=== PATIENT | female | born 1950 | race Caucasian/White ===

== ENCOUNTER 2016-07-04 22:19 | Inpatient (IN) | payer MEDICARE, MEDICAID ==
[~2016-07-04] VITALS: Ht 162.6 cm; Wt 76.7 kg
[~2016-07-04 22:19] MED LIST: ACET325T38 PO; AMIO100T4 PO; AMOX500T2 PO; CHOL10002 PO; CYAN100053 INJ; LEVO150T6 PO; LITH300C PO; LORA1TAB PO; MAGN-47 PO; OLAN10TA19 PO; ONDA4TAB11 PO; RISP3TAB PO; TRIH2TAB2 PO
[2016-07-04 22:43] LABS: BASOPHILS % (AUTO) 0 % (0-10); EOSINOPHILS % (AUTO) 0 % (0-10); LYMPHOCYTES # (AUTO) 0.8 X 10^3 (1.0-4.0); LYMPHOCYTES % (AUTO) 5 % (12-44); MEAN CORPUSCULAR HEMOGLOBIN 28 PG (25-34); MEAN CORPUSCULAR HGB CONC 32 G/DL (32-36); MEAN CORPUSCULAR VOLUME 86 FL (80-99); MEAN PLATELET VOLUME 9.7 FL (7.4-10.4); MONOCYTES # (AUTO) 0.8 X 10^3 (0.0-1.0); MONOCYTES % (AUTO) 5 % (0-12); NEUTROPHILS # (AUTO) 14.1 X 10^3 (1.8-7.8); NEUTROPHILS % (AUTO) 90 % (42-75); PLATELET COUNT 327 10^3/uL (130-400); RED BLOOD COUNT 4.19 10^6/uL (4.35-5.85); RED CELL DISTRIBUTION WIDTH 14.7 % (10.0-14.5); WHITE BLOOD COUNT 15.8 10^3/uL (4.3-11.0)
[2016-07-04 22:46] LABS: INR 1.1 (0.8-1.4); PROTHROMBIN TIME PATIENT 13.8 SEC (12.2-14.7)
[2016-07-04 22:56] LABS: ALANINE AMINOTRANSFERASE 15 U/L (0-55); ALBUMIN 3.4 G/DL (3.2-4.5); ANION GAP 8 MMOL/L (5-14); ASPARTATE AMINO TRANSFERASE 18 U/L (5-34); BILIRUBIN,TOTAL 0.6 MG/DL (0.1-1.0); BLOOD UREA NITROGEN 19 MG/DL (7-18); BUN/CREATININE RATIO 23; CALCIUM 8.4 MG/DL (8.5-10.1); CARBON DIOXIDE 25 MMOL/L (21-32); CHLORIDE 108 MMOL/L (98-107); CREATININE SERUM 0.84 MG/DL (0.60-1.30); GFR ESTIMATED > 60; GLUCOSE 119 MG/DL (70-105); POTASSIUM 3.8 MMOL/L (3.6-5.0); SODIUM 141 MMOL/L (135-145); TOTAL PROTEIN 6.2 G/DL (6.4-8.2)
[2016-07-04 23:24] LABS: BAND NEUTROPHILS 0 %; BASOPHILS % (MANUAL) 0 %; EOSINOPHILS % (MANUAL) 0 %; LYMPHOCYTES % (MANUAL) 10 %; NEUTROPHILS % (MANUAL) 88 %
[2016-07-04] MEDS ORDERED: CEFEPIME INJECTION 2,000 MG in NORMAL SALINE (BAXTER MINI) 50 ML IV ONE (23:30)
--- NOTE | 2016-07-05 | ED Respiratory ---
General Chief Complaint: Respiratory Problems Stated Complaint: SOA Nursing Triage Note: patient brought in by EMS with complaints of fever and SOA from [facility] Source: patient Exam Limitations: no limitations History of Present Illness Time seen by provider: 22:35 Initial Comments Elizabeth presents to the emergency room from the [facility] via EMS she was found to have a temperature of 101.3 and cough. She subjectively felt very warm upon arrival a measurable fever could not be obtained. She was recently dismissed from a psychiatric facility and has significant behavioral issues. She repeatedly refers to her 's suicide and her belief that "he is going to hot me for the rest of my days". She denies specific physical complaints. Coarse cough is noted. Allergies and Home Medications Allergies Coded Allergies: belladonna alkaloids (Verified Allergy, Mild, 10/11/14) meperidine (Verified Allergy, Mild, 10/11/14) Uncoded Allergies: pectin (Allergy, Mild, 10/11/14) Home Medications Acetaminophen 325 Mg Tablet 650 MG PO Q4H PRN PRN PAIN (Reported) TAKES 2 (325MG) TABLETS Amiodarone HCl 200 Mg Tablet 200 MG PO DAILY (Reported) Bisacodyl 5 Mg Tablet.dr 5 MG PO DAILY (Reported) Cholecalciferol 1,000 Unit Tab 2,000 UNIT PO DAILY (Reported) Clozapine 100 Mg Tablet 100 MG PO TID (Reported) Diphenhydramine HCl 25 Mg Capsule 25 MG PO PRN (Reported) Docusate Sodium 100 Mg Capsule 100 MG PO Q12H (Reported) Hyoscyamine Sulfate 0.125 Mg Tablet 0.125 MG PO Q12H (Reported) Levothyroxine Sodium 150 Mcg Tablet 150 MCG PO DAILY (Reported) Magnesium Hydroxide 400 Mg/5 Ml Oral.susp 30 ML PO DAILY PRN PRN CONSTIPATION ( Reported) Olanzapine 10 Mg Tablet 20 MG PO HS (Reported) Ondansetron 4 Mg Tab.rapdis 4 MG PO Q6H PRN PRN NAUSEA/VOMITING (Reported) Polyethylene Glycol 3350 17 Gm Powd.pack 17 GM PO DAILY (Reported) Trazodone HCl 50 Mg Tablet 50 MG PO HS (Reported) Trazodone HCl 50 Mg Tablet 50 MG PO HS (Reported) Trihexyphenidyl Hcl 2 Mg Tablet 2 MG PO TID (Reported) Constitutional: see HPI EENTM: no symptoms reported Respiratory: see HPI Cardiovascular: no symptoms reported Gastrointestinal: no symptoms reported Genitourinary: no symptoms reported Musculoskeletal: no symptoms reported Skin: no symptoms reported Psychiatric/Neurological: See HPI Hematologic/Lymphatic: No Symptoms Reported Past Atvvexm-Xksksa-Ezsgde Hx Patient Social History Alcohol Use: Denies Use Recreational Drug Use: No Smoking Status: Never a Smoker Recent Foreign Travel: No Contact w/Someone Who Travel: No Recent Infectious Disease Expo: No Recent Hopitalizations: No Physical Abuse Screen: No Sexual Abuse: No Immunizations Up To Date Tetanus Booster (TDap): Unknown Date of Pneumonia Vaccine: Feb 12, 2008 Surgeries HX Surgeries: No (no known surgeries) Respiratory Hx Respiratory Disorders: No Cardiovascular Hx Cardiac Disorders: Yes Cardiac Disorders: Atrial Fibrillation Neurological Hx Neurological Disorders: Yes (MENTAL RETARDATION, dysphagia) Neurological Disorders: Dementia, Parkinson's Disease Genitourinary Hx Genitourinary Disorders: Yes (INCONTINENCE WEARS ATTENDS, history of urinary tract infection) Gastrointestinal Hx Gastrointestinal Disorders: Yes Gastrointestinal Disorders: Chronic Constipation Musculoskeletal Hx Musculoskeletal Disorders: No Endocrine Hx Endocrine Disorders: Yes Endocrine Disorders: Hypothyroidsim HEENT HX ENT Disorders: No Cancer Hx Cancer: No Psychosocial Hx Psychiatric Problems: Yes Behavioral Health Disorders: Anxiety, Schizophrenia, Depression Integumentary HX Skin/Integumentary Disorder: No Blood Transfusions Hx Blood Disorders: No Adverse Reaction to a Blood Tr: No Family Medical History Family Medial History: Patient reports no known family medical history. Physical Exam Vital Signs Vital Sign - Last 12Hours 07/04/16 22:21 Temp 99.6 Pulse 84 Resp 20 B/P 129/99 Pulse Ox 96 O2 Delivery Nasal Cannula O2 Flow Rate 2 Capillary Refill : Less Than 3 Seconds General Appearance: WD/WN no apparent distress HEENT: PERRL/EOMI normal ENT inspection Neck: normal inspection Respiratory: lungs clear normal breath sounds no respiratory distress no accessory muscle use Cardiovascular: regular rate, rhythm no edema no murmur Gastrointestinal: normal bowel sounds non tender soft Extremities: normal inspection no pedal edema Neurologic/Psychiatric: enchilada maker II-XII nml as tested no motor/sensory deficits alert other (patient is perseverating about being haunted by her who committed suicide.) Skin: normal color warm/dry Progress/Results/Core Measures Results/Orders Lab Results Laboratory Tests Test 07/04/16 22:28 Range/Units Activated Partial Thromboplast Time 32 24-35 SEC Alanine Aminotransferase (ALT/SGPT) 15 0-55 U/L Albumin 3.4 3.2-4.5 G/DL Alkaline Phosphatase 105 40-136 U/L Anion Gap 8 5-14 MMOL/L Aspartate Amino Transf (AST/SGOT) 18 5-34 U/L BUN/Creatinine Ratio 23 Band Neutrophils 0 % Basophils # (Auto) 0.0 0.0-0.1 10^3/uL Basophils % (Manual) 0 % Basophils (%) (Auto) 0 0-10 % Blood Morphology Comment NORMAL Blood Urea Nitrogen 19 H 7-18 MG/DL Calcium Level 8.4 L 8.5-10.1 MG/DL Carbon Dioxide Level 25 21-32 MMOL/L Chloride Level 108 H 98-107 MMOL/L Creatinine 0.84 0.60-1.30 MG/DL Eosinophils # (Auto) 0.0 0.0-0.3 10^3/uL Eosinophils % (Manual) 0 % Eosinophils (%) (Auto) 0 0-10 % Estimat Glomerular Filtration Rate > 60 Glucose Level 119 H 70-105 MG/DL Hematocrit 36 35-52 % Hemoglobin 11.6 11.5-16.0 G/DL INR Comment 1.1 0.8-1.4 Lactic Acid Level 1.1 0.5-2.0 MMOL/L Lymphocytes # (Auto) 0.8 L 1.0-4.0 X 10^3 Lymphocytes % (Manual) 10 % Lymphocytes (%) (Auto) 5 L 12-44 % Mean Corpuscular Hemoglobin 28 25-34 PG Mean Corpuscular Hemoglobin Concent 32 32-36 G/DL Mean Corpuscular Volume 86 80-99 FL Mean Platelet Volume 9.7 7.4-10.4 FL Monocytes # (Auto) 0.8 0.0-1.0 X 10^3 Monocytes % (Manual) 2 % Monocytes (%) (Auto) 5 0-12 % Neutrophils # (Auto) 14.1 H 1.8-7.8 X 10^3 Neutrophils % (Manual) 88 % Neutrophils (%) (Auto) 90 H 42-75 % Platelet Count 327 130-400 10^3/uL Potassium Level 3.8 3.6-5.0 MMOL/L Prothrombin Time 13.8 12.2-14.7 SEC Red Blood Count 4.19 L 4.35-5.85 10^6/uL Red Cell Distribution Width 14.7 H 10.0-14.5 % Sodium Level 141 135-145 MMOL/L Total Bilirubin 0.6 0.1-1.0 MG/DL Total Protein 6.2 L 6.4-8.2 G/DL White Blood Count 15.8 H 4.3-11.0 10^3/uL Micro Results Microbiology 07/04/16 Influenza Types A,B Antigen (MILADYS) - Final, Complete My Orders Orders-NAHUN STUBBS MD Cbc With Automated Diff (07/04/16 22:35) Comprehensive Metabolic Panel (07/04/16 22:35) Lactic Acid Analyzer (07/04/16 22:35) Blood Culture (07/04/16 22:35) Sputum Culture (07/04/16 22:35) Ua Culture If Indicated (07/04/16 22:35) Protime With Inr (07/04/16 22:35) Partial Thromboplastin Time (07/04/16 22:35) Chest 1 View, Ap/Pa Only (07/04/16 22:35) O2 (07/04/16 22:35) Saline Lock/Iv-Start (07/04/16 22:35) Saline Lock/Iv-Start (07/04/16 22:35) Vital Signs Adult Sepsis Patie Q1HR (07/04/16 22:35) Remove Rings In Anticipation O (07/04/16 22:35) Influenza A And B Antigens (07/04/16 22:35) Manual Differential (07/04/16 22:28) Ekg Tracing (07/04/16 23:16) Cefepime Injection (Maxipime Injection) (07/04/16 23:30) [place] Level (07/04/16 23:56) Medications Given in ED Current Medications Medications Dose Ordered Sig/Ayde Route Start Time Stop Time Status Last Admin Dose Admin Cefepime HCl/ Sodium Chloride 50 ml @ 100 mls/hr ONCE ONCE IV 07/04/16 23:30 07/04/16 23:59 DC 07/04/16 23:36 100 MLS/HR Vital Signs/I&O Vital Sign - Last 12Hours 07/04/16 07/04/16 22:21 22:21 Temp 99.6 Pulse 84 Resp 20 B/P 129/99 Pulse Ox 96 96 O2 Delivery Nasal Cannula Nasal Cannula O2 Flow Rate 2 3 Blood Pressure Mean: 109 Progress Note : Progress Note Septic workup was pursued. Influenza screen was negative. Pneumonia was found on chest x-ray. Cefepime was initiated in the emergency room after blood cultures were drawn. Patient did not meet SIRS arterial for sepsis diagnosis. ECG Initial ECG Impression Date: Jul 04, 2016 Initial ECG Impression Time: 23:23 Initial ECG Rate: 80 Comment Sinus rhythm with artifact versus atrial fibrillation. QRS complexes are perfectly regular. Rhythm is likely sinus with artifact. No distinct ST elevation or depression. Diagnostic Imaging Diagonstic Imaging: Xray Plain Films/CT/US/NM/MRI: chest Comments Chest x-ray viewed by me. Report not yet available. Infiltrate in the right lower lung suggests pneumonia. Departure Communication Time/Spoke to Admitting Phy: 23:58 Communication Krystle Impression Impression: Primary Impression: Pneumonia Qualified Code: J18.1 - Lobar pneumonia, unspecified organism Disposition: ADMITTED INPATIENT Condition: Improved Decision to Admit Reason: Admit from ER (General) Decision to Admit/Date: Jul 04, 2016 Time/Decision to Admit Time: 23:30 Departure-Patient Inst. Referrals: ALBANIA RENTERIA DO (PCP) Primary Care Physician NAHUN STUBBS MD Jul 05, 2016 00:00
[2016-07-05] MEDS ORDERED: NS IV 1000 ML 1,000 ML ONE (00:47)
[2016-07-05] MEDS ORDERED: VANCOMYCIN 1 GM/NS 250 ML IVPB IV SCH ×2 (01:00)
[2016-07-05] MEDS ORDERED: ACETAMINOPHEN 500 MG TAB (TYLENOL) PO PRN (01:00)
[2016-07-05] MEDS: NS IV 1000 ML 1,000 ML IV SCH ×3 (01:10→20:58)
[2016-07-05] MEDS: LEVOFLOXACIN 750 MG/150 ML D5W (PRE-MIX) IV SCH (01:12)
[2016-07-05 01:30] LABS: BILIRUBIN,URINE NEGATIVE (NEGATIVE); KETONES,URINE NEGATIVE (NEGATIVE); LEUKOCYTE ESTERASE ,URINE NEGATIVE (NEGATIVE); NITRITE,URINE NEGATIVE (NEGATIVE); PH,URINE 6.5 (5-9); PROTEIN,URINE NEGATIVE (NEGATIVE); UROBILINOGEN,URINE NORMAL (NORMAL)
[2016-07-05 01:50] LABS: SQUAMOUS EPITHELIAL CELL,UR RARE /HPF
[2016-07-05] MEDS ORDERED: RT-ALBUTEROL/IPRATROPIUM 3 ML (DUONEB) VIAL INH PRN (02:30)
[2016-07-05 03:46] VITALS: BP 186/81
[2016-07-05] MEDS ORDERED: TRAZ-28 PO (04:19)
[2016-07-05] MEDS ORDERED: AMIO200T2 PO (04:19)
[2016-07-05] MEDS ORDERED: HYOS0.1216 PO (04:19)
[2016-07-05] MEDS ORDERED: DIPH25CA79 PO (04:19)
[2016-07-05] MEDS ORDERED: BISA5TAB8 PO (04:19)
[2016-07-05] MEDS ORDERED: DOCU-143 PO (04:19)
[2016-07-05] MEDS ORDERED: POLY17PO6 PO (04:19)
[2016-07-05] MEDS ORDERED: CLOZ100T7 PO (04:19)
[2016-07-05 04:37] LABS: BASOPHILS % (AUTO) 0 % (0-10); EOSINOPHILS % (AUTO) 0 % (0-10); LYMPHOCYTES # (AUTO) 1.1 X 10^3 (1.0-4.0); LYMPHOCYTES % (AUTO) 9 % (12-44); MEAN CORPUSCULAR HEMOGLOBIN 28 PG (25-34); MEAN CORPUSCULAR HGB CONC 32 G/DL (32-36); MEAN CORPUSCULAR VOLUME 86 FL (80-99); MEAN PLATELET VOLUME 9.3 FL (7.4-10.4); MONOCYTES # (AUTO) 0.8 X 10^3 (0.0-1.0); MONOCYTES % (AUTO) 6 % (0-12); NEUTROPHILS # (AUTO) 11.1 X 10^3 (1.8-7.8); NEUTROPHILS % (AUTO) 85 % (42-75); PLATELET COUNT 291 10^3/uL (130-400); RED BLOOD COUNT 3.96 10^6/uL (4.35-5.85); RED CELL DISTRIBUTION WIDTH 14.7 % (10.0-14.5)
[2016-07-05 05:05] LABS: ALANINE AMINOTRANSFERASE 11 U/L (0-55); ANION GAP 7 MMOL/L (5-14); ASPARTATE AMINO TRANSFERASE 15 U/L (5-34); BILIRUBIN,TOTAL 0.8 MG/DL (0.1-1.0); BLOOD UREA NITROGEN 17 MG/DL (7-18); BUN/CREATININE RATIO 21; CARBON DIOXIDE 22 MMOL/L (21-32); CHLORIDE 111 MMOL/L (98-107); GFR ESTIMATED > 60; GLUCOSE 90 MG/DL (70-105); POTASSIUM 3.5 MMOL/L (3.6-5.0); SODIUM 140 MMOL/L (135-145); TOTAL PROTEIN 5.6 G/DL (6.4-8.2)
[2016-07-05] MEDS ORDERED: CATHETER FLUSH 10 ML SYR IV PRN (07:45)
[2016-07-05 08:11] VITALS: BP 120/56
[2016-07-05] MEDS ORDERED: FLU TRIvalent (5 YOA+) 2016-17 (AFLURIA) 0.5 ML IM ONE (08:15)
--- NOTE | 2016-07-05 08:16 | Diagnostic Imaging Report ---
INDICATION: Fever, shortness of air. COMPARISON: 10/11/2014. FINDINGS: The right middle lobe and medial basilar infiltrate are new findings compatible with pneumonia. There is also some pneumonia in the suprahilar left upper lobe. IMPRESSION: New bilateral infiltrates compatible with pneumonia, greater right. Dictated by: Dictated on workstation # [id number]
[2016-07-05] MEDS ORDERED: LITH300C PO (08:59)
[2016-07-05] MEDS ORDERED: ACETAMINOPHEN 325 MG TABLET/CAPLET (TYLENOL) PO PRN (09:15)
[2016-07-05] MEDS ORDERED: RSP3T PO (09:15)
[2016-07-05] MEDS: CEFEPIME 2 GM/NS 50 ML IVPB IV SCH ×4 (09:52→20:57)
[2016-07-05] MEDS: ENOXAPARIN 40 MG/0.4 ML (LOVENOX) SYR SC SCH (09:52)
--- NOTE | 2016-07-05 09:57 | History & Physicial ---
History of Present Illness History of Present Illness Reason for visit/HPI patient is a resident of a [place] [facility]. Patient had fever running an elevated temperature and coughing congested. Patient sent out to the emergency room and chest x-ray shows pneumonia of right middle lobe and left upper lobe and medial right basilar infiltrate. Patient admitted. Patient has a history of schizophrenia. Patient recently discharged from psych unit and now in [place] [facility] Date of Admission Jul 05, 2016 at 00:03 I consulted on this patient on 07/05/16 09:54 Attending Physician Armando Renteria DO Admitting Physician Armando Renteria DO Consult Allergies and Home Medications Allergies Coded Allergies: belladonna alkaloids (Verified Allergy, Mild, 10/11/14) meperidine (Verified Allergy, Mild, 10/11/14) Uncoded Allergies: pectin (Allergy, Mild, 10/11/14) Home Medications Acetaminophen 325 Mg Tablet 650 MG PO Q4H PRN PRN PAIN (Reported) TAKES 2 (325MG) TABLETS Amiodarone HCl 200 Mg Tablet 200 MG PO DAILY (Reported) Bisacodyl 5 Mg Tablet.dr 5 MG PO DAILY (Reported) Cholecalciferol 1,000 Unit Tab 2,000 UNIT PO DAILY (Reported) Clozapine 100 Mg Tablet 100 MG PO TID (Reported) Diphenhydramine HCl 25 Mg Capsule 25 MG PO PRN (Reported) Docusate Sodium 100 Mg Capsule 100 MG PO Q12H (Reported) Hyoscyamine Sulfate 0.125 Mg Tablet 0.125 MG PO Q12H (Reported) Levothyroxine Sodium 150 Mcg Tablet 150 MCG PO DAILY (Reported) [place] Carbonate 300 Mg Capsule 300 MG PO BID (Reported) Magnesium Hydroxide 400 Mg/5 Ml Oral.susp 30 ML PO DAILY PRN PRN CONSTIPATION ( Reported) Olanzapine 10 Mg Tablet 20 MG PO HS (Reported) Ondansetron 4 Mg Tab.rapdis 4 MG PO Q6H PRN PRN NAUSEA/VOMITING (Reported) Polyethylene Glycol 3350 17 Gm Powd.pack 17 GM PO DAILY (Reported) Risperidone 3 Mg Tablet 3 MG PO BID (Reported) Trazodone HCl 50 Mg Tablet 50 MG PO HS (Reported) Trazodone HCl 50 Mg Tablet 50 MG PO HS (Reported) Trihexyphenidyl Hcl 2 Mg Tablet 2 MG PO TID (Reported) Past Bqvzpxj-Cwujqo-Aqmmhn Hx Patient Social History Alcohol Use: Denies Use Recreational Drug Use: No Smoking Status: Never a Smoker Physical Abuse Screen: No Sexual Abuse: No Recent Foreign Travel: No Contact w/other who traveled: No Recent Hopitalizations: No Recent Infectious Disease Expo: No Immunizations Up To Date Tetanus Booster (TDap): Unknown Date of Pneumonia Vaccine: Feb 12, 2008 Date of Influenza Vaccine: Apr 04, 2015 Surgeries HX Surgeries: No (no known surgeries) Respiratory Hx Respiratory Disorders: No Cardiovascular Hx Cardiovascular Disorders: Yes Cardiac Disorders: Atrial Fibrillation Neurological Hx Neurological Disorders: Yes (MENTAL RETARDATION, dysphagia) Neurological Disorders: Dementia, Parkinson's Disease Genitourinary Hx Genitourinary Disorders: Yes (INCONTINENCE WEARS ATTENDS, history of urinary tract infection) Gastrointestinal Hx Gastrointestinal Disorders: Yes Gastrointestinal Disorders: Chronic Constipation Musculoskeletal Hx Musculoskeletal Disorders: No Endocrine Hx Endocrine Disorders: Yes Endocrine Disorders: Hypothyroidsim HEENT HX ENT Disorders: No Cancer Hx Cancer: No Psychosocial Hx Psychiatric Problems: Yes Behavioral Health Disorders: Anxiety, Schizophrenia, Depression Integumentary HX Skin/Integumentary Disorder: No Blood Transfusions Hx Blood Disorders: No Adverse Reaction to a Blood Tr: No Family Medical History Family Hx: Patient reports no known family medical history. Constitutional: fever weakness EENTM: no symptoms reported Respiratory: cough Cardiovascular: no symptoms reported Gastrointestinal: no symptoms reported Genitourinary: no symptoms reported Physical Exam Vital Signs Vital Sign - Last 12Hours 07/04/16 22:21 Temp 99.6 Pulse 84 Resp 20 B/P 129/99 Pulse Ox 96 O2 Delivery Nasal Cannula O2 Flow Rate 2 Capillary Refill : Less Than 3 Seconds General Appearance: No Apparent Distress WD/WN Eyes: Bilateral Eye Normal Inspection HEENT: Normal ENT Inspection Neck: Normal Inspection Non Tender Respiratory: Chest Non Tender No Accessory Muscle Use No Respiratory Distress Cardiovascular: Regular Rate, Rhythm Gastrointestinal: Non Tender Soft Assessment/Plan Assessment and Plan pneumonia. Schizophrenia Clinical Quality Measures DVT/VTE Risk/Contraindication: Risk Factor Score Per Nursin RFS Level Per Nursing on Admit: 3=High ARMANDO RENTERIA DO Jul 05, 2016 09:57
[2016-07-05] MEDS ORDERED: KCL 10 MEQ TAB (MICRO K) PO NR (10:00)
[2016-07-05] MEDS: risperiDONE 1 MG (RisperDAL) TAB PO SCH ×2 (10:01→20:57)
[2016-07-05] MEDS: RT-ALBUTEROL/IPRATROPIUM 3 ML (DUONEB) VIAL INH SCH ×3 (10:25→20:09)
[2016-07-05] MEDS: LITHIUM CARBONATE 300 MG TABLET PO SCH ×2 (10:34→20:57)
[2016-07-05 12:00] VITALS: BP 132/68
[2016-07-05] MEDS: TRIHEXYPHENIDYL 2 MG (ARTANE) TAB PO SCH ×2 (13:13→20:57)
[2016-07-05] MEDS: cloZAPine 100 MG (CLOZARIL) TAB PO SCH ×2 (13:13→20:57)
[2016-07-05] MEDS: VANCOMYCIN 1 GM/NS 250 ML IVPB IV SCH ×2 (14:19)
[2016-07-05 16:03] VITALS: BP 101/49
[2016-07-05 20:12] VITALS: BP 115/56
[2016-07-05] MEDS: traZODone 50 MG (DESYREL) TAB PO SCH (20:57)
[2016-07-05] MEDS: OLANZapine 5 MG (ZyPREXA) TAB PO SCH (20:58)
[2016-07-05] MEDS ORDERED: LITHIUM CARBONATE 300 MG TABLET PO SCH (21:00)
[2016-07-05] MEDS ORDERED: risperiDONE 1 MG (RisperDAL) TAB PO SCH (21:00)
[2016-07-05] MEDS ORDERED: RISPERIDONE 3 MG PO SCH (21:00)
[2016-07-05] MEDS ORDERED: traZODone 50 MG (DESYREL) TAB PO SCH (21:00)
[2016-07-05] MEDS ORDERED: NON-FORMULARY MEDICATION 1 EA EA (Olanzapine 20 MG) PO SCH (21:00)
[2016-07-05 23:20] VITALS: BP 137/64
[2016-07-06] MEDS: LEVOFLOXACIN 750 MG/150 ML D5W (PRE-MIX) IV SCH (00:19)
[2016-07-06] MEDS: VANCOMYCIN 1 GM/NS 250 ML IVPB IV SCH ×2 (02:13)
[2016-07-06] MEDS: NS IV 1000 ML 1,000 ML IV SCH ×2 (03:01→16:48)
[2016-07-06 03:41] VITALS: BP 119/54
[2016-07-06 04:58] LABS: BASOPHILS % (AUTO) 0 % (0-10); EOSINOPHILS % (AUTO) 0 % (0-10); LYMPHOCYTES # (AUTO) 0.9 X 10^3 (1.0-4.0); LYMPHOCYTES % (AUTO) 12 % (12-44); MEAN CORPUSCULAR HEMOGLOBIN 27 PG (25-34); MEAN CORPUSCULAR HGB CONC 31 G/DL (32-36); MEAN CORPUSCULAR VOLUME 87 FL (80-99); MEAN PLATELET VOLUME 9.8 FL (7.4-10.4); MONOCYTES # (AUTO) 0.5 X 10^3 (0.0-1.0); MONOCYTES % (AUTO) 7 % (0-12); NEUTROPHILS # (AUTO) 6.1 X 10^3 (1.8-7.8); NEUTROPHILS % (AUTO) 81 % (42-75); PLATELET COUNT 267 10^3/uL (130-400); RED BLOOD COUNT 3.77 10^6/uL (4.35-5.85); RED CELL DISTRIBUTION WIDTH 14.8 % (10.0-14.5); WHITE BLOOD COUNT 7.5 10^3/uL (4.3-11.0)
[2016-07-06 05:19] LABS: ALANINE AMINOTRANSFERASE 13 U/L (0-55); ALBUMIN 2.9 G/DL (3.2-4.5); ANION GAP 8 MMOL/L (5-14); ASPARTATE AMINO TRANSFERASE 16 U/L (5-34); BILIRUBIN,TOTAL 0.3 MG/DL (0.1-1.0); BLOOD UREA NITROGEN 15 MG/DL (7-18); BUN/CREATININE RATIO 18; CALCIUM 8.3 MG/DL (8.5-10.1); CARBON DIOXIDE 23 MMOL/L (21-32); CHLORIDE 111 MMOL/L (98-107); CREATININE SERUM 0.85 MG/DL (0.60-1.30); GFR ESTIMATED > 60; GLUCOSE 113 MG/DL (70-105); POTASSIUM 3.8 MMOL/L (3.6-5.0); SODIUM 142 MMOL/L (135-145); TOTAL PROTEIN 5.5 G/DL (6.4-8.2)
[2016-07-06] MEDS: LEVOTHYROXINE 150 MCG (LEVOTHROID) TAB PO SCH (06:18)
[2016-07-06 08:00] VITALS: BP 181/73
--- NOTE | 2016-07-06 08:19 | Progress Note (SOAP) ---
Subjective Subjective/Events-last exam pneumonia. Schizophrenia. Patient appears to be breathing better. All patient states that she this is a psych unit Objective Exam Vital Signs Date Time Temp Pulse Resp B/P Pulse Ox O2 Delivery O2 Flow Rate FiO2 07/06/16 03:41 97.6 69 18 119/54 96 Nasal Cannula 3.00 07/05/16 23:20 98.7 69 20 137/64 96 Nasal Cannula 3.00 07/05/16 21:00 Nasal Cannula 3.50 07/05/16 20:12 98.9 67 18 115/56 92 Nasal Cannula 3.50 07/05/16 20:09 92 2.00 07/05/16 16:03 98.4 66 18 101/49 99 Nasal Cannula 3.50 07/05/16 14:56 98 3.00 07/05/16 12:00 99.6 88 20 132/68 97 Nasal Cannula 3.50 07/05/16 10:25 92 3.00 07/05/16 09:00 97 Nasal Cannula 3.00 I & O 07/06/16 07:00 Intake Total 3510 ml Output Total 3650 ml Balance -140 ml Capillary Refill : Less Than 3 Seconds General Appearance: No Apparent Distress HEENT: Normal ENT Inspection Neck: Normal Inspection Respiratory: Normal Breath Sounds No Accessory Muscle Use Cardiovascular: Regular Rate, Rhythm Gastrointestinal: non tender soft Results Lab Laboratory Tests 07/06/16 04:20 Laboratory Tests 07/06/16 04:20: Alanine Aminotransferase (ALT/SGPT) 13, Albumin 2.9L, Alkaline Phosphatase 94, Anion Gap 8, Aspartate Amino Transf (AST/SGOT) 16, BUN/Creatinine Ratio 18, Basophils # (Auto) 0.0, Basophils (%) (Auto) 0, Blood Urea Nitrogen 15, Calcium Level 8.3L, Carbon Dioxide Level 23, Chloride Level 111H, Creatinine 0.85, Eosinophils # (Auto) 0.0, Eosinophils (%) (Auto) 0, Estimat Glomerular Filtration Rate > 60, Glucose Level 113H, Hematocrit 33L, Hemoglobin 10.3L, Lymphocytes # (Auto) 0.9L, Lymphocytes (%) (Auto) 12, Mean Corpuscular Hemoglobin 27, Mean Corpuscular Hemoglobin Concent 31L, Mean Corpuscular Volume 87, Mean Platelet Volume 9.8, Monocytes # (Auto) 0.5, Monocytes (%) (Auto) 7, Neutrophils # (Auto) 6.1, Neutrophils (%) (Auto) 81H, Platelet Count 267, Potassium Level 3.8, Red Blood Count 3.77L, Red Cell Distribution Width 14.8H, Sodium Level 142, Total Bilirubin 0.3, Total Protein 5.5L, White Blood Count 7.5 Microbiology 07/04/16 Blood Culture - Preliminary, Resulted No growth 07/04/16 Influenza Types A,B Antigen (MILADYS) - Final, Complete Assessment/Plan Assessment/Plan Assess & Plan/Chief Complaint pneumonia. Schizophrenia. White blood cell count better at 7500 hemoglobin 10 hematocrit 33 Diagnosis/Problems: Clinical Quality Measures DVT/VTE Risk/Contraindication: Risk Factor Score Per Nursin RFS Level Per Nursing on Admit: 3=High ALBANIA RENTERIA DO Jul 06, 2016 08:19
[2016-07-06] MEDS ORDERED: BISA10SU6 RC (08:32)
[2016-07-06] MEDS: TRIHEXYPHENIDYL 2 MG (ARTANE) TAB PO SCH ×3 (09:07→20:47)
[2016-07-06] MEDS: cloZAPine 100 MG (CLOZARIL) TAB PO SCH ×3 (09:07→20:47)
[2016-07-06] MEDS: CEFEPIME 2 GM/NS 50 ML IVPB IV SCH ×4 (09:07→20:47)
[2016-07-06] MEDS: AMIODARONE 200 MG (CORDARONE) TAB PO SCH (09:07)
[2016-07-06] MEDS: ENOXAPARIN 40 MG/0.4 ML (LOVENOX) SYR SC SCH (09:07)
[2016-07-06] MEDS: RT-ALBUTEROL/IPRATROPIUM 3 ML (DUONEB) VIAL INH SCH ×3 (09:40→23:52)
--- NOTE | 2016-07-06 09:56 | Diagnostic Imaging Report ---
INDICATION: Pneumonia. PA and lateral chest. There has been some interval improvement of the previously seen infiltrate at the right lung base. There are no effusions. Heart is not enlarged. IMPRESSION: Improving right basilar pneumonia. Dictated by: Dictated on workstation # [id number]
[2016-07-06 10:52] VITALS: BP 134/74
[2016-07-06 12:00] VITALS: BP_SYST 140; BP_SYST 163; BP_DIAS 101; BP_DIAS 64
[2016-07-06] MEDS ORDERED: TROUGH ORDER-PHARMACY XX NR (14:00)
[2016-07-06 16:00] VITALS: BP 134/85
[2016-07-06] MEDS ORDERED: ALPRAZolam 0.25 MG (XANAX) TAB PO PRN (16:45)
[2016-07-06 20:00] VITALS: BP 135/65
[2016-07-06] MEDS: traZODone 50 MG (DESYREL) TAB PO SCH (20:47)
[2016-07-06] MEDS: OLANZapine 5 MG (ZyPREXA) TAB PO SCH (20:47)
[2016-07-06] MEDS ORDERED: HALOPERIDOL 5 MG/ML (HALDOL) AMP ONE ×2 (21:18→23:34)
[2016-07-06] MEDS ORDERED: HALOPERIDOL 5 MG/ML (HALDOL) AMP IM ONE ×2 (21:30→23:45)
[2016-07-07] VITALS: BP 179/77
[2016-07-07] MEDS: LEVOFLOXACIN 750 MG/150 ML D5W (PRE-MIX) IV SCH (01:03)
[2016-07-07] MEDS: NS IV 1000 ML 1,000 ML IV SCH ×2 (03:00→05:27)
[2016-07-07] MEDS ORDERED: LORazepam INJ 2 MG/ML (ATIVAN) VIAL IV PRN (03:00)
[2016-07-07 04:15] VITALS: BP 152/77
[2016-07-07] MEDS: LEVOTHYROXINE 150 MCG (LEVOTHROID) TAB PO SCH (06:10)
[2016-07-07 06:30] LABS: MEAN PLATELET VOLUME 9.5 FL (7.4-10.4); RED BLOOD COUNT 4.9 10^6/uL (4.35-5.85); RED CELL DISTRIBUTION WIDTH 14.1 % (10.0-14.5)
[2016-07-07 07:01] LABS: ANION GAP 13 MMOL/L (5-14); BLOOD UREA NITROGEN 15 MG/DL (7-18); BUN/CREATININE RATIO 19; CALCIUM 9.4 MG/DL (8.5-10.1); CARBON DIOXIDE 25 MMOL/L (21-32); CHLORIDE 105 MMOL/L (98-107); GFR ESTIMATED > 60; GLUCOSE 84 MG/DL (70-105); POTASSIUM 3.9 MMOL/L (3.6-5.0); SODIUM 143 MMOL/L (135-145)
[2016-07-07] MEDS: RT-ALBUTEROL/IPRATROPIUM 3 ML (DUONEB) VIAL INH SCH (07:03)
--- NOTE | 2016-07-07 07:58 | Progress Note (SOAP) ---
Subjective Subjective/Events-last exam patient feeling better today. Patient wants to go back to senior care. Patient is coherent today. Yesterday's chest x-ray shows pneumonia resolving. Plan to discharge today. Patient wants to eat pizza with the sister. White blood cell count 9000. Hemoglobin 13.3 hematocrit 41. Merrick worked beautifully. Nurse to call me at 11 a.m. for discharge today Objective Exam Vital Signs Date Time Temp Pulse Resp B/P Pulse Ox O2 Delivery O2 Flow Rate FiO2 07/07/16 07:03 94 07/07/16 04:15 97.8 82 18 152/77 95 Room Air 07/07/16 00:00 98.1 77 20 179/77 94 Room Air 07/06/16 21:00 Nasal Cannula 3.50 07/06/16 20:00 98.5 81 18 135/65 95 Room Air 07/06/16 16:00 98.9 80 22 134/85 95 Nasal Cannula 3.50 07/06/16 14:45 95 2.00 07/06/16 12:00 97.3 72 22 163/64 94 Nasal Cannula 3.50 07/06/16 10:52 134/74 07/06/16 08:00 97.9 68 20 181/73 94 Nasal Cannula 3.50 I & O 07/07/16 07:00 Intake Total 4390 ml Output Total 9400 ml Balance -5010 ml Capillary Refill : Less Than 3 Seconds General Appearance: No Apparent Distress WD/WN HEENT: Normal ENT Inspection Neck: Normal Inspection Respiratory: Chest Non Tender Lungs Clear Normal Breath Sounds No Accessory Muscle Use No Respiratory Distress Cardiovascular: Regular Rate, Rhythm No Murmur Results Lab Laboratory Tests 07/07/16 05:31 Laboratory Tests 07/07/16 05:31: Anion Gap 13, BUN/Creatinine Ratio 19, Blood Urea Nitrogen 15, Calcium Level 9.4 , Carbon Dioxide Level 25, Chloride Level 105, Creatinine 0.80, Estimat Glomerular Filtration Rate > 60, Glucose Level 84, Hematocrit 41, Hemoglobin 13.3#, Mean Corpuscular Hemoglobin 27, Mean Corpuscular Hemoglobin Concent 32, Mean Corpuscular Volume 84, Mean Platelet Volume 9.5, Platelet Count 403H, Potassium Level 3.9, Red Blood Count 4.90, Red Cell Distribution Width 14.1, Sodium Level 143, White Blood Count 9.0 Microbiology 07/04/16 Blood Culture - Preliminary, Resulted No growth 07/04/16 Influenza Types A,B Antigen (MILADYS) - Final, Complete Assessment/Plan Assessment/Plan Assess & Plan/Chief Complaint pneumonia. Schizophrenia. White blood cell count better at 7500 hemoglobin 10 hematocrit 33. . 07/07/16. Pneumonia. Schizophrenia. White blood cell count 90,000. Patient acting good this morning. Patient wants back to the senior care. Diagnosis/Problems: Clinical Quality Measures DVT/VTE Risk/Contraindication: Risk Factor Score Per Nursin RFS Level Per Nursing on Admit: 3=High ALBANIA RENTERIA DO Jul 07, 2016 07:58
[2016-07-07] MEDS: CEFEPIME 2 GM/NS 50 ML IVPB IV SCH ×2 (08:48)
[2016-07-07] MEDS: cloZAPine 100 MG (CLOZARIL) TAB PO SCH ×2 (08:49→13:34)
[2016-07-07] MEDS: AMIODARONE 200 MG (CORDARONE) TAB PO SCH (08:49)
[2016-07-07] MEDS: ENOXAPARIN 40 MG/0.4 ML (LOVENOX) SYR SC SCH (08:49)
[2016-07-07 08:51] VITALS: BP 187/78
[2016-07-07] MEDS: TRIHEXYPHENIDYL 2 MG (ARTANE) TAB PO SCH ×2 (09:02→13:34)
[2016-07-07] MEDS ORDERED: LEVO500T2 PO (11:09)
[2016-07-07 11:41] VITALS: BP 116/56
[2016-07-07 14:16] VITALS: BP 116/56
--- NOTE | 2016-07-09 07:28 | Discharge Summary ---
Diagnosis/Chief Complaint Date of Admission Jul 05, 2016 at 00:03 Date of Discharge Jul 07, 2016 at 14:20 Discharge Date: Admission Diagnosis Admission Diagnosis pneumonia. Schizophrenia Discharge Diagnosis lobar pneumonia. Atrial fibrillation. Schizophrenia. Anxiety disorder. Major depressive disorder. Intellectual disability. DO NOT RESUSCITATE.. Parkinson disease. Hypothyroid Reason Hospital Visit patient is a resident of a assisted. Patient had fever running an elevated temperature and coughing congested. Patient sent out to the emergency room and chest x-ray shows pneumonia of right middle lobe and left upper lobe and medial right basilar infiltrate. Patient admitted. Patient has a history of schizophrenia. Patient recently discharged from psych unit and now in assisted Discharge Summary Discharge Physical Examination Allergies: Coded Allergies: belladonna alkaloids (Verified Allergy, Mild, 10/11/14) meperidine (Verified Allergy, Mild, 10/11/14) Uncoded Allergies: pectin (Allergy, Mild, 10/11/14) Vitals & I&Os Vital Signs Date Time Temp Pulse Resp B/P Pulse Ox O2 Delivery O2 Flow Rate FiO2 07/07/16 14:16 75 12 116/56 94 3.50 07/07/16 11:42 Room Air 07/07/16 11:41 97.9 Hospital Course patient in hospital improved. Labs (last 24 hrs) Laboratory Tests 07/04/16 22:28: Activated Partial Thromboplast Time 32, Alanine Aminotransferase (ALT/SGPT) 15, Albumin 3.4, Alkaline Phosphatase 105, Anion Gap 8, Aspartate Amino Transf (AST/ SGOT) 18, BUN/Creatinine Ratio 23, Band Neutrophils 0, Basophils # (Auto) 0.0, Basophils % (Manual) 0, Basophils (%) (Auto) 0, Blood Morphology Comment NORMAL , Blood Urea Nitrogen 19H, Calcium Level 8.4L, Carbon Dioxide Level 25, Chloride Level 108H, Creatinine 0.84, Eosinophils # (Auto) 0.0, Eosinophils % ( Manual) 0, Eosinophils (%) (Auto) 0, Estimat Glomerular Filtration Rate > 60, Glucose Level 119H, Hematocrit 36, Hemoglobin 11.6, INR Comment 1.1, Lactic Acid Level 1.1, [place] Level <0.1L, Lymphocytes # (Auto) 0.8L, Lymphocytes % ( Manual) 10, Lymphocytes (%) (Auto) 5L, Mean Corpuscular Hemoglobin 28, Mean Corpuscular Hemoglobin Concent 32, Mean Corpuscular Volume 86, Mean Platelet Volume 9.7, Monocytes # (Auto) 0.8, Monocytes % (Manual) 2, Monocytes (%) (Auto ) 5, Neutrophils # (Auto) 14.1H, Neutrophils % (Manual) 88, Neutrophils (%) ( Auto) 90H, Platelet Count 327, Potassium Level 3.8, Prothrombin Time 13.8, Red Blood Count 4.19L, Red Cell Distribution Width 14.7H, Sodium Level 141, Total Bilirubin 0.6, Total Protein 6.2L, White Blood Count 15.8H 07/05/16 01:10: Urine Bacteria NEGATIVE, Urine Bilirubin NEGATIVE, Urine Casts NONE, Urine Clarity CLEAR, Urine Color YELLOW, Urine Crystals NONE, Urine Culture Indicated NO, Urine Glucose (UA) NEGATIVE, Urine Ketones NEGATIVE, Urine Leukocyte Esterase NEGATIVE, Urine Mucus SMALLH, Urine Nitrite NEGATIVE, Urine Protein NEGATIVE, Urine RBC NONE, Urine RBC (Auto) NEGATIVE, Urine Specific [place] 1.015L, Urine Squamous Epithelial Cells RARE, Urine Urobilinogen NORMAL, Urine WBC NONE, Urine pH 6.5 07/05/16 04:00: Alanine Aminotransferase (ALT/SGPT) 11, Albumin 3.0L, Alkaline Phosphatase 98, Anion Gap 7, Aspartate Amino Transf (AST/SGOT) 15, BUN/Creatinine Ratio 21, Basophils # (Auto) 0.0, Basophils (%) (Auto) 0, Blood Urea Nitrogen 17, Calcium Level 8.0L, Carbon Dioxide Level 22, Chloride Level 111H, Creatinine 0.80, Eosinophils # (Auto) 0.0, Eosinophils (%) (Auto) 0, Estimat Glomerular Filtration Rate > 60, Glucose Level 90, Hematocrit 34L, Hemoglobin 10.9L, Lymphocytes # (Auto) 1.1, Lymphocytes (%) (Auto) 9L, Mean Corpuscular Hemoglobin 28, Mean Corpuscular Hemoglobin Concent 32, Mean Corpuscular Volume 86, Mean Platelet Volume 9.3, Monocytes # (Auto) 0.8, Monocytes (%) (Auto) 6, Neutrophils # (Auto) 11.1H, Neutrophils (%) (Auto) 85H, Platelet Count 291, Potassium Level 3.5L, Red Blood Count 3.96L, Red Cell Distribution Width 14.7H, Sodium Level 140, Total Bilirubin 0.8, Total Protein 5.6L, White Blood Count 13.0H, Thyroid Stimulating Hormone (TSH) 0.72 07/06/16 04:20: Alanine Aminotransferase (ALT/SGPT) 13, Albumin 2.9L, Alkaline Phosphatase 94, Anion Gap 8, Aspartate Amino Transf (AST/SGOT) 16, BUN/Creatinine Ratio 18, Basophils # (Auto) 0.0, Basophils (%) (Auto) 0, Blood Urea Nitrogen 15, Calcium Level 8.3L, Carbon Dioxide Level 23, Chloride Level 111H, Creatinine 0.85, Eosinophils # (Auto) 0.0, Eosinophils (%) (Auto) 0, Estimat Glomerular Filtration Rate > 60, Glucose Level 113H, Hematocrit 33L, Hemoglobin 10.3L, Lymphocytes # (Auto) 0.9L, Lymphocytes (%) (Auto) 12, Mean Corpuscular Hemoglobin 27, Mean Corpuscular Hemoglobin Concent 31L, Mean Corpuscular Volume 87, Mean Platelet Volume 9.8, Monocytes # (Auto) 0.5, Monocytes (%) (Auto) 7, Neutrophils # (Auto) 6.1, Neutrophils (%) (Auto) 81H, Platelet Count 267, Potassium Level 3.8, Red Blood Count 3.77L, Red Cell Distribution Width 14.8H, Sodium Level 142, Total Bilirubin 0.3, Total Protein 5.5L, White Blood Count 7.5 07/07/16 05:31: Anion Gap 13, BUN/Creatinine Ratio 19, Blood Urea Nitrogen 15, Calcium Level 9.4 , Carbon Dioxide Level 25, Chloride Level 105, Creatinine 0.80, Estimat Glomerular Filtration Rate > 60, Glucose Level 84, Hematocrit 41, Hemoglobin 13.3#, Mean Corpuscular Hemoglobin 27, Mean Corpuscular Hemoglobin Concent 32, Mean Corpuscular Volume 84, Mean Platelet Volume 9.5, Platelet Count 403H, Potassium Level 3.9, Red Blood Count 4.90, Red Cell Distribution Width 14.1, Sodium Level 143, White Blood Count 9.0 Microbiology 07/04/16 Blood Culture - Preliminary, Resulted No growth 07/04/16 Influenza Types A,B Antigen ([facility]) - Final, Complete Pending Labs Microbiology Date/Time Source Procedure Growth Status 07/04/16 23:10 Peripheral Lt Hand Blood Culture - Preliminary No growth Resulted 07/04/16 23:00 Peripheral Rt Hand Blood Culture - Preliminary No growth Resulted 07/04/16 23:10 Nasopharynx Influenza Types A,B Antigen ([facility]) - Final Complete Laboratory Tests 07/04/16 22:28: Activated Partial Thromboplast Time 32, Alanine Aminotransferase (ALT/SGPT) 15, Albumin 3.4, Alkaline Phosphatase 105, Anion Gap 8, Aspartate Amino Transf (AST/ SGOT) 18, BUN/Creatinine Ratio 23, Band Neutrophils 0, Basophils # (Auto) 0.0, Basophils % (Manual) 0, Basophils (%) (Auto) 0, Blood Morphology Comment NORMAL , Blood Urea Nitrogen 19, Calcium Level 8.4, Carbon Dioxide Level 25, Chloride Level 108, Creatinine 0.84, Eosinophils # (Auto) 0.0, Eosinophils % (Manual) 0, Eosinophils (%) (Auto) 0, Estimat Glomerular Filtration Rate > 60, Glucose Level 119, Hematocrit 36, Hemoglobin 11.6, INR Comment 1.1, Lactic Acid Level 1.1, [place] Level <0.1, Lymphocytes # (Auto) 0.8, Lymphocytes % (Manual) 10, Lymphocytes (%) (Auto) 5, Mean Corpuscular Hemoglobin 28, Mean Corpuscular Hemoglobin Concent 32, Mean Corpuscular Volume 86, Mean Platelet Volume 9.7, Monocytes # (Auto) 0.8, Monocytes % (Manual) 2, Monocytes (%) (Auto) 5, Neutrophils # (Auto) 14.1, Neutrophils % (Manual) 88, Neutrophils (%) (Auto) 90 , Platelet Count 327, Potassium Level 3.8, Prothrombin Time 13.8, Red Blood Count 4.19, Red Cell Distribution Width 14.7, Sodium Level 141, Total Bilirubin 0.6, Total Protein 6.2, White Blood Count 15.8 07/05/16 01:10: Urine Bacteria NEGATIVE, Urine Bilirubin NEGATIVE, Urine Casts NONE, Urine Clarity CLEAR, Urine Color YELLOW, Urine Crystals NONE, Urine Culture Indicated NO, Urine Glucose (UA) NEGATIVE, Urine Ketones NEGATIVE, Urine Leukocyte Esterase NEGATIVE, Urine Mucus SMALL, Urine Nitrite NEGATIVE, Urine Protein NEGATIVE, Urine RBC NONE, Urine RBC (Auto) NEGATIVE, Urine Specific [place] 1.015, Urine Squamous Epithelial Cells RARE, Urine Urobilinogen NORMAL, Urine WBC NONE, Urine pH 6.5 07/05/16 04:00: Alanine Aminotransferase (ALT/SGPT) 11, Albumin 3.0, Alkaline Phosphatase 98, Anion Gap 7, Aspartate Amino Transf (AST/SGOT) 15, BUN/Creatinine Ratio 21, Basophils # (Auto) 0.0, Basophils (%) (Auto) 0, Blood Urea Nitrogen 17, Calcium Level 8.0, Carbon Dioxide Level 22, Chloride Level 111, Creatinine 0.80, Eosinophils # (Auto) 0.0, Eosinophils (%) (Auto) 0, Estimat Glomerular Filtration Rate > 60, Glucose Level 90, Hematocrit 34, Hemoglobin 10.9, [place] Level [Pending], Lymphocytes # (Auto) 1.1, Lymphocytes (%) (Auto) 9, Mean Corpuscular Hemoglobin 28, Mean Corpuscular Hemoglobin Concent 32, Mean Corpuscular Volume 86, Mean Platelet Volume 9.3, Monocytes # (Auto) 0.8, Monocytes (%) (Auto) 6, Neutrophils # (Auto) 11.1, Neutrophils (%) (Auto) 85, Platelet Count 291, Potassium Level 3.5, Red Blood Count 3.96, Red Cell Distribution Width 14.7, Sodium Level 140, Total Bilirubin 0.8, Total Protein 5.6, White Blood Count 13.0, Thyroid Stimulating Hormone (TSH) 0.72 07/06/16 04:20: Alanine Aminotransferase (ALT/SGPT) 13, Albumin 2.9, Alkaline Phosphatase 94, Anion Gap 8, Aspartate Amino Transf (AST/SGOT) 16, BUN/Creatinine Ratio 18, Basophils # (Auto) 0.0, Basophils (%) (Auto) 0, Blood Urea Nitrogen 15, Calcium Level 8.3, Carbon Dioxide Level 23, Chloride Level 111, Creatinine 0.85, Eosinophils # (Auto) 0.0, Eosinophils (%) (Auto) 0, Estimat Glomerular Filtration Rate > 60, Glucose Level 113, Hematocrit 33, Hemoglobin 10.3, Lymphocytes # (Auto) 0.9, Lymphocytes (%) (Auto) 12, Mean Corpuscular Hemoglobin 27, Mean Corpuscular Hemoglobin Concent 31, Mean Corpuscular Volume 87, Mean Platelet Volume 9.8, Monocytes # (Auto) 0.5, Monocytes (%) (Auto) 7, Neutrophils # (Auto) 6.1, Neutrophils (%) (Auto) 81, Platelet Count 267, Potassium Level 3.8, Red Blood Count 3.77, Red Cell Distribution Width 14.8, Sodium Level 142, Total Bilirubin 0.3, Total Protein 5.5, White Blood Count 7.5 07/07/16 05:31: Anion Gap 13, BUN/Creatinine Ratio 19, Blood Urea Nitrogen 15, Calcium Level 9.4 , Carbon Dioxide Level 25, Chloride Level 105, Creatinine 0.80, Estimat Glomerular Filtration Rate > 60, Glucose Level 84, Hematocrit 41, Hemoglobin 13.3, Mean Corpuscular Hemoglobin 27, Mean Corpuscular Hemoglobin Concent 32, Mean Corpuscular Volume 84, Mean Platelet Volume 9.5, Platelet Count 403, Potassium Level 3.9, Red Blood Count 4.90, Red Cell Distribution Width 14.1, Sodium Level 143, White Blood Count 9.0 Radiology Reviewed chest x-ray 07/04 Bilateral infiltrates. Chest x-ray 07/06. Improving right basilar pneumonia Discharge Home Medications: Active Scripts Active Levaquin (Levofloxacin) 500 Mg Tablet 500 Mg PO DAILY 5 Days Reported Trazodone HCl 50 Mg Tablet 50 Mg PO HS PRN Miralax (Polyethylene Glycol 3350) 17 Gm Powd.pack 17 Gm PO DAILY PRN Hyoscyamine Sulfate 0.125 Mg Tablet 0.125 Mg PO Q12H PRN Bisacodyl 5 Mg Tablet.dr 10 Mg PO DAILY PRN Colace (Docusate Sodium) 100 Mg Capsule 100 Mg PO Q12H PRN Benadryl (Diphenhydramine HCl) 25 Mg Capsule 50 Mg PO Q6H PRN Clozapine 100 Mg Tablet 100 Mg PO TID Amiodarone HCl 200 Mg Tablet 200 Mg PO DAILY Trazodone HCl 50 Mg Tablet 50 Mg PO HS Tylenol (Acetaminophen) 325 Mg Tablet 650 Mg PO Q4H PRN TAKES 2 (325MG) TABLETS Ondansetron Odt (Ondansetron) 4 Mg Tab.rapdis 4 Mg PO Q6H PRN Milk Of Magnesia (Magnesium Hydroxide) 400 Mg/5 Ml Oral.susp 30 Ml PO DAILY PRN Vitamin D3 Tablet (Cholecalciferol) 1,000 Unit Tab 2,000 Unit PO DAILY Trihexyphenidyl Hcl 2 Mg Tablet 2 Mg PO TID Levothyroxine Sodium 150 Mcg Tablet 150 Mcg PO DAILY Olanzapine 10 Mg Tablet 20 Mg PO HS Instructions to patient/family Please see electonic discharge instructions given to patient. Clinical Quality Measures DVT/VTE Risk/Contraindication: Risk Factor Score Per Nursin RFS Level Per Nursing on Admit: 3=High [place] RENTERIA DO Jul 09, 2016 07:28
[2016-07-24] MEDS ORDERED: CEFD300C3 PO (08:36)
== END 2016-07-07 14:20 | DRG 195 ==
LOC: EDUNIT# 22:19 → ER 22:20 → 4TH 07-05 00:03
PROVIDERS: ADMIT Family Medicine; ATTEND Family Medicine
DX: J18.1 Lobar pneumonia, unspecified organism (principal); I48.91 Unspecified atrial fibrillation; F20.9 Schizophrenia, unspecified; F41.9 Anxiety disorder, unspecified; F32.9 Major depressive disorder, single episode, unspecified; F79 Unspecified intellectual disabilities; R13.10 Dysphagia, unspecified; F03.90 Unspecified dementia, unspecified severity, without behavioral disturbance, psychotic disturbance, mood disturbance, and anxiety; Z66 Do not resuscitate; G20 Parkinson's disease; E03.9 Hypothyroidism, unspecified; R32 Unspecified urinary incontinence; K59.09 Other constipation; Z23 Encounter for immunization
CPT/HCPCS: 36415; 71010; 71020; 80048; 80053; 80178; 81000; 83605; 84443; 85007; 85025; 85027; 85610; 85730; 87040; 87804; 93005; 94640; 94664; 94760; 96365

== ENCOUNTER 2016-07-19 00:54 | Inpatient (IN) | payer MEDICARE, MEDICAID ==
[~2016-07-19] VITALS: Ht 170.2 cm; Wt 81.6 kg
[~2016-07-19 00:54] MED LIST changes: +AMIO200T2 PO; +BISA10SU6 RC; +BISA5TAB8 PO; +CLOZ100T7 PO; +DIPH25CA79 PO; +DOCU-143 PO; +HYOS0.1216 PO; +LEVO500T2 PO; +POLY17PO6 PO; +RSP3T PO; +TRAZ-28 PO
--- OUTSIDE RECORDS SUMMARY | 2016-07-19 01:01 | XMS REPORT | Continuity of Care Document ---
Author Author [facility] Address Unknown Phone Unavailable Allergies Active Description Code Type Severity Reaction Onset Reported/Identified Relationship to Patient Clinical Status Yes *MRSA Miscellaneous Allergy N/A N/A 06/21/2013 Yes belladonna alkaloids [id number] Drug Allergy Mild N/A 10/11/2014 Yes meperidine [id number] Drug Allergy Mild N/A 10/11/2014 Yes pectin pectin Mild N/A 10/11/2014 Medications Problems Date Dx Coded Attending Type Code Diagnosis Diagnosed By 05/06/1599 KATIE WATSON, TRICIA Zimmerman Ot F20.9 SCHIZOPHRENIA, UNSPECIFIED 05/06/1599 KATIE WATSON, TRICIA Zimmerman Ot L84 CORNS AND CALLOSITIES 01/24/2008 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 01/24/2008 300.00 AN ANXIETY UNSPEC 01/24/2008 311 MO DEPRESSIVE DISORDER NOS 01/24/2008 317 MILD MENTAL RETARDATION 01/24/2008 ROCHELLE VILLAFANA DO 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 01/24/2008 ROCHELLE VILLAFANA DO 300.00 AN ANXIETY UNSPEC 01/24/2008 ROCHELLE VILLAFANA DO 311 MO DEPRESSIVE DISORDER NOS 01/24/2008 ROCHELLE VILLAFANA DO 317 MILD MENTAL RETARDATION 01/24/2008 ROCHELLE VILLAFANA DO 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 01/24/2008 ROCHELLE VILLAFANA DO F 300.00 AN ANXIETY UNSPEC 01/24/2008 ROCHELLE VILLAFANA DO F 311 MO DEPRESSIVE DISORDER NOS 01/24/2008 ROCHELLE VILLAFANA DO F 317 MILD MENTAL RETARDATION 01/24/2008 ROCHELLE VILLAFANA DO F 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 01/24/2008 ROCHELLE VILLAFANA DO F 300.00 AN ANXIETY UNSPEC 01/24/2008 ROCHELLE VILLAFANA DO F 311 MO DEPRESSIVE DISORDER NOS 01/24/2008 ROCHELLE VILLAFANA DO F 317 MILD MENTAL RETARDATION 01/24/2008 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 01/24/2008 300.00 AN ANXIETY UNSPEC 01/24/2008 311 MO DEPRESSIVE DISORDER NOS 01/24/2008 317 MILD MENTAL RETARDATION 01/24/2008 ROCHELLE VILLAFANA DO 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 01/24/2008 ROCHELLE VILLAFANA DO 300.00 AN ANXIETY UNSPEC 01/24/2008 ROCHELLE VILLAFANA DO 311 MO DEPRESSIVE DISORDER NOS 01/24/2008 ROCHELLE VILLAFANA DO 317 MILD MENTAL RETARDATION 01/24/2008 [employer], MAGY SETHI 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 01/24/2008 [employer], MAGY SETHI 300.00 AN ANXIETY UNSPEC 01/24/2008 [employer], MAGY SETHI 311 MO DEPRESSIVE DISORDER NOS 01/24/2008 [employer], MAGY SETHI 317 MILD MENTAL RETARDATION 01/24/2008 [employer], MAGY SETHI 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 01/24/2008 [employer] 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 300.00 AN ANXIETY UNSPEC 01/24/2008 [employer], MAGY SETHI 311 MO DEPRESSIVE DISORDER NOS 01/24/2008 [employer], MAGY SETHI 317 MILD MENTAL RETARDATION 06/26/2008 780.52 INSOMNIA UNSPECIFIED 06/26/2008 ROCHELLE VILLAFANA DO 780.52 INSOMNIA UNSPECIFIED 06/26/2008 ROCHELLE VILLAFANA DO 780.52 INSOMNIA UNSPECIFIED 06/26/2008 ROCHELLE VILLAFANA DO 780.52 INSOMNIA UNSPECIFIED 06/26/2008 780.52 INSOMNIA UNSPECIFIED 06/26/2008 ROCHELLE VILLAFANA DO 780.52 INSOMNIA UNSPECIFIED 06/26/2008 [employer], MAGY SETHI 780.52 INSOMNIA UNSPECIFIED 06/26/2008 [employer], MAGY SETHI 780.52 INSOMNIA UNSPECIFIED 09/12/2009 307.47 SI DYSSOMNIA NOS 09/12/2009 ROCHELLE VILLAFANA DO 307.47 SI DYSSOMNIA NOS 09/12/2009 ROCHELLE VILLAFANA DO 307.47 SI DYSSOMNIA NOS 09/12/2009 ROCHELLE VILLAFANA DO 307.47 SI DYSSOMNIA NOS 09/12/2009 307.47 SI DYSSOMNIA NOS 09/12/2009 ROCHELLE VILLAFANA DO 307.47 SI DYSSOMNIA NOS 09/12/2009 CARLIE WILKES MAGY NAVDEEP 307.47 SI DYSSOMNIA NOS 09/12/2009 CARLIE WILKES MAGY NAVDEEP 307.47 SI DYSSOMNIA NOS 11/26/2009 V58.69 LONG-TERM (CURRENT) USE OF OTHER MEDICATIONS 11/26/2009 ROCHELLE VILLAFANA DO V58.69 LONG-TERM (CURRENT) USE OF OTHER MEDICATIONS 11/26/2009 ROCHELLE VILLAFANA DO V58.69 LONG-TERM (CURRENT) USE OF OTHER MEDICATIONS 11/26/2009 ROCHELLE VILLAFANA DO V58.69 LONG-TERM (CURRENT) USE OF OTHER MEDICATIONS 11/26/2009 V58.69 LONG-TERM (CURRENT) USE OF OTHER MEDICATIONS 11/26/2009 ROCHELLE VILLAFANA DO V58.69 LONG-TERM (CURRENT) USE OF OTHER MEDICATIONS 11/26/2009 MAGY SEXTON APRN V58.69 LONG-TERM (CURRENT) USE OF OTHER MEDICATIONS 11/26/2009 CARLIE WILKES MAGY NAVDEEP V58.69 LONG-TERM (CURRENT) USE OF OTHER MEDICATIONS 04/01/2010 D 244.9 HYPOTHYROIDISM NOS 04/01/2010 D 272.0 PURE HYPERCHOLESTEROLEM 04/01/2010 D 294.11 DEMENTIA W/ BEHAV DISTUR 04/01/2010 D 296.80 BIPOLAR DISORDER NOS 04/01/2010 D 297.9 PARANOID STATE NOS 04/01/2010 D 311 DEPRESSIVE DISORDER NEC 04/01/2010 D 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 04/01/2010 D 331.0 ALZHEIMER'S DISEASE 04/01/2010 D 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 08/18/2012 ROCHELLE VILLAFANA DO 295.10 P SCHIZO DISORG UNSPECIFIED 08/18/2012 295.10 P SCHIZO DISORG UNSPECIFIED 08/18/2012 ROCHELLE VILLAFANA DO 295.10 P SCHIZO DISORG UNSPECIFIED 08/18/2012 MAGY SEXTON APRN 295.10 P SCHIZO DISORG UNSPECIFIED 08/18/2012 MAGY SEXTON APRN 295.10 P SCHIZO DISORG UNSPECIFIED 06/12/2013 NORM GLORIA MD D 244.9 HYPOTHYROIDISM NOS 06/12/2013 NORM GLORIA MD 295.92 SCHIZOPHRENIA NOS-CHR 06/12/2013 NORM GLORIA MD 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 06/12/2013 NORM GLORIA MD 564.00 CONSTIPATION NOS 06/12/2013 NORM GLORIA MD V58.69 [facility] MEDICATION USE 07/03/2013 NORM GLORIA MD 244.9 HYPOTHYROIDISM NOS 07/03/2013 NORM GLORIA MD 295.60 RESID TYPE SCHIZ DIS NOS 07/03/2013 NORM GLORIA MD 564.00 CONSTIPATION NOS 07/03/2013 NORM GLORIA MD 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 11/03/2013 CARLIE WILKES MAGY SETHI 298.9 P PSYCHOSIS NOS 11/03/2013 CARLIE WILKES MAGY SETHI 300.02 AN GEN ANXIETY 11/03/2013 CARLIE WILKES MAGY SETHI 298.9 P PSYCHOSIS NOS 11/03/2013 CARLIE WILKES MAGY SETHI 300.02 AN GEN ANXIETY 10/11/2014 Ot V58.69 10/11/2014 Ot V58.83 10/12/2014 GELLENDER [place] CARRENO Ot 244.9 HYPOTHYROIDISM NOS 10/12/2014 GELLENDER DOALBANIA Ot 294.20 DEMENTIA, UNSPECIFIED, WITHOUT BEHAVIORA 10/12/2014 GELLENDER [place] CARRENO Ot 295.90 SCHIZOPHRENIA NOS-UNSPEC 10/12/2014 GELLENDER DOALBANIA Ot 298.2 REACTIVE CONFUSION 10/12/2014 GELLENDER DOALBANIA Ot 300.00 ANXIETY STATE NOS 10/12/2014 GELLENDER [place] CARRENO Ot 311 DEPRESSIVE DISORDER NEC 10/12/2014 GELLENDER DOALBANIA Ot 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 10/12/2014 GELLENDER DOALBANIA Ot 332.0 PARALYSIS AGITANS 10/12/2014 GELLENDER DOALBANIA Ot 427.32 ATRIAL FLUTTER 10/12/2014 GELLENDER DOALBANIA Ot 564.00 UNSPEC CONSTIPATION 10/12/2014 GELLENDER DOALBANIA Ot 599.0 URIN TRACT INFECTION NOS 10/12/2014 GELLENDER [place] CARRENO Ot 788.30 UNSPECIFIED URINARY INCONTINENCE 10/12/2014 GELLENDER [place] CARRENO Ot V15.88 HISTORY OF FALL 07/29/2015 Ot V58.69 07/29/2015 Ot V58.83 07/29/2015 Ot V58.69 07/29/2015 Ot V58.83 08/22/2015 GELLENDER DO, [place] Poe Ot M79.605 08/22/2015 GELLENDER DO, [place] Poe Ot Q74.2 08/28/2015 GELLENDER DO, [place] Poe Ot M79.605 08/28/2015 GELLENDER DO, [place] Deepika Ot Q74.2 04/10/2016 Ot V58.69 OTH MED,LT,CURRENT USE 04/10/2016 Ot V58.83 ENCOUNTER FOR THERAPEUTIC DRUG MONITORIN 04/10/2016 GELLENDER DO, [place] Poe Ot M79.605 PAIN IN LEFT LEG 04/10/2016 GELLENDER DO, [place] Deepika Ot 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), INC 04/24/2016 KATIE WATSON, TRICIA Zimmerman Ot F20.9 SCHIZOPHRENIA, UNSPECIFIED 04/24/2016 KATIE WATSON, TRICIA Zimmerman Ot L84 CORNS AND CALLOSITIES 05/18/2016 Ot V58.69 OTH MED,LT,CURRENT USE 05/18/2016 Ot V58.83 ENCOUNTER FOR THERAPEUTIC DRUG MONITORIN 05/18/2016 GELLENDER DO, [place] Poe Ot M79.605 PAIN IN LEFT LEG 05/18/2016 GELLENDER DO, [place] Poe Ot 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), INC 05/18/2016 GELLENDER DO, [place] Poe Ot N39.0 URINARY TRACT INFECTION, SITE NOT SPECIF 06/09/2016 GELLENDER DO, [place] Poe Ot N39.0 URINARY TRACT INFECTION, SITE NOT SPECIF 06/16/2016 GELLENDER DO, [place] Poe Ot N39.0 URINARY TRACT INFECTION, SITE NOT SPECIF 07/07/2016 GELLENDER DO, [place] Poe Ot E03.9 HYPOTHYROIDISM, UNSPECIFIED 07/07/2016 GELLENDER DO, [place] Poe Ot F03.90 UNSPECIFIED DEMENTIA WITHOUT BEHAVIORAL 07/07/2016 GELLENDER DO, [place] Poe Ot F20.9 SCHIZOPHRENIA, UNSPECIFIED 07/07/2016 GELLENDER DO, [place] Poe Ot F32.9 MAJOR DEPRESSIVE DISORDER, SINGLE EPISOD 07/07/2016 GELLENDER DO, [place] Poe Ot F41.9 ANXIETY DISORDER, UNSPECIFIED 07/07/2016 GELLENDER DO, [place] Poe Ot F79 UNSPECIFIED INTELLECTUAL DISABILITIES 07/07/2016 GELLENDER DO, [place] Poe Ot G20 PARKINSON'S DISEASE 07/07/2016 GELLENDER DO, [place] Poe Ot I48.91 UNSPECIFIED ATRIAL FIBRILLATION 07/07/2016 GELLENDER DO, [place] Poe Ot J18.1 LOBAR PNEUMONIA, UNSPECIFIED ORGANISM 07/07/2016 GELLENDER DO, [place] Poe Ot K59.09 OTHER CONSTIPATION 07/07/2016 GELLENDER DO, [place] Poe Ot R13.10 DYSPHAGIA, UNSPECIFIED 07/07/2016 GELLENDER DO, [place] Poe Ot R32 UNSPECIFIED URINARY INCONTINENCE 07/07/2016 GELLENDER DO, [place] Poe Ot Z23 ENCOUNTER FOR IMMUNIZATION 07/07/2016 GELLENDER DO, [place] Poe Ot Z66 DO NOT RESUSCITATE 07/09/2016 Ot V58.69 OTH MED,LT,CURRENT USE 07/09/2016 Ot V58.83 ENCOUNTER FOR THERAPEUTIC DRUG MONITORIN 07/09/2016 GELLENDER DO, [place] Poe Ot M79.605 PAIN IN LEFT LEG 07/09/2016 GELLENDER DO, [place] Poe Ot 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), INC 07/09/2016 GELLENDER DO, [place] Poe Ot N39.0 URINARY TRACT INFECTION, SITE NOT SPECIF Procedures Code Description [place] [address] EKG, TRACING 04/2013 46224 UA LONG DIP 07/21 80055 CULTURE URINE 04037 EKG, TRACING (IN-HOUSE) 08/02/2012 42373 ELECTROCARDIOGRAM REPORT FAIZAN WATSON, NORM Carranza 06/12/2013 Results Test Result Range EKG - 06/12/13 19:02 EKG SMR COMPLETE BLOOD COUNT - 06/12/13 20:20 Platelet 401 10^3u 142-424 MPV 9.3 FL 9.4-12.4 [place] # 0.69 10^3u 0.0-1.0 RBC 4.42 10^6u 4.04-6.13 [place] % 7.2 % 0-12 RDW 16.1 % 11.6-14.8 Neut # 7.62 10^3u 2.0-6.9 Neut % 79.3 % 37-80 WBC 9.61 10^3u 4.60-10.20 MCV 80.5 FL 80.0-97.0 Baso # 0.01 10^3u 0.0-0.1 Baso % 0.1 % 0-2 Eos # 0.00 10^3u 0-0.7 Eos % 0.0 % 0-7 Lymph % 13.4 % 10-50 MCHC 31.5 G/DL 31.8-35.4 MCH 25.3 PG 27.0-31.2 Lymph # 1.29 10^3u 0.6-3.4 HGB 11.2 G/DL 12.2-18.1 HCT 35.6 % 37.7-53.7 CMP - 06/12/13 20:20 Osmo Calculated 280 MOSM 261-280 Sodium 142 MMOLL 137-145 T. Protein 7.4 G/DL 6.3-8.2 Potassium 4.0 MMOLL 3.6-5.0 T Bili 0.4 MG/DL 0.2-1.3 Calcium 9.0 MG/DL 8.4-10.2 BUN 23 MG/DL 7-21 Chloride 101 MMOLL 98-107 AST 18 U/L 15-46 ALT 19 U/L 7-56 Albumin 3.9 G/DL 3.5-5.0 A/G Ratio 1.1 RATIO 1.2-2.2 Bun/Creat 21.1 RATIO 7-25 Alk Phos 106 U/L 38-126 CO2 27 MMOLL 22-30 Glucose 135 MG/DL 65-110 Globulin 3.4 2.4-3.5 Creatinine 1.1 MG/DL 0.7-1.5 TSH - 06/12/13 20:20 TSH 20.68 UIUML 0.35-4.94 T4 - 06/12/13 20:20 T4 5.36 UG/DL 4.87-11.72 Urinalysis - 06/13/13 21:00 Glucose Negative Negative Leukocyte 1+ Negative Nitrite Negative Negative pH 6.5 5.5-7.5 Urine Appearance Clear Clear Protein Negative Negative Ketones Negative Negative Urobilinogen 0.2 0.2-1.0 Urine RBC NONESEEN Specific Branch 1.015 1.010-1.020 Urine WBC N6-10 Blood Negative Negative Color Yellow Yellow Bilirubin Negative Negative Urinalysis - 06/30/13 13:38 Glucose Negative Negative Leukocyte Trace Negative Nitrite Negative Negative pH 5.5 5.5-7.5 Urine Appearance Clear Clear Protein Negative Negative Ketones Negative Negative Urobilinogen 0.2 0.2-1.0 Urine RBC NONESEEN Specific Branch >=1.030 1.010-1.020 Urine WBC N3-5 Urine Bacteria NONESEEN Blood Negative Negative Color Yellow Yellow SG by Refractometer 1.024 Bilirubin Negative Negative Urinalysis - 07/02/13 15:09 Glucose Negative Negative Leukocyte 2+ Negative Nitrite Negative Negative pH 6.5 5.5-7.5 Urine Appearance Cloudy Clear Protein Negative Negative Ketones Negative Negative Urobilinogen 0.2 0.2-1.0 Urine RBC N16-20 Specific Branch 1.020 1.010-1.020 Urine WBC TNTC Blood 2+ Negative Color Yellow Yellow Bilirubin Negative Negative Complete blood count (CBC) with automated white blood cell (WBC) differential - 04/10/16 09:12 Blood leukocytes automated count (number/volume) 7.6 10*3/ uL 4.3-11.0 Blood erythrocytes automated count (number/volume) 4.40 10*6 /uL 4.35-5.85 Venous blood hemoglobin measurement (mass/volume) 12.6 g/dL 11.5-16.0 Blood hematocrit (volume fraction) 40 % 35-52 Automated erythrocyte mean corpuscular volume 90 [foz_us] 80-99 Automated erythrocyte mean corpuscular hemoglobin (mass per erythrocyte) 29 pg 25-34 Automated erythrocyte mean corpuscular hemoglobin concentration measurement ( mass/volume) 32 g/dL 32-36 Automated erythrocyte distribution width ratio 14.2 % 10.0-14.5 Automated blood platelet count (count/volume) 269 10*3/uL 130-400 Automated blood platelet mean volume measurement 10.3 [foz_ us] 7.4-10.4 Automated blood neutrophils/100 leukocytes 78 % 42-75 Automated blood lymphocytes/100 leukocytes 16 % 12-44 Blood monocytes/100 leukocytes 6 % 0-12 Automated blood eosinophils/100 leukocytes 0 % 0-10 Automated blood basophils/100 leukocytes 0 % 0-10 Blood neutrophils automated count (number/volume) 5.9 10*3 1.8-7.8 Blood lymphocytes automated count (number/volume) 1.3 10*3 1.0-4.0 Blood monocytes automated count (number/volume) 0.4 10*3 0.0-1.0 Automated eosinophil count 0.0 10*3/uL 0.0-0.3 Automated blood basophil count (count/volume) 0.0 10*3/uL 0.0-0.1 Comprehensive metabolic panel - 04/10/16 09:12 Serum or plasma sodium measurement (moles/volume) 142 mmol/ L 135-145 Serum or plasma potassium measurement (moles/volume) 4.2 mmol/L 3.6-5.0 Serum or plasma chloride measurement (moles/volume) 107 mmol /L 98-107 Carbon dioxide 25 mmol/L 21-32 Serum or plasma anion gap determination (moles/volume) 10 mmol/L 5-14 Serum or plasma urea nitrogen measurement (mass/volume) 15 mg/dL 7-18 Serum or plasma creatinine measurement (mass/volume) 0.86 mg /dL 0.60-1.30 Serum or plasma urea nitrogen/creatinine mass ratio 17 NRG Serum or plasma creatinine measurement with calculation of estimated glomerular filtration rate > NRG Serum or plasma glucose measurement (mass/volume) 95 mg/dL 70-105 Serum or plasma calcium measurement (mass/volume) 9.3 mg/dL 8.5-10.1 Serum or plasma total bilirubin measurement (mass/volume) 0.7 mg/dL 0.1-1.0 Serum or plasma alkaline phosphatase measurement (enzymatic activity/volume) 70 U/L 40-136 Serum or plasma aspartate aminotransferase measurement (enzymatic activity/ volume) 12 U/L 5-34 Serum or plasma alanine aminotransferase measurement (enzymatic activity/volume ) 11 U/L 0-55 Serum or plasma protein measurement (mass/volume) 6.6 g/dL 6.4-8.2 Serum or plasma albumin measurement (mass/volume) 4.0 g/dL 3.2-4.5 Complete urinalysis with reflex to culture - 05/16/16 15:00 Urine color determination YELLOW NRG Urine clarity determination VERY CLOUDY NRG Urine pH measurement by test strip 6.5 5 -9 Specific gravity of urine by test strip 1.015 1.016-1.022 Urine protein assay by test strip, semi-quantitative 1+ NEGATIVE Urine glucose detection by automated test strip NEGATIVE NEGATIVE Erythrocytes detection in urine sediment by light microscopy 1+ NEGATIVE Urine ketones detection by automated test strip NEGATIVE NEGATIVE Urine nitrite detection by test strip POSITIVE NEGATIVE Urine total bilirubin detection by test strip NEGATIVE NEGATIVE Urine urobilinogen measurement by automated test strip (mass/volume) NORMAL NORMAL Urine leukocyte esterase detection by dipstick 3+ NEGATIVE Automated urine sediment erythrocyte count by microscopy (number/high power field) NONE NRG Automated urine sediment leukocyte count by microscopy (number/high power field ) > [HPF] NRG Bacteria detection in urine sediment by light microscopy MODERATE NRG Squamous epithelial cells detection in urine sediment by light microscopy 2-5 NRG Crystals detection in urine sediment by light microscopy NONE NRG Casts detection in urine sediment by light microscopy NONE NRG Mucus detection in urine sediment by light microscopy NEGATIVE NRG Complete urinalysis with reflex to culture YES NRG Bacterial urine culture - 05/16/16 15:00 Bacterial urine culture [id number] NRG COLONY COUNT >100,000/ML NRG FTX;REPORTABLE SENSITIVITY REPORTED 05/17/16 16:45 NRG Bacterial susceptibility panel - 05/16/16 15:00 Gentamicin susceptibility test by minimum inhibitory concentration <= NRG Trimethoprim/sulfamethoxazole susceptibility test by minimum inhibitoryconcentration >= NRG Ampicillin susceptibility test by minimum inhibitory concentration >= NRG Tobramycin susceptibility test by minimum inhibitory concentration <= NRG Cefazolin susceptibility test by minimum inhibitory concentration <= NRG Ceftriaxone susceptibility test by minimum inhibitory concentration <= NRG Ampicillin/sulbactam susceptibility test by minimum inhibitory concentration >= NRG Piperacillin/tazobactam susceptibility test by minimum inhibitory concentration <= NRG Ciprofloxacin susceptibility test by minimum inhibitory concentration <= NRG Meropenem susceptibility test by minimum inhibitory concentration <= NRG Nitrofurantoin susceptibility test by minimum inhibitory concentration <= NRG Aztreonam susceptibility test by minimum inhibitory concentration <= NRG Extended spectrum beta lactamase (ESBL) producing bacteria susceptibility test by minimum inhibitory concentration - NRG Complete blood count (CBC) with automated white blood cell (WBC) differential - 07/04/16 22:28 Blood leukocytes automated count (number/volume) 15.8 10*3/ uL 4.3-11.0 Blood erythrocytes automated count (number/volume) 4.19 10*6 /uL 4.35-5.85 Venous blood hemoglobin measurement (mass/volume) 11.6 g/dL 11.5-16.0 Blood hematocrit (volume fraction) 36 % 35-52 Automated erythrocyte mean corpuscular volume 86 [foz_us] 80-99 Automated erythrocyte mean corpuscular hemoglobin (mass per erythrocyte) 28 pg 25-34 Automated erythrocyte mean corpuscular hemoglobin concentration measurement ( mass/volume) 32 g/dL 32-36 Automated erythrocyte distribution width ratio 14.7 % 10.0-14.5 Automated blood platelet count (count/volume) 327 10*3/uL 130-400 Automated blood platelet mean volume measurement 9.7 [foz_us ] 7.4-10.4 Automated blood neutrophils/100 leukocytes 90 % 42-75 Automated blood lymphocytes/100 leukocytes 5 % 12-44 Blood monocytes/100 leukocytes 5 % 0-12 Automated blood eosinophils/100 leukocytes 0 % 0-10 Automated blood basophils/100 leukocytes 0 % 0-10 Blood neutrophils automated count (number/volume) 14.1 10*3 1.8-7.8 Blood lymphocytes automated count (number/volume) 0.8 10*3 1.0-4.0 Blood monocytes automated count (number/volume) 0.8 10*3 0.0-1.0 Automated eosinophil count 0.0 10*3/uL 0.0-0.3 Automated blood basophil count (count/volume) 0.0 10*3/uL 0.0-0.1 PT panel in platelet poor plasma by coagulation assay - 07/04/16 22:28 Prothrombin time (PT) in platelet poor plasma by coagulation assay 13.8 s 12.2-14.7 INR in platelet poor plasma or blood by coagulation assay 1.1 0.8-1.4 Activated partial thromboplastin time (aPTT) in platelet poor plasma bycoagulation assay - 07/04/16 22:28 Activated partial thromboplastin time (aPTT) in platelet poor plasma bycoagulation assay 32 s 24-35 Blood lactic acid measurement (moles/volume) - 07/04/16 22:28 Blood lactic acid measurement (moles/volume) 1.1 mmol/L 0.5-2.0 Comprehensive metabolic panel - 07/04/16 22:28 Serum or plasma sodium measurement (moles/volume) 141 mmol/ L 135-145 Serum or plasma potassium measurement (moles/volume) 3.8 mmol/L 3.6-5.0 Serum or plasma chloride measurement (moles/volume) 108 mmol /L 98-107 Carbon dioxide 25 mmol/L 21-32 Serum or plasma anion gap determination (moles/volume) 8 mmol/L 5-14 Serum or plasma urea nitrogen measurement (mass/volume) 19 mg/dL 7-18 Serum or plasma creatinine measurement (mass/volume) 0.84 mg /dL 0.60-1.30 Serum or plasma urea nitrogen/creatinine mass ratio 23 NRG Serum or plasma creatinine measurement with calculation of estimated glomerular filtration rate > NRG Serum or plasma glucose measurement (mass/volume) 119 mg/dL 70-105 Serum or plasma calcium measurement (mass/volume) 8.4 mg/dL 8.5-10.1 Serum or plasma total bilirubin measurement (mass/volume) 0.6 mg/dL 0.1-1.0 Serum or plasma alkaline phosphatase measurement (enzymatic activity/volume) 105 U/L 40-136 Serum or plasma aspartate aminotransferase measurement (enzymatic activity/ volume) 18 U/L 5-34 Serum or plasma alanine aminotransferase measurement (enzymatic activity/volume ) 15 U/L 0-55 Serum or plasma protein measurement (mass/volume) 6.2 g/dL 6.4-8.2 Serum or plasma albumin measurement (mass/volume) 3.4 g/dL 3.2-4.5 Blood manual differential performed detection - 07/04/16 22:28 Blood monocytes/100 leukocytes 2 % NRG Manual blood segmented neutrophils/100 leukocytes 88 % NRG Blood band neutrophils/100 leukocytes 0 % NRG Manual blood lymphocytes/100 leukocytes 10 % NRG Manual eosinophils/100 leukocytes in nose 0 % NRG Manual blood basophils/100 leukocytes 0 % NRG Blood erythrocyte morphology finding identification NORMAL NR LITHIUM LEVEL - 07/04/16 22:28 Amonate [mass/volume] in serum or plasma < % 0.5-1.5 Bacterial blood culture - 07/04/16 23:00 Bacterial blood culture NG [facility] Influenza virus A and B antigen detection - 07/04/16 23:10 FLU RESULT NEGATIVE FOR INFLUENZA A AND B ANTIGENS BY IA [facility] [place] Bacterial blood culture - 07/04/16 23:10 Bacterial blood culture NG [facility] [place] Complete urinalysis with reflex to culture - 07/05/16 01:10 Urine color determination YELLOW NRG Urine clarity determination CLEAR NRG Urine pH measurement by test strip 6.5 5 -9 Specific gravity of urine by test strip 1.015 1.016-1.022 Urine protein assay by test strip, semi-quantitative NEGATIVE NEGATIVE Urine glucose detection by automated test strip NEGATIVE NEGATIVE Erythrocytes detection in urine sediment by light microscopy NEGATIVE NEGATIVE Urine ketones detection by automated test strip NEGATIVE NEGATIVE Urine nitrite detection by test strip NEGATIVE NEGATIVE Urine total bilirubin detection by test strip NEGATIVE NEGATIVE Urine urobilinogen measurement by automated test strip (mass/volume) NORMAL NORMAL Urine leukocyte esterase detection by dipstick NEGATIVE NEGATIVE Automated urine sediment erythrocyte count by microscopy (number/high power field) NONE NRG Automated urine sediment leukocyte count by microscopy (number/high power field ) NONE NRG Bacteria detection in urine sediment by light microscopy NEGATIVE NRG Squamous epithelial cells detection in urine sediment by light microscopy RARE NRG Crystals detection in urine sediment by light microscopy NONE NRG Casts detection in urine sediment by light microscopy NONE NRG Mucus detection in urine sediment by light microscopy SMALL NRG Complete urinalysis with reflex to culture NO NRG Complete blood count (CBC) with automated white blood cell (WBC) differential - 07/05/16 04:00 Blood leukocytes automated count (number/volume) 13.0 10*3/ uL 4.3-11.0 Blood erythrocytes automated count (number/volume) 3.96 10*6 /uL 4.35-5.85 Venous blood hemoglobin measurement (mass/volume) 10.9 g/dL 11.5-16.0 Blood hematocrit (volume fraction) 34 % 35-52 Automated erythrocyte mean corpuscular volume 86 [foz_us] 80-99 Automated erythrocyte mean corpuscular hemoglobin (mass per erythrocyte) 28 pg 25-34 Automated erythrocyte mean corpuscular hemoglobin concentration measurement ( mass/volume) 32 g/dL 32-36 Automated erythrocyte distribution width ratio 14.7 % 10.0-14.5 Automated blood platelet count (count/volume) 291 10*3/uL 130-400 Automated blood platelet mean volume measurement 9.3 [foz_us ] 7.4-10.4 Automated blood neutrophils/100 leukocytes 85 % 42-75 Automated blood lymphocytes/100 leukocytes 9 % 12-44 Blood monocytes/100 leukocytes 6 % 0-12 Automated blood eosinophils/100 leukocytes 0 % 0-10 Automated blood basophils/100 leukocytes 0 % 0-10 Blood neutrophils automated count (number/volume) 11.1 10*3 1.8-7.8 Blood lymphocytes automated count (number/volume) 1.1 10*3 1.0-4.0 Blood monocytes automated count (number/volume) 0.8 10*3 0.0-1.0 Automated eosinophil count 0.0 10*3/uL 0.0-0.3 Automated blood basophil count (count/volume) 0.0 10*3/uL 0.0-0.1 Comprehensive metabolic panel - 07/05/16 04:00 Serum or plasma sodium measurement (moles/volume) 140 mmol/ L 135-145 Serum or plasma potassium measurement (moles/volume) 3.5 mmol/L 3.6-5.0 Serum or plasma chloride measurement (moles/volume) 111 mmol /L 98-107 Carbon dioxide 22 mmol/L 21-32 Serum or plasma anion gap determination (moles/volume) 7 mmol/L 5-14 Serum or plasma urea nitrogen measurement (mass/volume) 17 mg/dL 7-18 Serum or plasma creatinine measurement (mass/volume) 0.80 mg /dL 0.60-1.30 Serum or plasma urea nitrogen/creatinine mass ratio 21 NRG Serum or plasma creatinine measurement with calculation of estimated glomerular filtration rate > NRG Serum or plasma glucose measurement (mass/volume) 90 mg/dL 70-105 Serum or plasma calcium measurement (mass/volume) 8.0 mg/dL 8.5-10.1 Serum or plasma total bilirubin measurement (mass/volume) 0.8 mg/dL 0.1-1.0 Serum or plasma alkaline phosphatase measurement (enzymatic activity/volume) 98 U/L 40-136 Serum or plasma aspartate aminotransferase measurement (enzymatic activity/ volume) 15 U/L 5-34 Serum or plasma alanine aminotransferase measurement (enzymatic activity/volume ) 11 U/L 0-55 Serum or plasma protein measurement (mass/volume) 5.6 g/dL 6.4-8.2 Serum or plasma albumin measurement (mass/volume) 3.0 g/dL 3.2-4.5 THYROID STIMULATING HORMONE - 07/05/16 04:00 THYROID STIMULATING HORMONE 0.72 u[iU]/mL 0.35-4.94 Complete blood count (CBC) with automated white blood cell (WBC) differential - 07/06/16 04:20 Blood leukocytes automated count (number/volume) 7.5 10*3/ uL 4.3-11.0 Blood erythrocytes automated count (number/volume) 3.77 10*6 /uL 4.35-5.85 Venous blood hemoglobin measurement (mass/volume) 10.3 g/dL 11.5-16.0 Blood hematocrit (volume fraction) 33 % 35-52 Automated erythrocyte mean corpuscular volume 87 [foz_us] 80-99 Automated erythrocyte mean corpuscular hemoglobin (mass per erythrocyte) 27 pg 25-34 Automated erythrocyte mean corpuscular hemoglobin concentration measurement ( mass/volume) 31 g/dL 32-36 Automated erythrocyte distribution width ratio 14.8 % 10.0-14.5 Automated blood platelet count (count/volume) 267 10*3/uL 130-400 Automated blood platelet mean volume measurement 9.8 [foz_us ] 7.4-10.4 Automated blood neutrophils/100 leukocytes 81 % 42-75 Automated blood lymphocytes/100 leukocytes 12 % 12-44 Blood monocytes/100 leukocytes 7 % 0-12 Automated blood eosinophils/100 leukocytes 0 % 0-10 Automated blood basophils/100 leukocytes 0 % 0-10 Blood neutrophils automated count (number/volume) 6.1 10*3 1.8-7.8 Blood lymphocytes automated count (number/volume) 0.9 10*3 1.0-4.0 Blood monocytes automated count (number/volume) 0.5 10*3 0.0-1.0 Automated eosinophil count 0.0 10*3/uL 0.0-0.3 Automated blood basophil count (count/volume) 0.0 10*3/uL 0.0-0.1 Comprehensive metabolic panel - 07/06/16 04:20 Serum or plasma sodium measurement (moles/volume) 142 mmol/ L 135-145 Serum or plasma potassium measurement (moles/volume) 3.8 mmol/L 3.6-5.0 Serum or plasma chloride measurement (moles/volume) 111 mmol /L 98-107 Carbon dioxide 23 mmol/L 21-32 Serum or plasma anion gap determination (moles/volume) 8 mmol/L 5-14 Serum or plasma urea nitrogen measurement (mass/volume) 15 mg/dL 7-18 Serum or plasma creatinine measurement (mass/volume) 0.85 mg /dL 0.60-1.30 Serum or plasma urea nitrogen/creatinine mass ratio 18 NRG Serum or plasma creatinine measurement with calculation of estimated glomerular filtration rate > NRG Serum or plasma glucose measurement (mass/volume) 113 mg/dL 70-105 Serum or plasma calcium measurement (mass/volume) 8.3 mg/dL 8.5-10.1 Serum or plasma total bilirubin measurement (mass/volume) 0.3 mg/dL 0.1-1.0 Serum or plasma alkaline phosphatase measurement (enzymatic activity/volume) 94 U/L 40-136 Serum or plasma aspartate aminotransferase measurement (enzymatic activity/ volume) 16 U/L 5-34 Serum or plasma alanine aminotransferase measurement (enzymatic activity/volume ) 13 U/L 0-55 Serum or plasma protein measurement (mass/volume) 5.5 g/dL 6.4-8.2 Serum or plasma albumin measurement (mass/volume) 2.9 g/dL 3.2-4.5 Automated blood complete blood count (hemogram) panel - 07/07/16 05:31 Blood leukocytes automated count (number/volume) 9.0 10*3/ uL 4.3-11.0 Blood erythrocytes automated count (number/volume) 4.90 10*6 /uL 4.35-5.85 Venous blood hemoglobin measurement (mass/volume) 13.3 g/dL 11.5-16.0 Blood hematocrit (volume fraction) 41 % 35-52 Automated erythrocyte mean corpuscular volume 84 [foz_us] 80-99 Automated erythrocyte mean corpuscular hemoglobin (mass per erythrocyte) 27 pg 25-34 Automated erythrocyte mean corpuscular hemoglobin concentration measurement ( mass/volume) 32 g/dL 32-36 Automated erythrocyte distribution width ratio 14.1 % 10.0-14.5 Automated blood platelet count (count/volume) 403 10*3/uL 130-400 Automated blood platelet mean volume measurement 9.5 [foz_us ] 7.4-10.4 Whole blood basic metabolic panel - 07/07/16 05:31 Serum or plasma sodium measurement (moles/volume) 143 mmol/ L 135-145 Serum or plasma potassium measurement (moles/volume) 3.9 mmol/L 3.6-5.0 Serum or plasma chloride measurement (moles/volume) 105 mmol /L 98-107 Carbon dioxide 25 mmol/L 21-32 Serum or plasma anion gap determination (moles/volume) 13 mmol/L 5-14 Serum or plasma urea nitrogen measurement (mass/volume) 15 mg/dL 7-18 Serum or plasma creatinine measurement (mass/volume) 0.80 mg /dL 0.60-1.30 Serum or plasma urea nitrogen/creatinine mass ratio 19 NRG Serum or plasma creatinine measurement with calculation of estimated glomerular filtration rate > NRG Serum or plasma glucose measurement (mass/volume) 84 mg/dL 70-105 Serum or plasma calcium measurement (mass/volume) 9.4 mg/dL 8.5-10.1 Encounters ACCT No. Visit Date/Time Discharge Status Pt. Type Provider Facility Loc./Unit Complaint [id number] 06/12/2013 16:50:00 07/03/2013 10 :20:00 DIS Inpatient FAIZAN WATSON, NORM Carranza [facility] [id number] 06/12/2013 20:19:00 06/12/2013 20 :19:00 DIS Outpatient FAIZAN WATSON, NORM Carranza [facility] [id number] 02/21/2010 15:55:00 Document Registration
--- NOTE | 2016-07-19 01:12 | ED Dyspnea ---
General Stated Complaint: SOA Source of Information: Patient (very little), EMS, Prison Records, RN Notes Reviewed Exam Limitations: Physical Impairments (schizo/MR) History of Present Illness Time Seen by Provider: 01:08 Initial Comments Patient schizo/MR. Not able to provide any history. NH ([facility]) reports patient running fever, SOA, & running a low O2 sat. Started a day or two ago. Recently on an ABX for a respiratory illness and recently finished it. Timing/Duration: 24 Hours, Constant, Increasing Severity: Moderate Activities at Onset: None Prior Episodes/Possible Cause: Occasional Episodes Modifying Factors: Worse With Activity, Worse With Coughing Associated Symptoms: Cough, Fever Allergies and Home Medications Allergies Coded Allergies: belladonna alkaloids (Verified Allergy, Mild, 10/11/14) meperidine (Verified Allergy, Mild, 10/11/14) Uncoded Allergies: pectin (Allergy, Mild, 10/11/14) Home Medications Acetaminophen 325 Mg Tablet 650 MG PO Q4H PRN PRN MILD PAIN (Reported) TAKES 2 (325MG) TABLETS Amiodarone HCl 200 Mg Tablet 200 MG PO DAILY (Reported) Bisacodyl 5 Mg Tablet.dr 10 MG PO DAILY PRN PRN CONSTIPATION (Reported) Cholecalciferol 1,000 Unit Tab 2,000 UNIT PO DAILY (Reported) Clozapine 100 Mg Tablet 100 MG PO TID (Reported) Diphenhydramine HCl 25 Mg Capsule 50 MG PO Q6H PRN PRN AGITATION (Reported) Docusate Sodium 100 Mg Capsule 100 MG PO Q12H PRN PRN CONSTIPATION (Reported) Hyoscyamine Sulfate 0.125 Mg Tab.subl 0.125 MG PO Q12H PRN PRN ABDOMINAL PAIN ( Reported) Ibuprofen 200 Mg Tablet 400 MG PO Q6H PRN PRN TEMPERATURE (Reported) TAKES 2 (200 MG) TABLETS Ipratropium/Albuterol Sulfate 3 Ml Ampul.neb 3 ML IH Q4H PRN PRN SHORTNESS OF BREATH (Reported) Lanolin Alcohol/Mo/W.pet/[place] 454 Gm Cream..g. TP HS (Reported) APPLIES TO BOTH FEET Levothyroxine Sodium 150 Mcg Tablet 150 MCG PO DAILY (Reported) Magnesium Hydroxide 400 Mg/5 Ml Oral.susp 30 ML PO DAILY PRN PRN CONSTIPATION ( Reported) Olanzapine 10 Mg Tablet 20 MG PO HS (Reported) Ondansetron 4 Mg Tab.rapdis 4 MG PO Q6H PRN PRN NAUSEA/VOMITING (Reported) Polyethylene Glycol 3350 17 Gm Powd.pack 17 GM PO DAILY PRN PRN CONSTIPATION ( Reported) Trazodone HCl 50 Mg Tablet 100 MG PO HS (Reported) TAKES 2 (50 MG) TABLETS Trazodone HCl 50 Mg Tablet 50 MG PO HS PRN PRN INSOMNIA (Reported) Triamcinolone Acetonide 15 Gm Oint TP BID (Reported) Trihexyphenidyl HCl 2 Mg Tablet 4 MG PO TID@0900,1300,1700 (Reported) Constitutional: see HPI (not able to obtain from the patient.) Respiratory: see HPI cough short of breath Past Qpcmdsz-Nqdoqg-Ujqodc Hx Patient Social History Recent Hopitalizations: No Immunizations Up To Date Tetanus Booster (TDap): Unknown Date of Pneumonia Vaccine: Feb 12, 2008 Date of Influenza Vaccine: Apr 04, 2015 Surgeries HX Surgeries: No (no known surgeries) Respiratory Hx Respiratory Disorders: No Cardiovascular Hx Cardiac Disorders: Yes Cardiac Disorders: Atrial Fibrillation Neurological Hx Neurological Disorders: Yes (MENTAL RETARDATION, dysphagia) Neurological Disorders: Dementia, Parkinson's Disease Genitourinary Hx Genitourinary Disorders: Yes (INCONTINENCE WEARS ATTENDS, history of urinary tract infection) Gastrointestinal Hx Gastrointestinal Disorders: Yes Gastrointestinal Disorders: Chronic Constipation Musculoskeletal Hx Musculoskeletal Disorders: No Endocrine Hx Endocrine Disorders: Yes Endocrine Disorders: Hypothyroidsim HEENT HX ENT Disorders: No Cancer Hx Cancer: No Psychosocial Hx Psychiatric Problems: Yes Behavioral Health Disorders: Anxiety, Schizophrenia, Depression Integumentary HX Skin/Integumentary Disorder: No Blood Transfusions Hx Blood Disorders: No Adverse Reaction to a Blood Tr: No Family Medical History Family Medial History: Patient reports no known family medical history. Physical Exam Vital Signs Vital Sign - Last 12Hours 07/19/16 07/19/16 01:00 01:24 Temp 101.2 Pulse 89 Resp 24 B/P 96/64 Pulse Ox 84 O2 Delivery Room Air O2 Flow Rate 15 Capillary Refill : General Appearance: WD/WN Mild Distress HEENT: Normal ENT Inspection Neck: Normal Inspection Respiratory: Crackles (RLL (faint; posterior)) Decreased Breath Sounds Respiratory Distress (mild) Cardiovascular: Regular Rate, Rhythm Rectal: Deferred Neurologic/Psychiatric: AlertNo Oriented x3, No Motor/Sensory Deficits Normal Mood/Affect Skin: Warm/Dry Progress/Results/Core Measures Results/Orders Lab Results Laboratory Tests Test 07/19/16 01:20 07/19/16 01:37 07/19/16 01:53 Range/Units Alanine Aminotransferase (ALT/SGPT) 24 0-55 U/L Albumin 3.7 3.2-4.5 G/DL Alkaline Phosphatase 111 40-136 U/L Anion Gap 14 5-14 MMOL/L Aspartate Amino Transf (AST/SGOT) 29 5-34 U/L B-Type Natriuretic Peptide < 10.0 <100.0 PG/ML BUN/Creatinine Ratio 24 Basophils # (Auto) 0.0 0.0-0.1 10^3/uL Basophils (%) (Auto) 0 0-10 % Blood Urea Nitrogen 26 H 7-18 MG/DL Calcium Level 8.7 8.5-10.1 MG/DL Carbon Dioxide Level 21 21-32 MMOL/L Chloride Level 104 98-107 MMOL/L Creatinine 1.07 0.60-1.30 MG/DL Eosinophils # (Auto) 0.0 0.0-0.3 10^3/uL Eosinophils (%) (Auto) 0 0-10 % Estimat Glomerular Filtration Rate 51 Glucose Level 127 H 70-105 MG/DL Hematocrit 40 35-52 % Hemoglobin 12.9 11.5-16.0 G/DL Lactic Acid Level 1.3 0.5-2.0 MMOL/L Lymphocytes # (Auto) 0.6 L 1.0-4.0 X 10^3 Lymphocytes (%) (Auto) 5 L 12-44 % Magnesium Level 2.1 1.8-2.4 MG/DL Mean Corpuscular Hemoglobin 27 25-34 PG Mean Corpuscular Hemoglobin Concent 33 32-36 G/DL Mean Corpuscular Volume 83 80-99 FL Mean Platelet Volume 9.6 7.4-10.4 FL Monocytes # (Auto) 0.9 0.0-1.0 X 10^3 Monocytes (%) (Auto) 8 0-12 % Neutrophils # (Auto) 10.6 H 1.8-7.8 X 10^3 Neutrophils (%) (Auto) 87 H 42-75 % Platelet Count 326 130-400 10^3/uL Potassium Level 3.8 3.6-5.0 MMOL/L Red Blood Count 4.78 4.35-5.85 10^6/uL Red Cell Distribution Width 15.5 H 10.0-14.5 % Sodium Level 139 135-145 MMOL/L Total Bilirubin 0.6 0.1-1.0 MG/DL Total Protein 7.0 6.4-8.2 G/DL Troponin I < 0.30 <0.30 NG/ML White Blood Count 12.1 H 4.3-11.0 10^3/uL Marcos Test YES-POS Arterial Blood Base Excess -0.4 -2.5-2.5 MMOL/L Arterial Blood HCO3 24 23-27 MMOL/L Arterial Blood Oxygen Saturation 70 L 94-100 % Arterial Blood Partial Pressure CO2 40 35-45 MMHG Arterial Blood Partial Pressure O2 42 L 79-93 MMHG Arterial Blood Total CO2 25.0 21.0-31.0 MMOL/L Arterial Blood pH 7.40 7.37-7.43 Blood Gas Inspired Oxygen 9L Blood Gas Patient Temperature 101.2 Blood Gas Puncture Site RIGHT RADIAL Blood Gas Ventilator Setting NO Urine Bacteria NEGATIVE /HPF Urine Bilirubin 1+ H NEGATIVE Urine Casts PRESENT /LPF Urine Clarity CLEAR Urine Color YELLOW Urine Crystals NONE /LPF Urine Culture Indicated NO Urine Glucose (UA) NEGATIVE NEGATIVE Urine Hyaline Casts 5-10 H /LPF Urine Ketones NEGATIVE NEGATIVE Urine Leukocyte Esterase NEGATIVE NEGATIVE Urine Mucus LARGE H /LPF Urine Nitrite NEGATIVE NEGATIVE Urine Protein 1+ H NEGATIVE Urine RBC NONE /HPF Urine RBC (Auto) NEGATIVE NEGATIVE Urine Specific [place] 1.025 H 1.016-1.022 Urine Squamous Epithelial Cells RARE /HPF Urine Urobilinogen NORMAL NORMAL MG/DL Urine WBC NONE /HPF Urine pH 5 5-9 Micro Results Microbiology 07/19/16 Blood Culture - Preliminary, Resulted No growth My Orders Orders-RENY PLASCENCIA DO Lorazepam Injection (Ativan Injection) (07/19/16 01:15) Arterial Blood Gas (07/19/16 01:10) BNP (07/19/16 01:10) Cbc With Automated Diff (07/19/16 01:10) Comprehensive Metabolic Panel (07/19/16 01:10) Lactic Acid Analyzer (07/19/16 01:10) Magnesium (07/19/16 01:10) Troponin I (07/19/16 01:10) Ua Culture If Indicated (07/19/16 01:10) Albuterol/Ipra Inhalation Soln (Duoneb I (07/19/16 01:15) Svn Sm Volume Nebulizer Rt-Rfs (07/19/16 01:10) Chest 1 View, Ap/Pa Only (07/19/16 01:12) Cefepime Injection (Maxipime Injection) (07/19/16 02:15) Saline Lock/Iv-Start (07/19/16 02:14) Ns Iv 1000 Ml (Sodium Chloride 0.9%) (07/19/16 02:14) Arterial Blood Gas (07/19/16 02:21) Ns (Ivpb) (Sodium Chloride 0.9% Ivpb Bag (07/19/16 02:24) Cefepime Injection (Maxipime Injection) (07/19/16 02:24) Medications Given in ED Vital Signs/I&O Vital Sign - Last 12Hours 07/19/16 07/19/16 07/19/16 07/19/16 01:00 01:24 01:30 02:00 Temp 101.2 101.2 100.8 Pulse 89 90 91 Resp 24 18 18 B/P 96/64 100/81 107/63 Pulse Ox 84 90 96 94 O2 Delivery Room Air Nasal Cannula Nasal Cannula O2 Flow Rate 15 5 07/19/16 07/19/16 02:30 03:00 Temp 100.0 100.1 Pulse 86 83 Resp 18 20 B/P 108/42 111/49 Pulse Ox 96 97 O2 Delivery Room Air Nasal Cannula O2 Flow Rate 5 ECG Initial ECG Impression Date: Jul 19, 2016 Initial ECG Impression Time: 01:10 Initial ECG Rate: 89 Initial ECG Rhythm: Normal Sinus Initial ECG Impression: Nonspecific Changes (probable SERGIO; borderline LAD & T wave abnormalities) Initial ECG Comparisson: Changed Diagnostic Imaging Diagonstic Imaging: Xray Plain Films/CT/US/NM/MRI: chest Reviewed: Reviewed by Me (continued RLL infiltrate) Departure Communication Time/Spoke to Admitting Phy: 02:40 Impression Impression: Primary Impression: Pneumonia Additional Impressions: Neutrophilic leukocytosis Hypoxemia Schizo/MR Disposition: 09 ADMITTED INPATIENT Condition: Stable Decision to Admit Reason: Admit from ER (General) Decision to Admit/Date: Jul 19, 2016 Time/Decision to Admit Time: 02:40 Departure-Patient Inst. Referrals: ALBANIA RENTERIA DO (PCP) Primary Care Physician RENY PLASCENCIA DO Jul 19, 2016 01:12
[2016-07-19] MEDS ORDERED: RT-ALBUTEROL/IPRATROPIUM 3 ML (DUONEB) VIAL INH ONE (01:15)
[2016-07-19] MEDS ORDERED: LORazepam INJ 2 MG/ML (ATIVAN) VIAL IVP ONE (01:15)
[2016-07-19 01:32] LABS: BASOPHILS % (AUTO) 0 % (0-10); EOSINOPHILS % (AUTO) 0 % (0-10); LYMPHOCYTES # (AUTO) 0.6 X 10^3 (1.0-4.0); LYMPHOCYTES % (AUTO) 5 % (12-44); MEAN CORPUSCULAR HEMOGLOBIN 27 PG (25-34); MEAN CORPUSCULAR HGB CONC 33 G/DL (32-36); MEAN CORPUSCULAR VOLUME 83 FL (80-99); MEAN PLATELET VOLUME 9.6 FL (7.4-10.4); MONOCYTES # (AUTO) 0.9 X 10^3 (0.0-1.0); MONOCYTES % (AUTO) 8 % (0-12); NEUTROPHILS # (AUTO) 10.6 X 10^3 (1.8-7.8); NEUTROPHILS % (AUTO) 87 % (42-75); PLATELET COUNT 326 10^3/uL (130-400); RED BLOOD COUNT 4.78 10^6/uL (4.35-5.85); RED CELL DISTRIBUTION WIDTH 15.5 % (10.0-14.5); WHITE BLOOD COUNT 12.1 10^3/uL (4.3-11.0)
[2016-07-19 01:50] LABS: ALANINE AMINOTRANSFERASE 24 U/L (0-55); ALBUMIN 3.7 G/DL (3.2-4.5); ANION GAP 14 MMOL/L (5-14); ASPARTATE AMINO TRANSFERASE 29 U/L (5-34); BILIRUBIN,TOTAL 0.6 MG/DL (0.1-1.0); BLOOD UREA NITROGEN 26 MG/DL (7-18); BUN/CREATININE RATIO 24; CALCIUM 8.7 MG/DL (8.5-10.1); CARBON DIOXIDE 21 MMOL/L (21-32); CHLORIDE 104 MMOL/L (98-107); CREATININE SERUM 1.07 MG/DL (0.60-1.30); GFR ESTIMATED 51; GLUCOSE 127 MG/DL (70-105); MAGNESIUM 2.1 MG/DL (1.8-2.4); POTASSIUM 3.8 MMOL/L (3.6-5.0); SODIUM 139 MMOL/L (135-145)
[2016-07-19 01:55] LABS: TROPONIN I < 0.30 NG/ML (<0.30)
[2016-07-19 02:08] LABS: KETONES,URINE NEGATIVE (NEGATIVE); LEUKOCYTE ESTERASE ,URINE NEGATIVE (NEGATIVE); NITRITE,URINE NEGATIVE (NEGATIVE); PH,URINE 5 (5-9); PROTEIN,URINE 1+ (NEGATIVE); UROBILINOGEN,URINE NORMAL (NORMAL)
[2016-07-19] MEDS ORDERED: NS IV 1000 ML 1,000 ML IV ONE (02:14)
[2016-07-19] MEDS ORDERED: CEFEPIME INJECTION 2,000 MG in NS (IVPB) 50 ML IV ONE (02:15)
[2016-07-19] MEDS ORDERED: CEFEPIME HCL 2 GM (MAXIPIME) VIAL ONE ×2 (02:24→12:42)
[2016-07-19] MEDS ORDERED: NS (IVPB) 50 ML ONE ×2 (02:24→12:42)
[2016-07-19 02:25] LABS: BILIRUBIN,URINE 1+ (NEGATIVE); SQUAMOUS EPITHELIAL CELL,UR RARE /HPF
[2016-07-19 02:26] LABS: ABG BASE EXCESS -0.4 MMOL/L (-2.5-2.5); ABG HCO3 24 MMOL/L (23-27); ABG OXYGEN SATURATION 70 % (94-100); ABG PCO2 40 MMHG (35-45); ABG PO2 42 MMHG (79-93); ALLENS TEST YES-POS; PATIENT TEMP 101.2
[2016-07-19 03:45] VITALS: BP 135/78
[2016-07-19] MEDS ORDERED: VANCOMYCIN IV ADD-VANTAGE 1,000 MG in SODIUM CHLORIDE (ADD-VANTAGE) 250 ML IV SCH (04:15)
[2016-07-19] MEDS ORDERED: SODIUM CHLORIDE (ADD-VANTAGE) 250 ML ONE (04:32)
[2016-07-19] MEDS ORDERED: VANCOMYCIN 1 GM ADD-VANTAGE VIAL IV ONE (04:32)
[2016-07-19] MEDS ORDERED: LEVOFLOXACIN 750 MG/150 ML IV 150 ML IV SCH (04:37)
[2016-07-19] MEDS: NS IV 1000 ML 1,000 ML IV SCH ×3 (04:43→23:16)
[2016-07-19] MEDS ORDERED: RT-ALBUTEROL/IPRATROPIUM 3 ML (DUONEB) VIAL INH PRN (04:45)
--- NOTE | 2016-07-19 07:23 | Diagnostic Imaging Report ---
INDICATION: Shortness of breath. EXAMINATION: Chest, 07/19/2016. COMPARISON: 07/06/2016. FINDINGS: The heart is stable. Pulmonary vasculature is mildly prominent. Bibasilar atelectasis is seen with low lung volumes. No significant effusions. No pneumothorax. IMPRESSION: 1. Mild bibasilar atelectasis. Overall fairly stable appearance of the chest. Dictated by: Dictated on workstation # [id number]
[2016-07-19 08:00] VITALS: BP 130/64
[2016-07-19] MEDS: LEVOFLOXACIN 750 MG/150 ML IV 150 ML IV SCH (08:02)
[2016-07-19] MEDS: RT-ALBUTEROL/IPRATROPIUM 3 ML (DUONEB) VIAL INH SCH ×5 (08:05→23:02)
[2016-07-19] MEDS ORDERED: FLU TRIvalent (5 YOA+) 2016-17 (AFLURIA) 0.5 ML IM ONE (08:15)
[2016-07-19] MEDS ORDERED: CATHETER FLUSH 10 ML SYR IV PRN (09:15)
--- NOTE | 2016-07-19 10:24 | History & Physicial ---
History of Present Illness History of Present Illness Reason for visit/HPI 66 yo F admitted for pneumonia- RLL- Pt also has schizophrenia and mental issues making communication difficult- Pt has had low oxygen saturation for a couple days and she won't keep her oxygen on. She also has had a fever on/off for a couple days. Finished keflex for pneumonia on 07/13/16- staff from correction report they don't think she ever cleared the pneumonia No OVN events. Still wont keep her oxygen NC on. Date of Admission Jul 19, 2016 at 03:27 I consulted on this patient on 07/19/16 09:58 Attending Physician Robbie Duval MD Admitting Physician Armando Dalton DO Consult Allergies and Home Medications Allergies Coded Allergies: belladonna alkaloids (Verified Allergy, Mild, 10/11/14) meperidine (Verified Allergy, Mild, 10/11/14) Uncoded Allergies: pectin (Allergy, Mild, 10/11/14) Home Medications Acetaminophen 325 Mg Tablet 650 MG PO Q4H PRN PRN PAIN (Reported) TAKES 2 (325MG) TABLETS Amiodarone HCl 200 Mg Tablet 200 MG PO DAILY (Reported) Bisacodyl 5 Mg Tablet.dr 10 MG PO DAILY PRN PRN CONSTIPATION (Reported) Cholecalciferol 1,000 Unit Tab 2,000 UNIT PO DAILY (Reported) Clozapine 100 Mg Tablet 100 MG PO TID (Reported) Diphenhydramine HCl 25 Mg Capsule 50 MG PO Q6H PRN PRN AGITATION (Reported) Docusate Sodium 100 Mg Capsule 100 MG PO Q12H PRN PRN CONSTIPATION (Reported) Levothyroxine Sodium 150 Mcg Tablet 150 MCG PO DAILY (Reported) Magnesium Hydroxide 400 Mg/5 Ml Oral.susp 30 ML PO DAILY PRN PRN CONSTIPATION ( Reported) Olanzapine 10 Mg Tablet 20 MG PO HS (Reported) Ondansetron 4 Mg Tab.rapdis 4 MG PO Q6H PRN PRN NAUSEA/VOMITING (Reported) Polyethylene Glycol 3350 17 Gm Powd.pack 17 GM PO DAILY PRN PRN CONSTIPATION ( Reported) Trazodone HCl 50 Mg Tablet 50 MG PO HS (Reported) Trazodone HCl 50 Mg Tablet 50 MG PO HS PRN PRN INSOMNIA (Reported) Trihexyphenidyl Hcl 2 Mg Tablet 2 MG PO TID (Reported) Past Isqsglu-Qmpwuh-Zpsypl Hx Patient Social History Alcohol Use: Denies Use Recreational Drug Use: No Smoking Status: Never a Smoker 2nd Hand Smoke Exposure: No Physical Abuse Screen: No Sexual Abuse: No Recent Foreign Travel: No Contact w/other who traveled: No Recent Hopitalizations: No Recent Infectious Disease Expo: No Immunizations Up To Date Tetanus Booster (TDap): Unknown Date of Pneumonia Vaccine: Feb 12, 2008 Date of Influenza Vaccine: Apr 04, 2015 Surgeries HX Surgeries: No (no known surgeries) Respiratory Hx Respiratory Disorders: No Cardiovascular Hx Cardiovascular Disorders: Yes Cardiac Disorders: Atrial Fibrillation Neurological Hx Neurological Disorders: Yes (MENTAL RETARDATION, dysphagia) Neurological Disorders: Dementia, Parkinson's Disease Reproductive System Hx Reproductive Disorders: No Sexually Transmitted Disease: No HIV/AIDS: No Genitourinary Hx Genitourinary Disorders: Yes (INCONTINENCE WEARS ATTENDS, history of urinary tract infection) Gastrointestinal Hx Gastrointestinal Disorders: Yes Gastrointestinal Disorders: Chronic Constipation Musculoskeletal Hx Musculoskeletal Disorders: No Endocrine Hx Endocrine Disorders: Yes Endocrine Disorders: Hypothyroidsim HEENT HX ENT Disorders: No Cancer Hx Cancer: No Psychosocial Hx Psychiatric Problems: Yes Behavioral Health Disorders: Anxiety, Schizophrenia, Depression Integumentary HX Skin/Integumentary Disorder: No Blood Transfusions Hx Blood Disorders: No Adverse Reaction to a Blood Tr: No Family Medical History Family Hx: Patient reports no known family medical history. Constitutional: no symptoms reported (says she in love though) EENTM: no symptoms reported Respiratory: no symptoms reported Cardiovascular: no symptoms reported Gastrointestinal: no symptoms reported Genitourinary: no symptoms reported Musculoskeletal: no symptoms reported Skin: no symptoms reported Psychiatric/Neurological: No Symptoms Reported Physical Exam Vital Signs Vital Sign - Last 12Hours 07/19/16 07/19/16 01:00 01:24 Temp 101.2 Pulse 89 Resp 24 B/P 96/64 Pulse Ox 84 O2 Delivery Room Air O2 Flow Rate 15 Capillary Refill : Less Than 3 Seconds General Appearance: No Apparent Distress HEENT: PERRL/EOMI Other (poor dentition) Neck: Non Tender Supple Respiratory: Chest Non Tender Normal Breath Sounds No Accessory Muscle Use Decreased Breath Sounds (right lower lung saini) Cardiovascular: Regular Rate, Rhythm No Edema Gastrointestinal: Normal Bowel Sounds Rectal: Deferred Back: No Vertebral Tenderness Extremity: No Calf Tenderness Neurologic/Psychiatric: Alert Other (dyskinesia) Skin: Warm/Dry Assessment/Plan Assessment and Plan 66 yo F Sepsis secondary to acute hypoxic respiratory distress secondary to pneumonia- HCAP- vanc/levo/cefepime- cultures pending -CXR atrial fibrillation- not in RVR hypothyroidism schizophrenia/mental health issues Dispo: pt in no acute distress- talking to herself. NH did not sent med rec. will need to obtain. Clinical Quality Measures DVT/VTE Risk/Contraindication: Risk Factor Score Per Nursin RFS Level Per Nursing on Admit: 4+=Very High ROBBIE DUVAL MD Jul 19, 2016 10:23
[2016-07-19] MEDS: ENOXAPARIN 40 MG/0.4 ML (LOVENOX) SYR SC SCH (11:08)
[2016-07-19 12:00] VITALS: BP 119/61
[2016-07-19] MEDS: CEFEPIME INJECTION 2,000 MG in NS (IVPB) 50 ML IV SCH (12:46)
[2016-07-19] MEDS ORDERED: CEFEPIME INJECTION 2,000 MG in NS (IVPB) 50 ML IV SCH (14:00)
[2016-07-19] MEDS: VANCOMYCIN INJECTION 1,250 MG in NS (IVPB) 250 ML IV SCH (15:48)
[2016-07-19 16:50] VITALS: BP 130/74
[2016-07-19 20:00] VITALS: BP 140/60
[2016-07-20 00:50] VITALS: BP 94/54
[2016-07-20] MEDS: RT-ALBUTEROL/IPRATROPIUM 3 ML (DUONEB) VIAL INH SCH ×5 (03:01→21:17)
[2016-07-20 04:35] VITALS: BP 123/72
[2016-07-20 05:41] LABS: BASOPHILS % (AUTO) 0 % (0-10); EOSINOPHILS % (AUTO) 0 % (0-10); LYMPHOCYTES # (AUTO) 0.7 X 10^3 (1.0-4.0); LYMPHOCYTES % (AUTO) 12 % (12-44); MEAN CORPUSCULAR HEMOGLOBIN 27 PG (25-34); MEAN CORPUSCULAR HGB CONC 31 G/DL (32-36); MEAN CORPUSCULAR VOLUME 85 FL (80-99); MEAN PLATELET VOLUME 9.7 FL (7.4-10.4); MONOCYTES # (AUTO) 0.7 X 10^3 (0.0-1.0); MONOCYTES % (AUTO) 11 % (0-12); NEUTROPHILS # (AUTO) 4.5 X 10^3 (1.8-7.8); NEUTROPHILS % (AUTO) 76 % (42-75); PLATELET COUNT 284 10^3/uL (130-400); RED BLOOD COUNT 3.94 10^6/uL (4.35-5.85); RED CELL DISTRIBUTION WIDTH 15.4 % (10.0-14.5); WHITE BLOOD COUNT 5.9 10^3/uL (4.3-11.0)
[2016-07-20 05:52] LABS: ALBUMIN 2.9 G/DL (3.2-4.5); ANION GAP 8 MMOL/L (5-14); BLOOD UREA NITROGEN 15 MG/DL (7-18); BUN/CREATININE RATIO 19; CALCIUM 7.9 MG/DL (8.5-10.1); CARBON DIOXIDE 21 MMOL/L (21-32); CHLORIDE 111 MMOL/L (98-107); GFR ESTIMATED > 60; GLUCOSE 87 MG/DL (70-105); PHOSPHORUS 3.2 MG/DL (2.3-4.7); POTASSIUM 3.8 MMOL/L (3.6-5.0); SODIUM 140 MMOL/L (135-145)
[2016-07-20] MEDS: NS IV 1000 ML 1,000 ML IV SCH ×3 (07:17→17:50)
--- NOTE | 2016-07-20 07:34 | Progress Note (SOAP) ---
Subjective Subjective/Events-last exam febrile. Better. Respiratory infection. Chest x-ray by basilic atelectasis overall fairly stable appearance of chest. Schizoaffective disorder. Patient not making any sense today. Objective Exam Vital Signs Date Time Temp Pulse Resp B/P Pulse Ox O2 Delivery O2 Flow Rate FiO2 07/20/16 06:47 94 3.00 07/20/16 04:35 97.2 63 20 123/72 98 High Flow NC 3.00 07/20/16 03:02 91 3.00 07/20/16 00:50 97.0 62 20 94/54 94 High Flow NC 3.00 07/19/16 23:02 94 3.00 07/19/16 20:15 94 Nasal Cannula 3.00 07/19/16 20:00 99.6 75 22 140/60 90 High Flow NC 7.00 07/19/16 19:00 93 3.00 07/19/16 16:50 99.7 130 22 130/74 91 High Flow NC 7.00 07/19/16 14:44 92 3.00 07/19/16 12:00 101.3 78 24 119/61 93 High Flow NC 7.00 07/19/16 10:38 86 07/19/16 09:00 93 Nasal Cannula 8.00 07/19/16 08:06 8.00 07/19/16 08:00 100.6 64 23 130/64 93 High Flow NC 7.00 I & O 07/20/16 07:00 Intake Total 1800 ml Balance 1800 ml Capillary Refill : Less Than 3 Seconds General Appearance: No Apparent Distress WD/WN HEENT: Normal ENT Inspection Neck: Normal Inspection Respiratory: Chest Non Tender No Accessory Muscle Use No Respiratory Distress Cardiovascular: Regular Rate, Rhythm No Murmur Gastrointestinal: non tender soft Results Lab Laboratory Tests 07/20/16 04:54: Albumin 2.9L, Anion Gap 8, BUN/Creatinine Ratio 19, Basophils # (Auto) 0.0, Basophils (%) (Auto) 0, Blood Urea Nitrogen 15, Calcium Level 7.9L, Carbon Dioxide Level 21, Chloride Level 111H, Creatinine 0.80, Eosinophils # (Auto) 0.0 , Eosinophils (%) (Auto) 0, Estimat Glomerular Filtration Rate > 60, Glucose Level 87, Hematocrit 34L, Hemoglobin 10.5L, Lymphocytes # (Auto) 0.7L, Lymphocytes (%) (Auto) 12, Mean Corpuscular Hemoglobin 27, Mean Corpuscular Hemoglobin Concent 31L, Mean Corpuscular Volume 85, Mean Platelet Volume 9.7, Monocytes # (Auto) 0.7, Monocytes (%) (Auto) 11, Neutrophils # (Auto) 4.5, Neutrophils (%) (Auto) 76H, Phosphorus Level 3.2, Platelet Count 284, Potassium Level 3.8, Red Blood Count 3.94L, Red Cell Distribution Width 15.4H, Sodium Level 140, White Blood Count 5.9 Assessment/Plan Assessment/Plan Assess & Plan/Chief Complaint respiratory infection. Febrile. Schizoaffective disorder. Constipation. Diagnosis/Problems: Clinical Quality Measures DVT/VTE Risk/Contraindication: Risk Factor Score Per Nursin RFS Level Per Nursing on Admit: 4+=Very High ALBANIA RENTERIA DO Jul 20, 2016 07:34
[2016-07-20 08:46] VITALS: BP 129/94
[2016-07-20] MEDS ORDERED: IPRA3AMP IH (10:07)
[2016-07-20] MEDS ORDERED: LANO454C3 TP (10:07)
[2016-07-20] MEDS ORDERED: IBUP-2055 PO (10:07)
[2016-07-20] MEDS ORDERED: TRIH2TAB2 PO (10:07)
[2016-07-20] MEDS ORDERED: TRIA15OI9 TP (10:07)
[2016-07-20] MEDS ORDERED: HYOS0.1218 PO (10:07)
[2016-07-20] MEDS: LEVOFLOXACIN 750 MG/150 ML IV 150 ML IV SCH (11:07)
[2016-07-20] MEDS: ENOXAPARIN 40 MG/0.4 ML (LOVENOX) SYR SC SCH (11:10)
[2016-07-20] MEDS: LORazepam 0.5 MG (ATIVAN) TABLET PO PRN (12:20)
[2016-07-20] MEDS: CEFEPIME INJECTION 2,000 MG in NS (IVPB) 50 ML IV SCH (13:15)
[2016-07-20] MEDS ORDERED: ONDANSETRON 4 MG (ZOFRAN) ORAL DISSOLVE TAB PO PRN (14:00)
[2016-07-20] MEDS ORDERED: BISACODYL 5 MG (DULCOLAX) TABLET PO PRN (14:00)
[2016-07-20] MEDS ORDERED: POLYETHYLENE GLYCOL 17 GM (MIRALAX) PACK PO PRN (14:00)
[2016-07-20] MEDS ORDERED: DOCUSATE SODIUM 100 MG (COLACE) CAP PO PRN (14:00)
[2016-07-20] MEDS ORDERED: diphenhydrAMINE 25 MG TAB (BENADRYL) PO PRN (14:00)
[2016-07-20] MEDS ORDERED: MILK OF MAGNESIA 400 MG/5 ML 30 ML UDC PO PRN (14:00)
[2016-07-20] MEDS ORDERED: traZODone 50 MG (DESYREL) TAB PO PRN (14:00)
[2016-07-20] MEDS ORDERED: NON-FORMULARY MEDICATION 1 EA EA (Hyoscyamine Sulfate 0.125 MG) PO PRN (14:00)
[2016-07-20] MEDS ORDERED: HYOSCYAMINE 0.125 MG (LEVSIN) TAB SL PRN (14:45)
[2016-07-20] MEDS: TRIHEXYPHENIDYL 2 MG (ARTANE) TAB PO SCH (15:13)
[2016-07-20] MEDS: IBUPROFEN TABLET 200 MG TAB PO PRN (15:13)
[2016-07-20] MEDS: VANCOMYCIN INJECTION 1,250 MG in NS (IVPB) 250 ML IV SCH (15:23)
[2016-07-20 16:45] VITALS: BP 190/88
[2016-07-20] MEDS: amLODIPine 5 MG (NORVASC) TAB PO SCH (17:15)
[2016-07-20] MEDS ORDERED: LORazepam INJ 2 MG/ML (ATIVAN) VIAL IVP PRN (19:45)
[2016-07-20 20:00] VITALS: BP 166/98
[2016-07-20] MEDS ORDERED: NON-FORMULARY MEDICATION 1 EA EA (Olanzapine 20 MG) PO SCH (21:00)
[2016-07-20] MEDS: cloZAPine 100 MG (CLOZARIL) TAB PO SCH (21:02)
[2016-07-20] MEDS: OLANZapine 5 MG (ZyPREXA) TAB PO SCH (21:02)
[2016-07-20] MEDS: traZODone 50 MG (DESYREL) TAB PO SCH (21:02)
[2016-07-21] VITALS: BP 109/76
[2016-07-21] MEDS: NS IV 1000 ML 1,000 ML IV SCH ×3 (02:00→20:04)
[2016-07-21] MEDS: RT-ALBUTEROL/IPRATROPIUM 3 ML (DUONEB) VIAL INH SCH ×6 (02:39→21:43)
[2016-07-21 04:55] LABS: BASOPHILS % (AUTO) 0 % (0-10); EOSINOPHILS % (AUTO) 0 % (0-10); LYMPHOCYTES # (AUTO) 0.8 X 10^3 (1.0-4.0); LYMPHOCYTES % (AUTO) 14 % (12-44); MEAN CORPUSCULAR HEMOGLOBIN 27 PG (25-34); MEAN CORPUSCULAR HGB CONC 32 G/DL (32-36); MEAN CORPUSCULAR VOLUME 84 FL (80-99); MEAN PLATELET VOLUME 9.5 FL (7.4-10.4); MONOCYTES # (AUTO) 0.5 X 10^3 (0.0-1.0); MONOCYTES % (AUTO) 9 % (0-12); NEUTROPHILS # (AUTO) 4.7 X 10^3 (1.8-7.8); NEUTROPHILS % (AUTO) 77 % (42-75); PLATELET COUNT 327 10^3/uL (130-400); RED BLOOD COUNT 4.62 10^6/uL (4.35-5.85); RED CELL DISTRIBUTION WIDTH 14.9 % (10.0-14.5)
[2016-07-21 05:12] LABS: ANION GAP 10 MMOL/L (5-14); BLOOD UREA NITROGEN 12 MG/DL (7-18); BUN/CREATININE RATIO 16; CALCIUM 8.9 MG/DL (8.5-10.1); CARBON DIOXIDE 25 MMOL/L (21-32); CHLORIDE 106 MMOL/L (98-107); CREATININE SERUM 0.76 MG/DL (0.60-1.30); GFR ESTIMATED > 60; GLUCOSE 91 MG/DL (70-105); POTASSIUM 3.9 MMOL/L (3.6-5.0); SODIUM 141 MMOL/L (135-145)
[2016-07-21] MEDS: LEVOTHYROXINE 150 MCG (LEVOTHROID) TAB PO SCH (06:33)
--- NOTE | 2016-07-21 07:47 | Pulmonary Consultation ---
History of Present Illness History of Present Illness Date of Consultation 07/21/16 07:42 Date of Admission History of Present Illness 66yo with hx of schizophrenia and mental illness from [facility] admitted secondary to pneumonia and hypoxemia on 07/19. PT was recently treated for pneumonia prior to this visit with Javad rodriguez on 07/13/16. I am consulted for pulmonary management. Allergies and Home Medications Allergies Coded Allergies: belladonna alkaloids (Verified Allergy, Mild, 10/11/14) meperidine (Verified Allergy, Mild, 10/11/14) Uncoded Allergies: pectin (Allergy, Mild, 10/11/14) Home Medications Acetaminophen 325 Mg Tablet 650 MG PO Q4H PRN PRN MILD PAIN (Reported) TAKES 2 (325MG) TABLETS Amiodarone HCl 200 Mg Tablet 200 MG PO DAILY (Reported) Bisacodyl 5 Mg Tablet.dr 10 MG PO DAILY PRN PRN CONSTIPATION (Reported) Cholecalciferol 1,000 Unit Tab 2,000 UNIT PO DAILY (Reported) Clozapine 100 Mg Tablet 100 MG PO TID (Reported) Diphenhydramine HCl 25 Mg Capsule 50 MG PO Q6H PRN PRN AGITATION (Reported) Docusate Sodium 100 Mg Capsule 100 MG PO Q12H PRN PRN CONSTIPATION (Reported) Hyoscyamine Sulfate 0.125 Mg Tab.subl 0.125 MG PO Q12H PRN PRN ABDOMINAL PAIN ( Reported) Ibuprofen 200 Mg Tablet 400 MG PO Q6H PRN PRN TEMPERATURE (Reported) TAKES 2 (200 MG) TABLETS Ipratropium/Albuterol Sulfate 3 Ml Ampul.neb 3 ML IH Q4H PRN PRN SHORTNESS OF BREATH (Reported) Lanolin Alcohol/Mo/W.pet/[place] 454 Gm Cream..g. TP HS (Reported) APPLIES TO BOTH FEET Levothyroxine Sodium 150 Mcg Tablet 150 MCG PO DAILY (Reported) Magnesium Hydroxide 400 Mg/5 Ml Oral.susp 30 ML PO DAILY PRN PRN CONSTIPATION ( Reported) Olanzapine 10 Mg Tablet 20 MG PO HS (Reported) Ondansetron 4 Mg Tab.rapdis 4 MG PO Q6H PRN PRN NAUSEA/VOMITING (Reported) Polyethylene Glycol 3350 17 Gm Powd.pack 17 GM PO DAILY PRN PRN CONSTIPATION ( Reported) Trazodone HCl 50 Mg Tablet 100 MG PO HS (Reported) TAKES 2 (50 MG) TABLETS Trazodone HCl 50 Mg Tablet 50 MG PO HS PRN PRN INSOMNIA (Reported) Triamcinolone Acetonide 15 Gm Oint TP BID (Reported) Trihexyphenidyl HCl 2 Mg Tablet 4 MG PO TID@0900,1300,1700 (Reported) Past Hhciokb-Ulcdmd-Vthbop Hx Patient Social History Alcohol Use: Denies Use Recreational Drug Use: No Smoking Status: Never a Smoker 2nd Hand Smoke Exposure: No Recent Foreign Travel: No Contact w/Someone Who Travel: No Recent Infectious Disease Expo: No Recent Hopitalizations: No Physical Abuse Screen: No Sexual Abuse: No Immunizations Up To Date Tetanus Booster (TDap): Unknown Date of Pneumonia Vaccine: Feb 12, 2008 Date of Influenza Vaccine: Apr 04, 2015 Surgeries HX Surgeries: No (no known surgeries) Respiratory Hx Respiratory Disorders: No Cardiovascular Hx Cardiac Disorders: Yes Cardiac Disorders: Atrial Fibrillation Neurological Hx Neurological Disorders: Yes (MENTAL RETARDATION, dysphagia) Neurological Disorders: Dementia, Parkinson's Disease Reproductive System Hx Reproductive Disorders: No Sexually Transmitted Disease: No HIV/AIDS: No Genitourinary Hx Genitourinary Disorders: Yes (INCONTINENCE WEARS ATTENDS, history of urinary tract infection) Gastrointestinal Hx Gastrointestinal Disorders: Yes Gastrointestinal Disorders: Chronic Constipation Musculoskeletal Hx Musculoskeletal Disorders: No Endocrine Hx Endocrine Disorders: Yes Endocrine Disorders: Hypothyroidsim HEENT HX ENT Disorders: No Cancer Hx Cancer: No Psychosocial Hx Psychiatric Problems: Yes Behavioral Health Disorders: Anxiety, Schizophrenia, Depression Integumentary HX Skin/Integumentary Disorder: No Blood Transfusions Hx Blood Disorders: No Adverse Reaction to a Blood Tr: No Family Medical History Family Medial History: Patient reports no known family medical history. Exam Exam Vital Signs Date Time Temp Pulse Resp B/P Pulse Ox O2 Delivery O2 Flow Rate FiO2 07/21/16 07:19 93 3.00 07/21/16 02:39 95 3.00 07/21/16 00:00 98.4 75 18 109/76 93 High Flow NC 3.00 07/20/16 21:17 95 3.00 07/20/16 20:10 Nasal Cannula 2.00 07/20/16 20:00 98.7 77 20 166/98 96 High Flow NC 3.00 07/20/16 16:45 99.1 80 22 190/88 95 High Flow NC 3.00 07/20/16 13:39 92 3.00 07/20/16 12:53 99.2 80 20 97 07/20/16 10:20 94 3.00 07/20/16 09:00 92 3.00 07/20/16 08:46 98.1 124 20 129/94 97 High Flow NC 3.00 I & O 07/21/16 07:00 Intake Total 3440 ml Balance 3440 ml General Appearance: WD/WN Mild Distress HEENT: Normal ENT Inspection Neck: Normal Inspection Respiratory: Crackles (RLL (faint; posterior)) Decreased Breath Sounds Respiratory Distress (mild) Cardiovascular: Regular Rate, Rhythm Capillary Refill: Less Than 3 Seconds Gastrointestinal: non tender soft Extremity: No Calf Tenderness Neurologic/Psychiatric: AlertNo Oriented x3, No Motor/Sensory Deficits Normal Mood/Affect Skin: Warm/Dry Results Lab Laboratory Tests 07/20/16 04:54 07/21/16 04:34 Assessment/Plan Assessment/Plan Pneumonia - failed out patient treatment with Keflex -currently on Vanco, cefepime, and Levaquin -Cultures thus far are negative Clinical Quality Measures DVT/VTE Risk/Contraindication: Risk Factor Score Per Nursin RFS Level Per Nursing on Admit: 4+=Very High GISELL SCHWARTZ DO Jul 21, 2016 07:47
[2016-07-21] MEDS: LEVOFLOXACIN 750 MG/150 ML IV 150 ML IV SCH (07:58)
[2016-07-21 08:00] VITALS: BP 124/73
[2016-07-21] MEDS: TRIHEXYPHENIDYL 2 MG (ARTANE) TAB PO SCH ×3 (08:02→16:59)
[2016-07-21] MEDS: VITAMIN D3 1,000 UNITS (CHOLECALCIFEROL) TABLET PO SCH (08:02)
[2016-07-21] MEDS: AMIODARONE 200 MG (CORDARONE) TAB PO SCH (08:03)
[2016-07-21] MEDS: amLODIPine 5 MG (NORVASC) TAB PO SCH (08:03)
[2016-07-21] MEDS: cloZAPine 100 MG (CLOZARIL) TAB PO SCH ×3 (08:08→21:12)
--- NOTE | 2016-07-21 08:28 | Progress Note (SOAP) ---
Subjective Subjective/Events-last exam patient doing better today. Patient breathing better today. Blood tests look better today. Waiting for chest x-ray report. Patient afebrile Objective Exam Vital Signs Date Time Temp Pulse Resp B/P Pulse Ox O2 Delivery O2 Flow Rate FiO2 07/21/16 08:00 98.3 78 22 124/73 96 High Flow NC 3.00 07/21/16 07:19 93 3.00 07/21/16 02:39 95 3.00 07/21/16 00:00 98.4 75 18 109/76 93 High Flow NC 3.00 07/20/16 21:17 95 3.00 07/20/16 20:10 Nasal Cannula 2.00 07/20/16 20:00 98.7 77 20 166/98 96 High Flow NC 3.00 07/20/16 16:45 99.1 80 22 190/88 95 High Flow NC 3.00 07/20/16 13:39 92 3.00 07/20/16 12:53 99.2 80 20 97 07/20/16 10:20 94 3.00 07/20/16 09:00 92 3.00 07/20/16 08:46 98.1 124 20 129/94 97 High Flow NC 3.00 I & O 07/21/16 07:00 Intake Total 3440 ml Balance 3440 ml Capillary Refill : Less Than 3 SecondsLess Than 3 Seconds General Appearance: No Apparent Distress WD/WN HEENT: Normal ENT Inspection Neck: Normal Inspection Respiratory: Chest Non Tender Lungs Clear Normal Breath Sounds No Accessory Muscle Use No Respiratory Distress Cardiovascular: Regular Rate, Rhythm No Murmur Gastrointestinal: non tender soft Results Lab Laboratory Tests 07/21/16 04:34 Laboratory Tests 07/21/16 04:34: Anion Gap 10, BUN/Creatinine Ratio 16, Basophils # (Auto) 0.0, Basophils (%) ( Auto) 0, Blood Urea Nitrogen 12, Calcium Level 8.9, Carbon Dioxide Level 25, Chloride Level 106, Creatinine 0.76, Eosinophils # (Auto) 0.0, Eosinophils (%) ( Auto) 0, Estimat Glomerular Filtration Rate > 60, Glucose Level 91, Hematocrit 39, Hemoglobin 12.4, Lymphocytes # (Auto) 0.8L, Lymphocytes (%) (Auto) 14, Mean Corpuscular Hemoglobin 27, Mean Corpuscular Hemoglobin Concent 32, Mean Corpuscular Volume 84, Mean Platelet Volume 9.5, Monocytes # (Auto) 0.5, Monocytes (%) (Auto) 9, Neutrophils # (Auto) 4.7, Neutrophils (%) (Auto) 77H, Platelet Count 327, Potassium Level 3.9, Red Blood Count 4.62, Red Cell Distribution Width 14.9H, Sodium Level 141, White Blood Count 6.0 Microbiology 07/19/16 Blood Culture - Preliminary, Resulted No growth Assessment/Plan Assessment/Plan Assess & Plan/Chief Complaint respiratory infection. Febrile. Schizoaffective disorder. Constipation.. . 07/21/16. Resolving pneumonia. Schizoaffective disorder. Patient not febrile now. Patient looks much better area Blood tests look better. Patient in the right direction Diagnosis/Problems: Clinical Quality Measures DVT/VTE Risk/Contraindication: Risk Factor Score Per Nursin RFS Level Per Nursing on Admit: 4+=Very High ALBANIA RENTERIA DO Jul 21, 2016 08:28
--- NOTE | 2016-07-21 09:17 | Diagnostic Imaging Report ---
INDICATION: Fever and cough. TECHNIQUE: PA and lateral views of the chest were obtained at 0335 hours. COMPARISON: 07/19/2016. FINDINGS: The heart and mediastinal silhouette are normal in appearance. There is patchy perihilar infiltrate on both sides. There is no pneumothorax or pleural fluid. IMPRESSION: Patchy bilateral perihilar infiltrates. No acute infiltrate, pneumothorax, or pleural fluid. Dictated by: Dictated on workstation # [id number]
[2016-07-21] MEDS: ENOXAPARIN 40 MG/0.4 ML (LOVENOX) SYR SC SCH (11:09)
[2016-07-21] MEDS: CEFEPIME INJECTION 2,000 MG in NS (IVPB) 50 ML IV SCH (13:53)
[2016-07-21] MEDS ORDERED: TROUGH ORDER-PHARMACY XX NR (15:00)
[2016-07-21 16:15] VITALS: BP 135/77
[2016-07-21] MEDS: OLANZapine 5 MG (ZyPREXA) TAB PO SCH (21:12)
[2016-07-21] MEDS: traZODone 50 MG (DESYREL) TAB PO SCH (21:12)
[2016-07-21 23:33] VITALS: BP 108/68
[2016-07-22] MEDS: RT-ALBUTEROL/IPRATROPIUM 3 ML (DUONEB) VIAL INH SCH ×5 (03:15→22:24)
[2016-07-22] MEDS: NS IV 1000 ML 1,000 ML IV SCH (03:26)
[2016-07-22 05:20] LABS: BASOPHILS % (AUTO) 0 % (0-10); EOSINOPHILS % (AUTO) 0 % (0-10); LYMPHOCYTES # (AUTO) 0.9 X 10^3 (1.0-4.0); LYMPHOCYTES % (AUTO) 21 % (12-44); MEAN CORPUSCULAR HEMOGLOBIN 27 PG (25-34); MEAN CORPUSCULAR HGB CONC 32 G/DL (32-36); MEAN CORPUSCULAR VOLUME 85 FL (80-99); MEAN PLATELET VOLUME 9.7 FL (7.4-10.4); MONOCYTES # (AUTO) 0.5 X 10^3 (0.0-1.0); MONOCYTES % (AUTO) 10 % (0-12); NEUTROPHILS # (AUTO) 3.1 X 10^3 (1.8-7.8); NEUTROPHILS % (AUTO) 69 % (42-75); PLATELET COUNT 317 10^3/uL (130-400); RED BLOOD COUNT 4.37 10^6/uL (4.35-5.85); RED CELL DISTRIBUTION WIDTH 14.9 % (10.0-14.5); WHITE BLOOD COUNT 4.5 10^3/uL (4.3-11.0)
[2016-07-22 05:36] LABS: ANION GAP 9 MMOL/L (5-14); BLOOD UREA NITROGEN 13 MG/DL (7-18); BUN/CREATININE RATIO 17; CALCIUM 8.2 MG/DL (8.5-10.1); CARBON DIOXIDE 23 MMOL/L (21-32); CHLORIDE 111 MMOL/L (98-107); CREATININE SERUM 0.76 MG/DL (0.60-1.30); GFR ESTIMATED > 60; GLUCOSE 96 MG/DL (70-105); POTASSIUM 3.9 MMOL/L (3.6-5.0); SODIUM 143 MMOL/L (135-145)
[2016-07-22] MEDS: LEVOTHYROXINE 150 MCG (LEVOTHROID) TAB PO SCH (06:04)
--- NOTE | 2016-07-22 07:38 | Pulmonary Progress Note ---
Subjective Subjective/Events-last exam PT is feeling better. Exam Exam Vital Signs Date Time Temp Pulse Resp B/P Pulse Ox O2 Delivery O2 Flow Rate FiO2 07/22/16 03:15 94 3.00 07/21/16 23:33 98.0 62 18 108/68 96 High Flow NC 3.00 07/21/16 21:43 94 3.00 07/21/16 19:55 Nasal Cannula 2.00 07/21/16 19:27 95 3.00 07/21/16 16:15 98.0 70 20 135/77 98 High Flow NC 3.00 07/21/16 15:14 94 3.00 07/21/16 11:23 93 3.00 07/21/16 09:00 92 2.00 07/21/16 08:00 98.3 78 22 124/73 96 High Flow NC 3.00 I & O 07/22/16 07:00 Intake Total 4580 ml Balance 4580 ml General Appearance: No Apparent Distress WD/WN HEENT: Normal ENT Inspection Neck: Normal Inspection Respiratory: Chest Non Tender Lungs Clear Normal Breath Sounds No Accessory Muscle Use No Respiratory Distress Cardiovascular: Regular Rate, Rhythm No Murmur Capillary Refill: Less Than 3 Seconds Gastrointestinal: non tender soft Extremity: No Calf Tenderness Neurologic/Psychiatric: AlertNo Oriented x3, No Motor/Sensory Deficits Normal Mood/Affect Skin: Warm/Dry Results Lab Laboratory Tests 07/21/16 04:34 07/22/16 04:49 Assessment/Plan Assessment/Plan Pneumonia - failed out patient treatment with Keflex -currently on cefepime -Cultures thus far are negative Dysphagia r/o aspiration -Consult speech therapy Clinical Quality Measures DVT/VTE Risk/Contraindication: Risk Factor Score Per Nursin RFS Level Per Nursing on Admit: 4+=Very High GISELL SCHWARTZ DO Jul 22, 2016 07:38
--- NOTE | 2016-07-22 07:48 | Progress Note (SOAP) ---
Subjective Subjective/Events-last exam patient still on 3 L of nasal oxygen. Patient still has congestion in chest. Patient may be aspirating. Consult with speech therapy. Patient overall has improvement Objective Exam Vital Signs Date Time Temp Pulse Resp B/P Pulse Ox O2 Delivery O2 Flow Rate FiO2 07/22/16 03:15 94 3.00 07/21/16 23:33 98.0 62 18 108/68 96 High Flow NC 3.00 07/21/16 21:43 94 3.00 07/21/16 19:55 Nasal Cannula 2.00 07/21/16 19:27 95 3.00 07/21/16 16:15 98.0 70 20 135/77 98 High Flow NC 3.00 07/21/16 15:14 94 3.00 07/21/16 11:23 93 3.00 07/21/16 09:00 92 2.00 07/21/16 08:00 98.3 78 22 124/73 96 High Flow NC 3.00 I & O 07/22/16 07:00 Intake Total 4580 ml Balance 4580 ml Capillary Refill : Less Than 3 SecondsLess Than 3 Seconds General Appearance: No Apparent Distress WD/WN HEENT: Normal ENT Inspection Neck: Normal Inspection Respiratory: Decreased Breath Sounds Other (congestion with coughing) Cardiovascular: Regular Rate, Rhythm Gastrointestinal: non tender soft Results Lab Laboratory Tests 07/21/16 15:15: Vancomycin Level Trough 5.8L 07/22/16 04:49: Anion Gap 9, BUN/Creatinine Ratio 17, Basophils # (Auto) 0.0, Basophils (%) ( Auto) 0, Blood Urea Nitrogen 13, Calcium Level 8.2L, Carbon Dioxide Level 23, Chloride Level 111H, Creatinine 0.76, Eosinophils # (Auto) 0.0, Eosinophils (%) (Auto) 0, Estimat Glomerular Filtration Rate > 60, Glucose Level 96, Hematocrit 37, Hemoglobin 11.9, Lymphocytes # (Auto) 0.9L, Lymphocytes (%) (Auto) 21, Mean Corpuscular Hemoglobin 27, Mean Corpuscular Hemoglobin Concent 32, Mean Corpuscular Volume 85, Mean Platelet Volume 9.7, Monocytes # (Auto) 0.5, Monocytes (%) (Auto) 10, Neutrophils # (Auto) 3.1, Neutrophils (%) (Auto) 69, Platelet Count 317, Potassium Level 3.9, Red Blood Count 4.37, Red Cell Distribution Width 14.9H, Sodium Level 143, White Blood Count 4.5 Microbiology 07/19/16 Blood Culture - Preliminary, Resulted No growth Assessment/Plan Assessment/Plan Assess & Plan/Chief Complaint respiratory infection. Febrile. Schizoaffective disorder. Constipation.. . 07/21/16. Resolving pneumonia. Schizoaffective disorder. Patient not febrile now. Patient looks much better area Blood tests look better. Patient in the right direction. . 07/22/16. Respiratory infection. Schizoaffective disorder. Constipation. Patient still on 3 L of nasal oxygen. Patient does have congestion in her chest Diagnosis/Problems: Clinical Quality Measures DVT/VTE Risk/Contraindication: Risk Factor Score Per Nursin RFS Level Per Nursing on Admit: 4+=Very High ALBANIA RENTERIA DO Jul 22, 2016 07:48
[2016-07-22 07:50] VITALS: BP 102/67
[2016-07-22] MEDS: VITAMIN D3 1,000 UNITS (CHOLECALCIFEROL) TABLET PO SCH (09:52)
[2016-07-22] MEDS: cloZAPine 100 MG (CLOZARIL) TAB PO SCH ×3 (09:53→20:33)
[2016-07-22] MEDS: TRIHEXYPHENIDYL 2 MG (ARTANE) TAB PO SCH ×3 (09:53→17:07)
[2016-07-22] MEDS: amLODIPine 5 MG (NORVASC) TAB PO SCH (09:53)
[2016-07-22] MEDS: AMIODARONE 200 MG (CORDARONE) TAB PO SCH (09:53)
[2016-07-22] MEDS: ENOXAPARIN 40 MG/0.4 ML (LOVENOX) SYR SC SCH (09:54)
--- NOTE | 2016-07-22 11:00 | ST Dysphagia Evaluation ---
Speech Evaluation-General Medical Diagnosis Pneumonia Onset Date: Jul 22, 2016 Therapy Diagnosis Therapy Diagnosis: Questionable Oropharyngeal Dysphagia Precautions Precautions: Aspiration Precautions/Isolations: Fall Prevention, Standard Precautions Referral Referring Physician: Dr. Armando Dalton Reason for Referral: Evaluation/Treatment Clinical Bedside Swallowing Evaluation Medical History Pertinent Medical History: Dementia, Hypothroidism, Parkinson's Depression, Anxiety, Schizophrenia, Learning Disability Reviewed History: Yes Speech PLF/Current-Dysphagia Prior Level of Function The patient was unable to provide prior level of function information to the clinician. The nurse's aide was present as a sitter throughout the evaluation. Per aide, the patient "does well" while consuming a regular diet, however, does choke when she attempts to talk while swallowing or becomes distracted. Subjective The patient was recently admitted to [facility] with a diagnosis of pneumonia. The patient was seated upright in bed by clinician upon entrance (90 degrees). The patient was agreeable to the dysphagia evaluation. The patient continued to demonstrate confusion throughout the session, referring to the clinician as "Lorraine Castellanos." The patient demonstrated an intermittent, productive cough at baseline (prior to bolus trials). CXR: 07/21/16: Patchy bilateraly perihilar infiltrates. No acute infiltrate, pneumothorax, or pleural fluid. Cognitive Status Patient Orientation: Person The patient was unable to state location, date, day of week, or rationale for hospitalization. Oral Motor Skills Dentition: Natural Current Food Consistancy: Regular, Thin Liquids Ability to Follow Directions: Fair Oral Expression Ability: Moderate Impairment Voice Voice Phonatory-Based Quality: Glottal Valdes Voice Pitch: Normal Voice Loudness: Normal Face Facial Symmetry: Symmetrical Oral-Facial Assessment Oral-Facial Dentition: Normal Labial Seal Description: Normal Smile: Normal Puff Cheeks: Normal Lingual Protrusion: Normal Lingual ROM: Normal Lingual Strength: Normal Volitional Dry Swallow: Yes Dysphagia Evaluation Consistencies Presented: Regular, Thin Liquid (Via teaspoon and straw sip.), Pureed Oral Phase: Oral Residue 1. The patient demonstrated increased oral holding with solid consistencies, requiring consistent clinician verbal prompting for swallowing. Additionally, mild lingual residue was present following the aldo cracker. The residue was cleared with a subsequent drink of thin liquid. - No pharyngeal deficits were present during the evaluation. - No signs/symptoms of aspiration were demonstrated with any consistency the patient was evaluated with (thin liquid, puree, or solid). The patient's vocal quality remained clear throughout the assessment. The frequency, duration, or intensity of the patient's baseline cough remained stable throughout the evaluation. Dietary Recommendations: Regular Liquid Recommendations: Thin Swallowing Precautions: Alternate Liquids/Solids, Oral Supervision Staff, Small Bites and Sips, Sitting 90 Degrees 30 Post Intake 1. Verbal prompts from staff to reduce oral holding behavior. 2. Alert for all PO. Dysphagia Evaluation Summary The patient presented with an oropharyngeal swallowing function grossly within normal limits. Barriers to Learning Reduced cognition Speech-Plan Treatment Plan Speech Therapy Treatment Plan: Discontinue ST Evaluation, only. Rehab Potential: Guarded Safety Risks/Education Teaching Recipient: Patient Teaching Methods: Discussion Response to Teaching: Reinforcement Needed Education Topics Provided: Results, recommendations, swallowing strategies Time Speech Therapy Time In: 10:40 Speech Therapy Time Out: 11:00 Total Billed Time: 20 Billed Treatment Time 1, ABRAHAM SHIN Jul 22, 2016 11:00
[2016-07-22] MEDS ORDERED: CEFEPIME HCL 2 GM (MAXIPIME) VIAL ONE (12:46)
[2016-07-22] MEDS ORDERED: NS (IVPB) 50 ML ONE (12:46)
[2016-07-22] MEDS: CEFEPIME INJECTION 2,000 MG in NS (IVPB) 50 ML IV SCH (14:58)
[2016-07-22 16:00] VITALS: BP 122/65
[2016-07-22] MEDS: traZODone 50 MG (DESYREL) TAB PO SCH (20:33)
[2016-07-22] MEDS: OLANZapine 5 MG (ZyPREXA) TAB PO SCH (20:33)
[2016-07-23] MEDS: RT-ALBUTEROL/IPRATROPIUM 3 ML (DUONEB) VIAL INH SCH ×6 (03:08→21:52)
[2016-07-23 04:00] VITALS: BP 125/78
[2016-07-23] MEDS: LEVOTHYROXINE 150 MCG (LEVOTHROID) TAB PO SCH (06:17)
[2016-07-23 07:00] LABS: BASOPHILS % (AUTO) 0 % (0-10); EOSINOPHILS % (AUTO) 0 % (0-10); LYMPHOCYTES # (AUTO) 1.1 X 10^3 (1.0-4.0); LYMPHOCYTES % (AUTO) 18 % (12-44); MEAN CORPUSCULAR HEMOGLOBIN 27 PG (25-34); MEAN CORPUSCULAR HGB CONC 32 G/DL (32-36); MEAN CORPUSCULAR VOLUME 85 FL (80-99); MEAN PLATELET VOLUME 9.6 FL (7.4-10.4); MONOCYTES # (AUTO) 0.5 X 10^3 (0.0-1.0); MONOCYTES % (AUTO) 8 % (0-12); NEUTROPHILS # (AUTO) 4.5 X 10^3 (1.8-7.8); NEUTROPHILS % (AUTO) 74 % (42-75); PLATELET COUNT 350 10^3/uL (130-400); RED BLOOD COUNT 4.65 10^6/uL (4.35-5.85); RED CELL DISTRIBUTION WIDTH 14.9 % (10.0-14.5); WHITE BLOOD COUNT 6.1 10^3/uL (4.3-11.0)
[2016-07-23 07:21] LABS: ANION GAP 9 MMOL/L (5-14); BLOOD UREA NITROGEN 15 MG/DL (7-18); BUN/CREATININE RATIO 19; CALCIUM 8.5 MG/DL (8.5-10.1); CARBON DIOXIDE 22 MMOL/L (21-32); CHLORIDE 110 MMOL/L (98-107); CREATININE SERUM 0.81 MG/DL (0.60-1.30); GFR ESTIMATED > 60; GLUCOSE 95 MG/DL (70-105); POTASSIUM 4.5 MMOL/L (3.6-5.0); SODIUM 141 MMOL/L (135-145)
--- NOTE | 2016-07-23 07:54 | Diagnostic Imaging Report ---
INDICATION: Pneumonia. Frontal chest obtained at 5:06 a.m. and compared with 07/21/16. FINDINGS: Heart is normal in size. There is relatively poor inspiration. There is some minimal infiltrate versus atelectasis in both lung bases with overall improvement compared to the prior study. There is no pneumothorax or pleural fluid. IMPRESSION: Minimal bibasilar infiltrate versus atelectasis which may in part be due to poor inspiration. There is improved aeration compared to the previous study of 07/21/16. No new abnormality otherwise seen. Dictated by: Dictated on workstation # [id number]
[2016-07-23 07:55] VITALS: BP 95/53
--- NOTE | 2016-07-23 08:14 | Progress Note (SOAP) ---
Subjective Subjective/Events-last exam patient still on 3 L of nasal oxygen. Chest x-ray shows improvement. Improved aeration. Minimal basilar infiltrate versus atelectasis area Patient's lungs less congestion. Prednisone ordered. Plan to discharge tomorrow Objective Exam Vital Signs Date Time Temp Pulse Resp B/P Pulse Ox O2 Delivery O2 Flow Rate FiO2 07/23/16 07:55 97.7 75 18 95/53 96 High Flow NC 3.00 07/23/16 07:05 94 3.00 07/23/16 04:00 97.7 65 20 125/78 97 High Flow NC 3.00 07/23/16 03:08 91 3.00 07/22/16 22:24 98 3.00 07/22/16 19:35 Nasal Cannula 3.00 07/22/16 19:20 92 3.00 07/22/16 16:00 98.9 73 20 122/65 94 High Flow NC 3.00 07/22/16 15:17 92 3.00 07/22/16 12:57 93 I & O 07/23/16 07:00 Intake Total 2420 ml Balance 2420 ml Capillary Refill : Less Than 3 SecondsLess Than 3 Seconds General Appearance: No Apparent Distress WD/WN HEENT: Normal ENT Inspection Neck: Normal Inspection Respiratory: No Accessory Muscle Use No Respiratory Distress Other (chest congestion less) Cardiovascular: Regular Rate, Rhythm Gastrointestinal: non tender soft Results Lab Laboratory Tests 07/23/16 06:14 Laboratory Tests 07/23/16 06:14: Anion Gap 9, BUN/Creatinine Ratio 19, Basophils # (Auto) 0.0, Basophils (%) ( Auto) 0, Blood Urea Nitrogen 15, Calcium Level 8.5, Carbon Dioxide Level 22, Chloride Level 110H, Creatinine 0.81, Eosinophils # (Auto) 0.0, Eosinophils (%) (Auto) 0, Estimat Glomerular Filtration Rate > 60, Glucose Level 95, Hematocrit 39, Hemoglobin 12.5, Lymphocytes # (Auto) 1.1, Lymphocytes (%) (Auto) 18, Mean Corpuscular Hemoglobin 27, Mean Corpuscular Hemoglobin Concent 32, Mean Corpuscular Volume 85, Mean Platelet Volume 9.6, Monocytes # (Auto) 0.5, Monocytes (%) (Auto) 8, Neutrophils # (Auto) 4.5, Neutrophils (%) (Auto) 74, Platelet Count 350, Potassium Level 4.5, Red Blood Count 4.65, Red Cell Distribution Width 14.9H, Sodium Level 141, White Blood Count 6.1 Microbiology 07/19/16 Blood Culture - Preliminary, Resulted No growth Assessment/Plan Assessment/Plan Assess & Plan/Chief Complaint respiratory infection. Febrile. Schizoaffective disorder. Constipation.. . 07/21/16. Resolving pneumonia. Schizoaffective disorder. Patient not febrile now. Patient looks much better area Blood tests look better. Patient in the right direction. . 07/22/16. Respiratory infection. Schizoaffective disorder. Constipation. Patient still on 3 L of nasal oxygen. Patient does have congestion in her chest. . 07/23/16. Respiratory infection improving. Schizoaffective disorder. Patient breathing better. Patient looks better. Plan to discharge tomorrow Diagnosis/Problems: Clinical Quality Measures DVT/VTE Risk/Contraindication: Risk Factor Score Per Nursin RFS Level Per Nursing on Admit: 4+=Very High AL[place] RENTERIA DO Jul 23, 2016 08:14
[2016-07-23] MEDS ORDERED: methylPREDNISolone 40 MG/ML (Solu-MEDROL) VIAL IV SCH (08:15)
--- NOTE | 2016-07-23 08:34 | Pulmonary Progress Note ---
Subjective Subjective/Events-last exam PT is doing better. Exam Exam Vital Signs Date Time Temp Pulse Resp B/P Pulse Ox O2 Delivery O2 Flow Rate FiO2 07/23/16 07:55 97.7 75 18 95/53 96 High Flow NC 3.00 07/23/16 07:05 94 3.00 07/23/16 04:00 97.7 65 20 125/78 97 High Flow NC 3.00 07/23/16 03:08 91 3.00 07/22/16 22:24 98 3.00 07/22/16 19:35 Nasal Cannula 3.00 07/22/16 19:20 92 3.00 07/22/16 16:00 98.9 73 20 122/65 94 High Flow NC 3.00 07/22/16 15:17 92 3.00 07/22/16 12:57 93 I & O 07/23/16 07:00 Intake Total 2420 ml Balance 2420 ml General Appearance: No Apparent Distress WD/WN HEENT: Normal ENT Inspection Neck: Normal Inspection Respiratory: Chest Non Tender Lungs Clear Normal Breath Sounds No Accessory Muscle Use No Respiratory Distress Cardiovascular: Regular Rate, Rhythm No Murmur Capillary Refill: Less Than 3 Seconds Gastrointestinal: non tender soft Extremity: No Calf Tenderness Neurologic/Psychiatric: AlertNo Oriented x3, No Motor/Sensory Deficits Normal Mood/Affect Skin: Warm/Dry Results Lab Laboratory Tests 07/22/16 04:49 07/23/16 06:14 Assessment/Plan Assessment/Plan Pneumonia - failed out patient treatment with Keflex -currently on cefepime -Cultures thus far are negative Dyspnea -start prednisone continue SVN Dysphagia r/o aspiration -Consult speech therapy Possible discharge tomorrow Clinical Quality Measures DVT/VTE Risk/Contraindication: Risk Factor Score Per Nursin RFS Level Per Nursing on Admit: 4+=Very High GISELL SCHWARTZ DO Jul 23, 2016 08:34
[2016-07-23] MEDS: AMIODARONE 200 MG (CORDARONE) TAB PO SCH (08:48)
[2016-07-23] MEDS: TRIHEXYPHENIDYL 2 MG (ARTANE) TAB PO SCH ×3 (08:48→17:30)
[2016-07-23] MEDS: amLODIPine 5 MG (NORVASC) TAB PO SCH (08:49)
[2016-07-23] MEDS: cloZAPine 100 MG (CLOZARIL) TAB PO SCH ×3 (08:49→20:25)
[2016-07-23] MEDS: VITAMIN D3 1,000 UNITS (CHOLECALCIFEROL) TABLET PO SCH (08:49)
[2016-07-23] MEDS: predniSONE 10 MG TAB PO SCH ×3 (08:50→20:24)
[2016-07-23] MEDS: IBUPROFEN TABLET 200 MG TAB PO PRN (08:56)
[2016-07-23] MEDS: ENOXAPARIN 40 MG/0.4 ML (LOVENOX) SYR SC SCH (10:51)
[2016-07-23] MEDS: CEFEPIME INJECTION 2,000 MG in NS (IVPB) 50 ML IV SCH (14:33)
[2016-07-23 16:00] VITALS: BP 105/62
[2016-07-23] MEDS: traZODone 50 MG (DESYREL) TAB PO SCH (20:25)
[2016-07-23] MEDS: OLANZapine 5 MG (ZyPREXA) TAB PO SCH (20:25)
[2016-07-24 00:26] VITALS: BP 128/71
[2016-07-24] MEDS: RT-ALBUTEROL/IPRATROPIUM 3 ML (DUONEB) VIAL INH SCH ×4 (03:00→14:01)
[2016-07-24] MEDS: LEVOTHYROXINE 150 MCG (LEVOTHROID) TAB PO SCH (06:04)
--- NOTE | 2016-07-24 07:22 | Pulmonary Progress Note ---
Subjective Subjective/Events-last exam pt is feeling better. Exam Exam Vital Signs Date Time Temp Pulse Resp B/P Pulse Ox O2 Delivery O2 Flow Rate FiO2 07/24/16 03:00 91 2.00 07/24/16 00:26 98.5 74 18 128/71 93 Nasal Cannula 2.00 07/23/16 21:52 90 2.00 07/23/16 19:50 Nasal Cannula 1.50 07/23/16 19:44 95 2.00 07/23/16 16:00 97.5 72 18 105/62 96 High Flow NC 3.00 07/23/16 14:14 88 1.50 07/23/16 10:37 88 1.00 07/23/16 08:00 88 Nasal Cannula 1.50 07/23/16 08:00 97.7 07/23/16 07:55 97.7 75 18 95/53 96 High Flow NC 3.00 I & O 07/24/16 07:00 Intake Total 1050 ml Output Total 750 ml Balance 300 ml General Appearance: No Apparent Distress WD/WN HEENT: Normal ENT Inspection Neck: Normal Inspection Respiratory: Chest Non Tender Lungs Clear Normal Breath Sounds No Accessory Muscle Use No Respiratory Distress Cardiovascular: Regular Rate, Rhythm No Murmur Capillary Refill: Less Than 3 Seconds Gastrointestinal: non tender soft Extremity: No Calf Tenderness Neurologic/Psychiatric: AlertNo Oriented x3, No Motor/Sensory Deficits Normal Mood/Affect Skin: Warm/Dry Results Lab Laboratory Tests 07/23/16 06:14 Assessment/Plan Assessment/Plan Pneumonia - failed out patient treatment with Keflex -currently on cefepime -Cultures thus far are negative Dyspnea -start prednisone continue SVN Dysphagia r/o aspiration -Consult speech therapy Clinical Quality Measures DVT/VTE Risk/Contraindication: Risk Factor Score Per Nursin RFS Level Per Nursing on Admit: 4+=Very High GISELL SCHWARTZ DO Jul 24, 2016 07:22
[2016-07-24 07:31] LABS: BASOPHILS % (AUTO) 0 % (0-10); EOSINOPHILS % (AUTO) 0 % (0-10); LYMPHOCYTES # (AUTO) 1.1 X 10^3 (1.0-4.0); LYMPHOCYTES % (AUTO) 11 % (12-44); MEAN CORPUSCULAR HEMOGLOBIN 27 PG (25-34); MEAN CORPUSCULAR HGB CONC 32 G/DL (32-36); MEAN CORPUSCULAR VOLUME 84 FL (80-99); MEAN PLATELET VOLUME 9.6 FL (7.4-10.4); MONOCYTES # (AUTO) 0.8 X 10^3 (0.0-1.0); MONOCYTES % (AUTO) 8 % (0-12); NEUTROPHILS # (AUTO) 8.3 X 10^3 (1.8-7.8); NEUTROPHILS % (AUTO) 82 % (42-75); PLATELET COUNT 372 10^3/uL (130-400); RED BLOOD COUNT 4.71 10^6/uL (4.35-5.85); WHITE BLOOD COUNT 10.1 10^3/uL (4.3-11.0)
[2016-07-24 07:38] VITALS: BP 119/82
--- NOTE | 2016-07-24 08:06 | Progress Note (SOAP) ---
Subjective Subjective/Events-last exam patient doing better and feeling better. Patient breathing good. Pulse ox after shower was 92. Plan to discharge today Objective Exam Vital Signs Date Time Temp Pulse Resp B/P Pulse Ox O2 Delivery O2 Flow Rate FiO2 07/24/16 07:38 97.9 95 22 119/82 94 Nasal Cannula 2.00 07/24/16 07:15 90 2.00 07/24/16 03:00 91 2.00 07/24/16 00:26 98.5 74 18 128/71 93 Nasal Cannula 2.00 07/23/16 21:52 90 2.00 07/23/16 19:50 Nasal Cannula 1.50 07/23/16 19:44 95 2.00 07/23/16 16:00 97.5 72 18 105/62 96 High Flow NC 3.00 07/23/16 14:14 88 1.50 07/23/16 10:37 88 1.00 I & O 07/24/16 07:00 Intake Total 1050 ml Output Total 750 ml Balance 300 ml Capillary Refill : Less Than 3 SecondsLess Than 3 Seconds General Appearance: No Apparent Distress WD/WN HEENT: Normal ENT Inspection Neck: Full Range of Motion Normal Inspection Non Tender Respiratory: Chest Non Tender Lungs Clear Normal Breath Sounds No Accessory Muscle Use No Respiratory Distress Cardiovascular: Regular Rate, Rhythm No Murmur Gastrointestinal: non tender soft Results Lab Laboratory Tests 07/24/16 06:48 Laboratory Tests 07/24/16 06:48: Basophils # (Auto) 0.0, Basophils (%) (Auto) 0, Eosinophils # (Auto) 0.0, Eosinophils (%) (Auto) 0, Hematocrit 40, Hemoglobin 12.6, Lymphocytes # (Auto) 1.1, Lymphocytes (%) (Auto) 11L, Mean Corpuscular Hemoglobin 27, Mean Corpuscular Hemoglobin Concent 32, Mean Corpuscular Volume 84, Mean Platelet Volume 9.6, Monocytes # (Auto) 0.8, Monocytes (%) (Auto) 8, Neutrophils # (Auto ) 8.3H, Neutrophils (%) (Auto) 82H, Platelet Count 372, Red Blood Count 4.71, Red Cell Distribution Width 15.0H, White Blood Count 10.1 Microbiology 07/19/16 Blood Culture - Preliminary, Resulted No growth Assessment/Plan Assessment/Plan Assess & Plan/Chief Complaint respiratory infection. Febrile. Schizoaffective disorder. Constipation.. . 07/21/16. Resolving pneumonia. Schizoaffective disorder. Patient not febrile now. Patient looks much better area Blood tests look better. Patient in the right direction. . 07/22/16. Respiratory infection. Schizoaffective disorder. Constipation. Patient still on 3 L of nasal oxygen. Patient does have congestion in her chest. . 07/23/16. Respiratory infection improving. Schizoaffective disorder. Patient breathing better. Patient looks better. Plan to discharge tomorrow. . 07/24/16. Respiratory infection. Breathing is improved. Schizoaffective disorder. Constipation. Pneumonia better. Diagnosis/Problems: Clinical Quality Measures DVT/VTE Risk/Contraindication: Risk Factor Score Per Nursin RFS Level Per Nursing on Admit: 4+=Very High ALBANIA RENETRIA DO Jul 24, 2016 08:05
[2016-07-24] MEDS ORDERED: CEFD300C3 PO (08:36)
--- NOTE | 2016-07-24 08:37 | Discharge Inst-Skilled Nursing ---
Discharge Inst-Skilled NF Patient Instructions Patient Instructions: 2 OFFICE THIS wednesday. oMNICEF 300 MG NUMBER 10 ONE TWICE A DAY Consult/Follow Up/Orders Skilled NF Admit to: [facility] Certification (SNF) I certify that SNF services are required to be given on an inpatient basis because of the above named patient's need for long term care on a continuing basis for the conditions(s) for which he/she was receiving inpatient hospital services prior to his/her transfer to the SNF. Discharge Diet: No Restrictions New & Resume Previous Orders Armando Renteria Jul 24, 2016 08:37 ARMANDO RENTERIA DO Jul 24, 2016 8:37 am
[2016-07-24] MEDS: predniSONE 10 MG TAB PO SCH ×2 (08:49→13:09)
[2016-07-24] MEDS: AMIODARONE 200 MG (CORDARONE) TAB PO SCH (08:49)
[2016-07-24] MEDS: ENOXAPARIN 40 MG/0.4 ML (LOVENOX) SYR SC SCH (08:50)
[2016-07-24] MEDS: amLODIPine 5 MG (NORVASC) TAB PO SCH (08:50)
[2016-07-24] MEDS: VITAMIN D3 1,000 UNITS (CHOLECALCIFEROL) TABLET PO SCH (08:50)
[2016-07-24] MEDS: LORazepam 0.5 MG (ATIVAN) TABLET PO PRN (08:50)
[2016-07-24] MEDS: cloZAPine 100 MG (CLOZARIL) TAB PO SCH ×2 (08:53→13:09)
[2016-07-24] MEDS: TRIHEXYPHENIDYL 2 MG (ARTANE) TAB PO SCH ×2 (10:21→13:09)
[2016-07-24 15:52] VITALS: BP 119/82
--- NOTE | 2016-07-28 07:23 | Discharge Summary ---
Diagnosis/Chief Complaint Date of Admission Jul 19, 2016 at 03:27 Date of Discharge Jul 24, 2016 at 16:00 Discharge Date: Jul 24, 2016 Admission Diagnosis Admission Diagnosis 66 yo F Sepsis secondary to acute hypoxic respiratory distress secondary to pneumonia- HCAP- vanc/levo/cefepime- cultures pending -CXR atrial fibrillation- not in RVR hypothyroidism schizophrenia/mental health issues Dispo: pt in no acute distress- talking to herself. NH did not sent med rec. will need to obtain. Discharge Diagnosis pneumonia. Dysphagia. Schizoaffective disorder. Mentally challenged Discharge Summary Consultations pulmonology Discharge Physical Examination Allergies: Coded Allergies: belladonna alkaloids (Verified Allergy, Mild, 10/11/14) meperidine (Verified Allergy, Mild, 10/11/14) Uncoded Allergies: pectin (Allergy, Mild, 10/11/14) Vitals & I&Os Vital Signs Date Time Temp Pulse Resp B/P Pulse Ox O2 Delivery O2 Flow Rate FiO2 07/24/16 15:52 95 22 119/82 92 2.00 07/24/16 08:00 Nasal Cannula 07/24/16 07:38 97.9 Hospital Course patient in hospital did better. Patient breathing better. Spoke to pulmonology and naseem for discharge Labs (last 24 hrs) Laboratory Tests 07/19/16 01:20: Alanine Aminotransferase (ALT/SGPT) 24, Albumin 3.7, Alkaline Phosphatase 111, Anion Gap 14, Aspartate Amino Transf (AST/SGOT) 29, B-Type Natriuretic Peptide < 10.0, BUN/Creatinine Ratio 24, Basophils # (Auto) 0.0, Basophils (%) (Auto) 0 , Blood Urea Nitrogen 26H, Calcium Level 8.7, Carbon Dioxide Level 21, Chloride Level 104, Creatinine 1.07, Eosinophils # (Auto) 0.0, Eosinophils (%) (Auto) 0, Estimat Glomerular Filtration Rate 51, Glucose Level 127H, Hematocrit 40, Hemoglobin 12.9, Lactic Acid Level 1.3, Lymphocytes # (Auto) 0.6L, Lymphocytes ( %) (Auto) 5L, Magnesium Level 2.1, Mean Corpuscular Hemoglobin 27, Mean Corpuscular Hemoglobin Concent 33, Mean Corpuscular Volume 83, Mean Platelet Volume 9.6, Monocytes # (Auto) 0.9, Monocytes (%) (Auto) 8, Neutrophils # (Auto ) 10.6H, Neutrophils (%) (Auto) 87H, Platelet Count 326, Potassium Level 3.8, Red Blood Count 4.78, Red Cell Distribution Width 15.5H, Sodium Level 139, Total Bilirubin 0.6, Total Protein 7.0, Troponin I < 0.30, White Blood Count 12.1H 07/19/16 01:37: Marcos Test YES-POS, Arterial Blood Base Excess -0.4, Arterial Blood HCO3 24, Arterial Blood Oxygen Saturation 70L, Arterial Blood Partial Pressure CO2 40, Arterial Blood Partial Pressure O2 42L, Arterial Blood Total CO2 25.0, Arterial Blood pH 7.40, Blood Gas Inspired Oxygen 9L, Blood Gas Patient Temperature 101.2 , Blood Gas Puncture Site RIGHT RADIAL, Blood Gas Ventilator Setting NO 07/19/16 01:53: Urine Bacteria NEGATIVE, Urine Bilirubin 1+H, Urine Casts PRESENT, Urine Clarity CLEAR, Urine Color YELLOW, Urine Crystals NONE, Urine Culture Indicated NO, Urine Glucose (UA) NEGATIVE, Urine Hyaline Casts 5-10H, Urine Ketones NEGATIVE, Urine Leukocyte Esterase NEGATIVE, Urine Mucus LARGEH, Urine Nitrite NEGATIVE, Urine Protein 1+H, Urine RBC NONE, Urine RBC (Auto) NEGATIVE, Urine Specific [place] 1.025H, Urine Squamous Epithelial Cells RARE, Urine Urobilinogen NORMAL, Urine WBC NONE, Urine pH 5 07/20/16 04:54: Albumin 2.9L, Anion Gap 8, BUN/Creatinine Ratio 19, Basophils # (Auto) 0.0, Basophils (%) (Auto) 0, Blood Urea Nitrogen 15, Calcium Level 7.9L, Carbon Dioxide Level 21, Chloride Level 111H, Creatinine 0.80, Eosinophils # (Auto) 0.0 , Eosinophils (%) (Auto) 0, Estimat Glomerular Filtration Rate > 60, Glucose Level 87, Hematocrit 34L, Hemoglobin 10.5L, Lymphocytes # (Auto) 0.7L, Lymphocytes (%) (Auto) 12, Mean Corpuscular Hemoglobin 27, Mean Corpuscular Hemoglobin Concent 31L, Mean Corpuscular Volume 85, Mean Platelet Volume 9.7, Monocytes # (Auto) 0.7, Monocytes (%) (Auto) 11, Neutrophils # (Auto) 4.5, Neutrophils (%) (Auto) 76H, Platelet Count 284, Potassium Level 3.8, Red Blood Count 3.94L, Red Cell Distribution Width 15.4H, Sodium Level 140, White Blood Count 5.9, Phosphorus Level 3.2 07/21/16 04:34: Anion Gap 10, BUN/Creatinine Ratio 16, Basophils # (Auto) 0.0, Basophils (%) ( Auto) 0, Blood Urea Nitrogen 12, Calcium Level 8.9, Carbon Dioxide Level 25, Chloride Level 106, Creatinine 0.76, Eosinophils # (Auto) 0.0, Eosinophils (%) ( Auto) 0, Estimat Glomerular Filtration Rate > 60, Glucose Level 91, Hematocrit 39, Hemoglobin 12.4, Lymphocytes # (Auto) 0.8L, Lymphocytes (%) (Auto) 14, Mean Corpuscular Hemoglobin 27, Mean Corpuscular Hemoglobin Concent 32, Mean Corpuscular Volume 84, Mean Platelet Volume 9.5, Monocytes # (Auto) 0.5, Monocytes (%) (Auto) 9, Neutrophils # (Auto) 4.7, Neutrophils (%) (Auto) 77H, Platelet Count 327, Potassium Level 3.9, Red Blood Count 4.62, Red Cell Distribution Width 14.9H, Sodium Level 141, White Blood Count 6.0 07/21/16 15:15: Vancomycin Level Trough 5.8L 07/22/16 04:49: Anion Gap 9, BUN/Creatinine Ratio 17, Basophils # (Auto) 0.0, Basophils (%) ( Auto) 0, Blood Urea Nitrogen 13, Calcium Level 8.2L, Carbon Dioxide Level 23, Chloride Level 111H, Creatinine 0.76, Eosinophils # (Auto) 0.0, Eosinophils (%) (Auto) 0, Estimat Glomerular Filtration Rate > 60, Glucose Level 96, Hematocrit 37, Hemoglobin 11.9, Lymphocytes # (Auto) 0.9L, Lymphocytes (%) (Auto) 21, Mean Corpuscular Hemoglobin 27, Mean Corpuscular Hemoglobin Concent 32, Mean Corpuscular Volume 85, Mean Platelet Volume 9.7, Monocytes # (Auto) 0.5, Monocytes (%) (Auto) 10, Neutrophils # (Auto) 3.1, Neutrophils (%) (Auto) 69, Platelet Count 317, Potassium Level 3.9, Red Blood Count 4.37, Red Cell Distribution Width 14.9H, Sodium Level 143, White Blood Count 4.5 07/23/16 06:14: Anion Gap 9, BUN/Creatinine Ratio 19, Basophils # (Auto) 0.0, Basophils (%) ( Auto) 0, Blood Urea Nitrogen 15, Calcium Level 8.5, Carbon Dioxide Level 22, Chloride Level 110H, Creatinine 0.81, Eosinophils # (Auto) 0.0, Eosinophils (%) (Auto) 0, Estimat Glomerular Filtration Rate > 60, Glucose Level 95, Hematocrit 39, Hemoglobin 12.5, Lymphocytes # (Auto) 1.1, Lymphocytes (%) (Auto) 18, Mean Corpuscular Hemoglobin 27, Mean Corpuscular Hemoglobin Concent 32, Mean Corpuscular Volume 85, Mean Platelet Volume 9.6, Monocytes # (Auto) 0.5, Monocytes (%) (Auto) 8, Neutrophils # (Auto) 4.5, Neutrophils (%) (Auto) 74, Platelet Count 350, Potassium Level 4.5, Red Blood Count 4.65, Red Cell Distribution Width 14.9H, Sodium Level 141, White Blood Count 6.1 07/24/16 06:48: Basophils # (Auto) 0.0, Basophils (%) (Auto) 0, Eosinophils # (Auto) 0.0, Eosinophils (%) (Auto) 0, Hematocrit 40, Hemoglobin 12.6, Lymphocytes # (Auto) 1.1, Lymphocytes (%) (Auto) 11L, Mean Corpuscular Hemoglobin 27, Mean Corpuscular Hemoglobin Concent 32, Mean Corpuscular Volume 84, Mean Platelet Volume 9.6, Monocytes # (Auto) 0.8, Monocytes (%) (Auto) 8, Neutrophils # (Auto ) 8.3H, Neutrophils (%) (Auto) 82H, Platelet Count 372, Red Blood Count 4.71, Red Cell Distribution Width 15.0H, White Blood Count 10.1 Microbiology 07/19/16 Blood Culture - Final, Complete No growth Laboratory Tests 07/19/16 01:20 07/20/16 04:54 07/21/16 04:34 07/22/16 04:49 07/23/16 06:14 07/24/16 06:48 Pending Labs Microbiology Date/Time Source Procedure Growth Status 07/19/16 01:20 Peripheral Left Wrist Blood Culture - Final No growth Complete Laboratory Tests 07/19/16 01:20: Alanine Aminotransferase (ALT/SGPT) 24, Albumin 3.7, Alkaline Phosphatase 111, Anion Gap 14, Aspartate Amino Transf (AST/SGOT) 29, B-Type Natriuretic Peptide < 10.0, BUN/Creatinine Ratio 24, Basophils # (Auto) 0.0, Basophils (%) (Auto) 0 , Blood Urea Nitrogen 26, Calcium Level 8.7, Carbon Dioxide Level 21, Chloride Level 104, Creatinine 1.07, Eosinophils # (Auto) 0.0, Eosinophils (%) (Auto) 0, Estimat Glomerular Filtration Rate 51, Glucose Level 127, Hematocrit 40, Hemoglobin 12.9, Lactic Acid Level 1.3, Lymphocytes # (Auto) 0.6, Lymphocytes (% ) (Auto) 5, Magnesium Level 2.1, Mean Corpuscular Hemoglobin 27, Mean Corpuscular Hemoglobin Concent 33, Mean Corpuscular Volume 83, Mean Platelet Volume 9.6, Monocytes # (Auto) 0.9, Monocytes (%) (Auto) 8, Neutrophils # (Auto ) 10.6, Neutrophils (%) (Auto) 87, Platelet Count 326, Potassium Level 3.8, Red Blood Count 4.78, Red Cell Distribution Width 15.5, Sodium Level 139, Total Bilirubin 0.6, Total Protein 7.0, Troponin I < 0.30, White Blood Count 12.1 07/19/16 01:37: Marcos Test YES-POS, Arterial Blood Base Excess -0.4, Arterial Blood HCO3 24, Arterial Blood Oxygen Saturation 70, Arterial Blood Partial Pressure CO2 40, Arterial Blood Partial Pressure O2 42, Arterial Blood Total CO2 25.0, Arterial Blood pH 7.40, Blood Gas Inspired Oxygen 9L, Blood Gas Patient Temperature 101.2 , Blood Gas Puncture Site RIGHT RADIAL, Blood Gas Ventilator Setting NO 07/19/16 01:53: Urine Bacteria NEGATIVE, Urine Bilirubin 1+, Urine Casts PRESENT, Urine Clarity CLEAR, Urine Color YELLOW, Urine Crystals NONE, Urine Culture Indicated NO, Urine Glucose (UA) NEGATIVE, Urine Hyaline Casts 5-10, Urine Ketones NEGATIVE, Urine Leukocyte Esterase NEGATIVE, Urine Mucus LARGE, Urine Nitrite NEGATIVE, Urine Protein 1+, Urine RBC NONE, Urine RBC (Auto) NEGATIVE, Urine Specific [place] 1.025, Urine Squamous Epithelial Cells RARE, Urine Urobilinogen NORMAL, Urine WBC NONE, Urine pH 5 07/20/16 04:54: Albumin 2.9, Anion Gap 8, BUN/Creatinine Ratio 19, Basophils # (Auto) 0.0, Basophils (%) (Auto) 0, Blood Urea Nitrogen 15, Calcium Level 7.9, Carbon Dioxide Level 21, Chloride Level 111, Creatinine 0.80, Eosinophils # (Auto) 0.0 , Eosinophils (%) (Auto) 0, Estimat Glomerular Filtration Rate > 60, Glucose Level 87, Hematocrit 34, Hemoglobin 10.5, Lymphocytes # (Auto) 0.7, Lymphocytes (%) (Auto) 12, Mean Corpuscular Hemoglobin 27, Mean Corpuscular Hemoglobin Concent 31, Mean Corpuscular Volume 85, Mean Platelet Volume 9.7, Monocytes # ( Auto) 0.7, Monocytes (%) (Auto) 11, Neutrophils # (Auto) 4.5, Neutrophils (%) ( Auto) 76, Platelet Count 284, Potassium Level 3.8, Red Blood Count 3.94, Red Cell Distribution Width 15.4, Sodium Level 140, White Blood Count 5.9, Phosphorus Level 3.2 07/21/16 04:34: Anion Gap 10, BUN/Creatinine Ratio 16, Basophils # (Auto) 0.0, Basophils (%) ( Auto) 0, Blood Urea Nitrogen 12, Calcium Level 8.9, Carbon Dioxide Level 25, Chloride Level 106, Creatinine 0.76, Eosinophils # (Auto) 0.0, Eosinophils (%) ( Auto) 0, Estimat Glomerular Filtration Rate > 60, Glucose Level 91, Hematocrit 39, Hemoglobin 12.4, Lymphocytes # (Auto) 0.8, Lymphocytes (%) (Auto) 14, Mean Corpuscular Hemoglobin 27, Mean Corpuscular Hemoglobin Concent 32, Mean Corpuscular Volume 84, Mean Platelet Volume 9.5, Monocytes # (Auto) 0.5, Monocytes (%) (Auto) 9, Neutrophils # (Auto) 4.7, Neutrophils (%) (Auto) 77, Platelet Count 327, Potassium Level 3.9, Red Blood Count 4.62, Red Cell Distribution Width 14.9, Sodium Level 141, White Blood Count 6.0 07/21/16 15:15: Vancomycin Level Trough 5.8 07/22/16 04:49: Anion Gap 9, BUN/Creatinine Ratio 17, Basophils # (Auto) 0.0, Basophils (%) ( Auto) 0, Blood Urea Nitrogen 13, Calcium Level 8.2, Carbon Dioxide Level 23, Chloride Level 111, Creatinine 0.76, Eosinophils # (Auto) 0.0, Eosinophils (%) ( Auto) 0, Estimat Glomerular Filtration Rate > 60, Glucose Level 96, Hematocrit 37, Hemoglobin 11.9, Lymphocytes # (Auto) 0.9, Lymphocytes (%) (Auto) 21, Mean Corpuscular Hemoglobin 27, Mean Corpuscular Hemoglobin Concent 32, Mean Corpuscular Volume 85, Mean Platelet Volume 9.7, Monocytes # (Auto) 0.5, Monocytes (%) (Auto) 10, Neutrophils # (Auto) 3.1, Neutrophils (%) (Auto) 69, Platelet Count 317, Potassium Level 3.9, Red Blood Count 4.37, Red Cell Distribution Width 14.9, Sodium Level 143, White Blood Count 4.5 07/23/16 06:14: Anion Gap 9, BUN/Creatinine Ratio 19, Basophils # (Auto) 0.0, Basophils (%) ( Auto) 0, Blood Urea Nitrogen 15, Calcium Level 8.5, Carbon Dioxide Level 22, Chloride Level 110, Creatinine 0.81, Eosinophils # (Auto) 0.0, Eosinophils (%) ( Auto) 0, Estimat Glomerular Filtration Rate > 60, Glucose Level 95, Hematocrit 39, Hemoglobin 12.5, Lymphocytes # (Auto) 1.1, Lymphocytes (%) (Auto) 18, Mean Corpuscular Hemoglobin 27, Mean Corpuscular Hemoglobin Concent 32, Mean Corpuscular Volume 85, Mean Platelet Volume 9.6, Monocytes # (Auto) 0.5, Monocytes (%) (Auto) 8, Neutrophils # (Auto) 4.5, Neutrophils (%) (Auto) 74, Platelet Count 350, Potassium Level 4.5, Red Blood Count 4.65, Red Cell Distribution Width 14.9, Sodium Level 141, White Blood Count 6.1 07/24/16 06:48: Basophils # (Auto) 0.0, Basophils (%) (Auto) 0, Eosinophils # (Auto) 0.0, Eosinophils (%) (Auto) 0, Hematocrit 40, Hemoglobin 12.6, Lymphocytes # (Auto) 1.1, Lymphocytes (%) (Auto) 11, Mean Corpuscular Hemoglobin 27, Mean Corpuscular Hemoglobin Concent 32, Mean Corpuscular Volume 84, Mean Platelet Volume 9.6, Monocytes # (Auto) 0.8, Monocytes (%) (Auto) 8, Neutrophils # (Auto ) 8.3, Neutrophils (%) (Auto) 82, Platelet Count 372, Red Blood Count 4.71, Red Cell Distribution Width 15.0, White Blood Count 10.1 Discharge Home Medications: Active Scripts Active Cefdinir 300 Mg Capsule 300 Mg PO BID Reported Triamcinolone Acetonide 0.5% Ointment (Triamcinolone Acetonide) 15 Gm Oint TP BID Eucerin Creme (Lanolin Alcohol/Mo/W.pet/[place]) 454 Gm Cream..g. TP HS APPLIES TO BOTH FEET Hyoscyamine Sulfate 0.125 Mg Tab.subl 0.125 Mg PO Q12H PRN Trihexyphenidyl HCl 2 Mg Tablet 4 Mg PO TID@0900,1300,1700 Ibuprofen 200 Mg Tablet 400 Mg PO Q6H PRN TAKES 2 (200 MG) TABLETS Iprat-Albut 0.5-3(2.5) mg/3 ml (Ipratropium/Albuterol Sulfate) 3 Ml Ampul.neb 3 Ml IH Q4H PRN Trazodone HCl 50 Mg Tablet 50 Mg PO HS PRN Miralax (Polyethylene Glycol 3350) 17 Gm Powd.pack 17 Gm PO DAILY PRN Bisacodyl 5 Mg Tablet.dr 10 Mg PO DAILY PRN Colace (Docusate Sodium) 100 Mg Capsule 100 Mg PO Q12H PRN Benadryl (Diphenhydramine HCl) 25 Mg Capsule 50 Mg PO Q6H PRN Clozapine 100 Mg Tablet 100 Mg PO TID Amiodarone HCl 200 Mg Tablet 200 Mg PO DAILY Trazodone HCl 50 Mg Tablet 100 Mg PO HS TAKES 2 (50 MG) TABLETS Tylenol (Acetaminophen) 325 Mg Tablet 650 Mg PO Q4H PRN TAKES 2 (325MG) TABLETS Ondansetron Odt (Ondansetron) 4 Mg Tab.rapdis 4 Mg PO Q6H PRN Milk Of Magnesia (Magnesium Hydroxide) 400 Mg/5 Ml Oral.susp 30 Ml PO DAILY PRN Vitamin D3 Tablet (Cholecalciferol) 1,000 Unit Tab 2,000 Unit PO DAILY Levothyroxine Sodium 150 Mcg Tablet 150 Mcg PO DAILY Olanzapine 10 Mg Tablet 20 Mg PO HS Instructions to patient/family Please see electonic discharge instructions given to patient. Clinical Quality Measures DVT/VTE Risk/Contraindication: Risk Factor Score Per Nursin RFS Level Per Nursing on Admit: 4+=Very High ALBANIA RENTERIA DO Jul 28, 2016 07:23
--- NOTE | 2016-07-28 13:52 | Physician Query-General Query ---
Physician Query-General Query to Physician: Dear Provider; Admit Date: 07/19/16 Discharge Date: 07/24/16 The medical record reflects the following clinical scenario: History/Risk factors: Pneumonia, dysphagia Clinical Findings: T101.2, R24, BP 96/64, WBC 12.1, Lactic Acid 1.3, SOA, low O2 sats Treatment: vancomycin, levofloxacin, cefepime, albuterol Question: Do you agree with the impression of (sepsis secondary to acute hypoxic respiratory failure) per Dr. Craft? Please document below. 1. Yes ___ 2. No ___ 3. Other, with explanation of clinical findings 4. Clinically undetermined, no explanation for clinical findings Please remember a lack of response to the above will prompt a phone page by [facility]/ coding staff. In responding to this query, please exercise your independent professional judgment. The purpose of this communication is to more accurately reflect the complexity of your patients condition. The fact that a question is asked does not imply that any particular answer is desired or expected. Thank you for your timely response to this clarification. PHYSICIAN RESPONSE: Based on the clinical findings in the record, please respond to the query above on this document as an addendum. Possible, probable, or questionable diagnosis can be coded for INPATIENTS ONLY. Physician Response: Physician Response number 2 If you have questions please contact: Exploration Manager: Oni Ext: [phone] Thank you for your time and cooperation. Clinical Manager Specialty/Exploration Manager This is a permanent part of the medical record ONI SERNA Jul 28, 2016 13:52 ALBANIA RENTERIA DO Jul 29, 2016 07:10
== END 2016-07-24 16:00 | DRG 195 ==
LOC: EDUNIT# 00:54 → ER 00:56 → 4TH 03:27
PROVIDERS: ADMIT Family Medicine; ATTEND Family Medicine
DX: J18.9 Pneumonia, unspecified organism (principal); R13.10 Dysphagia, unspecified; F25.9 Schizoaffective disorder, unspecified; F79 Unspecified intellectual disabilities; I48.91 Unspecified atrial fibrillation; G20 Parkinson's disease; E03.9 Hypothyroidism, unspecified; K59.00 Constipation, unspecified
CPT/HCPCS: 36415; 71010; 80048; 80053; 80069; 80202; 81000; 82805; 83605; 83735; 83880; 84484; 85025; 87040; 93005; 94640; 94760; 94761; 96361; 96365; 96375

== ENCOUNTER → 2016-08-30 | Outpatient (CLI) | payer MEDICARE, MEDICAID ==
[~2016-08-30] MED LIST changes: +CEFD300C3 PO; +HYOS0.1218 PO; +IBUP-2055 PO; +IPRA3AMP IH; +LANO454C3 TP; +TRIA15OI9 TP
[2016-08-30 10:59] LABS: BILIRUBIN,URINE NEGATIVE (NEGATIVE); KETONES,URINE NEGATIVE (NEGATIVE); LEUKOCYTE ESTERASE ,URINE 3+ (NEGATIVE); NITRITE,URINE POSITIVE (NEGATIVE); PH,URINE 7 (5-9); PROTEIN,URINE 2+ (NEGATIVE); UROBILINOGEN,URINE NORMAL (NORMAL)
[2016-08-30 11:08] LABS: WBC,URINE 50-100 /HPF
[2016-08-30 11:09] LABS: TRIPLE PHOSPHATE CRYSTAL,UR LARGE /LPF
== END ==
PROVIDERS: ATTEND Family Medicine
DX: N39.0 Urinary tract infection, site not specified (principal)
CPT/HCPCS: 81000; 87088

== ENCOUNTER → 2016-09-16 | Outpatient (CLI) | payer MEDICARE, MEDICAID ==
[2016-09-16 23:52] LABS: BILIRUBIN,URINE NEGATIVE (NEGATIVE); KETONES,URINE NEGATIVE (NEGATIVE); LEUKOCYTE ESTERASE ,URINE 2+ (NEGATIVE); NITRITE,URINE POSITIVE (NEGATIVE); PH,URINE 7 (5-9); PROTEIN,URINE NEGATIVE (NEGATIVE); UROBILINOGEN,URINE NORMAL (NORMAL)
== END ==
PROVIDERS: ATTEND Family Medicine
DX: Z87.440 Personal history of urinary (tract) infections (principal)
CPT/HCPCS: 81000; 87088; 87186

== ENCOUNTER → 2016-09-21 | Outpatient (CLI) | payer MEDICARE, MEDICAID ==
--- NOTE | 2016-09-21 13:57 | Diagnostic Imaging Report ---
EXAMINATION: Two views of the chest. INDICATION: Respiratory infection. COMPARISON: 07/23/2016. FINDINGS: There is interstitial thickening seen in the left perihilar region. The right lung is clear. The heart size is at the upper limits of normal. No effusion or pneumothorax. The mediastinum and yani appear unremarkable. IMPRESSION: Left perihilar interstitial thickening could relate to atypical or viral pneumonia. Dictated by: Dictated on workstation # [id number]
== END ==
LOC: RAD 12:24
PROVIDERS: ATTEND Family Medicine
DX: J98.8 Other specified respiratory disorders (principal)
CPT/HCPCS: 71020

== ENCOUNTER → 2016-10-04 | Outpatient (CLI) | payer MEDICARE, MEDICAID ==
[2016-10-04 11:48] LABS: BILIRUBIN,URINE NEGATIVE (NEGATIVE); KETONES,URINE NEGATIVE (NEGATIVE); LEUKOCYTE ESTERASE ,URINE NEGATIVE (NEGATIVE); NITRITE,URINE NEGATIVE (NEGATIVE); PH,URINE 6.5 (5-9); PROTEIN,URINE NEGATIVE (NEGATIVE); UROBILINOGEN,URINE NORMAL (NORMAL)
[2016-10-04 12:08] LABS: SQUAMOUS EPITHELIAL CELL,UR 0-5 /HPF; WBC,URINE 0-2 /HPF
== END ==
PROVIDERS: ATTEND Family Medicine
DX: Z87.440 Personal history of urinary (tract) infections (principal)
CPT/HCPCS: 81000

== ENCOUNTER 2016-12-01 07:42 | Outpatient (CLI) | payer MEDICARE, MEDICAID ==
[~2016-12-01] VITALS: Ht 170.2 cm; Wt 78.9 kg
[2016-12-01] MEDS ORDERED: TRAZ100T92 PO (11:27)
[2016-12-01] MEDS ORDERED: CLOZ50TA PO (11:27)
[2016-12-01] MEDS ORDERED: CETI10TA17 PO (11:27)
[2016-12-01] MEDS ORDERED: BETA15CR37 TP (11:27)
[2016-12-01] MEDS ORDERED: CLOZ200T PO (11:27)
[2016-12-01] MEDS ORDERED: DIVA250T4 PO (11:27)
== END 2016-12-01 11:28 ==
LOC: PREOP 07:42
PROVIDERS: ATTEND Surgery
DX: Z01.818 Encounter for other preprocedural examination (principal); L98.8 Other specified disorders of the skin and subcutaneous tissue

== ENCOUNTER 2016-12-03 06:00 | Day surgery (SDC) | payer MEDICARE, MEDICAID ==
[~2016-12-03] VITALS: Ht 170.2 cm; Wt 78.9 kg
[~2016-12-03 06:00] MED LIST changes: +BETA15CR37 TP; +CETI10TA17 PO; +CLOZ200T PO; +CLOZ50TA PO; +DIVA250T4 PO; +TRAZ100T92 PO
[2016-12-03] MEDS: LACTATED RINGERS 1,000 ML IV PRN ×2 (06:20→08:30)
[2016-12-03] MEDS ORDERED: DEXAMETHASONE PF 10 MG/ML (DECADRON) VIAL ONE (06:25)
[2016-12-03] MEDS ORDERED: LACTATED RINGERS 1,000 ML IV ONE ×2 (06:25→08:29)
[2016-12-03] MEDS ORDERED: SEVOFLURANE (ULTANE) 15 ML INHAL SOLN ONE ×3 (06:25→08:29)
[2016-12-03] MEDS ORDERED: ONDANSETRON 4 MG/2 ML (SDV) Z0FRAN ONE (06:25)
[2016-12-03] MEDS ORDERED: fentaNYL INJECTION 100 MCG/2 ML AMP ONE (06:27)
[2016-12-03] MEDS ORDERED: MIDAZOLAM 2 MG/2 ML (VERSED) VIAL ONE (06:27)
[2016-12-03] MEDS ORDERED: LIDOCAINE 1% INJ 20 ML (XYLOCAINE) VIAL ONE (07:10)
[2016-12-03] MEDS ORDERED: BUPIVACAINE 0.5% 30 ML (SENSORCAINE) VIAL ONE (07:10)
[2016-12-03 07:11] VITALS: BP 134/75
[2016-12-03] MEDS ORDERED: ceFAZolin 1,000 MG (ANCEF) VIAL ONE (07:44)
[2016-12-03] MEDS ORDERED: NS (IVPB) 50 ML ONE (07:45)
--- NOTE | 2016-12-03 07:47 | Progress Note-Pre Operative ---
Pre-Operative Progress Note H&P Reviewed The H&P was reviewed, patient examined and no changes noted. Date Seen by Provider: Dec 03, 2016 Time Seen by Provider: 07:40 Date H&P Reviewed: Dec 03, 2016 Time H&P Reviewed: 07:40 Pre-Operative Diagnosis: right foot skin lesion PARIS BRAMBILA DO Dec 03, 2016 07:47
[2016-12-03] MEDS ORDERED: ceFAZolin INJECTION 1,000 MG in NS (IVPB) 50 ML IV ONE (08:00)
--- NOTE | 2016-12-03 08:39 | Operative Report ---
Operative Report Date of Procedure/Surgery Dec 03, 2016 Surgeon (s) PARIS BRAMBILA DO Training Facilitator (s): na Post-Operative Diagnosis right foot skin lesion Procedure Performed excision skin lesion right foot 2.2x4.7cm Description of Procedure Anesthesia Type: General Estimated blood loss (mL): minimal Specimen(s) collected/removed right foot skin lesion Description of the Procedure patient prepped and drapped sterile fashion. timeout was performed. 6 mL of local anesthetic injected. elliptical incision made around lesion 2.2x4.7 cm skin and subcutaneous tissue removed. hemostatsis achieved. skin closed with 3-0 prolene simple interrupted. area washed and dried sterile bandage applied. tolerated well. sent to recovery in stable condition. specimen tagged short suture superior, long suture lateral. Findings of the Procedure skin lesion right foot Allergies and Home Medications Allergies Coded Allergies: belladonna alkaloids (Verified Allergy, Mild, 10/11/14) meperidine (Verified Allergy, Mild, 10/11/14) Uncoded Allergies: pectin (Allergy, Mild, 10/11/14) Home Medications Acetaminophen 325 Mg Tablet, 650 MG PO Q4H PRN for MILD PAIN, (Reported) TAKES 2 (325MG) TABLETS Amiodarone HCl 200 Mg Tablet, 200 MG PO DAILY, (Reported) Betamethasone/Propylene Glyc 15 Gm Cream..g., 1 GM TP BID, (Reported) Cetirizine HCl 10 Mg Tablet, 10 MG PO DAILY, (Reported) Cholecalciferol 1,000 Unit Tab, 2,000 UNIT PO DAILY, (Reported) take 2 (1,000mg) tabs Clozapine 50 Mg Tablet, 50 MG PO BID, (Reported) Clozapine 200 Mg Tablet, 200 MG PO HS, (Reported) Diphenhydramine HCl 25 Mg Capsule, 50 MG PO TID, (Reported) give 2 (25mg) tabs Divalproex Sodium 250 Mg Tablet.dr, 250 MG PO TID, (Reported) Docusate Sodium 100 Mg Capsule, 100 MG PO BID, (Reported) Ibuprofen 200 Mg Tablet, 400 MG PO Q6H PRN for TEMPERATURE, (Reported) TAKES 2 (200 MG) TABLETS Ipratropium/Albuterol Sulfate 3 Ml Ampul.neb, 3 ML IH Q4H PRN for SHORTNESS OF BREATH, (Reported) Lanolin Alcohol/Mo/W.pet/[place] 454 Gm Cream..g., TP HS, (Reported) APPLIES TO BOTH FEET Levothyroxine Sodium 150 Mcg Tablet, 150 MCG PO DAILY, (Reported) Magnesium Hydroxide 400 Mg/5 Ml Oral.susp, 30 ML PO DAILY PRN for CONSTIPATION, (Reported) Ondansetron 4 Mg Tab.rapdis, 4 MG PO Q6H PRN for NAUSEA/VOMITING, (Reported) Polyethylene Glycol 3350 17 Gm Powd.pack, 17 GM PO DAILY, (Reported) Trazodone HCl 100 Mg Tablet, 200 MG PO HS, (Reported) take 2 (100mg) tabs Trihexyphenidyl HCl 2 Mg Tablet, 2 MG PO TID, (Reported) PARIS BRAMBILA DO Dec 03, 2016 08:39
[2016-12-03] MEDS ORDERED: morphine INJ 10 MG/ML 1ML (SYR OR VIAL) IVP PRN (08:45)
[2016-12-03] MEDS ORDERED: ONDANSETRON 4 MG/2 ML (SDV) Z0FRAN IVP PRN (08:45)
[2016-12-03 09:35] VITALS: BP 139/74
[2016-12-03 10:05] VITALS: BP 103/88
--- OUTSIDE RECORDS SUMMARY | 2016-12-03 10:17 | XMS REPORT ---
Author Author [facility] Medical Staff Organization [facility] Address [address] [place], [place] [id number] Phone [phone] Care Team Providers Care Him Specialists Name Role Phone ALBANIA RENTERIA DO PP [phone] Summary purpose CCDA Sent to [facility] Chief Complaint and Reason for Visit No authorized Reason for Visit (Admitting Diagnosis) is available for this visit. Problem list No authorized problems tracked for continuity of care are available for this visit. Encounters No authorized problems tracked for encounter diagnoses are available for this visit. Medications No medications recorded for this patient visit Allergies, adverse reactions, alerts No allergy information is available for this patient. Immunizations No immunizations recorded for this patient visit Relevant diagnostic tests and/or laboratory data No authorized results are available for this patient visit History of procedures Procedure Code Code Type Description Date Performed Performing Physician 35969 CPT-4 ELECTROCARDIOGRAM REPORT 09-02-2016 NORM GLORIA Functional status No functional or cognitive status observations are available for this visit. Vital signs No authorized vital signs are available for this visit. Social history No Social History or smoking status observations were recorded for this visit. ( Unknown if ever smoked.) Treatment Plan No treatment plan text is available for this visit. Hospital discharge instructions No discharge instruction text is available for this visit.
--- OUTSIDE RECORDS SUMMARY | 2016-12-03 10:17 | XMS REPORT ---
Author Author [facility] Medical Staff Organization [facility] Address [phone] [place], [place] [id number] Phone [phone] Care Team Providers Care Meter Tester Polyphase Name Role Phone ALBANIA RENTERIA DO PP [phone] Summary purpose CCDA Sent to [facility] Chief Complaint and Reason for Visit Admit Diagnosis 1 Agitation, Aggression Problem list No authorized problems tracked for [...] for this patient visit History of procedures No procedures recorded for this patient visit. Functional status No functional or cognitive status [...]
--- OUTSIDE RECORDS SUMMARY | 2016-12-03 10:17 | XMS REPORT | Continuity of Care Document ---
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 01/24/2008 300.00 AN ANXIETY UNSPEC 01/24/2008 311 MO DEPRESSIVE DISORDER NOS 01/24/2008 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 MILD MENTAL RETARDATION 01/24/2008 ROCHELLE VILLAFANA DO Sarah 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 01/24/2008 ROCHELLE VILLAFANA DO Sarah 300.00 AN ANXIETY UNSPEC 01/24/2008 ROCHELLE VILLAFANA DO Sarah 311 MO DEPRESSIVE DISORDER NOS 01/24/2008 BRODERICK CARRENO ROCHELLE Sarah 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 MILD MENTAL RETARDATION 01/24/2008 SEXTON MAGY WILKES 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 01/24/2008 [facility] LIFESTYLE CONSULTANT, MAGY SETHI 300.00 AN ANXIETY UNSPEC 01/24/2008 [facility] LIFESTYLE CONSULTANT, MAGY SETHI 311 MO DEPRESSIVE DISORDER NOS 01/24/2008 SEXT[place] MAGY WILKES 317 MILD MENTAL RETARDATION 01/24/2008 SEXTON LIFESTYLE CONSULTANTMAGY 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 01/24/2008 CARLIE GROVESNMAGY 300.00 AN ANXIETY UNSPEC 01/24/2008 SEXTON MAGY WILKES 311 MO DEPRESSIVE DISORDER NOS 01/24/2008 SEXTON MAGY WILKES 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 MILD MENTAL RETARDATION 06/26/2008 780.52 INSOMNIA UNSPECIFIED 06/26/2008 ROCHELLE VILLAFANA DO 780.52 INSOMNIA UNSPECIFIED 06/26/2008 ROCHELLE VILLAFANA DO 780.52 INSOMNIA UNSPECIFIED 06/26/2008 ROCHELLE VILLAFANA DO 780.52 INSOMNIA UNSPECIFIED 06/26/2008 780.52 INSOMNIA UNSPECIFIED 06/26/2008 ROCHELLE VILLAFANA DO 780.52 INSOMNIA UNSPECIFIED 06/26/2008 [facility] LIFESTYLE CONSULTANT, MAGY SETHI 780.52 INSOMNIA UNSPECIFIED 06/26/2008 [facility] LIFESTYLE CONSULTANT, MAGY SETHI 780.52 INSOMNIA UNSPECIFIED 09/12/2009 307.47 SI DYSSOMNIA NOS 09/12/2009 ROCHELLE VILLAFANA DO 307.47 SI DYSSOMNIA NOS 09/12/2009 ROCHELLE VILLAFANA DO 307.47 SI DYSSOMNIA NOS 09/12/2009 ROCHELLE VILLAFANA DO 307.47 SI DYSSOMNIA NOS 09/12/2009 307.47 SI DYSSOMNIA NOS 09/12/2009 ROCHELLE VILLAFANA DO 307.47 SI DYSSOMNIA NOS 09/12/2009 MAGY SEXTON APRN 307.47 SI DYSSOMNIA NOS 09/12/2009 MAGY SEXTON APRN 307.47 SI DYSSOMNIA NOS 11/26/2009 V58.69 LONG-TERM [...] CONSTIPATION NOS 06/12/2013 NORM GLORIA MD V58.69 SIZE TESTER MEDICATION USE 07/03/2013 NORM GLORIA MD 244.9 [...] CARRENO Ot 244.9 HYPOTHYROIDISM NOS 10/12/2014 GELLENDER [place] CARRENO Ot 294.20 DEMENTIA, UNSPECIFIED, WITHOUT BEHAVIORA 10/12/2014 GELLENDER [place] CARRENO Ot 295.90 SCHIZOPHRENIA NOS-UNSPEC 10/12/2014 GELLENDER [place] CRARENO Ot 298.2 REACTIVE CONFUSION 10/12/2014 GELLENDER [place] CARRENO Ot 300.00 ANXIETY STATE NOS 10/12/2014 GELLENDER [place] CARRENO Ot 311 DEPRESSIVE DISORDER NEC 10/12/2014 GELLENDER DOALBANIA Ot 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 10/12/2014 GELLENDER [place] CARRENO Ot 332.0 PARALYSIS AGITANS 10/12/2014 GELLENDER DOALBANIA Ot 427.32 ATRIAL FLUTTER 10/12/2014 GELLENDER DOALBANIA Ot 564.00 UNSPEC CONSTIPATION 10/12/2014 GELLENDER [place] CARRENO Ot 599.0 URIN TRACT INFECTION NOS 10/12/2014 GELLENDER [place] CARRENO Ot 788.30 UNSPECIFIED URINARY INCONTINENCE 10/12/2014 JOSELENALBANIA BALDWIN DO Ot V15.88 HISTORY OF FALL 07/29/2015 Ot V58.69 07/29/2015 Ot V58.83 07/29/2015 Ot V58.69 07/29/2015 Ot V58.83 08/22/2015 GELLENDER DO, [place] Poe Ot M79.605 08/22/2015 GELLENDER DO, [place] Poe Ot Q74.2 08/28/2015 GELLENDER DO, [place] Poe Ot M79.605 08/28/2015 GELLENDER DO, [place] Poe Ot Q74.2 04/10/2016 Ot V58.69 OTH MED,LT,CURRENT USE 04/10/2016 Ot V58.83 ENCOUNTER FOR THERAPEUTIC DRUG MONITORIN 04/10/2016 GELLENDER DO, [place] Poe Ot M79.605 PAIN IN LEFT LEG 04/10/2016 GELLENDER DO, [place] Poe Ot Q74.2 OTH [...] Poe Ot Z23 ENCOUNTER FOR IMMUNIZATION 07/07/2016 JOSELENDER DO, [place] Poe Ot Z66 DO NOT RESUSCITATE 07/09/2016 Ot V58.69 OTH MED,LT,CURRENT USE 07/09/2016 Ot V58.83 ENCOUNTER FOR THERAPEUTIC DRUG MONITORIN 07/09/2016 MYRA DO, [place] Poe Ot M79.605 PAIN IN LEFT LEG 07/09/2016 GELLENDER DO, [place] Poe Ot 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), INC 07/09/2016 GELLENDER DO, [place] Poe Ot N39.0 URINARY TRACT INFECTION, SITE NOT SPECIF 07/24/2016 MUKUND WATSON, JUDY Rosario Ot E03.9 HYPOTHYROIDISM, UNSPECIFIED 07/24/2016 MUKUND WATSON, JUDY Rosario Ot F25.9 SCHIZOAFFECTIVE DISORDER, UNSPECIFIED 07/24/2016 MUKUND WATSON, JUDY Rosario Ot F79 UNSPECIFIED INTELLECTUAL DISABILITIES 07/24/2016 JUDY DUVAL MD Ot G20 PARKINSON'S DISEASE 07/24/2016 JUDY DUVAL MD Ot I48.91 UNSPECIFIED ATRIAL FIBRILLATION 07/24/2016 JUDY DUVAL MD Ot J18.9 PNEUMONIA, UNSPECIFIED ORGANISM 07/24/2016 JUDY DUVAL MD Ot K59.00 CONSTIPATION, UNSPECIFIED 07/24/2016 JUDY DUVAL MD Ot R13.10 DYSPHAGIA, UNSPECIFIED 09/01/2016 Ot V58.69 OTH MED,LT,CURRENT USE 09/01/2016 Ot V58.83 ENCOUNTER FOR THERAPEUTIC DRUG MONITORIN 09/01/2016 GELLENDER DO, [place] Poe Ot M79.605 PAIN IN LEFT LEG 09/01/2016 [facility] [place] Poe Ot 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), INC 09/01/2016 [facility], [place] Poe Ot N39.0 URINARY TRACT INFECTION, SITE NOT SPECIF 09/02/2016 [facility], [place] Poe Ot N39.0 URINARY TRACT INFECTION, SITE NOT SPECIF 09/05/2016 [facility], [place] Poe Ot N39.0 URINARY TRACT INFECTION, SITE NOT SPECIF 09/18/2016 [facility], [place] Deepika Ot Z87.440 PERSONAL HISTORY OF URINARY (TRACT) INFE 09/22/2016 [facility] [place] Poe Ot N39.0 URINARY TRACT INFECTION, SITE NOT SPECIF 09/28/2016 [facility] [place] Poe Ot N39.0 URINARY TRACT INFECTION, SITE NOT SPECIF 10/06/2016 [facility] [place] Poe Ot Z87.440 PERSONAL HISTORY OF URINARY (TRACT) INFE 10/20/2016 [facility], [place] Poe Ot Z87.440 PERSONAL HISTORY OF URINARY (TRACT) INFE 10/20/2016 [facility], [place] Poe Ot J98.8 OTHER SPECIFIED RESPIRATORY DISORDERS 10/26/2016 [facility], [place] Poe Ot J98.8 OTHER SPECIFIED RESPIRATORY DISORDERS 10/27/2016 [facility], [place] Poe Ot Z87.440 PERSONAL HISTORY OF URINARY (TRACT) INFE 11/03/2016 [facility], [place] Poe Ot Z87.440 PERSONAL HISTORY OF URINARY (TRACT) INFE 11/05/2016 [facility], [place] Poe Ot Z87.440 PERSONAL HISTORY OF URINARY (TRACT) INFE Procedures Code Description [place] [address] EKG, TRACING 04/2013 79168 UA LONG DIP 07/21 68207 CULTURE URINE 93199 EKG, TRACING (IN-HOUSE) 08/02/2012 19761 ELECTROCARDIOGRAM REPORT FAIZAN WATSON, NORM Carranza 06/12/2013 Results Test Result Range EKG - 06/12/13 19:02 EKG SMR COMPLETE BLOOD COUNT - 06/12/13 20:20 Platelet 401 10^3u 142-424 MPV 9.3 FL 9.4-12.4 [place] # 0.69 10^3u 0.0-1.0 RBC 4.42 10^6u 4.04-6.13 [place] % 7.2 % 0-12 RDW 16.1 % [...] Urobilinogen 0.2 0.2-1.0 Urine RBC NONESEEN Specific [place] 1.015 1.010-1.020 Urine WBC N6-10 Blood Negative Negative Color Yellow Yellow Bilirubin Negative Negative Urinalysis - 06/30/13 13:38 Glucose Negative Negative Leukocyte Trace Negative Nitrite Negative Negative pH 5.5 5.5-7.5 Urine Appearance Clear Clear Protein Negative Negative Ketones Negative Negative Urobilinogen 0.2 0.2-1.0 Urine RBC NONESEEN Specific [place] >=1.030 1.010-1.020 Urine WBC N3-5 Urine Bacteria NONESEEN Blood Negative Negative Color Yellow Yellow SG by Refractometer 1.024 Bilirubin Negative Negative Urinalysis - 07/02/13 15:09 Glucose Negative Negative Leukocyte 2+ Negative Nitrite Negative Negative pH 6.5 5.5-7.5 Urine Appearance Cloudy Clear Protein Negative Negative Ketones Negative Negative Urobilinogen 0.2 0.2-1.0 Urine RBC N16-20 Specific [place] 1.020 1.010-1.020 Urine WBC TNTC Blood 2+ [...] culture - 05/16/16 15:00 Bacterial urine culture [id number] NRG COLONY COUNT >100,000/ML NRG FTX;REPORTABLE SENSITIVITY [...] NRG Blood erythrocyte morphology finding identification NORMAL NRG LITHIUM LEVEL - 07/04/16 22:28 [place] [mass/volume] in serum or plasma < % 0.5-1.5 Bacterial blood culture - 07/04/16 23:00 Bacterial blood culture NG NRG Influenza virus A and B antigen detection - 07/04/16 23:10 FLU RESULT NEGATIVE FOR INFLUENZA A AND B ANTIGENS BY IA NRG Bacterial blood culture - 07/04/16 23:10 Bacterial blood culture NG NRG Complete urinalysis with reflex to culture - [...] plasma calcium measurement (mass/volume) 9.4 mg/dL 8.5-10.1 Complete blood count (CBC) with automated white blood cell (WBC) differential - 07/19/16 01:20 Blood leukocytes automated count (number/volume) 12.1 10*3/ uL 4.3-11.0 Blood erythrocytes automated count (number/volume) 4.78 10*6 /uL 4.35-5.85 Venous blood hemoglobin measurement (mass/volume) 12.9 g/dL 11.5-16.0 Blood hematocrit (volume fraction) 40 % 35-52 Automated erythrocyte mean corpuscular volume 83 [foz_us] 80-99 Automated erythrocyte mean corpuscular hemoglobin (mass per erythrocyte) 27 pg 25-34 Automated erythrocyte mean corpuscular hemoglobin concentration measurement ( mass/volume) 33 g/dL 32-36 Automated erythrocyte distribution width ratio 15.5 % 10.0-14.5 Automated blood platelet count (count/volume) 326 10*3/uL 130-400 Automated blood platelet mean volume measurement 9.6 [foz_us ] 7.4-10.4 Automated blood neutrophils/100 leukocytes 87 % 42-75 Automated blood lymphocytes/100 leukocytes 5 % 12-44 Blood monocytes/100 leukocytes 8 % 0-12 Automated blood eosinophils/100 leukocytes 0 % 0-10 Automated blood basophils/100 leukocytes 0 % 0-10 Blood neutrophils automated count (number/volume) 10.6 10*3 1.8-7.8 Blood lymphocytes automated count (number/volume) 0.6 10*3 1.0-4.0 Blood monocytes automated count (number/volume) 0.9 10*3 0.0-1.0 Automated eosinophil count 0.0 10*3/uL 0.0-0.3 Automated blood basophil count (count/volume) 0.0 10*3/uL 0.0-0.1 Blood lactic acid measurement (moles/volume) - 07/19/16 01:20 Blood lactic acid measurement (moles/volume) 1.3 mmol/L 0.5-2.0 Comprehensive metabolic panel - 07/19/16 01:20 Serum or plasma sodium measurement (moles/volume) 139 mmol/ L 135-145 Serum or plasma potassium measurement (moles/volume) 3.8 mmol/L 3.6-5.0 Serum or plasma chloride measurement (moles/volume) 104 mmol /L 98-107 Carbon dioxide 21 mmol/L 21-32 Serum or plasma anion gap determination (moles/volume) 14 mmol/L 5-14 Serum or plasma urea nitrogen measurement (mass/volume) 26 mg/dL 7-18 Serum or plasma creatinine measurement (mass/volume) 1.07 mg /dL 0.60-1.30 Serum or plasma urea nitrogen/creatinine mass ratio 24 NRG Serum or plasma creatinine measurement with calculation of estimated glomerular filtration rate 51 NRG Serum or plasma glucose measurement (mass/volume) 127 mg/dL 70-105 Serum or plasma calcium measurement (mass/volume) 8.7 mg/dL 8.5-10.1 Serum or plasma total bilirubin measurement (mass/volume) 0.6 mg/dL 0.1-1.0 Serum or plasma alkaline phosphatase measurement (enzymatic activity/volume) 111 U/L 40-136 Serum or plasma aspartate aminotransferase measurement (enzymatic activity/ volume) 29 U/L 5-34 Serum or plasma alanine aminotransferase measurement (enzymatic activity/volume ) 24 U/L 0-55 Serum or plasma protein measurement (mass/volume) 7.0 g/dL 6.4-8.2 Serum or plasma albumin measurement (mass/volume) 3.7 g/dL 3.2-4.5 Magnesium - 07/19/16 01:20 Magnesium 2.1 mg/dL 1.8-2.4 Serum or plasma troponin i.cardiac measurement (mass/volume) - 07/19/16 01:20 Serum or plasma troponin i.cardiac measurement (mass/volume) < ng/mL <0.30 Serum or plasma lithium measurement (moles/volume) - 07/19/16 01:20 BNP level < pg/mL <100.0 Bacterial blood culture - 07/19/16 01:20 Bacterial blood culture NG NRG Arterial blood gas measurement - 07/19/16 01:37 Blood pCO2 40 mm[Hg] 35-45 Blood pO2 42 mm[Hg] 79-93 Arterial blood bicarbonate measurement (moles/volume) 24 mmol/L 23-27 Arterial blood base excess by calculation -0.4 mmol/L -2.5-2.5 Arterial blood oxygen saturation measurement 70 % 94-100 * Inhaled oxygen flow rate 9L NRG Arterial blood pH measurement with patient temperature correction 7.40 7.37-7.43 Arterial blood carbon dioxide, total measurement (moles/volume) 25.0 mmol/L 21.0-31.0 Body site RIGHT RADIAL NRG Assessment of wrist artery patency prior to arterial puncture YES-POS NRG Setting of ventilation mode NO NRG Measurement of body temperature 101.2 NRG Complete urinalysis with reflex to culture - 07/19/16 01:53 Urine color determination YELLOW NRG Urine clarity determination CLEAR NRG Urine pH measurement by test strip 5 5- 9 Specific gravity of urine by test strip 1.025 1.016-1.022 Urine protein assay by test strip, semi-quantitative 1+ NEGATIVE Urine glucose detection by automated test strip NEGATIVE NEGATIVE Erythrocytes detection in urine sediment by light microscopy NEGATIVE NEGATIVE Urine ketones detection by automated test strip NEGATIVE NEGATIVE Urine nitrite detection by test strip NEGATIVE NEGATIVE Urine total bilirubin detection by test strip 1+ NEGATIVE Urine urobilinogen measurement by automated test [...] detection in urine sediment by light microscopy PRESENT NRG Mucus detection in urine sediment by light microscopy LARGE NRG Complete urinalysis with reflex to culture NO NRG Hyaline casts detection in urine sediment by light microscopy 5-10 NRG Complete blood count (CBC) with automated white blood cell (WBC) differential - 07/20/16 04:54 Blood leukocytes automated count (number/volume) 5.9 10*3/ uL 4.3-11.0 Blood erythrocytes automated count (number/volume) 3.94 10*6 /uL 4.35-5.85 Venous blood hemoglobin measurement (mass/volume) 10.5 g/dL 11.5-16.0 Blood hematocrit (volume fraction) 34 % 35-52 Automated erythrocyte mean corpuscular volume 85 [foz_us] 80-99 Automated erythrocyte mean corpuscular hemoglobin (mass per erythrocyte) 27 pg 25-34 Automated erythrocyte mean corpuscular hemoglobin concentration measurement ( mass/volume) 31 g/dL 32-36 Automated erythrocyte distribution width ratio 15.4 % 10.0-14.5 Automated blood platelet count (count/volume) 284 10*3/uL 130-400 Automated blood platelet mean volume measurement 9.7 [foz_us ] 7.4-10.4 Automated blood neutrophils/100 leukocytes 76 % 42-75 Automated blood lymphocytes/100 leukocytes 12 % 12-44 Blood monocytes/100 leukocytes 11 % 0-12 Automated blood eosinophils/100 leukocytes 0 % 0-10 Automated blood basophils/100 leukocytes 0 % 0-10 Blood neutrophils automated count (number/volume) 4.5 10*3 1.8-7.8 Blood lymphocytes automated count (number/volume) 0.7 10*3 1.0-4.0 Blood monocytes automated count (number/volume) 0.7 10*3 0.0-1.0 Automated eosinophil count 0.0 10*3/uL 0.0-0.3 Automated blood basophil count (count/volume) 0.0 10*3/uL 0.0-0.1 Serum or plasma renal function panel (Na, K, Cl, CO2, BUN, Cr, glucose,Ca, phos , alb) - 07/20/16 04:54 Serum or plasma sodium measurement (moles/volume) 140 mmol/ L 135-145 Serum or plasma potassium measurement (moles/volume) 3.8 mmol/L 3.6-5.0 Serum or plasma chloride measurement (moles/volume) 111 mmol /L 98-107 Carbon dioxide 21 mmol/L 21-32 Serum or plasma anion gap determination (moles/volume) 8 mmol/L 5-14 Serum or plasma urea nitrogen measurement (mass/volume) 15 mg/dL 7-18 Serum or plasma creatinine measurement (mass/volume) 0.80 mg /dL 0.60-1.30 Serum or plasma urea nitrogen/creatinine mass ratio 19 NRG Serum or plasma creatinine measurement with calculation of estimated glomerular filtration rate > NRG Serum or plasma glucose measurement (mass/volume) 87 mg/dL 70-105 Serum or plasma calcium measurement (mass/volume) 7.9 mg/dL 8.5-10.1 Serum or plasma albumin measurement (mass/volume) 2.9 g/dL 3.2-4.5 Serum or plasma phosphate measurement (mass/volume) 3.2 mg/ dL 2.3-4.7 Complete blood count (CBC) with automated white blood cell (WBC) differential - 07/21/16 04:34 Blood leukocytes automated count (number/volume) 6.0 10*3/ uL 4.3-11.0 Blood erythrocytes automated count (number/volume) 4.62 10*6 /uL 4.35-5.85 Venous blood hemoglobin measurement (mass/volume) 12.4 g/dL 11.5-16.0 Blood hematocrit (volume fraction) 39 % 35-52 Automated erythrocyte mean corpuscular volume 84 [foz_us] 80-99 Automated erythrocyte mean corpuscular hemoglobin (mass per erythrocyte) 27 pg 25-34 Automated erythrocyte mean corpuscular hemoglobin concentration measurement ( mass/volume) 32 g/dL 32-36 Automated erythrocyte distribution width ratio 14.9 % 10.0-14.5 Automated blood platelet count (count/volume) 327 10*3/uL 130-400 Automated blood platelet mean volume measurement 9.5 [foz_us ] 7.4-10.4 Automated blood neutrophils/100 leukocytes 77 % 42-75 Automated blood lymphocytes/100 leukocytes 14 % 12-44 Blood monocytes/100 leukocytes 9 % 0-12 Automated blood eosinophils/100 leukocytes 0 % 0-10 Automated blood basophils/100 leukocytes 0 % 0-10 Blood neutrophils automated count (number/volume) 4.7 10*3 1.8-7.8 Blood lymphocytes automated count (number/volume) 0.8 10*3 1.0-4.0 Blood monocytes automated count (number/volume) 0.5 10*3 0.0-1.0 Automated eosinophil count 0.0 10*3/uL 0.0-0.3 Automated blood basophil count (count/volume) 0.0 10*3/uL 0.0-0.1 Whole blood basic metabolic panel - 07/21/16 04:34 Serum or plasma sodium measurement (moles/volume) 141 mmol/ L 135-145 Serum or plasma potassium measurement (moles/volume) 3.9 mmol/L 3.6-5.0 Serum or plasma chloride measurement (moles/volume) 106 mmol /L 98-107 Carbon dioxide 25 mmol/L 21-32 Serum or plasma anion gap determination (moles/volume) 10 mmol/L 5-14 Serum or plasma urea nitrogen measurement (mass/volume) 12 mg/dL 7-18 Serum or plasma creatinine measurement (mass/volume) 0.76 mg /dL 0.60-1.30 Serum or plasma urea nitrogen/creatinine mass ratio 16 NRG Serum or plasma creatinine measurement with calculation of estimated glomerular filtration rate > NRG Serum or plasma glucose measurement (mass/volume) 91 mg/dL 70-105 Serum or plasma calcium measurement (mass/volume) 8.9 mg/dL 8.5-10.1 Vancomycin trough - 07/21/16 15:15 Vancomycin trough 5.8 ug/mL 10.0-20.0 Complete blood count (CBC) with automated white blood cell (WBC) differential - 07/22/16 04:49 Blood leukocytes automated count (number/volume) 4.5 10*3/ uL 4.3-11.0 Blood erythrocytes automated count (number/volume) 4.37 10*6 /uL 4.35-5.85 Venous blood hemoglobin measurement (mass/volume) 11.9 g/dL 11.5-16.0 Blood hematocrit (volume fraction) 37 % 35-52 Automated erythrocyte mean corpuscular volume 85 [foz_us] 80-99 Automated erythrocyte mean corpuscular hemoglobin (mass per erythrocyte) 27 pg 25-34 Automated erythrocyte mean corpuscular hemoglobin concentration measurement ( mass/volume) 32 g/dL 32-36 Automated erythrocyte distribution width ratio 14.9 % 10.0-14.5 Automated blood platelet count (count/volume) 317 10*3/uL 130-400 Automated blood platelet mean volume measurement 9.7 [foz_us ] 7.4-10.4 Automated blood neutrophils/100 leukocytes 69 % 42-75 Automated blood lymphocytes/100 leukocytes 21 % 12-44 Blood monocytes/100 leukocytes 10 % 0-12 Automated blood eosinophils/100 leukocytes 0 % 0-10 Automated blood basophils/100 leukocytes 0 % 0-10 Blood neutrophils automated count (number/volume) 3.1 10*3 1.8-7.8 Blood lymphocytes automated count (number/volume) 0.9 10*3 1.0-4.0 Blood monocytes automated count (number/volume) 0.5 10*3 0.0-1.0 Automated eosinophil count 0.0 10*3/uL 0.0-0.3 Automated blood basophil count (count/volume) 0.0 10*3/uL 0.0-0.1 Whole blood basic metabolic panel - 07/22/16 04:49 Serum or plasma sodium measurement (moles/volume) 143 mmol/ L 135-145 Serum or plasma potassium measurement (moles/volume) 3.9 mmol/L 3.6-5.0 Serum or plasma chloride measurement (moles/volume) 111 mmol /L 98-107 Carbon dioxide 23 mmol/L 21-32 Serum or plasma anion gap determination (moles/volume) 9 mmol/L 5-14 Serum or plasma urea nitrogen measurement (mass/volume) 13 mg/dL 7-18 Serum or plasma creatinine measurement (mass/volume) 0.76 mg /dL 0.60-1.30 Serum or plasma urea nitrogen/creatinine mass ratio 17 NRG Serum or plasma creatinine measurement with calculation of estimated glomerular filtration rate > NRG Serum or plasma glucose measurement (mass/volume) 96 mg/dL 70-105 Serum or plasma calcium measurement (mass/volume) 8.2 mg/dL 8.5-10.1 Complete blood count (CBC) with automated white blood cell (WBC) differential - 07/23/16 06:14 Blood leukocytes automated count (number/volume) 6.1 10*3/ uL 4.3-11.0 Blood erythrocytes automated count (number/volume) 4.65 10*6 /uL 4.35-5.85 Venous blood hemoglobin measurement (mass/volume) 12.5 g/dL 11.5-16.0 Blood hematocrit (volume fraction) 39 % 35-52 Automated erythrocyte mean corpuscular volume 85 [foz_us] 80-99 Automated erythrocyte mean corpuscular hemoglobin (mass per erythrocyte) 27 pg 25-34 Automated erythrocyte mean corpuscular hemoglobin concentration measurement ( mass/volume) 32 g/dL 32-36 Automated erythrocyte distribution width ratio 14.9 % 10.0-14.5 Automated blood platelet count (count/volume) 350 10*3/uL 130-400 Automated blood platelet mean volume measurement 9.6 [foz_us ] 7.4-10.4 Automated blood neutrophils/100 leukocytes 74 % 42-75 Automated blood lymphocytes/100 leukocytes 18 % 12-44 Blood monocytes/100 leukocytes 8 % 0-12 Automated blood eosinophils/100 leukocytes 0 % 0-10 Automated blood basophils/100 leukocytes 0 % 0-10 Blood neutrophils automated count (number/volume) 4.5 10*3 1.8-7.8 Blood lymphocytes automated count (number/volume) 1.1 10*3 1.0-4.0 Blood monocytes automated count (number/volume) 0.5 10*3 0.0-1.0 Automated eosinophil count 0.0 10*3/uL 0.0-0.3 Automated blood basophil count (count/volume) 0.0 10*3/uL 0.0-0.1 Whole blood basic metabolic panel - 07/23/16 06:14 Serum or plasma sodium measurement (moles/volume) 141 mmol/ L 135-145 Serum or plasma potassium measurement (moles/volume) 4.5 mmol/L 3.6-5.0 Serum or plasma chloride measurement (moles/volume) 110 mmol /L 98-107 Carbon dioxide 22 mmol/L 21-32 Serum or plasma anion gap determination (moles/volume) 9 mmol/L 5-14 Serum or plasma urea nitrogen measurement (mass/volume) 15 mg/dL 7-18 Serum or plasma creatinine measurement (mass/volume) 0.81 mg /dL 0.60-1.30 Serum or plasma urea nitrogen/creatinine mass ratio 19 NRG Serum or plasma creatinine measurement with calculation of estimated glomerular filtration rate > NRG Serum or plasma glucose measurement (mass/volume) 95 mg/dL 70-105 Serum or plasma calcium measurement (mass/volume) 8.5 mg/dL 8.5-10.1 Complete blood count (CBC) with automated white blood cell (WBC) differential - 07/24/16 06:48 Blood leukocytes automated count (number/volume) 10.1 10*3/ uL 4.3-11.0 Blood erythrocytes automated count (number/volume) 4.71 10*6 /uL 4.35-5.85 Venous blood hemoglobin measurement (mass/volume) 12.6 g/dL 11.5-16.0 Blood hematocrit (volume fraction) 40 % 35-52 Automated erythrocyte mean corpuscular volume 84 [foz_us] 80-99 Automated erythrocyte mean corpuscular hemoglobin (mass per erythrocyte) 27 pg 25-34 Automated erythrocyte mean corpuscular hemoglobin concentration measurement ( mass/volume) 32 g/dL 32-36 Automated erythrocyte distribution width ratio 15.0 % 10.0-14.5 Automated blood platelet count (count/volume) 372 10*3/uL 130-400 Automated blood platelet mean volume measurement 9.6 [foz_us ] 7.4-10.4 Automated blood neutrophils/100 leukocytes 82 % 42-75 Automated blood lymphocytes/100 leukocytes 11 % 12-44 Blood monocytes/100 leukocytes 8 % 0-12 Automated blood eosinophils/100 leukocytes 0 % 0-10 Automated blood basophils/100 leukocytes 0 % 0-10 Blood neutrophils automated count (number/volume) 8.3 10*3 1.8-7.8 Blood lymphocytes automated count (number/volume) 1.1 10*3 1.0-4.0 Blood monocytes automated count (number/volume) 0.8 10*3 0.0-1.0 Automated eosinophil count 0.0 10*3/uL 0.0-0.3 Automated blood basophil count (count/volume) 0.0 10*3/uL 0.0-0.1 Complete urinalysis with reflex to culture - 08/30/16 05:30 Urine color determination YELLOW NRG Urine clarity determination SLIGHTLY CLOUDY NRG Urine pH measurement by test strip 7 5- 9 Specific gravity of urine by test strip 1.010 1.016-1.022 Urine protein assay by test strip, semi-quantitative 2+ NEGATIVE Urine glucose detection by automated test strip NEGATIVE NEGATIVE Erythrocytes detection in urine sediment by light microscopy 5+ NEGATIVE Urine ketones detection by automated test strip NEGATIVE NEGATIVE Urine nitrite detection by test strip POSITIVE NEGATIVE Urine total bilirubin detection by test strip NEGATIVE NEGATIVE Urine urobilinogen measurement by automated test strip (mass/volume) NORMAL NORMAL Urine leukocyte esterase detection by dipstick 3+ NEGATIVE Automated urine sediment erythrocyte count by microscopy (number/high power field) [HPF] NRG Automated urine sediment leukocyte count by microscopy (number/high power field ) [HPF] NRG Bacteria detection in urine sediment by light microscopy MODERATE NRG Crystals detection in urine sediment by light microscopy PRESENT NRG Casts detection in urine sediment by light microscopy NONE NRG Mucus detection in urine sediment by light microscopy NEGATIVE NRG Complete urinalysis with reflex to culture YES NRG Triple phosphate crystals detection in urine sediment by light microscopy LARGE NRG Bacterial urine culture - 08/30/16 05:30 Bacterial urine culture FOOTNOTE NRG Complete urinalysis with reflex to culture - 09/16/16 23:00 Urine color determination YELLOW NRG Urine clarity determination VERY CLOUDY NRG Urine pH measurement by test strip 7 5- 9 Specific gravity of urine by test strip 1.010 1.016-1.022 Urine protein assay by test strip, [...] NORMAL Urine leukocyte esterase detection by dipstick 2+ NEGATIVE Automated urine sediment erythrocyte count by microscopy (number/high power field) NONE NRG Automated urine sediment leukocyte count by microscopy (number/high power field ) [HPF] NRG Bacteria detection in urine sediment by light microscopy LARGE NRG Crystals detection in urine sediment by light microscopy NONE NRG Casts detection in urine sediment by light microscopy NONE NRG Mucus detection in urine sediment by light microscopy NEGATIVE NRG Complete urinalysis with reflex to culture YES NRG Bacterial urine culture - 09/16/16 23:00 Bacterial urine culture [id number] NRG COLONY COUNT >100,000/ML NR FTX;REPORTABLE SENSITIVITY REPORTED AT 1159, 4-14-17 NR URINE CULTURE RESULTS PLUS NR Bacterial susceptibility panel - 09/16/16 23:00 Gentamicin susceptibility test by minimum inhibitory concentration <= NRG Trimethoprim/sulfamethoxazole susceptibility test by minimum inhibitoryconcentration <= NRG Ampicillin susceptibility test by minimum inhibitory concentration <= NRG Tobramycin susceptibility test by minimum inhibitory concentration <= NRG Cefazolin susceptibility test by minimum inhibitory concentration <= NRG Ceftriaxone susceptibility test by minimum inhibitory concentration <= NRG Ampicillin/sulbactam susceptibility test by minimum inhibitory concentration <= NRG Piperacillin/tazobactam susceptibility test by minimum inhibitory concentration <= NRG Ciprofloxacin susceptibility test by minimum inhibitory concentration <= NRG Meropenem susceptibility test by minimum inhibitory concentration <= NRG Nitrofurantoin susceptibility test by minimum inhibitory concentration <= NRG Aztreonam susceptibility test by minimum inhibitory concentration <= NRG Extended spectrum beta lactamase (ESBL) producing bacteria susceptibility test by minimum inhibitory concentration - NRG Complete urinalysis with reflex to culture - 10/04/16 05:40 Urine color determination YELLOW NRG Urine clarity [...] count by microscopy (number/high power field ) [HPF] NRG Bacteria detection in urine sediment by light microscopy NEGATIVE NRG Squamous epithelial cells detection in urine sediment by light microscopy 0-5 NRG Crystals detection in urine sediment by light microscopy NONE NRG Casts detection in urine sediment by light microscopy NONE NRG Mucus detection in urine sediment by light microscopy SMALL NRG Complete urinalysis with reflex to culture NO NRG Encounters ACCT No. Visit Date/Time Discharge Status Pt. Type Provider Facility Loc./Unit Complaint [id number] 06/12/2013 16:50:00 07/03/2013 10 :20:00 DIS Inpatient FAIZAN WATSON, [facility] [id number] 06/12/2013 20:19:00 06/12/2013 20 :19:00 DIS Outpatient FAZIAN WATSON, [facility] [id number] 02/21/2010 15:55:00 Document Registration
[2016-12-03] MEDS ORDERED: HYDR-3812 PO (10:22)
--- NOTE | 2016-12-03 10:25 | Discharge Inst-Simple/Standard ---
Discharge Inst-Standard Patient Instructions/Follow Up Plan of Care/Instructions/FU: Follow up with Dr. Benson in 12 days Activity as Tolerated: No Discharge Diet: No Restrictions Other Inst to Patient Follow up Appt: Make appointment for 12 days Instructions: No lifting greater than 10 pounds. No strenuous activity. May shower in 24 hours, no tub bath or soaking. Use incentive spirometer at home as directed. No Smoking Skin/Wound Care: May remove bandages. You need to leave the white strips over incision on they will fall off on their own. Symptoms to Report: Appetite Changes, Extremity Discoloration, Numbness/Tingling, Swelling Increased , Bleeding Excessive, Eyesight Changes, Pain Increased, Urine Color Change, Constipation(Persistent), Fever over 101 degree F, Pain/Pressure in chest, Urinating Difficulty, Cough Up/Vomit Blood, Heart Beat Irreg/Pounding, Pain/ Pressure in jaw, Vaginal Bleeding Increase, Cramps in feet or legs, Lightheadedness, Pain/Pressure in shoulder, Diarrhea(Persistent), Memory Changes Suddenly, Questions/Concerns, Weight gain consecutive days, Dizziness/ Fainting, Nausea/Vomiting, Shortness of Breath, Weight gain over 2 pounds If questions or concerns contact your physician Or seek help at emergency department. GRACE PATTERSON APRN Dec 03, 2016 10:25
[2016-12-03 10:35] VITALS: BP 114/59
[2016-12-03 11:20] VITALS: BP 114/59
== END 2016-12-03 11:20 | disposition home or self-care (01) ==
LOC: SDC 06:00
PROVIDERS: ATTEND Surgery
DX: D23.71 Other benign neoplasm of skin of right lower limb, including hip (principal); I48.91 Unspecified atrial fibrillation; F41.9 Anxiety disorder, unspecified; F32.9 Major depressive disorder, single episode, unspecified; F03.90 Unspecified dementia, unspecified severity, without behavioral disturbance, psychotic disturbance, mood disturbance, and anxiety; F20.9 Schizophrenia, unspecified; G20 Parkinson's disease; Z79.899 Other long term (current) drug therapy
CPT/HCPCS: 87081; 88305

== ENCOUNTER → 2016-12-18 | Outpatient (CLI) | payer MEDICARE, MEDICAID ==
[~2016-12-18] MED LIST changes: +HYDR-3812 PO
--- NOTE | 2016-12-18 11:30 | Diagnostic Imaging Report ---
Two views of the skull. INDICATION: Patient is resistive to care and has nonrestorable teeth. FINDINGS: Dental abnormalities are grossly suggested with multiple fillings. This can be better evaluated on a panoramic view of the mandible. The paranasal sinuses appear grossly aerated. No fracture is evident. No radiopaque foreign body other than the dental fillings seen. IMPRESSION: Dental abnormalities and fillings noted. No obvious abnormality in the adjacent sinuses or elsewhere in the skull. Dictated by: Dictated on workstation # [id number]
== END ==
LOC: RAD 10:44
PROVIDERS: ATTEND Specialist
DX: K08.9 Disorder of teeth and supporting structures, unspecified (principal)
CPT/HCPCS: 70250

== ENCOUNTER 2016-12-31 12:25 | Emergency (ER) | payer MEDICARE, MEDICAID ==
[~2016-12-31] VITALS: Ht 167.6 cm; Wt 81.6 kg
--- NOTE | 2016-12-31 12:34 | ED Fall/Injury ---
General Stated Complaint: LOW BACK PAIN Source: EMS, [facility] records Exam Limitations: no limitations History of Present Illness Time seen by provider: 12:31 Initial Comments Abdomen: Normal wall 66-year-old female presents from the Alzheimer's unit at [facility] (formerly [facility]) where she resides for schizophrenia and bipolar disorder. Reportedly she fell this morning in her room and initially had no complaints. About 2 hours after the fall she developed low back pain and RN decided to have the patient transported to the ER for evaluation. They deny any loss of consciousness or neck pain. Patient is terribly demented and does not respond appropriately to any questions and cannot contribute to history of present illness or review of systems cannot localize her pain. Occurred: this evening Severity: moderate Associated Symptoms (Fall): Confusion, No Neck Pain Allergies and Home Medications Allergies Coded Allergies: belladonna alkaloids (Verified Allergy, Mild, 10/11/14) meperidine (Verified Allergy, Mild, 10/11/14) Uncoded Allergies: pectin (Allergy, Mild, 10/11/14) Home Medications Acetaminophen 325 Mg Tablet, 650 MG PO Q4H PRN for MILD PAIN, (Reported) TAKES 2 (325MG) TABLETS Amiodarone HCl 200 Mg Tablet, 200 MG PO DAILY, (Reported) Betamethasone/Propylene Glyc 15 Gm Cream..g., 1 GM TP BID, (Reported) Cetirizine HCl 10 Mg Tablet, 10 MG PO DAILY, (Reported) Cholecalciferol 1,000 Unit Tab, 2,000 UNIT PO DAILY, (Reported) take 2 (1,000mg) tabs Clozapine 50 Mg Tablet, 50 MG PO BID, (Reported) Clozapine 200 Mg Tablet, 200 MG PO HS, (Reported) Diphenhydramine HCl 25 Mg Capsule, 50 MG PO TID, (Reported) give 2 (25mg) tabs Divalproex Sodium 250 Mg Tablet.dr, 250 MG PO TID, (Reported) Docusate Sodium 100 Mg Capsule, 100 MG PO BID, (Reported) Hydrocodone/Acetaminophen 1 Each Tablet, 1 EA PO Q4-6HR PRN for PAIN-MODERATE TO SEVERE, #20 Ref 0 Monitor use of medication especially when administering another source of acetaminophen. Prescribed by: GRACE YA on 12/03/16 1022 Ibuprofen 200 Mg Tablet, 400 MG PO Q6H PRN for TEMPERATURE, (Reported) TAKES 2 (200 MG) TABLETS Ipratropium/Albuterol Sulfate 3 Ml Ampul.neb, 3 ML IH Q4H PRN for SHORTNESS OF BREATH, (Reported) Lanolin Alcohol/Mo/W.pet/[place] 454 Gm Cream..g., TP HS, (Reported) APPLIES TO BOTH FEET Levothyroxine Sodium 150 Mcg Tablet, 150 MCG PO DAILY, (Reported) Magnesium Hydroxide 400 Mg/5 Ml Oral.susp, 30 ML PO DAILY PRN for CONSTIPATION, (Reported) Ondansetron 4 Mg Tab.rapdis, 4 MG PO Q6H PRN for NAUSEA/VOMITING, (Reported) Polyethylene Glycol 3350 17 Gm Powd.pack, 17 GM PO DAILY, (Reported) Trazodone HCl 100 Mg Tablet, 200 MG PO HS, (Reported) take 2 (100mg) tabs Trihexyphenidyl HCl 2 Mg Tablet, 2 MG PO TID, (Reported) Constitutional: see HPI Eyes: No Symptoms Reported Ears, Nose, Mouth, Throat: no symptoms reported Respiratory: no symptoms reported Cardiovascular: no symptoms reported Genitourinary: no symptoms reported Musculoskeletal: see HPI, back pain Skin: no symptoms reported Psychiatric/Neurological: No Symptoms Reported Past Qgqjeft-Rqihmc-Dxvdjl Hx Patient Social History 2nd Hand Smoke Exposure: No Recent Hopitalizations: No Immunizations Up To Date Tetanus Booster (TDap): Unknown Date of Pneumonia Vaccine: Feb 12, 2008 Date of Influenza Vaccine: Mar 16, 2016 Seasonal Allergies Seasonal Allergies: No Surgeries HX Surgeries: No (no known surgeries) Respiratory Hx Respiratory Disorders: No Cardiovascular Hx Cardiac Disorders: Yes Cardiac Disorders: Atrial Fibrillation Neurological Hx Neurological Disorders: Yes (MENTAL RETARDATION, dysphagia) Neurological Disorders: Dementia, Parkinson's Disease Reproductive System Hx Reproductive Disorders: No Sexually Transmitted Disease: No HIV/AIDS: No Genitourinary Hx Genitourinary Disorders: Yes (INCONTINENCE WEARS ATTENDS, history of urinary tract infection) Gastrointestinal Hx Gastrointestinal Disorders: Yes Gastrointestinal Disorders: Chronic Constipation Musculoskeletal Hx Musculoskeletal Disorders: No Endocrine Hx Endocrine Disorders: Yes Endocrine Disorders: Hypothyroidsim HEENT HX ENT Disorders: No Cancer Hx Cancer: No Psychosocial Hx Psychiatric Problems: Yes Behavioral Health Disorders: Anxiety, Schizophrenia, Depression Integumentary HX Skin/Integumentary Disorder: Yes (rash ) Blood Transfusions Hx Blood Disorders: No Adverse Reaction to a Blood Tr: No Family Medical History Family Medial History: Patient reports no known family medical history. Physical Exam Vital Signs Vital Sign - Last 12Hours 12/31/16 12:33 Temp 96.8 Pulse 70 Resp 16 B/P (MAP) 105/70 O2 Delivery Room Air Capillary Refill : General Appearance: WD/WN, no apparent distress HEENT: PERRL/EOMI, normal ENT inspection Neck: non-tender, full range of motion Respiratory: no respiratory distress, no accessory muscle use Gastrointestinal: normal bowel sounds, non tender, soft Extremities: normal range of motion, non-tender Skin: normal color, warm/dry Comments When asked how she feels she states "terrible". She complains of feeling terrible with palpation of literally any part of her body. She is randomly talking about Taye Austin and states that she is the "ouch ouch Grouch" [place] Coma Score Best Eye Response: (4) Open Spontaneously Best Verbal Response: (4) Confused Conversation Best Motor Response: (5) Localizes to Pain [place] Total: 13 Progress/Results/Core Measures Results/Orders My Orders Orders - NOAH CARBONE APRN Ct Lumbar Spine Wo (12/31/16 12:30) Pelvis (12/31/16 12:30) Chest 1 View, Ap/Pa Only (12/31/16 12:30) Vital Signs/I&O Vital Sign - Last 12Hours 12/31/16 12:33 Temp 96.8 Pulse 70 Resp 16 B/P (MAP) 105/70 O2 Delivery Room Air Departure Impression Impression: Primary Impression: Fall Disposition: 01 HOME, SELF-CARE Condition: Stable Departure-Patient Inst. Decision time for Depature: 13:16 Referrals: ALBANIA RENTERIA DO (PCP/Family) Primary Care Physician Patient Instructions: Preventing Falls in the Older Adult Add. Discharge Instructions: 1. Return her to the emergency room for any abnormal vital signs or other concerns 2. Follow-up with Dr. Renteria tomorrow NOAH CARBONE APRN Dec 31, 2016 12:34
--- NOTE | 2016-12-31 13:02 | Diagnostic Imaging Report ---
INDICATION: Fall with back and pelvic pain. Single AP view of the pelvis is obtained. No previous study is available at this time for comparison. FINDINGS: No acute fracture or dislocation is identified. No abnormal lytic or sclerotic focus is seen, and there is no radiopaque foreign body. IMPRESSION: No acute abnormality. Dictated by: Dictated on workstation # [id number]
--- NOTE | 2016-12-31 13:03 | Diagnostic Imaging Report ---
AP view of the chest. INDICATION: Confusion, back pain. FINDINGS: The lungs appear clear. The heart size is normal for an AP supine radiograph. No effusion or pneumothorax. The mediastinum and yani appear unremarkable. IMPRESSION: No acute process. Dictated by: Dictated on workstation # [id number]
--- NOTE | 2016-12-31 13:12 | Diagnostic Imaging Report ---
PROCEDURE: CT lumbar spine without contrast. TECHNIQUE: Multiple contiguous axial images were obtained through the lumbar spine without the use of intravenous contrast. Sagittal and coronal reformations were then performed. INDICATION: Fall with back pain. Lumbar spinal curvature and alignment are within normal limits. No acute fracture or malalignment is identified. Vertebral body heights are maintained. There is diffuse bulging of the lumbar discs from L3-L4 through L5-S1. This results in moderate trefoil-type spinal stenoses at these levels. No paraspinous hematoma is identified. IMPRESSION: Mild lumbar spondylosis and lower lumbar degenerative disc disease. This does result in multilevel trefoil-type spinal stenosis; however, no acute lumbar spinal abnormality is appreciated. Dictated by: Dictated on workstation # [id number]
[2016-12-31 13:40] VITALS: BP 108/68
== END 2016-12-31 13:40 | disposition home or self-care (01) ==
LOC: EDUNIT# 12:25 → ER 12:26
DX: S39.92XA Unspecified injury of lower back, initial encounter (principal); M51.36 Other intervertebral disc degeneration, lumbar region; M48.06 Spinal stenosis, lumbar region; G20 Parkinson's disease; G30.9 Alzheimer's disease, unspecified; F02.80 Dementia in other diseases classified elsewhere, unspecified severity, without behavioral disturbance, psychotic disturbance, mood disturbance, and anxiety; F20.9 Schizophrenia, unspecified; F31.9 Bipolar disorder, unspecified; I48.2 Chronic atrial fibrillation; E03.9 Hypothyroidism, unspecified; Z79.899 Other long term (current) drug therapy; W01.0XXA Fall on same level from slipping, tripping and stumbling without subsequent striking against object, initial encounter; Y92.129 Unspecified place in nursing home as the place of occurrence of the external cause; Y99.8 Other external cause status
CPT/HCPCS: 71010; 72131; 72170; 99282

== ENCOUNTER 2017-01-02 12:59 | Emergency (ER) | payer MEDICARE, MEDICAID ==
[~2017-01-02] VITALS: Ht 167.6 cm; Wt 81.6 kg
[2017-01-02] MEDS ORDERED: ZIPRASIDONE 20 MG INJ (GEODON) VIAL IM ONE (13:15)
[2017-01-02] MEDS ORDERED: morphine INJ 10 MG/ML 1ML (SYR OR VIAL) IM STA (13:30)
--- NOTE | 2017-01-02 14:01 | Diagnostic Imaging Report ---
INDICATION: Fell 2 days ago. EXAMINATION: Right humerus 01/02/17. FINDINGS: 3 views of the humerus. There is no dislocation appreciated at the shoulder. Degenerative findings are noted in the glenohumeral and acromioclavicular joint spaces. No definite acute abnormality at the elbow. IMPRESSION: 1. Chronic change with no acute fractures visualized. Dictated by: Dictated on workstation # [id number]
--- NOTE | 2017-01-02 14:02 | Diagnostic Imaging Report ---
INDICATION: Fell 2 days ago. EXAMINATION: Right forearm dated 01/02/2017. FINDINGS: 2 views of the right forearm. There is deformity of the distal radius and ulna consistent with chronic changes. Narrowing of the radiocarpal joint space is also seen. No acute fractures or dislocations appreciated. IMPRESSION: 1. No evidence for acute process with chronic changes as discussed above. Dictated by: Dictated on workstation # [id number]
--- NOTE | 2017-01-02 14:55 | ED General ---
General Chief Complaint: General Problems/Pain Stated Complaint: GENERALIZED PAIN Nursing Triage Note: GENERALIZED PAIN, DEMENTIA. Nursing Sepsis Screen: No Definite Risk Source of Information: Patient, EMS Exam Limitations: Physical Impairments History of Present Illness Time Seen by Provider: 13:05 Initial Comments 66-year-old female patient presents to the emergency department from [facility] with complaints of pain. Patient and staff unable to localize pain. Patient has severe dementia, schizophrenia, and bipolar disorder. Allergies and Home Medications Allergies Coded Allergies: belladonna alkaloids (Verified Allergy, Mild, 10/11/14) meperidine (Verified Allergy, Mild, 10/11/14) Uncoded Allergies: pectin (Allergy, Mild, 10/11/14) Home Medications Acetaminophen 325 Mg Tablet, 650 MG PO Q4H PRN for MILD PAIN, (Reported) TAKES 2 (325MG) TABLETS Amiodarone HCl 200 Mg Tablet, 200 MG PO DAILY, (Reported) Betamethasone/Propylene Glyc 15 Gm Cream..g., 1 GM TP BID, (Reported) Cetirizine HCl 10 Mg Tablet, 10 MG PO DAILY, (Reported) Cholecalciferol 1,000 Unit Tab, 2,000 UNIT PO DAILY, (Reported) take 2 (1,000mg) tabs Clozapine 50 Mg Tablet, 50 MG PO BID, (Reported) Clozapine 200 Mg Tablet, 200 MG PO HS, (Reported) Diphenhydramine HCl 25 Mg Capsule, 50 MG PO TID, (Reported) give 2 (25mg) tabs Divalproex Sodium 250 Mg Tablet.dr, 250 MG PO TID, (Reported) Docusate Sodium 100 Mg Capsule, 100 MG PO BID, (Reported) Hydrocodone/Acetaminophen 1 Each Tablet, 1 EA PO Q4-6HR PRN for PAIN-MODERATE TO SEVERE, #20 Ref 0 Monitor use of medication especially when administering another source of acetaminophen. Prescribed by: GRACE YA on 12/03/16 1022 Ibuprofen 200 Mg Tablet, 400 MG PO Q6H PRN for TEMPERATURE, (Reported) TAKES 2 (200 MG) TABLETS Ipratropium/Albuterol Sulfate 3 Ml Ampul.neb, 3 ML IH Q4H PRN for SHORTNESS OF BREATH, (Reported) Lanolin Alcohol/Mo/W.pet/[place] 454 Gm Cream..g., TP HS, (Reported) APPLIES TO BOTH FEET Levothyroxine Sodium 150 Mcg Tablet, 150 MCG PO DAILY, (Reported) Magnesium Hydroxide 400 Mg/5 Ml Oral.susp, 30 ML PO DAILY PRN for CONSTIPATION, (Reported) Ondansetron 4 Mg Tab.rapdis, 4 MG PO Q6H PRN for NAUSEA/VOMITING, (Reported) Polyethylene Glycol 3350 17 Gm Powd.pack, 17 GM PO DAILY, (Reported) Trazodone HCl 100 Mg Tablet, 200 MG PO HS, (Reported) take 2 (100mg) tabs Trihexyphenidyl HCl 2 Mg Tablet, 2 MG PO TID, (Reported) Past Klnxbwu-Gxxcnt-Crncuo Hx Patient Social History Alcohol Use: Denies Use Recreational Drug Use: No Smoking Status: Unknown if Ever Smoked 2nd Hand Smoke Exposure: No Recent Foreign Travel: No Contact w/Someone Who Travel: No Recent Infectious Disease Expo: No Recent Hopitalizations: No Immunizations Up To Date Tetanus Booster (TDap): Unknown Date of Pneumonia Vaccine: Feb 12, 2008 Date of Influenza Vaccine: Mar 16, 2016 Seasonal Allergies Seasonal Allergies: No Surgeries HX Surgeries: No (no known surgeries) Respiratory Hx Respiratory Disorders: No Cardiovascular Hx Cardiac Disorders: Yes Cardiac Disorders: Atrial Fibrillation Neurological Hx Neurological Disorders: Yes (MENTAL RETARDATION, dysphagia) Neurological Disorders: Dementia, Parkinson's Disease Reproductive System : No Hx Reproductive Disorders: No Sexually Transmitted Disease: No HIV/AIDS: No 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 Genitourinary Hx Genitourinary Disorders: Yes (INCONTINENCE WEARS ATTENDS, history of urinary tract infection) Gastrointestinal Hx Gastrointestinal Disorders: Yes Gastrointestinal Disorders: Chronic Constipation Musculoskeletal Hx Musculoskeletal Disorders: No Endocrine Hx Endocrine Disorders: Yes Endocrine Disorders: Hypothyroidsim HEENT HX ENT Disorders: No Cancer Hx Cancer: No Psychosocial Hx Psychiatric Problems: Yes Behavioral Health Disorders: Anxiety, Schizophrenia, Depression Integumentary HX Skin/Integumentary Disorder: Yes (rash ) Blood Transfusions Hx Blood Disorders: No Adverse Reaction to a Blood Tr: No Family Medical History Family Medial History: Patient reports no known family medical history. Physical Exam Vital Signs Vital Sign - Last 12Hours 01/02/17 13:03 Temp 97.7 Pulse 81 Resp 18 B/P (MAP) 127/109 Pulse Ox 92 O2 Delivery Room Air Capillary Refill : Less Than 3 Seconds Progress/Results/Core Measures Results/Orders My Orders Orders - BIPIN,LUCY L PA Ziprasidone Injection (Geodon Injection) (01/02/17 13:15) Forearm, Right, 2 Views (01/02/17 13:09) Humerus, Right, 2 Views (01/02/17 13:09) Morphine Injection (Morphine Injection (01/02/17 13:30) Ct Head/Cervical Spine Wo (01/02/17 14:54) Ct Thoracic Spine Wo (01/02/17 14:54) Ct Chest Wo (01/02/17 15:12) Medications Given in ED Current Medications Medications Dose Ordered Sig/Ayde Route Start Time Stop Time Status Last Admin Dose Admin Ziprasidone 10 mg ONCE ONCE IM 01/02/17 13:15 01/02/17 13:16 DC 01/02/17 13:25 10 MG Vital Signs/I&O Vital Sign - Last 12Hours 01/02/17 13:03 Temp 97.7 Pulse 81 Resp 18 B/P (MAP) 127/109 Pulse Ox 92 O2 Delivery Room Air Blood Pressure Mean: 115 Departure Impression Impression: Primary Impression: Pain, unspecified Disposition: 03 XFER SNF Condition: Improved Departure-Patient Inst. Decision time for Depature: 16:18 Referrals: ALBANIA RENTERIA DO (PCP/Family) Primary Care Physician Patient Instructions: Constipation, Adult (DC), Preventing Falls in the Older Adult Add. Discharge Instructions: All discharge instructions reviewed with patient and/or family. Voiced understanding. MiraLAX 17 g mixed with 8 ounces of fluids by mouth twice daily for 3 days, then at bedtime as needed for pain. Continue usual home medications. Follow-up with Dr. Renteria Wednesday or Wednesday for recheck, call first thing Wednesday for appointment time. Return to the emergency department for worsened pain, changes in behavior, fever, vomiting, seizure, chest pain, shortness of air, or any other concerns. LUCY VOSS Jan 02, 2017 14:55
--- NOTE | 2017-01-02 15:43 | Diagnostic Imaging Report ---
PROCEDURE: CT chest without contrast. TECHNIQUE: Multiple contiguous axial images were obtained through the chest without the use of intravenous contrast. INDICATION: Fall, chest pain. COMPARISON: None. FINDINGS: Minimal cardiac enlargement is seen without pericardial effusion. There is no mediastinal hematoma. Central airways are grossly normal. Small effusions with dependent atelectasis are seen right greater than left. There is no pneumothorax. No obvious contusion seen. There is no rib fracture. Visualized upper abdominal solid organs are intact. Partially calcified 13 mm splenic artery aneurysm is noted. IMPRESSION: 1. Small bilateral pleural effusions right greater than left with dependent atelectasis. 2. No acute trauma within the chest. Dictated by: Dictated on workstation # [id number]
--- NOTE | 2017-01-02 15:46 | Diagnostic Imaging Report ---
PROCEDURE: CT head and CT cervical spine without contrast. TECHNIQUE: Multiple contiguous axial images were obtained through the brain and cervical spine without the use of intravenous contrast. Sagittal and coronal reformations through the cervical spine were then performed. INDICATION: Head and neck pain, recent fall. COMPARISON: 10/11/14. CT HEAD: Minimal age-related cerebral volume loss and chronic small vessel ischemic changes are present. There is no midline shift or mass effect. There is no hemorrhage or evidence of acute ischemia. The bony calvarium and visualized paranasal sinuses and mastoids are normal. IMPRESSION: No acute intracranial abnormalities. CT CERVICAL SPINE: Alignment of the cervical column is normal. There is no subluxation or fracture. Degenerative change is seen throughout the disc spaces and facet joints. No osseous lesion identified. IMPRESSION: No traumatic malalignment or fracture. Dictated by: Dictated on workstation # [id number]
--- NOTE | 2017-01-02 15:46 | Diagnostic Imaging Report ---
PROCEDURE: CT thoracic spine without contrast. TECHNIQUE: Multiple axial computerized tomography images were obtained from the base of the thoracic spine to the vertex without intravenous contrast. INDICATION: Back pain, fall. COMPARISON: None. FINDINGS: Alignment is normal. There is no subluxation or fracture. Degenerative disc disease and facet joint arthropathy is seen throughout. Small effusions are present in both lung bases right greater than left. There is a small splenic artery aneurysm measuring 13 mm. IMPRESSION: 1. No traumatic malalignment or fracture. 2. Bilateral pleural effusions with dependent atelectasis. Dictated by: Dictated on workstation # [id number]
[2017-01-02 16:41] VITALS: BP 120/72
== END 2017-01-02 16:41 ==
LOC: EDUNIT# 12:59 → ER 13:00
DX: R52 Pain, unspecified (principal); F20.9 Schizophrenia, unspecified; F41.9 Anxiety disorder, unspecified; F31.9 Bipolar disorder, unspecified; G31.83 Neurocognitive disorder with Lewy bodies; F02.80 Dementia in other diseases classified elsewhere, unspecified severity, without behavioral disturbance, psychotic disturbance, mood disturbance, and anxiety; E03.9 Hypothyroidism, unspecified; K59.09 Other constipation
CPT/HCPCS: 70450; 71250; 72125; 72128; 73060; 73090; 99284

== ENCOUNTER → 2017-01-12 | Outpatient (CLI) | payer MEDICARE, MEDICAID ==
[~2017-01-12] MED LIST changes: +HYOS-19 PO; +HYOS-20 PO; -HYOS0.1216 PO; -HYOS0.1218 PO
--- NOTE | 2017-01-12 11:53 | Diagnostic Imaging Report ---
INDICATION: Evaluate for effusion. COMPARISON: 12/31/2016. FINDINGS: Two views of the chest are obtained. Heart size is normal. The pulmonary vessels appear unremarkable. There is no pneumothorax or mediastinal widening demonstrated. There is some minimal blunting of the posterior costophrenic angles on the lateral view which could be secondary to bilateral trace effusions. The lungs are clear. The osseous structures appear unremarkable. IMPRESSION: Possible trace bilateral effusions seen on the lateral view. No additional abnormality is seen. Dictated by: Dictated on workstation # [id number]
== END ==
LOC: RAD 10:30
PROVIDERS: ATTEND Family Medicine
DX: J90 Pleural effusion, not elsewhere classified (principal)
CPT/HCPCS: 71020

== ENCOUNTER → 2017-02-22 | Outpatient (CLI) | payer MEDICARE, MEDICAID | LOC: LAB 17:39 | PROVIDERS: ATTEND Family Medicine | DX: L30.9 Dermatitis, unspecified (principal) | CPT/HCPCS: 87220 ==

== ENCOUNTER 2017-11-17 03:27 | Inpatient (IN) | payer MEDICARE, MEDICAID ==
[~2017-11-17] VITALS: Ht 175.3 cm; Wt 73.6 kg
[~2017-11-17 03:27] MED LIST changes: +ACET-168 PO; +ACHD5005 PO; +CHOL100048 PO; +HYDR-757 PO; +LEVO175T5 PO; +NYST1POW22 TP; +TR1C15 TP
--- OUTSIDE RECORDS SUMMARY | 2017-11-17 03:33 | XMS REPORT ---
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
--- OUTSIDE RECORDS SUMMARY | 2017-11-17 03:34 | XMS REPORT ---
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 53310184 Problem Unspecified psychosis F29 Active 33945172 Problem Dementia, unspecified, with behavioral disturbance F03.91 Active 3696186807279 Problem Generalized anxiety disorder F41.1 Active 37655256 ALLERGIES Substance Reaction Event Type Date Status Pectin Unknown Drug Allergy Jul, Active Demerol Unknown Drug Allergy Jul, Active Belladonna-Opium Unknown Drug Allergy Jul, Active SOCIAL HISTORY No smoking Hx information available PLAN OF CARE Activity Details Follow Up 3 Months Reason: VITAL SIGNS Weight 184.0 lbs 2016-07-09 Heart Rate 92 bpm 2016-07-09 Respiratory Rate 22 2016-07-09 Blood pressure systolic 118 mmHg 2016-07-09 Blood pressure diastolic 80 mmHg 2016-07-09 MEDICATIONS Medication Instructions Dosage Frequency Start Date End Date Duration Status Colace 100 mg Orally 2 times a day 1 capsule as needed 12h Active Acetaminophen 325 MG Orally every 4 hrs 2 tablets as needed 4h Active Levaquin 500 MG Orally Once a day 1 tablet 24h Active Eucerin - Active Dulcolax 5 mg Orally Once a day 2 tablets 24h Active Skin Prep Wipes - Active Amiodarone HCl 200 MG Orally Once a day 1 tablet 24h Active Milk of Magnesia 400 mg/5 mL Orally Once a day 30 ml by Oral route 1 time per day PRN constipation 24h October, Active Clozapine 100 mg Orally 3 times a day 1 tablet 8h Active MiraLax 17 gm/dose Orally Once a day 17 grams mixed in 8 oz of water or juice 24h Active Trihexyphenidyl HCl 2 MG Orally Three times a day 1 tablet with meals 8h Active Levothyroxine Sodium 150 MCG Orally Once a day 1 tablet on an empty stomach in the morning 24h Active Benadryl 25 MG Orally every 6 hours as needed 2 tablets Active Trazodone HCl 100 MG Orally Once a day 1 tablet at bedtime as needed 24h Active Triamcinolone Acetonide 0.1 % Externally Twice a day 1 application to affected area 12h Active Hyoscyamine Sulfate 0.125 MG Orally every 12 hrs 1 tablet before meals as needed 12h Active Ondansetron 4 mg Orally every 4-6 hours as needed 1 Tablet by Oral route every 6 hours PRN nausea/vomiting October, Active Cholecalciferol 1000 UNIT Orally Once a day 2 tablets 24h Active Olanzapine 10 mg Orally Once a day for 2 weeks then STOP 1 tablet Feb Active RESULTS No Results PROCEDURES Procedure Date Ordered Related Diagnosis Body Site REPLACED BY [facility] VISIT ESTABLISHED PATIENT Jul 09, 2016 Office Visit, Est Pt., Level 5 Jul 09, 2016 IMMUNIZATIONS No Known Immunizations
--- OUTSIDE RECORDS SUMMARY | 2017-11-17 03:38 | XMS REPORT | Continuity of Care Document ---
Author Author [facility] Organization [facility] Address Unknown Phone Unavailable Allergies Active Description Code Type Severity Reaction Onset Reported/Identified Relationship to Patient Clinical Status Yes *MRSA *MRSA Miscellaneous Allergy N/A N/A 06/21/2013 Confirmed or Verified Yes pectin pectin Mild N/A 10/11/2014 Yes belladonna alkaloids [id number] Drug Allergy Mild N/A 12/03/2016 Yes meperidine [id number] Drug Allergy Mild N/A 12/03/2016 Medications There is no data. 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 01/24/2008 SEXTON SCHEDULE CLERK, MAGY SETHI 300.00 AN ANXIETY UNSPEC 01/24/2008 SEXTON SCHEDULE CLERK, MAGY SETHI 311 MO DEPRESSIVE DISORDER NOS 01/24/2008 SEXTON SCHEDULE CLERK, MAGY SETHI 317 MILD MENTAL RETARDATION 01/24/2008 SEXTON SCHEDULE CLERK, MAGY SETHI 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 01/24/2008 SEXTON SCHEDULE CLERK, MAGY SETHI 300.00 AN ANXIETY UNSPEC 01/24/2008 SEXTON SCHEDULE CLERK, MAGY SETHI 311 MO DEPRESSIVE DISORDER NOS 01/24/2008 SEXTON SCHEDULE CLERK, MAGY SETHI 317 MILD MENTAL RETARDATION 06/26/2008 780.52 INSOMNIA UNSPECIFIED 06/26/2008 ROCHELLE VILLAFANA DO 780.52 INSOMNIA UNSPECIFIED 06/26/2008 ROCHELLE VILLAFANA DO 780.52 INSOMNIA UNSPECIFIED 06/26/2008 ROCHELLE VILLAFANA DO 780.52 INSOMNIA UNSPECIFIED 06/26/2008 780.52 INSOMNIA UNSPECIFIED 06/26/2008 ROCHELLE VILLFAANA DO 780.52 INSOMNIA UNSPECIFIED 06/26/2008 SEXTON SCHEDULE CLERK, MAGY SETHI 780.52 INSOMNIA UNSPECIFIED 06/26/2008 SEXTON SCHEDULE CLERK, MAGY SETHI 780.52 INSOMNIA UNSPECIFIED 09/12/2009 307.47 [...] 307.47 SI DYSSOMNIA NOS 11/26/2009 V58.69 LONG-TERM ( CURRENT) USE OF OTHER MEDICATIONS 11/26/2009 ROCHELLE VILLAFANA DO V58.69 LONG-TERM (CURRENT) USE OF OTHER MEDICATIONS 11/26/2009 ROCHELLE VILLAFANA DO V58.69 LONG-TERM (CURRENT) USE OF OTHER MEDICATIONS 11/26/2009 ROCHELLE VILLAFANA DO V58.69 LONG-TERM (CURRENT) USE OF OTHER MEDICATIONS 11/26/2009 V58.69 LONG-TERM ( CURRENT) USE OF OTHER MEDICATIONS 11/26/2009 ROCHELLE VILLAFANA [...] SCHIZO DISORG UNSPECIFIED 06/12/2013 NORM GLORIA MD 244.9 HYPOTHYROIDISM NOS 06/12/2013 NORM GLORIA MD 295.92 SCHIZOPHRENIA NOS-CHR 06/12/2013 NORM GLORIA MD 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 06/12/2013 NORM GLORIA MD 564.00 CONSTIPATION NOS 06/12/2013 NORM GLORIA MD V58.69 PRISON MEDICATION USE 07/03/2013 NORM GLORIA MD 244.9 HYPOTHYROIDISM NOS 07/03/2013 NORM GLORIA MD 295.60 RESID TYPE SCHIZ DIS NOS 07/03/2013 NORM GLORIA MD 564.00 CONSTIPATION NOS 07/03/2013 NORM GLORIA MD 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 11/03/2013 CARLIE WILKES MAGY SETHI 298.9 P PSYCHOSIS NOS 11/03/2013 CARLIE WILKES, MAGY SETHI 300.02 AN GEN ANXIETY 11/03/2013 CARLIE WILKES MAGY SETHI 298.9 P PSYCHOSIS NOS 11/03/2013 CARLIE WILKES MAGY SETHI 300.02 AN GEN ANXIETY 10/11/2014 Ot V58.69 10/11/2014 Ot V58.83 10/12/2014 HAMIDADER [place] CARRENO Ot 244.9 HYPOTHYROIDISM NOS 10/12/2014 ALBANIA RENTERIA DO Ot 294.20 DEMENTIA, UNSPECIFIED, WITHOUT BEHAVIORA 10/12/2014 ALBANIA RENTERIA DO Ot 295.90 SCHIZOPHRENIA NOS-UNSPEC 10/12/2014 HAMIDADER [place] CARRENO Ot 298.2 REACTIVE CONFUSION 10/12/2014 HAMIDADER [place] CARRENO Ot 300.00 ANXIETY STATE NOS 10/12/2014 ALBANIA RENTERIA DO Ot 311 DEPRESSIVE DISORDER NEC 10/12/2014 HAMIDADER [place] CARRENO Ot 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 10/12/2014 [place]IA RENTERIA DO Ot 332.0 PARALYSIS AGITANS 10/12/2014 JOSELENDER [place] CARRENO Ot 427.32 ATRIAL FLUTTER 10/12/2014 GELLENDER [place] CARRENO Ot 564.00 UNSPEC CONSTIPATION 10/12/2014 [place]IA RENTERIA DO Ot 599.0 URIN TRACT INFECTION NOS 10/12/2014 JOSELENALBANIA BALDWIN DO Ot 788.30 UNSPECIFIED URINARY INCONTINENCE 10/12/2014 GELLENALBANIA BALDWIN DO Ot V15.88 HISTORY OF FALL 07/29/2015 Ot V58.69 07/29/2015 Ot V58.83 07/29/2015 Ot V58.69 07/29/2015 Ot V58.83 08/22/2015 GELLENDER DOALBANIA Ot M79.605 08/22/2015 GELLENDER DOALBANIA Ot Q74.2 08/28/2015 GELLENDER DO, ALB[place]IA Poe Ot M79.605 08/28/2015 GELLENDER DOALBANIA Ot Q74.2 04/10/2016 Ot V58.69 OTH MED,LT, CURRENT USE 04/10/2016 Ot V58.83 ENCOUNTER FOR THERAPEUTIC DRUG MONITORIN 04/10/2016 JOSELENDER DO, [place] Poe Ot M79.605 PAIN IN LEFT LEG 04/10/2016 GELLENDER DO, [place] Poe Ot 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), INC 04/24/2016 KATIE WATSON, TRICIA Zimmerman Ot F20.9 SCHIZOPHRENIA, UNSPECIFIED 04/24/2016 KATIE WATSON, TRICIA Zimmerman Ot L84 CORNS AND CALLOSITIES 05/18/2016 Ot V58.69 OTH MED,LT, CURRENT USE 05/18/2016 Ot V58.83 ENCOUNTER FOR THERAPEUTIC DRUG MONITORIN 05/18/2016 GELLENDER DO, [place] Poe Ot M79.605 PAIN IN LEFT LEG 05/18/2016 GELLENDER DO, [place] Poe Ot 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), INC 05/18/2016 GELLENDER DOALBANIA Ot N39.0 URINARY TRACT INFECTION, SITE NOT SPECIF 06/09/2016 GELLENDER DO, [place] Poe Ot N39.0 URINARY TRACT INFECTION, SITE NOT SPECIF 06/16/2016 GELLENDER DO, [place] Poe Ot N39.0 URINARY TRACT INFECTION, SITE NOT SPECIF 07/07/2016 GELLENDER DOALBANIA Ot E03.9 HYPOTHYROIDISM, UNSPECIFIED 07/07/2016 GELLENDER DO, [place] Poe Ot F03.90 UNSPECIFIED DEMENTIA WITHOUT BEHAVIORAL 07/07/2016 GELLENDER DO, [place]IA Poe Ot F20.9 SCHIZOPHRENIA, UNSPECIFIED 07/07/2016 GELLENDER DOALBANIA Ot F32.9 MAJOR DEPRESSIVE DISORDER, SINGLE EPISOD 07/07/2016 GELLENDER DO, ALB[place]IA Poe Ot F41.9 ANXIETY DISORDER, UNSPECIFIED 07/07/2016 GELLENDER DO, [place]IA Poe Ot F79 UNSPECIFIED INTELLECTUAL DISABILITIES 07/07/2016 GELLENDER DO, [place] Poe Ot G20 PARKINSON'S DISEASE 07/07/2016 JOSELENDER DO, ALB[place]IA Poe Ot I48.91 UNSPECIFIED ATRIAL FIBRILLATION 07/07/2016 JOSELENDER DO, ALB[place]IA Poe Ot J18.1 LOBAR PNEUMONIA, UNSPECIFIED ORGANISM 07/07/2016 JOSELENDER DO, ALB[place]IA Poe Ot K59.09 OTHER CONSTIPATION 07/07/2016 GELLENDER DO, ALB[place]IA Poe Ot R13.10 DYSPHAGIA, UNSPECIFIED 07/07/2016 GELLENDER DO, [place]IA Poe Ot R32 UNSPECIFIED URINARY INCONTINENCE 07/07/2016 JOSELENDER DO, [place] Poe Ot Z23 ENCOUNTER FOR IMMUNIZATION 07/07/2016 MYRA CARRENO, [place]IA Poe Ot Z66 DO NOT RESUSCITATE 07/09/2016 Ot V58.69 OTH MED,LT, CURRENT USE 07/09/2016 Ot V58.83 ENCOUNTER FOR THERAPEUTIC DRUG MONITORIN 07/09/2016 MYRA CARRENO, ALBANIA Poe Ot M79.605 PAIN IN LEFT LEG 07/09/2016 JOSELENDER DO, ALB[place] Poe Ot 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), INC 07/09/2016 MYRA CARRENO, ALBANIA Poe Ot N39.0 URINARY TRACT INFECTION, SITE NOT SPECIF 07/24/2016 MUKUND WATSON, JUDY Rosario Ot E03.9 HYPOTHYROIDISM, UNSPECIFIED 07/24/2016 MUKUND WATSON, JUDY Rosario Ot F25.9 SCHIZOAFFECTIVE DISORDER, UNSPECIFIED 07/24/2016 MUKUND WATSON, JUDY Rosario Ot F79 UNSPECIFIED INTELLECTUAL DISABILITIES 07/24/2016 MUKUND WATSON, JUDY Rosario Ot G20 PARKINSON'S DISEASE 07/24/2016 JUDY DUVAL MD Ot I48.91 UNSPECIFIED ATRIAL FIBRILLATION 07/24/2016 JUDY DUVAL MD Ot J18.9 PNEUMONIA, UNSPECIFIED ORGANISM 07/24/2016 JUDY DUVAL MD Ot K59.00 CONSTIPATION, UNSPECIFIED 07/24/2016 JUDY DUVAL MD Ot R13.10 DYSPHAGIA, UNSPECIFIED 09/01/2016 Ot V58.69 OTH MED,LT, CURRENT USE 09/01/2016 Ot V58.83 ENCOUNTER FOR THERAPEUTIC DRUG MONITORIN 09/01/2016 GELLENDER DO, ALBANIA A Ot M79.605 PAIN IN LEFT LEG 09/01/2016 JOSELENDENNY DO, [place]IA Poe Ot 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), INC 09/01/2016 MYRA CARRENOALBANIA Ot N39.0 URINARY TRACT INFECTION, SITE NOT SPECIF 09/02/2016 MYRA , [place] Poe Ot N39.0 URINARY TRACT INFECTION, SITE NOT SPECIF 09/05/2016 MYRA [place] CARRENO Ot N39.0 URINARY TRACT INFECTION, SITE NOT SPECIF 09/14/2016 D D64.9 Anemia, unspecified 09/14/2016 D D72.829 Elevated white blood cell count, unspecified 09/14/2016 D E03.9 Hypothyroidism , unspecified 09/14/2016 D F25.0 Schizoaffective disorder, bipolar type 09/14/2016 D F79 Unspecified intellectual disabilities 09/14/2016 D L20.9 Atopic dermatitis, unspecified 09/14/2016 D N39.0 Urinary tract infection, site not specified 09/14/2016 D R73.9 Hyperglycemia , unspecified 09/14/2016 D Z87.820 Personal history of traumatic brain injury 09/14/2016 TOMASA TURK MD D64.9 Anemia, unspecified 09/14/2016 TOMASA TURK MD D72.829 Elevated white blood cell count, unspecified 09/14/2016 TOMASA TURK MD E03.9 Hypothyroidism, unspecified 09/14/2016 TOMASA TURK MD F25.0 Schizoaffective disorder, bipolar type 09/14/2016 TOMASA TURK MD F79 Unspecified intellectual disabilities 09/14/2016 TOMASA TURK MD L20.9 Atopic dermatitis, unspecified 09/14/2016 TOMASA TURK MD N39.0 Urinary tract infection, site not specified 09/14/2016 TOMASA TURK MD R73.9 Hyperglycemia, unspecified 09/14/2016 TOMASA TURK MD Z87.820 Personal history of traumatic brain injury 09/18/2016 ALBANIA RENTERIA DO Ot Z87.440 PERSONAL HISTORY OF URINARY (TRACT) INFE 09/22/2016 ALBANIA RENTERIA DO Ot N39.0 URINARY TRACT INFECTION, SITE NOT SPECIF 09/28/2016 GELLENDER DO, ALBANIA Poe Ot N39.0 URINARY TRACT INFECTION, SITE NOT SPECIF 10/06/2016 GELLENDER DO, ALB[place] Poe Ot Z87.440 PERSONAL HISTORY OF URINARY (TRACT) INFE 10/20/2016 GELLENDER DO, [place] Poe Ot Z87.440 PERSONAL HISTORY OF URINARY (TRACT) INFE 10/20/2016 GELLENDER DO, ALB[place]IA Poe Ot J98.8 OTHER SPECIFIED RESPIRATORY DISORDERS 10/26/2016 GELLENDER DO, ALB[place]IA Poe Ot J98.8 OTHER SPECIFIED RESPIRATORY DISORDERS 10/27/2016 GELLENDER DO, ALBANIA Poe Ot Z87.440 PERSONAL HISTORY OF URINARY (TRACT) INFE 11/03/2016 GELLENDER DO, ALBANIA Poe Ot Z87.440 PERSONAL HISTORY OF URINARY (TRACT) INFE 11/05/2016 GELLENDER DO, ALBANIA Poe Ot Z87.440 PERSONAL HISTORY OF URINARY (TRACT) INFE 12/01/2016 Ot V58.69 OTH MED,LT, CURRENT USE 12/01/2016 Ot V58.83 ENCOUNTER FOR THERAPEUTIC DRUG MONITORIN 12/01/2016 GELLENDER DO, ALBANIA Poe Ot M79.605 PAIN IN LEFT LEG 12/01/2016 GELLENDER DO, [place]IA Poe Ot 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), INC 12/01/2016 GELLENDER DO, [place] Deepika Ot N39.0 URINARY TRACT INFECTION, SITE NOT SPECIF 12/01/2016 GELLENDER DO, [place] Deepika Ot N39.0 URINARY TRACT INFECTION, SITE NOT SPECIF 12/01/2016 GELLENDER DO, ALBANIA Poe Ot Z87.440 PERSONAL HISTORY OF URINARY (TRACT) INFE 12/01/2016 GELLENDER DO, ALB[place] Poe Ot J98.8 OTHER SPECIFIED RESPIRATORY DISORDERS 12/01/2016 GELLENDER DO, ALBANIA Poe Ot Z87.440 PERSONAL HISTORY OF URINARY (TRACT) INFE 12/01/2016 Ot V58.69 OTH MED,LT, CURRENT USE 12/01/2016 Ot V58.83 ENCOUNTER FOR THERAPEUTIC DRUG MONITORIN 12/01/2016 GELLENDER DO, ALBANIA Poe Ot M79.605 PAIN IN LEFT LEG 12/01/2016 GELLENDER DO, ALB[place]IA Poe Ot 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), INC 12/01/2016 MYRA CARRENO, ALBANIA Poe Ot N39.0 URINARY TRACT INFECTION, SITE NOT SPECIF 12/01/2016 ALBANIA RENTERIA DO Ot N39.0 URINARY TRACT INFECTION, SITE NOT SPECIF 12/01/2016 MYRA CARRENOALBANIA Ot Z87.440 PERSONAL HISTORY OF URINARY (TRACT) INFE 12/01/2016 MYRA CARRENOALBANIA Deepika Ot J98.8 OTHER SPECIFIED RESPIRATORY DISORDERS 12/01/2016 MYRA [place] CARRENO Ot Z87.440 PERSONAL HISTORY OF URINARY (TRACT) INFE 12/01/2016 PARIS BRAMBILA DO Ot L98.8 OTH DISRD OF THE SKIN AND SUBCUTANEOUS T 12/01/2016 PARIS BRAMBILA DO Ot Z01.818 ENCOUNTER FOR OTHER PREPROCEDURAL EXAMIN 12/03/2016 PARIS BRAMBILA DO Ot D23.71 OTH BENIGN NEOPLASM SKIN/ RIGHT LOWER LI 12/03/2016 PARIS BRAMBILA DO Ot F03.90 UNSPECIFIED DEMENTIA WITHOUT BEHAVIORAL 12/03/2016 PARIS BRAMBILA DO Ot F20.9 SCHIZOPHRENIA, UNSPECIFIED 12/03/2016 PARIS BRAMBILA DO Ot F32.9 MAJOR DEPRESSIVE DISORDER, SINGLE EPISOD 12/03/2016 PARIS BRAMBILA DO Ot F41.9 ANXIETY DISORDER, UNSPECIFIED 12/03/2016 PARIS BRAMBILA DO Ot G20 PARKINSON'S DISEASE 12/03/2016 PARIS BRAMBILA DO Ot I48.91 UNSPECIFIED ATRIAL FIBRILLATION 12/03/2016 PARIS BRAMBILA DO Ot Z79.899 OTHER PRISON (CURRENT) DRUG THERAPY 12/11/2016 PARIS BRAMBILA DO Ot D23.71 OTH BENIGN NEOPLASM SKIN/ RIGHT LOWER LI 12/11/2016 PARIS BRAMBILA DO Ot F03.90 UNSPECIFIED DEMENTIA WITHOUT BEHAVIORAL 12/11/2016 PARIS BRAMBILA DO Ot F20.9 SCHIZOPHRENIA, UNSPECIFIED 12/11/2016 PARIS BRAMBILA DO Ot F32.9 MAJOR DEPRESSIVE DISORDER, SINGLE EPISOD 12/11/2016 PARIS BRAMBILA DO Ot F41.9 ANXIETY DISORDER, UNSPECIFIED 12/11/2016 PARIS BRAMBILA DO Ot G20 PARKINSON'S DISEASE 12/11/2016 PARIS BRAMBILA DO Ot I48.91 UNSPECIFIED ATRIAL FIBRILLATION 12/11/2016 WICHITA PAR[place] CARRENO Ot Z79.899 OTHER PRISON (CURRENT) DRUG THERAPY 12/21/2016 LOWAntony DDS, JOSE DANIEL Ot K08.9 DISORDER OF TEETH AND SUPPORTING STRUCTU 12/22/2016 LOWAntony DDS, JOSE DANIEL Ot K08.9 DISORDER OF TEETH AND SUPPORTING STRUCTU 12/31/2016 NOAH CARBONE APRN Ot E03.9 HYPOTHYROIDISM, UNSPECIFIED 12/31/2016 NOAH CARBONE APRN Ot F02.80 DEMENTIA IN OTH DISEASES CLASSD ELSWHR W 12/31/2016 NOAH CARBONE APRN Ot F20.9 SCHIZOPHRENIA, UNSPECIFIED 12/31/2016 NOAH CARBONE APRN Ot F31.9 BIPOLAR DISORDER, UNSPECIFIED 12/31/2016 NOAH CARBONE APRN Ot G20 PARKINSON'S DISEASE 12/31/2016 NOAH CARBONE APRN Ot G30.9 ALZHEIMER'S DISEASE, UNSPECIFIED 12/31/2016 NOAH CARBONE APRN Ot I48.2 CHRONIC ATRIAL FIBRILLATION 12/31/2016 NOAH CARBONE APRN Ot M48.06 SPINAL STENOSIS, LUMBAR REGION 12/31/2016 NOAH CARBONE APRN Ot M51.36 OTHER INTERVERTEBRAL DISC DEGENERATION, 12/31/2016 NOAH CARBONE APRN Ot S39.92XA UNSPECIFIED INJURY OF LOWER BACK, INITIA 12/31/2016 NOAH CARBONE APRN Ot W01.0XXA FALL SAME LEV FROM SLIP/TRIP W/O STRIKE 12/31/2016 NOAH CARBONE APRN Ot Y92.[address] PENIT[address]IARY PLACE 12/31/2016 NOAH CARBONE APRN Ot Y99.8 OTHER EXTERNAL CAUSE STATUS 12/31/2016 NOAH CARBONE APRN Ot Z79.899 OTHER PRISON (CURRENT) DRUG THERAPY 01/01/2017 NOAH CARBONE APRN Ot E03.9 HYPOTHYROIDISM, UNSPECIFIED 01/01/2017 NOAH CARBONE APRN Ot F02.80 DEMENTIA IN OTH DISEASES CLASSD ELSWHR W 01/01/2017 NOAH CARBONE APRN Ot F20.9 SCHIZOPHRENIA, UNSPECIFIED 01/01/2017 NOAH CARBONE APRN Ot F31.9 BIPOLAR DISORDER, UNSPECIFIED 01/01/2017 NOAH CARBONE APRN Ot G20 PARKINSON'S DISEASE 01/01/2017 NOAH CARBONE APRN Ot G30.9 ALZHEIMER'S DISEASE, UNSPECIFIED 01/01/2017 NOAH CARBONE APRN Ot I48.2 CHRONIC ATRIAL FIBRILLATION 01/01/2017 NOAH CARBONE APRN Ot M48.06 SPINAL STENOSIS, LUMBAR REGION 01/01/2017 NOAH CARBONE APRN Ot M51.36 OTHER INTERVERTEBRAL DISC DEGENERATION, 01/01/2017 NOAH CARBONE APRN Ot S39.92XA UNSPECIFIED INJURY OF LOWER BACK, INITIA 01/01/2017 NOAH CARBONE APRN Ot W01.0XXA FALL SAME LEV FROM SLIP/TRIP W/O STRIKE 01/01/2017 NOAH CARBONE APRN Ot Y92.[address] PENIT[address]ARY PLACE 01/01/2017 NOAH CARBONE APRN Ot Y99.8 OTHER EXTERNAL CAUSE STATUS 01/01/2017 NOAH CARBONE APRN Ot Z79.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 01/02/2017 LUCY LOO Ot E03.9 HYPOTHYROIDISM, UNSPECIFIED 01/02/2017 LUCY LOO Ot F02.80 DEMENTIA IN OTH DISEASES CLASSD ELSWHR W 01/02/2017 LUCY LOO Ot F20.9 SCHIZOPHRENIA, UNSPECIFIED 01/02/2017 LUCY LOO Ot F31.9 BIPOLAR DISORDER, UNSPECIFIED 01/02/2017 LUCY LOO Ot F41.9 ANXIETY DISORDER, UNSPECIFIED 01/02/2017 LUCY LOO Ot G31.83 DEMENTIA WITH LEWY BODIES 01/02/2017 LUCY LOO Ot K59.09 OTHER CONSTIPATION 01/02/2017 LUCY LOO Ot R52 PAIN, UNSPECIFIED 01/04/2017 Ot V58.69 OTH MED,LT, CURRENT USE 01/04/2017 Ot V58.83 ENCOUNTER FOR THERAPEUTIC DRUG MONITORIN 01/04/2017 ALBANIA RENTERIA DO Ot M79.605 PAIN IN LEFT LEG 01/04/2017 ALBANIA RENTERIA DO Ot 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), INC 01/04/2017 GELLENDER DO, [place] Poe Ot N39.0 URINARY TRACT INFECTION, SITE NOT SPECIF 01/04/2017 GELLENDER DO, [place]IA Poe Ot N39.0 URINARY TRACT INFECTION, SITE NOT SPECIF 01/04/2017 JOSELENDER DO, [place]IA Poe Ot Z87.440 PERSONAL HISTORY OF URINARY (TRACT) INFE 01/04/2017 JOSENICOLE DOALBANIA Ot J98.8 OTHER SPECIFIED RESPIRATORY DISORDERS 01/04/2017 JOSENICOLE DOALBANIA Ot Z87.440 PERSONAL HISTORY OF URINARY (TRACT) INFE 01/04/2017 LOWE DDS, JOSE DANIEL Ot K08.9 DISORDER OF TEETH AND SUPPORTING STRUCTU 01/04/2017 JOSEALBANIA RIVERA DO Ot J98.8 OTHER SPECIFIED RESPIRATORY DISORDERS 01/08/2017 LUCY LOO Ot E03.9 HYPOTHYROIDISM, UNSPECIFIED 01/08/2017 LUCY LOO Ot F02.80 DEMENTIA IN OTH DISEASES CLASSD ELSWHR W 01/08/2017 LUCY LOO Ot F20.9 SCHIZOPHRENIA, UNSPECIFIED 01/08/2017 LUCY LOO Ot F31.9 BIPOLAR DISORDER, UNSPECIFIED 01/08/2017 LUCY LOO Ot F41.9 ANXIETY DISORDER, UNSPECIFIED 01/08/2017 LUCY LOO Ot G31.83 DEMENTIA WITH LEWY BODIES 01/08/2017 LUCY LOO Ot K59.09 OTHER CONSTIPATION 01/08/2017 LUCY LOO Ot R52 PAIN, UNSPECIFIED 01/08/2017 LOWE DDS, JOSE DANIEL Ot K08.9 DISORDER OF TEETH AND SUPPORTING STRUCTU 01/15/2017 LOWE DDS, JOSE DANIEL Ot K08.9 DISORDER OF TEETH AND SUPPORTING STRUCTU 01/29/2017 JOSEJOSE MANUELDER [place] CARRENO Ot Z87.440 PERSONAL HISTORY OF URINARY (TRACT) INFE 02/03/2017 [place]IA RENTERIA DO Ot J90 PLEURAL EFFUSION, NOT ELSEWHERE CLASSIFI 02/15/2017 GELLENDER [place] CARRENO Ot J90 PLEURAL EFFUSION, NOT ELSEWHERE CLASSIFI 02/23/2017 ALBANIA RENTERIA DO Ot L30.9 DERMATITIS, UNSPECIFIED 03/03/2017 GELLENDER DOALBANIA Ot L30.9 DERMATITIS, UNSPECIFIED 03/04/2017 GELLENDER DO, [place]IA Poe Ot L30.9 DERMATITIS, UNSPECIFIED 03/04/2017 GELLENDER DO, [place] Poe Ot Z87.440 PERSONAL HISTORY OF URINARY (TRACT) INFE 03/05/2017 GELLENDER DO, [place] Poe Ot Z87.440 PERSONAL HISTORY OF URINARY (TRACT) INFE 03/05/2017 GELLENDER DO, [place] Poe Ot L30.9 DERMATITIS, UNSPECIFIED 03/18/2017 GELLENDER DO, [place] Poe Ot L30.9 DERMATITIS, UNSPECIFIED 03/24/2017 GELLENDER DO, [place] Poe Ot L30.9 DERMATITIS, UNSPECIFIED 09/27/2017 FARRIS DO, JESUS Ot E03.9 HYPOTHYROIDISM, UNSPECIFIED 09/27/2017 FARRIS DO, JESUS Ot E78.00 PURE HYPERCHOLESTEROLEMIA, UNSPECIFIED 09/27/2017 FARRIS DO, JESUS Ot F02.80 DEMENTIA IN OTH DISEASES CLASSD ELSWHR W 09/27/2017 FARRIS DO, JESUS Ot F20.9 SCHIZOPHRENIA, UNSPECIFIED 09/27/2017 FARRIS DO, JESUS Ot F32.9 MAJOR DEPRESSIVE DISORDER, SINGLE EPISOD 09/27/2017 FARRIS DO, JESUS Ot F41.9 ANXIETY DISORDER, UNSPECIFIED 09/27/2017 FARRIS DO, JESUS Ot F70 MILD INTELLECTUAL DISABILITIES 09/27/2017 FARRIS DO, JESUS Ot G20 PARKINSON'S DISEASE 09/27/2017 FARRIS DO, JESUS Ot G30.9 ALZHEIMER'S DISEASE, UNSPECIFIED 09/27/2017 FARRIS DO, JESUS Ot I48.91 UNSPECIFIED ATRIAL FIBRILLATION 09/27/2017 FARRIS DO, JESUS Ot J18.9 PNEUMONIA, UNSPECIFIED ORGANISM 09/27/2017 FARRSI DO, JESUS Ot K59.09 OTHER CONSTIPATION 09/27/2017 FARRIS DO, JESUS Ot R09.02 HYPOXEMIA 09/27/2017 FARRIS DO, JESUS Ot R13.10 DYSPHAGIA, UNSPECIFIED 09/27/2017 FARRIS DO, JESUS Ot R13.14 DYSPHAGIA, PHARYNGOESOPHAGEAL PHASE 09/27/2017 FARRIS DO, JESUS Ot Z66 DO NOT RESUSCITATE 09/27/2017 FARRIS DO, JESUS Ot E03.9 HYPOTHYROIDISM, UNSPECIFIED 09/27/2017 FARRIS DO, JESUS Ot E78.00 PURE HYPERCHOLESTEROLEMIA, UNSPECIFIED 09/27/2017 FARRIS DO, JESUS Ot F02.80 DEMENTIA IN OTH DISEASES CLASSD ELSWHR W 09/27/2017 FARRIS DO, JESUS Ot F20.9 SCHIZOPHRENIA, UNSPECIFIED 09/27/2017 FARRIS DO, JESUS Ot F32.9 MAJOR DEPRESSIVE DISORDER, SINGLE EPISOD 09/27/2017 FARRIS DO, JESUS Ot F41.9 ANXIETY DISORDER, UNSPECIFIED 09/27/2017 FARRIS DO, JESUS Ot F70 MILD INTELLECTUAL DISABILITIES 09/27/2017 FARRIS DO, JESUS Ot G20 PARKINSON'S DISEASE 09/27/2017 FARRIS DO, JESUS Ot G30.9 ALZHEIMER'S DISEASE, UNSPECIFIED 09/27/2017 FARRIS DO, JESUS Ot I48.91 UNSPECIFIED ATRIAL FIBRILLATION 09/27/2017 FARRIS DO, JESUS Ot J18.9 PNEUMONIA, UNSPECIFIED ORGANISM 09/27/2017 FARRIS DO, JESUS Ot K59.09 OTHER CONSTIPATION 09/27/2017 FARRIS DO, JESUS Ot R09.02 HYPOXEMIA 09/27/2017 FARRIS DO, JESUS Ot R13.10 DYSPHAGIA, UNSPECIFIED 09/27/2017 FARRIS DO, JESUS Ot R13.14 DYSPHAGIA, PHARYNGOESOPHAGEAL PHASE 09/27/2017 FARRIS DO, JESUS Ot Z66 DO NOT RESUSCITATE 09/27/2017 FARRIS DO, JESUS Ot E03.9 HYPOTHYROIDISM, UNSPECIFIED 09/27/2017 FARRIS DO, JESUS Ot E78.00 PURE HYPERCHOLESTEROLEMIA, UNSPECIFIED 09/27/2017 FARRIS DO, JESUS Ot F02.80 DEMENTIA IN OTH DISEASES CLASSD ELSWHR W 09/27/2017 FARRIS DO, JESUS Ot F20.9 SCHIZOPHRENIA, UNSPECIFIED 09/27/2017 FARRIS DO, JESUS Ot F25.9 SCHIZOAFFECTIVE DISORDER, UNSPECIFIED 09/27/2017 FARRIS DO, JESUS Ot F32.9 MAJOR DEPRESSIVE DISORDER, SINGLE EPISOD 09/27/2017 FARRIS DO, JESUS Ot F41.9 ANXIETY DISORDER, UNSPECIFIED 09/27/2017 FARRIS DO, JESUS Ot F70 MILD INTELLECTUAL DISABILITIES 09/27/2017 FARRIS DO, JESUS Ot G20 PARKINSON'S DISEASE 09/27/2017 FARRIS DO, JESUS Ot G30.9 ALZHEIMER'S DISEASE, UNSPECIFIED 09/27/2017 VENTURA FARRIS DOI Ot I48.91 UNSPECIFIED ATRIAL FIBRILLATION 09/27/2017 VENTURA FARRIS DOI Ot J18.9 PNEUMONIA, UNSPECIFIED ORGANISM 09/27/2017 VENTURA FARRIS DOI Ot K59.09 OTHER CONSTIPATION 09/27/2017 VENTURA FARRIS DOI Ot R09.02 HYPOXEMIA 09/27/2017 KALEIGH CARRENO JESUS Ot R13.10 DYSPHAGIA, UNSPECIFIED 09/27/2017 KALEIGH CARRENO JESUS Ot R13.14 DYSPHAGIA, PHARYNGOESOPHAGEAL PHASE 09/27/2017 VENTURA FARRIS DOI Ot Z66 DO NOT RESUSCITATE Procedures Code Description [place] [address] EKG, TRACING 07/18/2012 06555 UA LONG DIP 07/21/2012 39633 CULTURE URINE 07/23/2012 37729 EKG, TRACING (IN-HOUSE) 08/02/2012 76845 ELECTROCARDIOGRAM REPORT FAIZAN WATSON, NORM Carranza 06/12/2013 Results Test Result Range EKG - 06/12/13 19:02 EKG SMR COMPLETE BLOOD COUNT - 06/12/13 20:20 Platelet 401 10^3u 142-424 MPV 9.3 FL 9.4-12.4 [place] # 0.69 10^3u 0.0-1.0 RBC 4.42 10^6u 4.04-6.13 [place] % 7.2 % 0-12 RDW 16.1 % [...] Urobilinogen 0.2 0.2-1.0 Urine RBC NONESEEN Specific Wilbur 1.015 1.010-1.020 Urine WBC N6-10 Blood Negative Negative Color Yellow Yellow Bilirubin Negative Negative Urinalysis - 06/30/13 13:38 Glucose Negative Negative Leukocyte Trace Negative Nitrite Negative Negative pH 5.5 5.5-7.5 Urine Appearance Clear Clear Protein Negative Negative Ketones Negative Negative Urobilinogen 0.2 0.2-1.0 Urine RBC NONESEEN Specific Wilbur >=1.030 1.010-1.020 Urine WBC N3-5 Urine Bacteria NONESEEN Blood Negative Negative Color Yellow Yellow SG by Refractometer 1.024 Bilirubin Negative Negative Urinalysis - 07/02/13 15:09 Glucose Negative Negative Leukocyte 2+ Negative Nitrite Negative Negative pH 6.5 5.5-7.5 Urine Appearance Cloudy Clear Protein Negative Negative Ketones Negative Negative Urobilinogen 0.2 0.2-1.0 Urine RBC N16-20 Specific Wilbur 1.020 1.010-1.020 Urine WBC TNTC Blood 2+ Negative Color Yellow Yellow Bilirubin Negative Negative Complete blood count (CBC) with automated white blood cell (WBC) differential - 04/10/16 09:12 Blood leukocytes automated count (number/volume) 7.6 10*3/uL 4.3-11.0 Blood erythrocytes automated count (number/volume) 4.40 10*6/uL 4.35-5.85 Venous blood hemoglobin measurement (mass/volume) 12.6 [...] Automated blood platelet mean volume measurement 10.3 [foz_us] 7.4-10.4 Automated blood neutrophils/100 leukocytes 78 % [...] Serum or plasma sodium measurement (moles/volume) 142 mmol/L 135-145 Serum or plasma potassium measurement (moles/volume) 4.2 mmol/L 3.6-5.0 Serum or plasma chloride measurement (moles/volume) 107 mmol/L 98-107 Carbon dioxide 25 mmol/L 21-32 Serum or plasma anion gap determination (moles/volume) 10 mmol/L 5-14 Serum or plasma urea nitrogen measurement (mass/volume) 15 mg/dL 7-18 Serum or plasma creatinine measurement (mass/volume) 0.86 mg/dL 0.60-1.30 Serum or plasma urea nitrogen/creatinine mass [...] Urine pH measurement by test strip 6.5 5-9 Specific gravity of urine by test strip 1.015 1.016- 1.022 Urine protein assay by test strip, semi-quantitative [...] culture - 05/16/16 15:00 Bacterial urine culture [id number] NRG COLONY COUNT >100,000/ML NRG FTX;REPORTABLE SENSITIVITY REPORTED 05/17/16 16:45 NR Bacterial susceptibility panel - 05/16/16 15:00 Gentamicin susceptibility test by minimum inhibitory concentration < = NRG Trimethoprim/sulfamethoxazole susceptibility test by minimum inhibitoryconcentration >= NRG Ampicillin susceptibility test by minimum inhibitory concentration > = NRG Tobramycin susceptibility test by minimum inhibitory concentration < = NRG Cefazolin susceptibility test by minimum inhibitory concentration < = NRG Ceftriaxone susceptibility test by minimum inhibitory concentration <= NRG Ampicillin/sulbactam susceptibility test by minimum inhibitory concentration >= NRG Piperacillin/tazobactam susceptibility test by minimum inhibitory concentration <= NRG Ciprofloxacin susceptibility test by minimum inhibitory concentration <= NRG Meropenem susceptibility test by minimum inhibitory concentration < = NRG Nitrofurantoin susceptibility test by minimum inhibitory concentration <= NRG Aztreonam susceptibility test by minimum inhibitory concentration < = NRG Extended spectrum beta lactamase (ESBL) producing bacteria susceptibility test by minimum inhibitory concentration - NRG Complete blood count (CBC) with automated white blood cell (WBC) differential - 07/04/16 22:28 Blood leukocytes automated count (number/volume) 15.8 10*3/uL 4.3-11.0 Blood erythrocytes automated count (number/volume) 4.19 10*6/uL 4.35-5.85 Venous blood hemoglobin measurement (mass/volume) 11.6 [...] Automated blood platelet mean volume measurement 9.7 [foz_us] 7.4-10.4 Automated blood neutrophils/100 leukocytes 90 % [...] Serum or plasma sodium measurement (moles/volume) 141 mmol/L 135-145 Serum or plasma potassium measurement (moles/volume) 3.8 mmol/L 3.6-5.0 Serum or plasma chloride measurement (moles/volume) 108 mmol/L 98-107 Carbon dioxide 25 mmol/L 21-32 Serum or plasma anion gap determination (moles/volume) 8 mmol/L 5-14 Serum or plasma urea nitrogen measurement (mass/volume) 19 mg/dL 7-18 Serum or plasma creatinine measurement (mass/volume) 0.84 mg/dL 0.60-1.30 Serum or plasma urea nitrogen/creatinine mass [...] NORMAL NRG LITHIUM LEVEL - 07/04/16 22:28 [employer] [mass/volume] in serum or plasma < % [...] Urine pH measurement by test strip 6.5 5-9 Specific gravity of urine by test strip 1.015 1.016- 1.022 Urine protein assay by test strip, semi-quantitative [...] 04:00 Blood leukocytes automated count (number/volume) 13.0 10*3/uL 4.3-11.0 Blood erythrocytes automated count (number/volume) 3.96 10*6/uL 4.35-5.85 Venous blood hemoglobin measurement (mass/volume) 10.9 [...] Automated blood platelet mean volume measurement 9.3 [foz_us] 7.4-10.4 Automated blood neutrophils/100 leukocytes 85 % [...] Serum or plasma sodium measurement (moles/volume) 140 mmol/L 135-145 Serum or plasma potassium measurement (moles/volume) 3.5 mmol/L 3.6-5.0 Serum or plasma chloride measurement (moles/volume) 111 mmol/L 98-107 Carbon dioxide 22 mmol/L 21-32 Serum or plasma anion gap determination (moles/volume) 7 mmol/L 5-14 Serum or plasma urea nitrogen measurement (mass/volume) 17 mg/dL 7-18 Serum or plasma creatinine measurement (mass/volume) 0.80 mg/dL 0.60-1.30 Serum or plasma urea nitrogen/creatinine mass [...] 04:20 Blood leukocytes automated count (number/volume) 7.5 10*3/uL 4.3-11.0 Blood erythrocytes automated count (number/volume) 3.77 10*6/uL 4.35-5.85 Venous blood hemoglobin measurement (mass/volume) 10.3 [...] Automated blood platelet mean volume measurement 9.8 [foz_us] 7.4-10.4 Automated blood neutrophils/100 leukocytes 81 % [...] Serum or plasma sodium measurement (moles/volume) 142 mmol/L 135-145 Serum or plasma potassium measurement (moles/volume) 3.8 mmol/L 3.6-5.0 Serum or plasma chloride measurement (moles/volume) 111 mmol/L 98-107 Carbon dioxide 23 mmol/L 21-32 Serum or plasma anion gap determination (moles/volume) 8 mmol/L 5-14 Serum or plasma urea nitrogen measurement (mass/volume) 15 mg/dL 7-18 Serum or plasma creatinine measurement (mass/volume) 0.85 mg/dL 0.60-1.30 Serum or plasma urea nitrogen/creatinine mass [...] 05:31 Blood leukocytes automated count (number/volume) 9.0 10*3/uL 4.3-11.0 Blood erythrocytes automated count (number/volume) 4.90 10*6/uL 4.35-5.85 Venous blood hemoglobin measurement (mass/volume) 13.3 [...] Automated blood platelet mean volume measurement 9.5 [foz_us] 7.4-10.4 Whole blood basic metabolic panel - 07/07/16 05:31 Serum or plasma sodium measurement (moles/volume) 143 mmol/L 135-145 Serum or plasma potassium measurement (moles/volume) 3.9 mmol/L 3.6-5.0 Serum or plasma chloride measurement (moles/volume) 105 mmol/L 98-107 Carbon dioxide 25 mmol/L 21-32 Serum or plasma anion gap determination (moles/volume) 13 mmol/L 5-14 Serum or plasma urea nitrogen measurement (mass/volume) 15 mg/dL 7-18 Serum or plasma creatinine measurement (mass/volume) 0.80 mg/dL 0.60-1.30 Serum or plasma urea nitrogen/creatinine mass ratio 19 NRG Serum or plasma creatinine measurement with calculation of estimated glomerular filtration rate > NRG Serum or plasma glucose measurement (mass/volume) 84 mg/dL 70-105 Serum or plasma calcium measurement (mass/volume) 9.4 mg/dL 8.5-10.1 Complete blood count (CBC) with automated white blood cell (WBC) differential - 07/19/16 01:20 Blood leukocytes automated count (number/volume) 12.1 10*3/uL 4.3-11.0 Blood erythrocytes automated count (number/volume) 4.78 10*6/uL 4.35-5.85 Venous blood hemoglobin measurement (mass/volume) 12.9 [...] Automated blood platelet mean volume measurement 9.6 [foz_us] 7.4-10.4 Automated blood neutrophils/100 leukocytes 87 % [...] Serum or plasma sodium measurement (moles/volume) 139 mmol/L 135-145 Serum or plasma potassium measurement (moles/volume) 3.8 mmol/L 3.6-5.0 Serum or plasma chloride measurement (moles/volume) 104 mmol/L 98-107 Carbon dioxide 21 mmol/L 21-32 Serum or plasma anion gap determination (moles/volume) 14 mmol/L 5-14 Serum or plasma urea nitrogen measurement (mass/volume) 26 mg/dL 7-18 Serum or plasma creatinine measurement (mass/volume) 1.07 mg/dL 0.60-1.30 Serum or plasma urea nitrogen/creatinine mass [...] or plasma troponin i.cardiac measurement (mass/volume) < ng/ mL <0.30 Serum or plasma lithium measurement (moles/volume) - 07/19/16 01:20 BNP level < pg/mL <100.0 Bacterial blood culture - 07/19/16 01:20 Bacterial blood culture NG NRG Arterial blood gas measurement - 07/19/16 01:37 Blood pCO2 40 mm[Hg] 35-45 Blood pO2 42 mm[Hg] 79-93 Arterial blood bicarbonate measurement (moles/volume) 24 mmol/L 23-27 Arterial blood base excess by calculation -0.4 mmol/L - 2.5-2.5 Arterial blood oxygen saturation measurement 70 % 94-100 * Inhaled oxygen flow rate 9L NRG Arterial blood pH measurement with patient temperature correction 7.40 7.37-7.43 Arterial blood carbon dioxide, total measurement (moles/volume) 25.0 mmol/L 21.0-31.0 Body site RIGHT RADIAL NRG Assessment of wrist artery patency prior to arterial puncture YES- POS NRG Setting of ventilation mode NO NRG Measurement of body temperature 101.2 NRG Complete urinalysis with reflex to culture - 07/19/16 01:53 Urine color determination YELLOW NRG Urine clarity determination CLEAR NRG Urine pH measurement by test strip 5 5-9 Specific gravity of urine by test strip 1.025 1.016- 1.022 Urine protein assay by test strip, semi-quantitative [...] 04:54 Blood leukocytes automated count (number/volume) 5.9 10*3/uL 4.3-11.0 Blood erythrocytes automated count (number/volume) 3.94 10*6/uL 4.35-5.85 Venous blood hemoglobin measurement (mass/volume) 10.5 [...] Automated blood platelet mean volume measurement 9.7 [foz_us] 7.4-10.4 Automated blood neutrophils/100 leukocytes 76 % [...] Serum or plasma sodium measurement (moles/volume) 140 mmol/L 135-145 Serum or plasma potassium measurement (moles/volume) 3.8 mmol/L 3.6-5.0 Serum or plasma chloride measurement (moles/volume) 111 mmol/L 98-107 Carbon dioxide 21 mmol/L 21-32 Serum or plasma anion gap determination (moles/volume) 8 mmol/L 5-14 Serum or plasma urea nitrogen measurement (mass/volume) 15 mg/dL 7-18 Serum or plasma creatinine measurement (mass/volume) 0.80 mg/dL 0.60-1.30 Serum or plasma urea nitrogen/creatinine mass ratio 19 NRG Serum or plasma creatinine measurement with calculation of estimated glomerular filtration rate > NRG Serum or plasma glucose measurement (mass/volume) 87 mg/dL 70-105 Serum or plasma calcium measurement (mass/volume) 7.9 mg/dL 8.5-10.1 Serum or plasma albumin measurement (mass/volume) 2.9 g/dL 3.2-4.5 Serum or plasma phosphate measurement (mass/volume) 3.2 mg/dL 2.3-4.7 Complete blood count (CBC) with automated white blood cell (WBC) differential - 07/21/16 04:34 Blood leukocytes automated count (number/volume) 6.0 10*3/uL 4.3-11.0 Blood erythrocytes automated count (number/volume) 4.62 10*6/uL 4.35-5.85 Venous blood hemoglobin measurement (mass/volume) 12.4 [...] Automated blood platelet mean volume measurement 9.5 [foz_us] 7.4-10.4 Automated blood neutrophils/100 leukocytes 77 % [...] Serum or plasma sodium measurement (moles/volume) 141 mmol/L 135-145 Serum or plasma potassium measurement (moles/volume) 3.9 mmol/L 3.6-5.0 Serum or plasma chloride measurement (moles/volume) 106 mmol/L 98-107 Carbon dioxide 25 mmol/L 21-32 Serum or plasma anion gap determination (moles/volume) 10 mmol/L 5-14 Serum or plasma urea nitrogen measurement (mass/volume) 12 mg/dL 7-18 Serum or plasma creatinine measurement (mass/volume) 0.76 mg/dL 0.60-1.30 Serum or plasma urea nitrogen/creatinine mass [...] 04:49 Blood leukocytes automated count (number/volume) 4.5 10*3/uL 4.3-11.0 Blood erythrocytes automated count (number/volume) 4.37 10*6/uL 4.35-5.85 Venous blood hemoglobin measurement (mass/volume) 11.9 [...] Automated blood platelet mean volume measurement 9.7 [foz_us] 7.4-10.4 Automated blood neutrophils/100 leukocytes 69 % [...] Serum or plasma sodium measurement (moles/volume) 143 mmol/L 135-145 Serum or plasma potassium measurement (moles/volume) 3.9 mmol/L 3.6-5.0 Serum or plasma chloride measurement (moles/volume) 111 mmol/L 98-107 Carbon dioxide 23 mmol/L 21-32 Serum or plasma anion gap determination (moles/volume) 9 mmol/L 5-14 Serum or plasma urea nitrogen measurement (mass/volume) 13 mg/dL 7-18 Serum or plasma creatinine measurement (mass/volume) 0.76 mg/dL 0.60-1.30 Serum or plasma urea nitrogen/creatinine mass ratio 17 NRG Serum or plasma creatinine measurement with calculation of estimated glomerular filtration rate > NRG Serum or plasma glucose measurement (mass/volume) 96 mg/dL 70-105 Serum or plasma calcium measurement (mass/volume) 8.2 mg/dL 8.5-10.1 Complete blood count (CBC) with automated white blood cell (WBC) differential - 07/23/16 06:14 Blood leukocytes automated count (number/volume) 6.1 10*3/uL 4.3-11.0 Blood erythrocytes automated count (number/volume) 4.65 10*6/uL 4.35-5.85 Venous blood hemoglobin measurement (mass/volume) 12.5 [...] Automated blood platelet mean volume measurement 9.6 [foz_us] 7.4-10.4 Automated blood neutrophils/100 leukocytes 74 % [...] Serum or plasma sodium measurement (moles/volume) 141 mmol/L 135-145 Serum or plasma potassium measurement (moles/volume) 4.5 mmol/L 3.6-5.0 Serum or plasma chloride measurement (moles/volume) 110 mmol/L 98-107 Carbon dioxide 22 mmol/L 21-32 Serum or plasma anion gap determination (moles/volume) 9 mmol/L 5-14 Serum or plasma urea nitrogen measurement (mass/volume) 15 mg/dL 7-18 Serum or plasma creatinine measurement (mass/volume) 0.81 mg/dL 0.60-1.30 Serum or plasma urea nitrogen/creatinine mass ratio 19 NRG Serum or plasma creatinine measurement with calculation of estimated glomerular filtration rate > NRG Serum or plasma glucose measurement (mass/volume) 95 mg/dL 70-105 Serum or plasma calcium measurement (mass/volume) 8.5 mg/dL 8.5-10.1 Complete blood count (CBC) with automated white blood cell (WBC) differential - 07/24/16 06:48 Blood leukocytes automated count (number/volume) 10.1 10*3/uL 4.3-11.0 Blood erythrocytes automated count (number/volume) 4.71 10*6/uL 4.35-5.85 Venous blood hemoglobin measurement (mass/volume) 12.6 [...] Automated blood platelet mean volume measurement 9.6 [foz_us] 7.4-10.4 Automated blood neutrophils/100 leukocytes 82 % [...] Urine pH measurement by test strip 7 5-9 Specific gravity of urine by test strip 1.010 1.016- 1.022 Urine protein assay by test strip, semi-quantitative [...] Urine pH measurement by test strip 7 5-9 Specific gravity of urine by test strip 1.010 1.016- 1.022 Urine protein assay by test strip, semi-quantitative [...] culture - 09/16/16 23:00 Bacterial urine culture [id number] NRG COLONY COUNT >100,000/ML NRG FTX;REPORTABLE SENSITIVITY REPORTED AT 1159, 09-18-16 NR URINE CULTURE RESULTS PLUS NR Bacterial susceptibility panel - 09/16/16 23:00 Gentamicin susceptibility test by minimum inhibitory concentration < = NRG Trimethoprim/sulfamethoxazole susceptibility test by minimum inhibitoryconcentration <= NRG Ampicillin susceptibility test by minimum inhibitory concentration < = NRG Tobramycin susceptibility test by minimum inhibitory concentration < = NRG Cefazolin susceptibility test by minimum inhibitory concentration < = NRG Ceftriaxone susceptibility test by minimum inhibitory concentration <= NRG Ampicillin/sulbactam susceptibility test by minimum inhibitory concentration <= NRG Piperacillin/tazobactam susceptibility test by minimum inhibitory concentration <= NRG Ciprofloxacin susceptibility test by minimum inhibitory concentration <= NRG Meropenem susceptibility test by minimum inhibitory concentration < = NRG Nitrofurantoin susceptibility test by minimum inhibitory concentration <= NRG Aztreonam susceptibility test by minimum inhibitory concentration < = NRG Extended spectrum beta lactamase (ESBL) producing bacteria susceptibility test by minimum inhibitory concentration - [facility] Complete urinalysis with reflex to culture - 10/04/16 05:40 Urine color determination YELLOW NRG Urine clarity determination CLEAR NRG Urine pH measurement by test strip 6.5 5-9 Specific gravity of urine by test strip 1.015 1.016- 1.022 Urine protein assay by test strip, semi-quantitative [...] urinalysis with reflex to culture NO NRG Methicillin resistant Staphylococcus aureus (MRSA) screening culture - 06:20 Methicillin resistant Staphylococcus aureus (MRSA) screening culture NEG NRG Sarcoptes scabiei identification in skin by light microscopy - 02/22/17 17:15 SCABIES RESULT NEGATIVE; NO EVIDENCE OF SCABIES OBSERVED NRG Complete blood count (CBC) with automated white blood cell (WBC) differential - 09/24/17 20:37 Blood leukocytes automated count (number/volume) 9.2 10*3/uL 4.3-11.0 Blood erythrocytes automated count (number/volume) 4.92 10*6/uL 4.35-5.85 Venous blood hemoglobin measurement (mass/volume) 13.9 g/dL 11.5-16.0 Blood hematocrit (volume fraction) 43 % 35-52 Automated erythrocyte mean corpuscular volume 88 [foz_us] 80-99 Automated erythrocyte mean corpuscular hemoglobin (mass per erythrocyte) 28 pg 25-34 Automated erythrocyte mean corpuscular hemoglobin concentration measurement ( mass/volume) 32 g/dL 32-36 Automated erythrocyte distribution width ratio 16.4 % 10.0-14.5 Automated blood platelet count (count/volume) 359 10*3/uL 130-400 Automated blood platelet mean volume measurement 9.6 [foz_us] 7.4-10.4 Automated blood neutrophils/100 leukocytes 73 % 42-75 Automated blood lymphocytes/100 leukocytes 21 % 12-44 Blood monocytes/100 leukocytes 6 % 0-12 Automated blood eosinophils/100 leukocytes 0 % 0-10 Automated blood basophils/100 leukocytes 0 % 0-10 Blood neutrophils automated count (number/volume) 6.7 10*3 1.8-7.8 Blood lymphocytes automated count (number/volume) 1.9 10*3 1.0-4.0 Blood monocytes automated count (number/volume) 0.6 10*3 0.0-1.0 Automated eosinophil count 0.0 10*3/uL 0.0-0.3 Automated blood basophil count (count/volume) 0.0 10*3/uL 0.0-0.1 PT panel in platelet poor plasma by coagulation assay - 09/24/17 20:37 Prothrombin time (PT) in platelet poor plasma by coagulation assay 13.4 s 12.2-14.7 INR in platelet poor plasma or blood by coagulation assay 1.0 0.8-1.4 Activated partial thromboplastin time (aPTT) in platelet poor plasma bycoagulation assay - 09/24/17 20:37 Activated partial thromboplastin time (aPTT) in platelet poor plasma bycoagulation assay 29 s 24-35 Comprehensive metabolic panel - 09/24/17 20:37 Serum or plasma sodium measurement (moles/volume) 140 mmol/L 135-145 Serum or plasma potassium measurement (moles/volume) 4.3 mmol/L 3.6-5.0 Serum or plasma chloride measurement (moles/volume) 103 mmol/L 98-107 Carbon dioxide 25 mmol/L 21-32 Serum or plasma anion gap determination (moles/volume) 12 mmol/L 5-14 Serum or plasma urea nitrogen measurement (mass/volume) 27 mg/dL 7-18 Serum or plasma creatinine measurement (mass/volume) 1.11 mg/dL 0.60-1.30 Serum or plasma urea nitrogen/creatinine mass ratio 24 NRG Serum or plasma creatinine measurement with calculation of estimated glomerular filtration rate 49 NRG Serum or plasma glucose measurement (mass/volume) 141 mg/dL 70-105 Serum or plasma calcium measurement (mass/volume) 9.8 mg/dL 8.5-10.1 Serum or plasma total bilirubin measurement (mass/volume) 0.3 mg/dL 0.1-1.0 Serum or plasma alkaline phosphatase measurement (enzymatic activity/volume) 88 U/L 40-136 Serum or plasma aspartate aminotransferase measurement (enzymatic activity/ volume) 13 U/L 5-34 Serum or plasma alanine aminotransferase measurement (enzymatic activity/volume ) 6 U/L 0-55 Serum or plasma protein measurement (mass/volume) 7.9 g/dL 6.4-8.2 Serum or plasma albumin measurement (mass/volume) 4.3 g/dL 3.2-4.5 Serum or plasma lithium measurement (moles/volume) - 04/20/18 20:37 BNP level < pg/mL <100.0 Blood lactic acid measurement (moles/volume) - 09/24/17 20:37 Blood lactic acid measurement (moles/volume) 1.39 mmol/L 0.50-2.00 Bacterial blood culture - 09/24/17 20:37 Bacterial blood culture NG NRG Influenza virus A and B antigen detection - 09/24/17 20:41 FLU RESULT NEGATIVE FOR INFLUENZA A AND B ANTIGENS BY IA NRG Bacterial blood culture - 09/24/17 22:08 Bacterial blood culture NG NRG Complete urinalysis with reflex to culture - 09/24/17 22:14 Urine color determination YELLOW NRG Urine clarity determination CLEAR NRG Urine pH measurement by test strip 5 5-9 Specific gravity of urine by test strip 1.025 1.016- 1.022 Urine protein assay by test strip, semi-quantitative 2+ NEGATIVE Urine glucose detection by automated test strip NEGATIVE NEGATIVE Erythrocytes detection in urine sediment by light microscopy NEGATIVE NEGATIVE Urine ketones detection by automated test strip 1+ NEGATIVE Urine nitrite detection by test strip NEGATIVE NEGATIVE Urine total bilirubin detection by test strip NEGATIVE NEGATIVE Urine urobilinogen measurement by automated test strip (mass/volume) NORMAL NORMAL Urine leukocyte esterase detection by dipstick 1+ NEGATIVE Automated urine sediment erythrocyte count by microscopy (number/high power field) NONE NRG Automated urine sediment leukocyte count by microscopy (number/high power field ) [HPF] NRG Bacteria detection in urine sediment by light microscopy NEGATIVE NRG Crystals detection in urine sediment by light microscopy NONE NRG Casts detection in urine sediment by light microscopy PRESENT NRG Mucus detection in urine sediment by light microscopy LARGE NRG Complete urinalysis with reflex to culture NO NRG Hyaline casts detection in urine sediment by light microscopy 5-10 NRG Complete blood count (CBC) with automated white blood cell (WBC) differential - 09/26/17 05:20 Blood leukocytes automated count (number/volume) 5.2 10*3/uL 4.3-11.0 Blood erythrocytes automated count (number/volume) 3.89 10*6/uL 4.35-5.85 Venous blood hemoglobin measurement (mass/volume) 11.0 g/dL 11.5-16.0 Blood hematocrit (volume fraction) 35 % 35-52 Automated erythrocyte mean corpuscular volume 89 [foz_us] 80-99 Automated erythrocyte mean corpuscular hemoglobin (mass per erythrocyte) 28 pg 25-34 Automated erythrocyte mean corpuscular hemoglobin concentration measurement ( mass/volume) 32 g/dL 32-36 Automated erythrocyte distribution width ratio 16.4 % 10.0-14.5 Automated blood platelet count (count/volume) 273 10*3/uL 130-400 Automated blood platelet mean volume measurement 9.6 [foz_us] 7.4-10.4 Automated blood neutrophils/100 leukocytes 63 % 42-75 Automated blood lymphocytes/100 leukocytes 28 % 12-44 Blood monocytes/100 leukocytes 9 % 0-12 Automated blood eosinophils/100 leukocytes 0 % 0-10 Automated blood basophils/100 leukocytes 0 % 0-10 Blood neutrophils automated count (number/volume) 3.3 10*3 1.8-7.8 Blood lymphocytes automated count (number/volume) 1.4 10*3 1.0-4.0 Blood monocytes automated count (number/volume) 0.5 10*3 0.0-1.0 Automated eosinophil count 0.0 10*3/uL 0.0-0.3 Automated blood basophil count (count/volume) 0.0 10*3/uL 0.0-0.1 Comprehensive metabolic panel - 09/26/17 05:20 Serum or plasma sodium measurement (moles/volume) 142 mmol/L 135-145 Serum or plasma potassium measurement (moles/volume) 4.1 mmol/L 3.6-5.0 Serum or plasma chloride measurement (moles/volume) 109 mmol/L 98-107 Carbon dioxide 26 mmol/L 21-32 Serum or plasma anion gap determination (moles/volume) 7 mmol/L 5-14 Serum or plasma urea nitrogen measurement (mass/volume) 16 mg/dL 7-18 Serum or plasma creatinine measurement (mass/volume) 0.71 mg/dL 0.60-1.30 Serum or plasma urea nitrogen/creatinine mass ratio 23 NRG Serum or plasma creatinine measurement with calculation of estimated glomerular filtration rate > NRG Serum or plasma glucose measurement (mass/volume) 88 mg/dL 70-105 Serum or plasma calcium measurement (mass/volume) 8.6 mg/dL 8.5-10.1 Serum or plasma total bilirubin measurement (mass/volume) 0.4 mg/dL 0.1-1.0 Serum or plasma alkaline phosphatase measurement (enzymatic activity/volume) 61 U/L 40-136 Serum or plasma aspartate aminotransferase measurement (enzymatic activity/ volume) 8 U/L 5-34 Serum or plasma alanine aminotransferase measurement (enzymatic activity/volume ) < U/L 0-55 Serum or plasma protein measurement (mass/volume) 5.6 g/dL 6.4-8.2 Serum or plasma albumin measurement (mass/volume) 3.2 g/dL 3.2-4.5 Encounters ACCT No. Visit Date/Time Discharge Status Pt. Type Provider Facility Loc./Unit Complaint [id number] 06/12/2013 16:50:00 07/03/2013 10:20:00 DIS Inpatient FAIZAN WATSON, [facility] [id number] 06/12/2013 20:19:00 06/12/2013 20:19:00 DIS Outpatient FAIZAN WATSON, [facility] [id number] 09/02/2016 18:10:00 Document Registration [id number] 02/21/2010 15:55:00 Document Registration [id number] 09/24/2017 22:14:00 09/27/2017 15:51:00 DIS Inpatient JESUS FARRIS DO [facility] 4TH PNEUMONIA,HYPOXIA [id number] 02/22/2017 17:39:00 02/22/2017 23:59:59 CLS Outpatient ALBANIA RENTERIA DO [facility] LAB L30.9 [id number] 01/12/2017 10:30:00 01/12/2017 23:59:59 CLS Outpatient ALBANIA RENTERIA DO [facility] RAD BILATERAL PLEURAL EFFUSIONS [id number] 01/02/2017 13:00:00 01/02/2017 23:59:59 CLS Emergency LUCY LOO [facility] ER GENERALIZED PAIN [id number] 12/31/2016 12:26:00 12/31/2016 13:40:00 DIS Emergency NOAH CARBONE APRN [facility] ER LOW BACK PAIN/FALL [id number] 12/18/2016 10:44:00 12/18/2016 23:59:59 CLS Outpatient JOSE DANIEL ESCALERA DDS [facility] RAD NON RESTORABLE TEETH [id number] 12/03/2016 06:00:00 12/03/2016 11:20:00 DIS Outpatient PARIS BRAMBILA DO [facility] SDC LESION RIGHT FOOT [id number] 12/01/2016 07:42:00 12/01/2016 11:28:00 DIS Outpatient PARIS BRAMBILA DO [facility] PREOP EXC. LESION [id number] 10/04/2016 05:40:00 10/04/2016 23:59:59 CLS Outpatient ALBANIA RENTERIA DO [facility] GLC Z87.440 [id number] 09/21/2016 12:24:00 09/21/2016 23:59:59 CLS Outpatient ALBANIA RENTERIA DO [facility] RAD RESPIRATORY INFECTION [id number] 09/16/2016 23:47:00 09/16/2016 23:59:59 CLS Outpatient ALBANIA RENTERIA DO [facility] GLC Z87.440 [id number] 08/30/2016 10:51:00 08/30/2016 23:59:59 CLS Outpatient ALBANIA RENTERIA DO [facility] LABNPT UTI [id number] 07/19/2016 03:27:00 07/24/2016 16:00:00 DIS Inpatient JUDY DUVAL MD [facility] 4TH PNEUMONIA [id number] 07/05/2016 00:03:00 07/07/2016 14:20:00 DIS Inpatient ALBANIA RENTERIA DO [facility] 4TH PNEUMONIA [id number] 05/16/2016 15:00:00 05/16/2016 23:59:59 CLS Outpatient ALBANIA RENTERIA DO [facility] GLC UTI [id number] 04/24/2016 08:15:00 04/24/2016 16:00:00 DIS Outpatient TRICIA WILSON MD [facility] WOUNDCARE CORNS AND CALLOSITIES, SCHIZOPHRENIA [id number] 07/29/2015 15:22:00 07/29/2015 23:59:59 CLS Outpatient ALBANIA RENTERIA DO [facility] RAD MALFORMATION OF LT FOOT [id number] 10/11/2014 02:10:00 10/12/2014 13:10:00 DIS Inpatient ALBANIA RENTERIA DO [facility] CSD NEW ONSET A-FLUTTER, UTI,FALLS [id number] 10/11/2014 15:27:00 Document Registration [id number] 10/11/2014 15:27:00 Document Registration [id number] 09/02/2016 18:10:00 09/14/2016 18:30:00 DIS Inpatient ROSALEE WATSON, TOMASA [facility] [id number] 02/06/2014 13:59:00 02/06/2014 23:59:59 CLS Outpatient MAGY SEXTON APRN [id number] 11/03/2013 10:41:00 11/03/2013 23:59:59 CLS Outpatient SEXTONBAHMAN WILKESMAGY [id number] 01/30/2013 15:18:00 01/30/2013 23:59:59 CLS Outpatient ROCHELLE VILLAFANA DO [id number] 08/18/2012 13:43:00 08/18/2012 23:59:59 CLS Outpatient ROCHELLE VILLAFANA DO [id number] 08/01/2012 12:32:00 08/01/2012 23:59:59 CLS Outpatient ROCHELLE VILLAFANA DO [id number] 07/21/2012 13:45:00 07/21/2012 23:59:59 CLS Outpatient ROCHELLE VILLAFANA DO [id number] 07/14/2012 15:13:00 07/14/2012 23:59:59 CLS Outpatient [id number] 10/03/2012 10:47:00 Document Registration
--- NOTE | 2017-11-17 03:39 | ED Respiratory ---
General Chief Complaint: Respiratory Problems Stated Complaint: SOB,ASPIRATING Source: patient, EMS, senior care records Exam Limitations: clinical condition History of Present Illness Date Seen by Provider: Nov 17, 2017 Time Seen by Provider: 03:27 Initial Comments Patient comes from the senior care where she was having nausea and vomiting this evening and has a history of aspiration pneumonia. They think she might have aspirated tonight because her oxygen sats continued to drop down to the 84 range on room air. No oxygen was initiated. No breathing treatments given. The patient says she is coughing and wants help but does not answer questions directly. She has not vomited for EMS and they were unable to establish an IV or give any Zofran. Patient's poor historian and unable to answer questions secondary to dementia. Allergies and Home Medications Allergies Coded Allergies: belladonna alkaloids (Verified Allergy, Mild, 10/11/14) meperidine (Verified Allergy, Mild, 10/11/14) Uncoded Allergies: pectin (Allergy, Mild, 10/11/14) Home Medications Acetaminophen 500 Mg Tablet, 500 MG PO Q8H PRN for PAIN-MILD, (Reported) Amiodarone HCl 200 Mg Tablet, 200 MG PO DAILY, (Reported) Betamethasone/Propylene Glyc 15 Gm Cream..g., 1 GM TP BID PRN for ITCHING, ( Reported) Cefdinir 300 Mg Capsule, 300 MG PO BID Prescribed by: FRANCES DUNHAM on 09/27/17 1149 Cetirizine HCl 10 Mg Tablet, 10 MG PO DAILY, (Reported) Cholecalciferol (Vitamin D3) 1,000 Unit Capsule, 2,000 UNITS PO DAILY, (Reported ) TAKES 2 (1,000 UNIT) CAPSULES Clozapine 50 Mg Tablet, 50 MG PO 0900,1700, (Reported) Clozapine 200 Mg Tablet, 200 MG PO HS, (Reported) Diphenhydramine HCl 25 Mg Capsule, 50 MG PO TID, (Reported) TAKES 2 (25 MG) TABLETS Divalproex Sodium 250 Mg Tablet.dr, 250 MG PO TID, (Reported) Docusate Sodium 100 Mg Capsule, 100 MG PO BID, (Reported) Lanolin Alcohol/Mo/W.pet/[place] 454 Gm Cream..g., TP HS, (Reported) APPLIES TO BOTH FEET Lanolin Alcohol/Mo/W.pet/[place] 454 Gm Cream..g., TP UD, (Reported) APPLY TO AFFECTED AREAS EVERY DAY AND EVENING SHIFT EVERY WEDNESDAY, WEDNESDAY, WEDNESDAY, WEDNESDAY, AND WEDNESDAY Levothyroxine Sodium 175 Mcg Tablet, 175 MCG PO DAILY, (Reported) Nystatin 1 Each Powder.ea., TP PRN PRN for REDNESS/GAULDING, (Reported) Polyethylene Glycol 3350 17 Gm Powd.pack, 17 GM PO DAILY, (Reported) Trazodone HCl 100 Mg Tablet, 200 MG PO HS, (Reported) TAKES 2 (100 MG) TABLETS Triamcinolone Acet 15 Gm Cr, TP BID, (Reported) Trihexyphenidyl HCl 2 Mg Tablet, 2 MG PO TID, (Reported) Patient Home Medication List Home Medication List Reviewed: Yes Review of Systems Constitutional: see HPI (patient unable to give a meaningful review of systems. ) Past Awodokm-Btxmrb-Wwueef Hx Patient Social History Alcohol Use: Denies Use Recreational Drug Use: No 2nd Hand Smoke Exposure: No Recent Foreign Travel: No Contact w/Someone Who Travel: No Recent Hopitalizations: No Immunizations Up To Date Tetanus Booster (TDap): Unknown Date of Pneumonia Vaccine: Aug 29, 2016 Date of Influenza Vaccine: Mar 16, 2016 Seasonal Allergies Seasonal Allergies: No Past Medical History Surgeries: No (no known surgeries) Respiratory: No Cardiac: Yes Atrial Fibrillation, High Cholesterol Neurological: Yes (MENTAL RETARDATION, dysphagia) Dementia, Developmental Disorder, Parkinson's Disease 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 Hypertension Physical Exam Vital Signs Vital Signs - First Documented 11/17/17 03:33 Temp 96.8 Pulse 93 Resp 23 Pulse Ox 93 O2 Delivery Room Air O2 Flow Rate 5.00 Capillary Refill : General Appearance: moderate distress, obese Eyes: Bilateral Eye Normal Inspection, Bilateral Eye PERRL, Bilateral Eye EOMI HEENT: PERRL/EOMI, normal ENT inspection, TMs normal, pharynx normal ( oropharynx is dry) Neck: non-tender, full range of motion, supple, normal inspection Respiratory: chest non-tender, no accessory muscle use, respiratory distress ( mild), decreased breath sounds, wheezing, other (oxygen saturation is 83% on room air upon arrival.) Cardiovascular: normal peripheral pulses, regular rate, rhythm Gastrointestinal: non tender, soft Extremities: normal inspection, no pedal edema, no calf tenderness, normal capillary refill Neurologic/Psychiatric: alert, normal mood/affect, other (oriented to person only) Skin: normal color, warm/dry Focused Exam Lactate Level 11/17/17 03:43: Lactic Acid Level 1.82 Lactic Acid Level Laboratory Tests Test 11/17/17 03:43 Lactic Acid Level 1.82 MMOL/L (0.50-2.00) Progress/Results/Core Measures Suspected Sepsis SIRS Temperature: Pulse: Respiratory Rate: Laboratory Tests 11/17/17 03:43: White Blood Count 18.1H Blood Pressure / Mean: 11/17/17 03:43: Lactic Acid Level 1.82 Laboratory Tests 11/17/17 03:43: Platelet Count 304 Results/Orders Lab Results Laboratory Tests Test 11/17/17 03:43 11/17/17 03:53 Range/Units White Blood Count 18.1 H 4.3-11.0 10^3/uL Red Blood Count 4.77 4.35-5.85 10^6/uL Hemoglobin 13.4 11.5-16.0 G/DL Hematocrit 42 35-52 % Mean Corpuscular Volume 89 80-99 FL Mean Corpuscular Hemoglobin 28 25-34 PG Mean Corpuscular Hemoglobin Concent 32 32-36 G/DL Red Cell Distribution Width 15.7 H 10.0-14.5 % Platelet Count 304 130-400 10^3/uL Mean Platelet Volume 10.5 H 7.4-10.4 FL Neutrophils (%) (Auto) 93 H 42-75 % Lymphocytes (%) (Auto) 4 L 12-44 % Monocytes (%) (Auto) 4 0-12 % Eosinophils (%) (Auto) 0 0-10 % Basophils (%) (Auto) 0 0-10 % Neutrophils # (Auto) 16.8 H 1.8-7.8 X 10^3 Lymphocytes # (Auto) 0.6 L 1.0-4.0 X 10^3 Monocytes # (Auto) 0.7 0.0-1.0 X 10^3 Eosinophils # (Auto) 0.0 0.0-0.3 10^3/uL Basophils # (Auto) 0.0 0.0-0.1 10^3/uL Lactic Acid Level 1.82 0.50-2.00 MMOL/L Blood Gas Puncture Site L RAD Blood Gas Patient Temperature 96.8 Arterial Blood pH 7.38 7.37-7.43 Arterial Blood Partial Pressure CO2 46 H 35-45 MMHG Arterial Blood Partial Pressure O2 61 L 79-93 MMHG Arterial Blood HCO3 27 23-27 MMOL/L Arterial Blood Total CO2 28.2 21.0-31.0 MMOL/L Arterial Blood Oxygen Saturation 91 L 94-100 % Arterial Blood Base Excess 1.9 -2.5-2.5 MMOL/L Marcos Test YES-POS Blood Gas Ventilator Setting NO Blood Gas Inspired Oxygen 4L My Orders Orders - MAHOGANY NARANJO Arterial Blood Gas (11/17/17 03:32) BNP (11/17/17 03:32) Magnesium (11/17/17 03:32) Chest 1 View, Ap/Pa Only (11/17/17 03:32) Albuterol/Ipra Inhalation Soln (Duoneb I (11/17/17 03:45) Saline Lock/Iv-Start (11/17/17 03:32) Ns Iv 1000 Ml (Sodium Chloride 0.9%) (11/17/17 03:45) Cbc With Automated Diff (11/17/17 03:32) Comprehensive Metabolic Panel (11/17/17 03:32) Lactic Acid Analyzer (11/17/17 03:32) Blood Culture (11/17/17 03:32) Sputum Culture (11/17/17 03:32) Ua Culture If Indicated (11/17/17 03:32) Protime With Inr (11/17/17 03:32) Partial Thromboplastin Time (11/17/17 03:32) O2 (11/17/17 03:32) Ondansetron Injection (Zofran Injectio (11/17/17 03:45) Saline Lock/Iv-Start (11/17/17 03:32) Saline Lock/Iv-Start (11/17/17 03:32) Cefepime Injection (Maxipime Injection) (11/17/17 03:45) Vital Signs Adult Sepsis Patie Q1H (11/17/17 03:32) Remove Rings In Anticipation O (11/17/17 03:32) Svn Small Volume Nebulizer (11/17/17 03:32) Arterial Blood Draw (11/17/17 ) Manual Differential (11/17/17 03:43) Piperacillin Sodium/Tazobactam (Zosyn Vi (11/17/17 05:00) Medications Given in ED Current Medications Medications Dose Ordered Sig/Ayde Route Start Time Stop Time Status Last Admin Dose Admin Albuterol/ Ipratropium 3 ml ONCE ONCE INH 11/17/17 03:45 11/17/17 03:46 DC 11/17/17 03:58 3 ML Cefepime HCl 2000 mg/Sodium Chloride 50 ml @ 100 mls/hr ONCE ONCE IV 11/17/17 03:45 11/17/17 04:14 DC 11/17/17 05:01 100 MLS/HR Sodium Chloride 1,500 ml @ 1,500 mls/hr PRN PRN IV 11/17/17 03:45 11/17/17 03:50 1,500 MLS/HR Vital Signs/I&O 11/17/17 11/17/17 03:33 04:03 Temp 96.8 Pulse 93 Resp 23 B/P (MAP) Pulse Ox 93 93 O2 Delivery Room Air Nasal Cannula O2 Flow Rate 5.00 3.00 Capillary Refill : Progress Note : Time: 03:38 Progress Note Concern for pneumonia, aspiration pneumonia. She could be having nausea vomiting secondary to obstipation, gastroenteritis, bowel obstruction. We'll get her out of respiratory distress and reexamine her abdomen. 0505 ABG demonstrates mild hypoxia without CO2 retention. Diagnostic Imaging Diagonstic Imaging: Xray Plain Films/CT/US/NM/MRI: chest (1v) Comments Right sided perihilar infiltrate or prominence. Reviewed: Reviewed by Me Departure Communication (Admissions) Time/Spoke to Admitting Phy: 05:00 Discussed case lab imaging and findings with Dr. Renteria. Discussed that we' ll get a urinalysis on the floor when she is able to produce a specimen. He would like consultation with Dr. Villa. He is okay with Zosyn. Impression Primary Impression: Aspiration pneumonia Qualified Codes: J69.0 - Pneumonitis due to inhalation of food and vomit Additional Impressions: Nausea and vomiting Qualified Codes: R11.2 - Nausea with vomiting, unspecified Respiratory distress Disposition: ADMITTED INPATIENT Condition: Stable Admissions Decision to Admit Reason: Admit from ER (General) Decision to Admit/Date: Nov 17, 2017 Time/Decision to Admit Time: 05:00 Departure-Patient Inst. Referrals: ALBANIA RENTERIA DO (PCP/Family) Primary Care Physician Copy Copies To 1: ALBANIA RENTERIA TITUS J Nov 17, 2017 03:39
[2017-11-17] MEDS ORDERED: CEFEPIME INJECTION 2,000 MG in NS (IVPB) 50 ML IV ONE (03:45)
[2017-11-17] MEDS ORDERED: NS IV 1000 ML 1,500 ML IV PRN (03:45)
[2017-11-17] MEDS ORDERED: RT-ALBUTEROL/IPRATROPIUM 3 ML (DUONEB) VIAL INH ONE (03:45)
[2017-11-17] MEDS ORDERED: ONDANSETRON 4 MG/2 ML (SDV) Z0FRAN IVP PRN ×2 (03:45→08:30)
[2017-11-17 03:58] LABS: ABG BASE EXCESS 1.9 MMOL/L (-2.5-2.5); ABG OXYGEN SATURATION 91 % (94-100); ABG PCO2 46 MMHG (35-45); ABG PH 7.38 (7.37-7.43); ABG PO2 61 MMHG (79-93); ABG TCO2 28.2 MMOL/L (21.0-31.0)
[2017-11-17 04:00] LABS: ALLENS TEST YES-POS; INSPIRED O2 4L; PATIENT TEMP 96.8; VENTILATOR NO
[2017-11-17 04:52] LABS: BASOPHILS % (AUTO) 0 % (0-10); EOSINOPHILS % (AUTO) 0 % (0-10); HEMATOCRIT 42 % (35-52); HEMOGLOBIN 13.4 G/DL (11.5-16.0); LYMPHOCYTES # (AUTO) 0.6 X 10^3 (1.0-4.0); LYMPHOCYTES % (AUTO) 4 % (12-44); MEAN CORPUSCULAR HEMOGLOBIN 28 PG (25-34); MEAN CORPUSCULAR HGB CONC 32 G/DL (32-36); MEAN CORPUSCULAR VOLUME 89 FL (80-99); MEAN PLATELET VOLUME 10.5 FL (7.4-10.4); MONOCYTES # (AUTO) 0.7 X 10^3 (0.0-1.0); MONOCYTES % (AUTO) 4 % (0-12); NEUTROPHILS # (AUTO) 16.8 X 10^3 (1.8-7.8); NEUTROPHILS % (AUTO) 93 % (42-75); PLATELET COUNT 304 10^3/uL (130-400); RED BLOOD COUNT 4.77 10^6/uL (4.35-5.85); RED CELL DISTRIBUTION WIDTH 15.7 % (10.0-14.5); WHITE BLOOD COUNT 18.1 10^3/uL (4.3-11.0)
[2017-11-17] MEDS ORDERED: PIPERACILLIN SODIUM/TAZOBACTAM 4.5 GM in D5W 100 ML IVPB 100 ML IV ONE (05:00)
[2017-11-17 05:09] LABS: BAND NEUTROPHILS 12 %; BASOPHILS % (MANUAL) 0 %; EOSINOPHILS % (MANUAL) 0 %; LYMPHOCYTES % (MANUAL) 1 %; MONOCYTES % (MANUAL) 1 %; NEUTROPHILS % (MANUAL) 86 %; RBC MORPH NORMAL
[2017-11-17 05:15] LABS: ALANINE AMINOTRANSFERASE < 6 U/L (0-55); ALBUMIN 3.7 GM/DL (3.2-4.5); ALKALINE PHOSPHATASE 74 U/L (40-136); BILIRUBIN,TOTAL 0.3 MG/DL (0.1-1.0); BUN/CREATININE RATIO 26; CALCIUM 9.1 MG/DL (8.5-10.1); CARBON DIOXIDE 22 MMOL/L (21-32); CHLORIDE 108 MMOL/L (98-107); CREATININE SERUM 0.77 MG/DL (0.60-1.30); GFR ESTIMATED > 60; GLUCOSE 136 MG/DL (70-105); MAGNESIUM 2.3 MG/DL (1.8-2.4); POTASSIUM 4.3 MMOL/L (3.6-5.0); SODIUM 143 MMOL/L (135-145); TOTAL PROTEIN 7.2 GM/DL (6.4-8.2)
--- OUTSIDE RECORDS SUMMARY | 2017-11-17 05:57 | XMS REPORT | Continuity of Care Document ---
Author Author [facility] Organization [facility] Address Unknown Phone Unavailable Allergies Active Description Code Type Severity Reaction Onset Reported/Identified Relationship to Patient Clinical Status Yes *MRSA *MRSA Miscellaneous Allergy N/A N/A 06/21/2013 Confirmed or Verified Yes pectin pectin Mild N/A 10/11/2014 Yes belladonna alkaloids [id number] Drug Allergy Mild N/A 12/03/2016 Yes meperidine [id number] Drug Allergy Mild N/A 12/03/2016 Medications There [...] Smith 317 MILD MENTAL RETARDATION 01/24/2008 SEXTON CIGAR BRANDER, MAGY SETHI 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 01/24/2008 SEXTON CIGAR BRANDER, MAGY SETHI 300.00 AN ANXIETY UNSPEC 01/24/2008 SEXTON CIGAR BRANDER, MAGY SETHI 311 MO DEPRESSIVE DISORDER NOS 01/24/2008 SEXTON CIGAR BRANDER, MAGY SETHI 317 MILD MENTAL RETARDATION 01/24/2008 SEXTON CIGAR BRANDER, MAGY SETHI 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 01/24/2008 SEXTON CIGAR BRANDER, MAGY SETHI 300.00 AN ANXIETY UNSPEC 01/24/2008 SEXTON CIGAR BRANDER, MAGY SETHI 311 MO DEPRESSIVE DISORDER NOS 01/24/2008 SEXTON CIGAR BRANDER, MAGY SETHI 317 MILD MENTAL RETARDATION 06/26/2008 780.52 INSOMNIA UNSPECIFIED 06/26/2008 ROCHELLE VILLAFANA DO 780.52 INSOMNIA UNSPECIFIED 06/26/2008 ROCHELLE VILLAFANA DO 780.52 INSOMNIA UNSPECIFIED 06/26/2008 ROCHELLE VILLAFANA DO 780.52 INSOMNIA UNSPECIFIED 06/26/2008 780.52 INSOMNIA UNSPECIFIED 06/26/2008 ROCHELLE VILLAFANA DO 780.52 INSOMNIA UNSPECIFIED 06/26/2008 SEXTON CIGAR BRANDER, MAGY SETHI 780.52 INSOMNIA UNSPECIFIED 06/26/2008 SEXTON CIGAR BRANDER, MAGY SETHI 780.52 INSOMNIA UNSPECIFIED 09/12/2009 307.47 [...] CONSTIPATION NOS 06/12/2013 NORM GLORIA MD V58.69 FPC MEDICATION USE 07/03/2013 NORM GLORIA MD 244.9 [...] DO Ot 295.90 SCHIZOPHRENIA NOS-UNSPEC 10/12/2014 HAMIDADER ALABNIA CARRENO Ot 298.2 REACTIVE CONFUSION 10/12/2014 HAMIDADER [...] 12/03/2016 PARIS BRAMBILA DO Ot Z79.899 OTHER FPC (CURRENT) DRUG THERAPY 12/11/2016 PARIS BRAMBILA DO [...] DO Ot I48.91 UNSPECIFIED ATRIAL FIBRILLATION 12/11/2016 BRIGHTON PARIS CARRENO Ot Z79.899 OTHER FPC (CURRENT) DRUG THERAPY 12/21/2016 LOWAntony DDS, JOSE [...] CARBONE APRN Ot Y92.[address] [facility] PLACE 12/31/2016 NOAH CARBONE APRN Ot Y99.8 OTHER EXTERNAL CAUSE STATUS 12/31/2016 NOAH CARBONE APRN Ot Z79.899 OTHER FPC (CURRENT) DRUG THERAPY 01/01/2017 NOAH CARBONE APRN [...] CARBONE APRN Ot Y92.[address] [facility] PLACE 01/01/2017 NOAH CARBONE APRN Ot Y99.8 OTHER EXTERNAL CAUSE STATUS 01/01/2017 NOAH CARBONE APRN Ot Z79.899 OTHER INSTRUCTIONAL 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 (CURRENT) DRUG THERAPY 01/02/2017 LUCY LOO Ot E03.9 HYPOTHYROIDISM, UNSPECIFIED 01/02/2017 LUCY OLO Ot F02.80 DEMENTIA IN OTH DISEASES CLASSD [...] Procedures Code Description [place] [address] EKG, TRACING 07/18/2012 68115 UA LONG DIP 07/21/2012 60675 CULTURE URINE 07/23/2012 59012 EKG, TRACING (IN-HOUSE) 08/02/2012 84728 ELECTROCARDIOGRAM REPORT FAIZAN WATSON, NORM Carranza 06/12/2013 Results Test Result Range EKG - 06/12/13 19:02 EKG SMR COMPLETE BLOOD COUNT - 06/12/13 20:20 Platelet 401 10^3u 142-424 MPV 9.3 FL 9.4-12.4 [place] # 0.69 10^3u 0.0-1.0 RBC 4.42 10^6u 4.04-6.13 [place] % 7.2 % 0-12 RDW 16.1 % [...] Urobilinogen 0.2 0.2-1.0 Urine RBC NONESEEN Specific [place] 1.015 1.010-1.020 Urine WBC N6-10 Blood Negative Negative Color Yellow Yellow Bilirubin Negative Negative Urinalysis - 06/30/13 13:38 Glucose Negative Negative Leukocyte Trace Negative Nitrite Negative Negative pH 5.5 5.5-7.5 Urine Appearance Clear Clear Protein Negative Negative Ketones Negative Negative Urobilinogen 0.2 0.2-1.0 Urine RBC NONESEEN Specific [place] >=1.030 1.010-1.020 Urine WBC N3-5 Urine Bacteria NONESEEN Blood Negative Negative Color Yellow Yellow SG by Refractometer 1.024 Bilirubin Negative Negative Urinalysis - 07/02/13 15:09 Glucose Negative Negative Leukocyte 2+ Negative Nitrite Negative Negative pH 6.5 5.5-7.5 Urine Appearance Cloudy Clear Protein Negative Negative Ketones Negative Negative Urobilinogen 0.2 0.2-1.0 Urine RBC N16-20 Specific [place] 1.020 1.010-1.020 Urine WBC TNTC Blood 2+ [...] culture - 05/16/16 15:00 Bacterial urine culture [id number] NRG COLONY COUNT >100,000/ML NRG FTX;REPORTABLE SENSITIVITY [...] NORMAL NRG LITHIUM LEVEL - 07/04/16 22:28 [place] [mass/volume] in serum or plasma < % [...] culture - 09/16/16 23:00 Bacterial urine culture [id number] NRG COLONY COUNT >100,000/ML NRG FTX;REPORTABLE SENSITIVITY [...] susceptibility test by minimum inhibitory concentration - [facility] Complete urinalysis with reflex to culture - [...] Status Pt. Type Provider Facility Loc./Unit Complaint [id number] 06/12/2013 16:50:00 07/03/2013 10:20:00 DIS Inpatient AFIZAN WATSON, [facility] [id number] 06/12/2013 20:19:00 06/12/2013 20:19:00 DIS Outpatient FAIZAN WATSON, [facility] [id number] 09/02/2016 18:10:00 Document Registration [id number] 02/21/2010 15:55:00 Document Registration [id number] 09/24/2017 22:14:00 09/27/2017 15:51:00 DIS Inpatient JESUS FARRIS DO [facility] 4TH PNEUMONIA,HYPOXIA [id number] 02/22/2017 17:39:00 02/22/2017 23:59:59 CLS Outpatient ALBANIA RENTERIA DO [facility] LAB L30.9 [id number] 01/12/2017 10:30:00 01/12/2017 23:59:59 CLS Outpatient ALBANIA RENTERIA DO [facility] RAD BILATERAL PLEURAL EFFUSIONS [id number] 01/02/2017 13:00:00 01/02/2017 23:59:59 CLS Emergency LUCY LOO [facility] ER GENERALIZED PAIN [id number] 12/31/2016 12:26:00 12/31/2016 13:40:00 DIS Emergency NOAH CARBONE APRN [facility] ER LOW BACK PAIN/FALL [id number] 12/18/2016 10:44:00 12/18/2016 23:59:59 CLS Outpatient JOSE DANIEL ESCALERA DDS [facility] RAD NON RESTORABLE TEETH [id number] 12/03/2016 06:00:00 12/03/2016 11:20:00 DIS Outpatient PARIS BRAMBILA DO [facility] SDC LESION RIGHT FOOT [id number] 12/01/2016 07:42:00 12/01/2016 11:28:00 DIS Outpatient PARIS BRAMBILA DO [facility] PREOP EXC. LESION [id number] 10/04/2016 05:40:00 10/04/2016 23:59:59 CLS Outpatient ALBANIA RENTERIA DO [facility] GLC [id number] 09/21/2016 12:24:00 09/21/2016 23:59:59 CLS Outpatient ALBANIA RENTERIA DO [facility] RAD RESPIRATORY INFECTION [id number] 09/16/2016 23:47:00 09/16/2016 23:59:59 CLS Outpatient ALBANIA RENTERIA DO [facility] GLC [id number] 08/30/2016 10:51:00 08/30/2016 23:59:59 CLS Outpatient ALBANIA RENTERIA DO [facility] LABNPT UTI [id number] 07/19/2016 03:27:00 07/24/2016 16:00:00 DIS Inpatient JUDY DUVAL MD [facility] 4TH PNEUMONIA [id number] 07/05/2016 00:03:00 07/07/2016 14:20:00 DIS Inpatient ALBANIA RENTERIA DO [facility] 4TH PNEUMONIA [id number] 05/16/2016 15:00:00 05/16/2016 23:59:59 CLS Outpatient ALBANIA RENTERIA DO [facility] GLC UTI [id number] 04/24/2016 08:15:00 04/24/2016 16:00:00 DIS Outpatient TRICIA WILSON MD [facility] WOUNDCARE CORNS AND CALLOSITIES, SCHIZOPHRENIA [id number] 07/29/2015 15:22:00 07/29/2015 23:59:59 CLS Outpatient ALBANIA RENTERIA DO [facility] RAD MALFORMATION OF LT FOOT [id number] 10/11/2014 02:10:00 10/12/2014 13:10:00 DIS Inpatient ALBANIA RENTERIA DO [facility] CSD NEW ONSET A-FLUTTER, UTI,FALLS [id number] 10/11/2014 15:27:00 Document Registration [id number] 10/11/2014 15:27:00 Document Registration [id number] 09/02/2016 18:10:00 09/14/2016 18:30:00 DIS Inpatient ROSALEE WATSON, TOMASA [facility] [id number] 02/06/2014 13:59:00 02/06/2014 23:59:59 CLS Outpatient MAGY SEXTON APRN [id number] 11/03/2013 10:41:00 11/03/2013 23:59:59 CLS Outpatient SEXTONBAHMAN WILKESMAGY [id number] 01/30/2013 15:18:00 01/30/2013 23:59:59 CLS Outpatient ROCHELLE VILLAFANA DO [id number] 08/18/2012 13:43:00 08/18/2012 23:59:59 CLS Outpatient ROCHELLE VILLAFANA DO [id number] 08/01/2012 12:32:00 08/01/2012 23:59:59 CLS Outpatient ROCHELLE VILLAFANA DO [id number] 07/21/2012 13:45:00 07/21/2012 23:59:59 CLS Outpatient ROCHELLE VILLAFANA DO [id number] 07/14/2012 15:13:00 07/14/2012 23:59:59 CLS Outpatient [id number] 10/03/2012 10:47:00 Document Registration
[2017-11-17 07:22] LABS: PROTHROMBIN TIME PATIENT 13.1 SEC (12.2-14.7)
[2017-11-17] MEDS ORDERED: ACETAMINOPHEN 500 MG TAB (TYLENOL) PO PRN ×2 (08:30→19:30)
[2017-11-17 08:31] VITALS: BP 143/86
--- NOTE | 2017-11-17 08:37 | History & Physicial ---
History of Present Illness History of Present Illness Reason for visit/HPI [facility]. I received a call from the [facility]entiary after patient vomited and pulse ox went down and probably aspirated. Patient sent out to the emergency room. Patient admitted for aspiration pneumonia. Patient has a history of MR, schizoaffective disorder, dementia, and EPS Date of Admission Nov 17, 2017 at 05:10 Time Seen by Provider: 08:35 I consulted on this patient on 11/17/17 08:33 Attending Physician Armando Renteria DO Admitting Physician Armando Renteria DO Consult Allergies and Home Medications Allergies Coded Allergies: belladonna alkaloids (Verified Allergy, Mild, 10/11/14) meperidine (Verified Allergy, Mild, 10/11/14) Uncoded Allergies: pectin (Allergy, Mild, 10/11/14) Home Medications Acetaminophen 500 Mg Tablet, 500 MG PO Q8H PRN for PAIN-MILD, (Reported) Amiodarone HCl 200 Mg Tablet, 200 MG PO DAILY, (Reported) Betamethasone/Propylene Glyc 15 Gm Cream..g., 1 GM TP BID PRN for ITCHING, ( Reported) Cefdinir 300 Mg Capsule, 300 MG PO BID Prescribed by: FRANCES DUNHAM on 09/27/17 1149 Cetirizine HCl 10 Mg Tablet, 10 MG PO DAILY, (Reported) Cholecalciferol (Vitamin D3) 1,000 Unit Capsule, 2,000 UNITS PO DAILY, (Reported ) TAKES 2 (1,000 UNIT) CAPSULES Clozapine 50 Mg Tablet, 50 MG PO 0900,1700, (Reported) Clozapine 200 Mg Tablet, 200 MG PO HS, (Reported) Diphenhydramine HCl 25 Mg Capsule, 50 MG PO TID, (Reported) TAKES 2 (25 MG) TABLETS Divalproex Sodium 250 Mg Tablet.dr, 250 MG PO TID, (Reported) Docusate Sodium 100 Mg Capsule, 100 MG PO BID, (Reported) Lanolin Alcohol/Mo/W.pet/[place] 454 Gm Cream..g., TP HS, (Reported) APPLIES TO BOTH FEET Lanolin Alcohol/Mo/W.pet/[place] 454 Gm Cream..g., TP UD, (Reported) APPLY TO AFFECTED AREAS EVERY DAY AND EVENING SHIFT EVERY WEDNESDAY, WEDNESDAY, WEDNESDAY, WEDNESDAY, AND WEDNESDAY Levothyroxine Sodium 175 Mcg Tablet, 175 MCG PO DAILY, (Reported) Nystatin 1 Each Powder.ea., TP PRN PRN for REDNESS/GAULDING, (Reported) Polyethylene Glycol 3350 17 Gm Powd.pack, 17 GM PO DAILY, (Reported) Trazodone HCl 100 Mg Tablet, 200 MG PO HS, (Reported) TAKES 2 (100 MG) TABLETS Triamcinolone Acet 15 Gm Cr, TP BID, (Reported) Trihexyphenidyl HCl 2 Mg Tablet, 2 MG PO TID, (Reported) Patient Home Medication List Home Medication List Reviewed: No Past Rpteatj-Nqnrmj-Vhmint Hx Patient Social History Marrital Status: single Employed/Student: unemployed Alcohol Use: Denies Use Recreational Drug Use: No 2nd Hand Smoke Exposure: No Recent Foreign Travel: No Contact w/other who traveled: No Recent Hopitalizations: No Recent Infectious Disease Expo: No Immunizations Up To Date Tetanus Booster (TDap): Unknown Date of Pneumonia Vaccine: Aug 29, 2016 Date of Influenza Vaccine: Mar 16, 2016 Seasonal Allergies Seasonal Allergies: No Surgeries No (no known surgeries) Respiratory No Asthma, Pneumonia Cardiovascular Yes Atrial Fibrillation, High Cholesterol Neurological Yes (MENTAL RETARDATION, dysphagia) Dementia, Developmental Disorder, Parkinson's Disease Reproductive System Hx Reproductive Disorders: No Sexually Transmitted Disease: No HIV/AIDS: No 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 Constitutional: weakness EENTM: no symptoms reported Respiratory: short of breath, wheezing, other (Aspiration pneumonia) Gastrointestinal: no symptoms reported Genitourinary: no symptoms reported Physical Exam Vital Signs Vital Signs - First Documented 11/17/17 06:52 B/P (MAP) 141/56 Capillary Refill : Less Than 3 Seconds General Appearance: No Apparent Distress, WD/WN Eyes: Bilateral Eye Normal Inspection HEENT: Normal ENT Inspection Neck: Normal Inspection Respiratory: Decreased Breath Sounds, Other (Congestion) Cardiovascular: Regular Rate, Rhythm, No Murmur Assessment/Plan Assessment and Plan Aspiration pneumonia. Schizoaffective disorder. Dementia. EPS. Patient unable to give any history. Patient awake Admission Diagnosis Admission Status: Inpatient Order (span 2 midnights) Reason for Inpatient Admission: Aspiration pneumonia. Leukocytosis. Dementia. Mental retardation. Schizoaffective disorder ARMANDO RENTERIA DO Nov 17, 2017 08:37
--- NOTE | 2017-11-17 08:46 | Diagnostic Imaging Report ---
INDICATION: Cough, congestion, shortness of air. COMPARISON: 09/27/2017. FINDINGS: There is no focal consolidation. Heart size and vascularity were normal. There is no effusion or pneumothorax. There is no free air beneath the diaphragms. IMPRESSION: Unremarkable frontal chest. Dictated by: Dictated on workstation # [id number]
--- NOTE | 2017-11-17 09:21 | ST Dysphagia Evaluation ---
Speech Evaluation-General Medical Diagnosis Aspiration (Ascending) Pneumonia Onset Date: Nov 17, 2017 Therapy Diagnosis Therapy Diagnosis: Mild Oropharyngeal Dysphagia Precautions Precautions: Aspiration Precautions/Isolations: Fall Prevention, Standard Precautions Referral Referring Physician: Dr. Armando Dalton Reason for Referral: Evaluation/Treatment Bedside Swallowing Evaluation Medical History Pertinent Medical History: Atrial Fib, Dementia, Hypothroidism, Parkinson's MR, schizophrenia Current History The patient was recently transferred from a [facility] to [facility] after being found in her own vomit. The staff suspects the patient aspirated on the vomit prior to admission. Reviewed History: Yes Speech PLF/Current-Dysphagia Prior Level of Function The patient is unable to provide prior level of function due to cognitive deficit. Paperwork from the fdc does display the patient was receiving a pureed diet. Subjective The patient is sitting upright in bed, talking verbosely upon entrance. The patient makes eye contact with the clinician and says, "thank you." The patient is agreeable to participation in the dysphagia evaluation. CXR: 11/17/2017: Unremarkable frontal chest. Cognitive Status Patient Orientation: Person The patient is able to state her name, only. Per patient, "I think I am in a pool, probably drowning." Oral Motor Skills Dentition: Natural (Poor dentition, poor quality.) Ability to Follow Directions: Poor The patient is NPO pending the results of the swallowing evaluation. Oral Expression Ability: Moderate Impairment Voice Voice Phonatory-Based Quality: Glottal Valdes Voice Pitch: Normal Voice Loudness: Normal Face Facial Symmetry: Symmetrical (Grossly.) The patient was unable to follow directions for oral mechanism examination. Oral-Facial Assessment Oral-Facial Dentition: Normal Labial Seal Description: Normal Smile: Normal Productive Cough: Yes Productive Throat Clear: Yes Dysphagia Evaluation Consistencies Presented: Thin Liquid, [place] Thick Liquid, Honey Thick Liquid, Pureed Oral Phase: Anterior Spillage (Liquid consistencies.) Pharyngeal Phase: Multiple Swallow Attempts - Thin Liquid (teaspoon): The patient demonstrated an immediate, rigorous cough in correlation to swallows of thin liquid via teaspoon. - [place]-Thick/Honey-Thick/Puree: No signs/symptoms of aspiration were demonstrated with multiple boluses (teaspoon, straw drink) of nectar-thick, honey-thick, or puree consistencies. Dietary Recommendations: Pureed Liquid Recommendations: [place] Consistancy Swallowing Precautions: Small Bites and Sips, Sitting 90 Degrees 30 Post Intake Dysphagia Evaluation Summary The patient demonstrated mild oropharyngeal dysphagia characterized by a poorly coordinated swallow response, as well as, reduced airway protection in the presence of bolus material. Barriers to Learning Cognition Speech [facility] Goals [facility] Goals 1. The patient will tolerate the least restrictive diet without signs/symptoms of aspiration or laryngeal penetration. Time Frame: Three Days Speech-Plan Treatment Plan Speech Therapy Treatment Plan: Continue Plan of Care Continue skilled speech pathology to target improved swallowing safety. Treatment Duration: Nov 24, 2017 Frequency: 3 times per week Estimated Hrs Per Day: .25 hour per day Rehab Potential: Guarded Safety Risks/Education Teaching Recipient: Patient Teaching Methods: Discussion (Written on White Board) Response to Teaching: Unable to Comprehend Education Topics Provided: Results, Recommendations, Plan of Care Time Speech Therapy Time In: 08:45 Speech Therapy Time Out: 09:05 Total Billed Time: 20 Billed Treatment Time 1, ABRAHAM SHIN Nov 17, 2017 09:21
[2017-11-17] MEDS ORDERED: PIPERACILLIN/TAZO 3.375 GM/D5W 100 ML IV NR ×2 (10:30)
[2017-11-17 10:37] LABS: BILIRUBIN,URINE NEGATIVE (NEGATIVE); CLARITY,URINE CLEAR; COLOR,URINE YELLOW; GLUCOSE, URINE (UA) NEGATIVE (NEGATIVE); KETONES,URINE NEGATIVE (NEGATIVE); LEUKOCYTE ESTERASE ,URINE 1+ (NEGATIVE); NITRITE,URINE NEGATIVE (NEGATIVE); PH,URINE 5 (5-9); PROTEIN,URINE NEGATIVE (NEGATIVE); UROBILINOGEN,URINE NORMAL (NORMAL)
[2017-11-17] MEDS: 1/2 NS W/KCL 20 MEQ/L 1,000 ML IV SCH ×3 (11:01→17:17)
[2017-11-17 11:07] LABS: BACTERIA,URINE NEGATIVE /HPF; WBC,URINE 0-2 /HPF
[2017-11-17 11:08] LABS: SQUAMOUS EPITHELIAL CELL,UR RARE /HPF
[2017-11-17 11:20] VITALS: BP 143/86
[2017-11-17 12:00] VITALS: BP 126/56
[2017-11-17] MEDS ORDERED: RT-ALBUTEROL/IPRATROPIUM 3 ML (DUONEB) VIAL INH PRN (12:00)
[2017-11-17] MEDS ORDERED: HYDR-3812 PO (13:09)
[2017-11-17] MEDS ORDERED: POLY17PO6 PO (13:13)
[2017-11-17] MEDS: RT-ALBUTEROL/IPRATROPIUM 3 ML (DUONEB) VIAL INH SCH ×3 (14:38→22:30)
[2017-11-17] MEDS ORDERED: PIPERACILLIN/TAZO 3.375 GM/D5W 100 ML IV SCH ×2 (15:00)
[2017-11-17 16:00] VITALS: BP_SYST 105; BP_SYST 126; BP_DIAS 56; BP_DIAS 60
[2017-11-17] MEDS: PIPERACILLIN/TAZO 3.375 GM/D5W 100 ML IV SCH ×2 (17:19)
[2017-11-17] MEDS: ENOXAPARIN 40 MG/0.4 ML (LOVENOX) SYR SC SCH (18:17)
[2017-11-17] MEDS ORDERED: BETAMETHASONE DIPRO (AUGMENTED) 0.05% CREAM 15 GM TP PRN (18:45)
[2017-11-17] MEDS ORDERED: NON-FORMULARY MEDICATION 1 EA EA (Acetaminophen (Acetaminophen Extra Strength) 1,000 MG) PO PRN (18:45)
[2017-11-17 20:00] VITALS: BP 90/47
[2017-11-17] MEDS ORDERED: CLOZAPINE 200 MG PO SCH (21:00)
[2017-11-17] MEDS: cloZAPine 100 MG (CLOZARIL) TAB PO SCH (21:04)
[2017-11-17] MEDS: traZODone 100 MG (DESYREL) TAB PO SCH (21:04)
[2017-11-17] MEDS: TRIAMCINOLONE 0.1% CR (KENALOG) 15 GM TUBE TP SCH (21:05)
[2017-11-18 00:02] VITALS: BP 102/61
[2017-11-18] MEDS: PIPERACILLIN/TAZO 3.375 GM/D5W 100 ML IV SCH ×6 (00:56→16:27)
[2017-11-18] MEDS: RT-ALBUTEROL/IPRATROPIUM 3 ML (DUONEB) VIAL INH SCH ×6 (02:44→22:25)
[2017-11-18 04:01] VITALS: BP 105/58
[2017-11-18] MEDS: LEVOTHYROXINE 125 MCG (LEVOTHROID) TABLET PO SCH (05:59)
[2017-11-18] MEDS: LEVOTHYROXINE 50 MCG (LEVOTHROID) TAB PO SCH (05:59)
[2017-11-18] MEDS: 1/2 NS W/KCL 20 MEQ/L 1,000 ML IV SCH ×3 (06:00→19:46)
--- NOTE | 2017-11-18 06:40 | Pulmonary Consultation ---
History of Present Illness History of Present Illness Date of Consultation 11/18/17 06:35 Time Seen by Provider: 06:35 Date of Admission History of Present Illness 67yo with hx of severe dementia and aspiration pneumonia from ECF presented to ED secondary to N/V followed by hypoxia and suspected aspiration. Sp02 was around 85% on RA. She has had similar episodes in the past. She is a DNR. I am consulted for pulmonary management. Unable to obtain ROS. Allergies and Home Medications Allergies Coded Allergies: belladonna alkaloids (Verified Allergy, Mild, 10/11/14) meperidine (Verified Allergy, Mild, 10/11/14) Uncoded Allergies: pectin (Allergy, Mild, 10/11/14) Home Medications Acetaminophen 500 Mg Tablet, 1,000 MG PO Q6H PRN for PAIN-MILD, (Reported) Amiodarone HCl 200 Mg Tablet, 200 MG PO DAILY, (Reported) Betamethasone/Propylene Glyc 15 Gm Cream..g., TP BID PRN for ITCHING, (Reported) Cetirizine HCl 10 Mg Tablet, 10 MG PO DAILY, (Reported) Cholecalciferol (Vitamin D3) 1,000 Unit Capsule, 2,000 UNITS PO DAILY, (Reported ) TAKES 2 (1,000 UNIT) CAPSULES Clozapine 50 Mg Tablet, 50 MG PO 0900,1700, (Reported) Clozapine 200 Mg Tablet, 200 MG PO HS, (Reported) Diphenhydramine HCl 25 Mg Capsule, 50 MG PO 0900,1200,1700, (Reported) TAKES 2 (25 MG) TABLETS Divalproex Sodium 250 Mg Tablet.dr, 250 MG PO 0900,1200,1700, (Reported) Docusate Sodium 100 Mg Capsule, 100 MG PO 0900,1700, (Reported) Hydrocodone/Acetaminophen 1 Each Tablet, 1 TAB PO 0900,1300,1700, (Reported) Lanolin Alcohol/Mo/W.pet/[place] 454 Gm Cream..g., TP HS, (Reported) APPLIES TO BOTH FEET Lanolin Alcohol/Mo/W.pet/[place] 454 Gm Cream..g., TP UD, (Reported) APPLY TO AFFECTED AREAS EVERY DAY AND EVENING SHIFT EVERY WEDNESDAY, WEDNESDAY, WEDNESDAY, WEDNESDAY, AND WEDNESDAY Levothyroxine Sodium 175 Mcg Tablet, 175 MCG PO DAILY, (Reported) Nystatin 1 Each Powder.ea., TP PRN PRN for REDNESS/[place], (Reported) Polyethylene Glycol 3350 17 Gm Powd.pack, 17 GM PO DAILY, (Reported) Polyethylene Glycol 3350 17 Gm Powd.pack, 17 GM PO DAILY PRN for CONSTIPATION- 2ND LINE, (Reported) Trazodone HCl 100 Mg Tablet, 200 MG PO HS, (Reported) TAKES 2 (100 MG) TABLETS Triamcinolone Acet 15 Gm Cr, TP BID, (Reported) Trihexyphenidyl HCl 2 Mg Tablet, 2 MG PO 0900,1200,1700, (Reported) Past Tenaimt-Eqjcpn-Bnrosk Hx Patient Social History Alcohol Use: Denies Use Recreational Drug Use: No Smoking Status: Unknown if Ever Smoked 2nd Hand Smoke Exposure: No Recent Foreign Travel: No Contact w/Someone Who Travel: No Recent Infectious Disease Expo: No Recent Hopitalizations: No Physical Abuse: No Sexual Abuse: No Immunizations Up To Date Tetanus Booster (TDap): Unknown Date of Pneumonia Vaccine: Aug 29, 2016 Date of Influenza Vaccine: Mar 16, 2016 Seasonal Allergies Seasonal Allergies: No Past Medical History Surgeries: No (no known surgeries) Respiratory: No Cardiac: Yes Atrial Fibrillation, High Cholesterol Neurological: Yes (MENTAL RETARDATION, dysphagia) Dementia, Developmental Disorder, Parkinson's Disease Reproductive Disorders: No 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 Hypertension Review of Systems Time Seen by Provider: 09:30 Exam Exam Vital Signs Date Time Temp Pulse Resp B/P (MAP) Pulse Ox O2 Delivery O2 Flow Rate FiO2 11/18/17 04:01 97.6 80 18 105/58 (74) 93 Nasal Cannula 5.00 11/18/17 02:46 94 Nasal Cannula 6.00 11/18/17 00:02 97.8 74 19 102/61 (75) 94 Nasal Cannula 5.00 11/17/17 22:37 Nasal Cannula 6.00 11/17/17 21:00 Room Air 5.00 11/17/17 20:00 99.2 86 20 90/47 (61) 92 Nasal Cannula 5.00 11/17/17 19:00 91 Nasal Cannula 6.00 11/17/17 16:00 99.5 91 20 105/60 (75) 97 Nasal Cannula 5.00 11/17/17 16:00 99.1 91 22 126/56 (79) 94 Nasal Cannula 5.00 11/17/17 14:38 94 Nasal Cannula 5.00 11/17/17 13:17 Nasal Cannula 5.00 11/17/17 12:00 99.1 91 22 126/56 (79) 94 Nasal Cannula 5.00 11/17/17 11:20 97 93 40 11/17/17 08:31 98.6 97 20 143/86 (105) 91 Nasal Cannula 5.00 11/17/17 08:00 Room Air 5.00 11/17/17 06:52 98.2 91 20 141/56 93 Nasal Cannula 4.00 I & O 11/18/17 07:00 Intake Total 990 ml Output Total 200 ml Balance 790 ml General Appearance: No Apparent Distress, WD/WN HEENT: Normal ENT Inspection Neck: Normal Inspection Respiratory: Decreased Breath Sounds, Other (Congestion) Cardiovascular: Regular Rate, Rhythm, No Murmur Capillary Refill: Less Than 3 Seconds Gastrointestinal: non tender, soft Neurologic/Psychiatric: Other (unresponsive at baseline) Skin: Normal Color, Warm/Dry Lymphatic: No Adenopathy Results Lab Laboratory Tests 11/17/17 03:43 Assessment/Plan Assessment/Plan Aspiration pneumonia with hypoxia -Oxygen -Continue Zosyn for now -dysphagia screen Severe dementia -monitor GISELL SCHWARTZ DO Nov 18, 2017 06:40
[2017-11-18 06:49] LABS: BASOPHILS % (AUTO) 0 % (0-10); EOSINOPHILS % (AUTO) 0 % (0-10); HEMATOCRIT 35 % (35-52); HEMOGLOBIN 11.3 G/DL (11.5-16.0); LYMPHOCYTES # (AUTO) 0.6 X 10^3 (1.0-4.0); LYMPHOCYTES % (AUTO) 10 % (12-44); MEAN CORPUSCULAR HEMOGLOBIN 29 PG (25-34); MEAN CORPUSCULAR HGB CONC 32 G/DL (32-36); MEAN CORPUSCULAR VOLUME 90 FL (80-99); MEAN PLATELET VOLUME 9.9 FL (7.4-10.4); MONOCYTES # (AUTO) 0.4 X 10^3 (0.0-1.0); MONOCYTES % (AUTO) 8 % (0-12); NEUTROPHILS # (AUTO) 4.6 X 10^3 (1.8-7.8); NEUTROPHILS % (AUTO) 83 % (42-75); PLATELET COUNT 214 10^3/uL (130-400); RED BLOOD COUNT 3.94 10^6/uL (4.35-5.85); RED CELL DISTRIBUTION WIDTH 15.5 % (10.0-14.5); WHITE BLOOD COUNT 5.6 10^3/uL (4.3-11.0)
[2017-11-18 07:12] LABS: ALANINE AMINOTRANSFERASE < 6 U/L (0-55); ALBUMIN 3.1 GM/DL (3.2-4.5); ALKALINE PHOSPHATASE 72 U/L (40-136); BILIRUBIN,TOTAL 0.6 MG/DL (0.1-1.0); BUN/CREATININE RATIO 20; CALCIUM 8.3 MG/DL (8.5-10.1); CARBON DIOXIDE 25 MMOL/L (21-32); CHLORIDE 105 MMOL/L (98-107); GFR ESTIMATED > 60; GLUCOSE 90 MG/DL (70-105); POTASSIUM 4.2 MMOL/L (3.6-5.0); SODIUM 137 MMOL/L (135-145); TOTAL PROTEIN 5.9 GM/DL (6.4-8.2)
--- NOTE | 2017-11-18 07:56 | Progress Note (SOAP) ---
Subjective Time Seen by Provider: 07:50 Subjective/Events-last exam Patient resting comfortably. Patient sleepy. White blood cell count better. Dementia. Schizoaffective disorder. MR. Focused Exam Lactate Level 11/17/17 03:43: Lactic Acid Level 1.82 Objective Exam Vital Signs Date Time Temp Pulse Resp B/P (MAP) Pulse Ox O2 Delivery O2 Flow Rate FiO2 11/18/17 07:05 94 Nasal Cannula 6.00 11/18/17 04:01 97.6 80 18 105/58 (74) 93 Nasal Cannula 5.00 11/18/17 02:46 94 Nasal Cannula 6.00 11/18/17 00:02 97.8 74 19 102/61 (75) 94 Nasal Cannula 5.00 11/17/17 22:37 Nasal Cannula 6.00 11/17/17 21:00 Room Air 5.00 11/17/17 20:00 99.2 86 20 90/47 (61) 92 Nasal Cannula 5.00 11/17/17 19:00 91 Nasal Cannula 6.00 11/17/17 16:00 99.5 91 20 105/60 (75) 97 Nasal Cannula 5.00 11/17/17 16:00 99.1 91 22 126/56 (79) 94 Nasal Cannula 5.00 11/17/17 14:38 94 Nasal Cannula 5.00 11/17/17 13:17 Nasal Cannula 5.00 11/17/17 12:00 99.1 91 22 126/56 (79) 94 Nasal Cannula 5.00 11/17/17 11:20 97 93 40 11/17/17 08:31 98.6 97 20 143/86 (105) 91 Nasal Cannula 5.00 11/17/17 08:00 Room Air 5.00 I & O 11/18/17 07:00 Intake Total 990 ml Output Total 200 ml Balance 790 ml Capillary Refill : Less Than 3 Seconds General Appearance: No Apparent Distress, WD/WN HEENT: Normal ENT Inspection Respiratory: No Accessory Muscle Use, No Respiratory Distress Cardiovascular: Regular Rate, Rhythm, No Murmur Results Lab Laboratory Tests 11/18/17 06:40 Laboratory Tests 11/17/17 10:20: Urine Color YELLOW, Urine Clarity CLEAR, Urine pH 5, Urine Specific [place] 1.025H, Urine Protein NEGATIVE, Urine Glucose (UA) NEGATIVE, Urine Ketones NEGATIVE, Urine Nitrite NEGATIVE, Urine Bilirubin NEGATIVE, Urine Urobilinogen NORMAL, Urine Leukocyte Esterase 1+H, Urine RBC (Auto) NEGATIVE, Urine RBC NONE , Urine WBC 0-2, Urine Squamous Epithelial Cells RARE, Urine Renal Epithelial Cells NONE, Urine Crystals NONE, Urine Bacteria NEGATIVE, Urine Casts NONE, Urine Mucus NEGATIVE, Urine Culture Indicated NO 11/18/17 06:40: White Blood Count 5.6, Red Blood Count 3.94L, Hemoglobin 11.3L, Hematocrit 35, Mean Corpuscular Volume 90, Mean Corpuscular Hemoglobin 29, Mean Corpuscular Hemoglobin Concent 32, Red Cell Distribution Width 15.5H, Platelet Count 214, Mean Platelet Volume 9.9, Neutrophils (%) (Auto) 83H, Lymphocytes (%) (Auto) 10L , Monocytes (%) (Auto) 8, Eosinophils (%) (Auto) 0, Basophils (%) (Auto) 0, Neutrophils # (Auto) 4.6, Lymphocytes # (Auto) 0.6L, Monocytes # (Auto) 0.4, Eosinophils # (Auto) 0.0, Basophils # (Auto) 0.0, Sodium Level 137, Potassium Level 4.2, Chloride Level 105, Carbon Dioxide Level 25, Anion Gap 7, Blood Urea Nitrogen 14, Creatinine 0.70, Estimat Glomerular Filtration Rate > 60, BUN/ Creatinine Ratio 20, Glucose Level 90, Calcium Level 8.3L, Total Bilirubin 0.6, Aspartate Amino Transf (AST/SGOT) 17, Alanine Aminotransferase (ALT/SGPT) < 6, Alkaline Phosphatase 72, Total Protein 5.9L, Albumin 3.1L Assessment/Plan Assessment/Plan Assess & Plan/Chief Complaint Duration pneumonia with hypoxia. Dementia. Mental retardation. Schizoaffective disorder. Clinical Quality Measures Admission Status Admission Dx Aspiration pneumonia. Schizoaffective disorder. Dementia. EPS. Patient unable to give any history. Patient awake DVT/VTE Risk/Contraindication: Risk Factor Score Per Nursin RFS Level Per Nursing on Admit: 4+=Very High ALBANIA RENTERIA DO Nov 18, 2017 07:56
--- NOTE | 2017-11-18 08:12 | Diagnostic Imaging Report ---
INDICATION: Aspiration pneumonia, followup. TECHNIQUE: Single view chest 6:27 a.m. CORRELATION STUDY: 11/17/2017. FINDINGS: Heart size is stable. There does appear to be increasing particularly perihilar infiltrates. Mildly prominent interstitial markings throughout the remaining lung saini. IMPRESSION: 1. There does appear to be increasing and predominantly perihilar infiltrate-like densities. Followup imaging recommended. Dictated by: Dictated on workstation # [id number]
[2017-11-18 08:30] VITALS: BP 112/68
[2017-11-18] MEDS: cloZAPine 25 MG (CLOZARIL) TAB PO SCH ×2 (08:44→16:27)
[2017-11-18] MEDS: TRIHEXYPHENIDYL 2 MG (ARTANE) TAB PO SCH ×3 (08:45→16:27)
[2017-11-18] MEDS: AMIODARONE 200 MG (CORDARONE) TAB PO SCH (08:45)
[2017-11-18] MEDS: DIVALPROEX 250 MG DELAYED RELEASE (DEPAKOTE) TAB PO SCH ×3 (08:45→16:27)
[2017-11-18] MEDS: TRIAMCINOLONE 0.1% CR (KENALOG) 15 GM TUBE TP SCH ×2 (08:45→20:57)
[2017-11-18] MEDS: LORATADINE (CLARITIN) 10 MG TAB PO SCH (08:45)
[2017-11-18] MEDS: diphenhydrAMINE 25 MG TAB (BENADRYL) PO SCH ×2 (08:45→12:19)
[2017-11-18] MEDS: HYDROcodone/APAP 5 MG/325 MG (LORTAB) TAB PO SCH ×2 (08:45→12:18)
[2017-11-18] MEDS: DOCUSATE SODIUM 100 MG (COLACE) CAP PO SCH ×2 (08:45→16:26)
[2017-11-18] MEDS ORDERED: NON-FORMULARY MEDICATION 1 EA EA (Clozapine 50 MG) PO SCH (09:00)
[2017-11-18] MEDS ORDERED: NON-FORMULARY MEDICATION 1 EA EA (Cetirizine HCl 10 MG) PO SCH (09:00)
[2017-11-18] MEDS ORDERED: NON-FORMULARY MEDICATION 1 EA EA (Polyethylene Glycol 3350 (Miralax) 17 GM) PO SCH (09:00)
[2017-11-18] MEDS ORDERED: NON-FORMULARY MEDICATION 1 EA EA (Diphenhydramine HCl (Benadryl) 50 MG) PO SCH (09:00)
[2017-11-18] MEDS ORDERED: NON-FORMULARY MEDICATION 1 EA EA (Hydrocodone/Acetaminophen (Hydrocodone-Acetamin 5-325 mg PO SCH (09:00)
[2017-11-18 12:24] VITALS: BP 100/59
[2017-11-18 16:05] VITALS: BP 116/65
[2017-11-18] MEDS: ENOXAPARIN 40 MG/0.4 ML (LOVENOX) SYR SC SCH (16:31)
[2017-11-18] MEDS: cloZAPine 100 MG (CLOZARIL) TAB PO SCH (20:56)
[2017-11-18] MEDS: traZODone 100 MG (DESYREL) TAB PO SCH (20:56)
[2017-11-18] MEDS: POLYETHYLENE GLYCOL 17 GM (MIRALAX) PACK PO SCH (20:57)
[2017-11-18 22:35] VITALS: BP 143/67
[2017-11-19 00:25] VITALS: BP 119/58
[2017-11-19] MEDS: PIPERACILLIN/TAZO 3.375 GM/D5W 100 ML IV SCH ×6 (02:30→17:27)
[2017-11-19] MEDS: RT-ALBUTEROL/IPRATROPIUM 3 ML (DUONEB) VIAL INH SCH ×6 (02:35→23:06)
[2017-11-19 04:35] VITALS: BP 132/69
[2017-11-19] MEDS: LEVOTHYROXINE 125 MCG (LEVOTHROID) TABLET PO SCH (05:39)
[2017-11-19] MEDS: LEVOTHYROXINE 50 MCG (LEVOTHROID) TAB PO SCH (05:39)
--- NOTE | 2017-11-19 05:56 | Pulmonary Progress Note ---
Subjective Time Seen by Provider: 05:56 Subjective/Events-last exam No complications noted. Focused Exam Lactate Level 11/17/17 03:43: Lactic Acid Level 1.82 Exam Exam Vital Signs Date Time Temp Pulse Resp B/P (MAP) Pulse Ox O2 Delivery O2 Flow Rate FiO2 11/19/17 04:35 99.8 87 18 132/69 (90) 94 Nasal Cannula 6.00 11/19/17 02:35 93 Nasal Cannula 6.00 11/19/17 00:25 98.6 89 18 119/58 (78) 94 Nasal Cannula 6.00 11/18/17 22:35 98.5 84 18 143/67 (92) 90 Nasal Cannula 6.00 11/18/17 22:25 90 Nasal Cannula 6.00 11/18/17 21:00 Nasal Cannula 6.00 11/18/17 19:38 94 Nasal Cannula 6.00 11/18/17 16:05 97.3 69 20 116/65 (82) 96 Nasal Cannula 6.00 11/18/17 15:56 93 Nasal Cannula 6.00 11/18/17 12:24 97.8 73 22 100/59 (73) 94 Nasal Cannula 6.00 11/18/17 11:08 91 Nasal Cannula 6.00 11/18/17 08:30 98.2 77 16 112/68 (83) 97 Nasal Cannula 6.00 11/18/17 08:16 Nasal Cannula 6.00 11/18/17 07:05 94 Nasal Cannula 6.00 I & O 11/19/17 07:00 Intake Total 2180 ml Balance 2180 ml General Appearance: No Apparent Distress, WD/WN HEENT: Normal ENT Inspection Neck: Normal Inspection Respiratory: No Accessory Muscle Use, No Respiratory Distress Cardiovascular: Regular Rate, Rhythm, No Murmur Capillary Refill: Less Than 3 Seconds Gastrointestinal: non tender, soft Results Lab Laboratory Tests 11/18/17 06:40 Assessment/Plan Assessment/Plan Aspiration pneumonia with hypoxia -Oxygen -Continue Zosyn for now -Aspiration precautions -Check BNP and decrease IVF to 30ml/hr Severe dementia -monitor 232 GISELL SCHWARTZ DO Nov 19, 2017 05:56
[2017-11-19 06:17] LABS: BASOPHILS % (AUTO) 0 % (0-10); EOSINOPHILS % (AUTO) 0 % (0-10); HEMATOCRIT 38 % (35-52); HEMOGLOBIN 12.3 G/DL (11.5-16.0); LYMPHOCYTES # (AUTO) 0.7 X 10^3 (1.0-4.0); LYMPHOCYTES % (AUTO) 10 % (12-44); MEAN CORPUSCULAR HEMOGLOBIN 28 PG (25-34); MEAN CORPUSCULAR HGB CONC 32 G/DL (32-36); MEAN CORPUSCULAR VOLUME 88 FL (80-99); MEAN PLATELET VOLUME 10.6 FL (7.4-10.4); MONOCYTES # (AUTO) 0.4 X 10^3 (0.0-1.0); MONOCYTES % (AUTO) 7 % (0-12); NEUTROPHILS # (AUTO) 5.3 X 10^3 (1.8-7.8); NEUTROPHILS % (AUTO) 83 % (42-75); PLATELET COUNT 247 10^3/uL (130-400); RED BLOOD COUNT 4.33 10^6/uL (4.35-5.85); RED CELL DISTRIBUTION WIDTH 15.5 % (10.0-14.5); WHITE BLOOD COUNT 6.4 10^3/uL (4.3-11.0)
[2017-11-19 06:45] LABS: ALANINE AMINOTRANSFERASE 7 U/L (0-55); ALBUMIN 3.5 GM/DL (3.2-4.5); ALKALINE PHOSPHATASE 78 U/L (40-136); BILIRUBIN,TOTAL 0.5 MG/DL (0.1-1.0); BUN/CREATININE RATIO 12; CARBON DIOXIDE 26 MMOL/L (21-32); CHLORIDE 101 MMOL/L (98-107); CREATININE SERUM 0.66 MG/DL (0.60-1.30); GFR ESTIMATED > 60; GLUCOSE 106 MG/DL (70-105); SODIUM 136 MMOL/L (135-145); TOTAL PROTEIN 6.8 GM/DL (6.4-8.2)
--- NOTE | 2017-11-19 07:32 | Progress Note (SOAP) ---
Subjective Time Seen by Provider: 07:30 Subjective/Events-last exam Patient has congestion 1 cough. Patient states she's hallucinating. Patient on 6 L of nasal oxygen. Yesterday's chest x-ray shows perihilar densities. Patient needs to stay here this weekend Focused Exam Lactate Level 11/17/17 03:43: Lactic Acid Level 1.82 Objective Exam Vital Signs Date Time Temp Pulse Resp B/P (MAP) Pulse Ox O2 Delivery O2 Flow Rate FiO2 11/19/17 06:31 92 Nasal Cannula 6.00 11/19/17 04:35 99.8 87 18 132/69 (90) 94 Nasal Cannula 6.00 11/19/17 02:35 93 Nasal Cannula 6.00 11/19/17 00:25 98.6 89 18 119/58 (78) 94 Nasal Cannula 6.00 11/18/17 22:35 98.5 84 18 143/67 (92) 90 Nasal Cannula 6.00 11/18/17 22:25 90 Nasal Cannula 6.00 11/18/17 21:00 Nasal Cannula 6.00 11/18/17 19:38 94 Nasal Cannula 6.00 11/18/17 16:05 97.3 69 20 116/65 (82) 96 Nasal Cannula 6.00 11/18/17 15:56 93 Nasal Cannula 6.00 11/18/17 12:24 97.8 73 22 100/59 (73) 94 Nasal Cannula 6.00 11/18/17 11:08 91 Nasal Cannula 6.00 11/18/17 08:30 98.2 77 16 112/68 (83) 97 Nasal Cannula 6.00 11/18/17 08:16 Nasal Cannula 6.00 I & O 11/19/17 07:00 Intake Total 2180 ml Balance 2180 ml Capillary Refill : Less Than 3 Seconds General Appearance: No Apparent Distress, WD/WN HEENT: Normal ENT Inspection Neck: Full Range of Motion, Normal Inspection Respiratory: No Accessory Muscle Use, No Respiratory Distress, Other ( Congestion with coughing) Cardiovascular: Regular Rate, Rhythm Gastrointestinal: non tender, soft Results Lab Laboratory Tests 11/19/17 05:39 Laboratory Tests 11/19/17 05:39: White Blood Count 6.4, Red Blood Count 4.33L, Hemoglobin 12.3, Hematocrit 38, Mean Corpuscular Volume 88, Mean Corpuscular Hemoglobin 28, Mean Corpuscular Hemoglobin Concent 32, Red Cell Distribution Width 15.5H, Platelet Count 247, Mean Platelet Volume 10.6H, Neutrophils (%) (Auto) 83H, Lymphocytes (%) (Auto) 10L, Monocytes (%) (Auto) 7, Eosinophils (%) (Auto) 0, Basophils (%) (Auto) 0, Neutrophils # (Auto) 5.3, Lymphocytes # (Auto) 0.7L, Monocytes # (Auto) 0.4, Eosinophils # (Auto) 0.0, Basophils # (Auto) 0.0, Sodium Level 136, Potassium Level 4.0, Chloride Level 101, Carbon Dioxide Level 26, Anion Gap 9, Blood Urea Nitrogen 8, Creatinine 0.66, Estimat Glomerular Filtration Rate > 60, BUN/ Creatinine Ratio 12, Glucose Level 106H, Calcium Level 9.0, Total Bilirubin 0.5 , Aspartate Amino Transf (AST/SGOT) 16, Alanine Aminotransferase (ALT/SGPT) 7, Alkaline Phosphatase 78, B-Type Natriuretic Peptide 27.6, Total Protein 6.8, Albumin 3.5 Microbiology 11/17/17 Blood Culture - Preliminary, Resulted No growth Assessment/Plan Assessment/Plan Assess & Plan/Chief Complaint Duration pneumonia with hypoxia. Dementia. Mental retardation. Schizoaffective disorder.. . 11/19/17. Aspiration pneumonia. Hypoxia. Respiratory distress. Schizoaffective disorder. Dementia. Mental retardation. Chest x-ray yesterday looked worse. Clinical Quality Measures Admission Status Admission Dx Aspiration pneumonia. Schizoaffective disorder. Dementia. EPS. Patient unable to give any history. Patient awake DVT/VTE Risk/Contraindication: Risk Factor Score Per Nursin RFS Level Per Nursing on Admit: 4+=Very High ALBANIA RENTERIA DO Nov 19, 2017 07:32
--- NOTE | 2017-11-19 08:07 | Diagnostic Imaging Report ---
INDICATION: Hypoxia, vomiting and aspiration pneumonia. Comparison made with prior examination 11/18/2017. FINDINGS: The heart size is normal. There maybe some minimal venous congestion. There are patchy bibasilar infiltrates, left greater than right. There is no pleural effusion or pneumothorax. Mediastinum is unremarkable. IMPRESSION: Patchy bibasilar infiltrates, left greater than right. Mild central pulmonary venous congestion. Dictated by: Dictated on workstation # [id number]
[2017-11-19 08:30] VITALS: BP 107/85
[2017-11-19] MEDS: DIVALPROEX 250 MG DELAYED RELEASE (DEPAKOTE) TAB PO SCH ×3 (08:40→17:27)
[2017-11-19] MEDS: DOCUSATE SODIUM 100 MG (COLACE) CAP PO SCH ×2 (08:40→17:27)
[2017-11-19] MEDS: TRIHEXYPHENIDYL 2 MG (ARTANE) TAB PO SCH ×3 (08:40→17:27)
[2017-11-19] MEDS: cloZAPine 25 MG (CLOZARIL) TAB PO SCH ×2 (08:41→17:27)
[2017-11-19] MEDS: TRIAMCINOLONE 0.1% CR (KENALOG) 15 GM TUBE TP SCH ×2 (08:41→20:06)
[2017-11-19] MEDS: AMIODARONE 200 MG (CORDARONE) TAB PO SCH (08:41)
[2017-11-19] MEDS: LORATADINE (CLARITIN) 10 MG TAB PO SCH (08:41)
--- NOTE | 2017-11-19 10:09 | Speech Therapy Daily Note ---
Speech Daily Progress Note Subjective Date Seen by Provider: Nov 19, 2017 Time Seen by Provider: 08:05 The patient was laying in bed, moaning loudly prior to entrance. The clinician repositioned the patient upright in bed. Prior to repositioning, the patient was demonstrating rigorous coughing on her own secretions, once repositioned, the coughing ceased. The patient was agreeable to a re-evaluation of her swallowing function. Objective The patient had her breakfast tray present, therefore, items were used to evaluate her swallowing. No signs/symptoms of aspiration were demonstrated with five ounces of applesauce of four ounces of nectar-thick Ensure. The patient's vocal quality remained clear and her respiratory effort remain stable. The patient's RN was present, therefore, the clinician confirmed the patient's current diet consistency (Puree with [place]-Thick Liquids) remains appropriate at this time. The clinician visualized possible thrush on the patient's lingual blade. This information was shared with the RN for monitoring. Assessment Assessment Current Status: Fair Progress Treatment Plan Continue Plan of Care Speech [facility] Goals Direct Marketing Intern Goals 1. The patient will tolerate the least restrictive diet without signs/symptoms of aspiration or laryngeal penetration. Time Frame: Three Days Speech-Plan Treatment Plan Speech Therapy Treatment Plan: Continue Plan of Care Continue skilled speech pathology to target swallowing safety. Treatment Duration: Nov 24, 2017 Frequency: 3 times per week Estimated Hrs Per Day: .25 hour per day Rehab Potential: Guarded Safety Risks/Education Teaching Recipient: Patient Teaching Methods: Discussion Response to Teaching: Unable to Comprehend Education Topics Provided: Swallowing Strategies, Recommendations Time Speech Therapy Time In: 08:05 Speech Therapy Time Out: 08:47 Total Billed Time: 12 Billed Treatment Time MARSHALL Pemberton ABRAHAM LAZCANO Nov 19, 2017 10:09
[2017-11-19] MEDS: 1/2 NS W/KCL 20 MEQ/L 1,000 ML IV SCH (11:58)
[2017-11-19 12:30] VITALS: BP 98/63
[2017-11-19 15:35] VITALS: BP 138/58
[2017-11-19] MEDS: ENOXAPARIN 40 MG/0.4 ML (LOVENOX) SYR SC SCH (17:27)
[2017-11-19 19:40] VITALS: BP 133/85
[2017-11-19] MEDS: cloZAPine 100 MG (CLOZARIL) TAB PO SCH (20:06)
[2017-11-19] MEDS: traZODone 100 MG (DESYREL) TAB PO SCH (20:06)
[2017-11-19] MEDS: POLYETHYLENE GLYCOL 17 GM (MIRALAX) PACK PO SCH (20:06)
[2017-11-20 00:24] VITALS: BP 110/58
[2017-11-20] MEDS: PIPERACILLIN/TAZO 3.375 GM/D5W 100 ML IV SCH ×8 (00:32→16:33)
[2017-11-20] MEDS: RT-ALBUTEROL/IPRATROPIUM 3 ML (DUONEB) VIAL INH SCH ×5 (01:38→19:35)
[2017-11-20 04:25] VITALS: BP 139/63
[2017-11-20 04:26] LABS: BASOPHILS % (AUTO) 0 % (0-10); EOSINOPHILS % (AUTO) 0 % (0-10); HEMATOCRIT 34 % (35-52); LYMPHOCYTES # (AUTO) 1.3 X 10^3 (1.0-4.0); LYMPHOCYTES % (AUTO) 20 % (12-44); MEAN CORPUSCULAR HEMOGLOBIN 29 PG (25-34); MEAN CORPUSCULAR HGB CONC 32 G/DL (32-36); MEAN CORPUSCULAR VOLUME 89 FL (80-99); MEAN PLATELET VOLUME 10.2 FL (7.4-10.4); MONOCYTES # (AUTO) 0.6 X 10^3 (0.0-1.0); MONOCYTES % (AUTO) 9 % (0-12); NEUTROPHILS # (AUTO) 4.6 X 10^3 (1.8-7.8); NEUTROPHILS % (AUTO) 71 % (42-75); PLATELET COUNT 242 10^3/uL (130-400); RED BLOOD COUNT 3.85 10^6/uL (4.35-5.85); RED CELL DISTRIBUTION WIDTH 15.3 % (10.0-14.5); WHITE BLOOD COUNT 6.5 10^3/uL (4.3-11.0)
[2017-11-20 04:48] LABS: BUN/CREATININE RATIO 17; CALCIUM 8.5 MG/DL (8.5-10.1); CARBON DIOXIDE 24 MMOL/L (21-32); CHLORIDE 106 MMOL/L (98-107); CREATININE SERUM 0.69 MG/DL (0.60-1.30); GFR ESTIMATED > 60; GLUCOSE 94 MG/DL (70-105); POTASSIUM 4.1 MMOL/L (3.6-5.0); SODIUM 140 MMOL/L (135-145)
[2017-11-20] MEDS: LEVOTHYROXINE 50 MCG (LEVOTHROID) TAB PO SCH (05:31)
[2017-11-20] MEDS: LEVOTHYROXINE 125 MCG (LEVOTHROID) TABLET PO SCH (05:32)
--- NOTE | 2017-11-20 08:00 | Diagnostic Imaging Report ---
Indication: Dyspnea, aspiration pneumonia. Discussion: Single portable upright view of the chest was obtained, comparison 11/19/2017. Improved aeration of the lung bases with no significant residual consolidation identified. No pleural fluid or pneumothorax. Normal heart size. No osseous abnormality. Impression: 1. Improved aeration of the lung bases. Dictated by: Dictated on workstation # [id number]
[2017-11-20] MEDS: AMIODARONE 200 MG (CORDARONE) TAB PO SCH (08:06)
[2017-11-20] MEDS: TRIHEXYPHENIDYL 2 MG (ARTANE) TAB PO SCH ×3 (08:06→16:32)
[2017-11-20] MEDS: LORATADINE (CLARITIN) 10 MG TAB PO SCH (08:07)
[2017-11-20] MEDS: DOCUSATE SODIUM 100 MG (COLACE) CAP PO SCH ×2 (08:07→16:29)
[2017-11-20] MEDS: cloZAPine 25 MG (CLOZARIL) TAB PO SCH ×2 (08:07→16:32)
[2017-11-20] MEDS: TRIAMCINOLONE 0.1% CR (KENALOG) 15 GM TUBE TP SCH ×2 (08:10→22:04)
[2017-11-20] MEDS: DIVALPROEX 250 MG DELAYED RELEASE (DEPAKOTE) TAB PO SCH ×3 (08:10→16:33)
[2017-11-20 08:30] VITALS: BP 110/69
--- NOTE | 2017-11-20 11:33 | Progress Note-Hospitalist ---
Subjective HPI/CC On Admission Date Seen by Provider: Nov 20, 2017 Time Seen by Provider: 10:15 staff report that patient was a little more alert and was actually able to feed herself. She was having her hair washed upon my arrival. She appeared be back to baseline state of significant dementiashe did not appear to be in acute distress but was unable to answer questions appropriately compatible with her known advanced dementia Objective Exam Vital Signs Vital Signs Date Time Temp Pulse Resp B/P (MAP) Pulse Ox O2 Delivery O2 Flow Rate FiO2 11/20/17 09:55 94 Nasal Cannula 6.00 11/20/17 08:30 97.3 67 18 110/69 (83) 11/20/17 06:43 40 Capillary Refill : Less Than 3 Seconds General Appearance: No Apparent Distress, Chronically ill Respiratory: No Accessory Muscle Use, No Respiratory Distress, Other (oarse rhonchi throughout no wheezing noted) Cardiovascular: No Murmur, Irregularly Irregular Gastrointestinal: Normal Bowel Sounds, No Organomegaly, No Pulsatile Mass, Non Tender, Soft Extremity: No Pedal Edema Results/Procedures Lab Laboratory Tests 11/20/17 04:04 Patient resulted labs reviewed. Assessment/Plan Assessment and Plan Assess & Plan/Chief Complaint 1. Pneumonia likely aspiration in etiologycontinue broad-spectrum antibiotics.Condition improved today. 2. Advanced dementia presumably Alzheimer's Critical Care Critical Care: Critically Ill Patient Clinical Quality Measures DVT/VTE Risk/Contraindication: Risk Factor Score Per Nursin RFS Level Per Nursing on Admit: 4+=Very High DANIELA EDMOND MD Nov 20, 2017 11:33
[2017-11-20 12:30] VITALS: BP 131/75
[2017-11-20 16:00] VITALS: BP 115/78
[2017-11-20] MEDS: ENOXAPARIN 40 MG/0.4 ML (LOVENOX) SYR SC SCH (16:33)
[2017-11-20] MEDS: cloZAPine 100 MG (CLOZARIL) TAB PO SCH (21:59)
[2017-11-20] MEDS: traZODone 100 MG (DESYREL) TAB PO SCH (22:02)
[2017-11-20] MEDS: POLYETHYLENE GLYCOL 17 GM (MIRALAX) PACK PO SCH (22:04)
[2017-11-20] MEDS: 1/2 NS W/KCL 20 MEQ/L 1,000 ML IV SCH (23:20)
[2017-11-21] MEDS: PIPERACILLIN/TAZO 3.375 GM/D5W 100 ML IV SCH ×8 (00:09→23:59)
[2017-11-21 00:44] VITALS: BP 104/67
[2017-11-21] MEDS: RT-ALBUTEROL/IPRATROPIUM 3 ML (DUONEB) VIAL INH SCH ×4 (01:52→20:06)
[2017-11-21] MEDS: LEVOTHYROXINE 125 MCG (LEVOTHROID) TABLET PO SCH (05:20)
[2017-11-21] MEDS: LEVOTHYROXINE 50 MCG (LEVOTHROID) TAB PO SCH (05:20)
[2017-11-21 06:48] LABS: HEMOGLOBIN 11.3 G/DL (11.5-16.0); MEAN PLATELET VOLUME 9.9 FL (7.4-10.4); RED BLOOD COUNT 4.07 10^6/uL (4.35-5.85); RED CELL DISTRIBUTION WIDTH 15.3 % (10.0-14.5); WHITE BLOOD COUNT 5.3 10^3/uL (4.3-11.0)
[2017-11-21 07:07] LABS: BUN/CREATININE RATIO 17; CARBON DIOXIDE 29 MMOL/L (21-32); CHLORIDE 106 MMOL/L (98-107); CREATININE SERUM 0.64 MG/DL (0.60-1.30); GFR ESTIMATED > 60; GLUCOSE 88 MG/DL (70-105); POTASSIUM 4.1 MMOL/L (3.6-5.0); SODIUM 143 MMOL/L (135-145)
[2017-11-21 08:30] VITALS: BP 131/63
--- NOTE | 2017-11-21 10:03 | Diagnostic Imaging Report ---
Indication: Dyspnea, followup pneumonia. Discussion: Single portable upright view of the chest was obtained, comparison 11/20/2017. New consolidation within the lingula and right upper lobe, consistent with worsening pneumonia. Normal heart size. No pleural fluid or pneumothorax. Impression: 1. New consolidation within the lingula and to lesser degree the right upper lobe, consistent with pneumonia. Dictated by: Dictated on workstation # [id number]
[2017-11-21] MEDS: LORATADINE (CLARITIN) 10 MG TAB PO SCH (10:08)
[2017-11-21] MEDS: AMIODARONE 200 MG (CORDARONE) TAB PO SCH (10:08)
[2017-11-21] MEDS: DIVALPROEX 250 MG DELAYED RELEASE (DEPAKOTE) TAB PO SCH ×3 (10:08→17:35)
[2017-11-21] MEDS: TRIHEXYPHENIDYL 2 MG (ARTANE) TAB PO SCH ×3 (10:08→17:34)
[2017-11-21] MEDS: DOCUSATE SODIUM 100 MG (COLACE) CAP PO SCH ×2 (10:08→17:35)
[2017-11-21] MEDS: TRIAMCINOLONE 0.1% CR (KENALOG) 15 GM TUBE TP SCH ×2 (10:08→20:53)
[2017-11-21] MEDS: cloZAPine 25 MG (CLOZARIL) TAB PO SCH ×2 (10:08→17:35)
--- NOTE | 2017-11-21 11:43 | Progress Note-Hospitalist ---
Subjective HPI/CC On Admission Date Seen by Provider: Nov 21, 2017 Time Seen by Provider: 11:40 staff report that patient was a little more alert and was actually able to feed herself. She was having her hair washed upon my arrival. She appeared be back to baseline state of significant dementiashe did not appear to be in acute distress but was unable to answer questions appropriately compatible with her known advanced dementia Subjective/Events-last exam Patient sitting up in bed more alert but pleasantly confused she stated that she been chasing rabbits. She voices no complaints is pleasant and does not appear to be in acute distress. Staff report no problems. Objective Exam Vital Signs Vital Signs Date Time Temp Pulse Resp B/P (MAP) Pulse Ox O2 Delivery O2 Flow Rate FiO2 11/21/17 08:30 96.8 68 16 131/63 (85) 95 Nasal Cannula 5.00 11/20/17 06:43 40 Capillary Refill : Less Than 3 Seconds General Appearance: No Apparent Distress Respiratory: No Accessory Muscle Use, No Respiratory Distress, Other (Chest clear anteriorly a few scattered rhonchi posteriorly with no wheezing) Cardiovascular: Regular Rate, Rhythm, No Edema, No Gallop, No JVD, No Murmur, Normal Peripheral Pulses Gastrointestinal: Normal Bowel Sounds, No Organomegaly, No Pulsatile Mass, Non Tender, Soft Results/Procedures Lab Laboratory Tests 11/21/17 06:20 Patient resulted labs reviewed. Assessment/Plan Assessment and Plan Assess & Plan/Chief Complaint 1. Pneumonia likely aspiration in etiology continue broad-spectrum antibiotics.Condition improved today. 2. Advanced dementia presumably Alzheimer's Critical Care Critical Care: Critically Ill Patient Clinical Quality Measures DVT/VTE Risk/Contraindication: Risk Factor Score Per Nursin RFS Level Per Nursing on Admit: 4+=Very High DANIELA EDMOND MD Nov 21, 2017 11:43
[2017-11-21 16:00] VITALS: BP 114/60
[2017-11-21] MEDS: ENOXAPARIN 40 MG/0.4 ML (LOVENOX) SYR SC SCH (17:35)
[2017-11-21] MEDS: cloZAPine 100 MG (CLOZARIL) TAB PO SCH (20:52)
[2017-11-21] MEDS: POLYETHYLENE GLYCOL 17 GM (MIRALAX) PACK PO SCH (20:52)
[2017-11-21] MEDS: traZODone 100 MG (DESYREL) TAB PO SCH (20:52)
[2017-11-22 00:44] VITALS: BP 121/73
[2017-11-22 01:22] VITALS: BP 121/73
[2017-11-22] MEDS: RT-ALBUTEROL/IPRATROPIUM 3 ML (DUONEB) VIAL INH SCH ×4 (02:23→20:11)
[2017-11-22] MEDS: LEVOTHYROXINE 50 MCG (LEVOTHROID) TAB PO SCH (05:50)
[2017-11-22] MEDS: LEVOTHYROXINE 125 MCG (LEVOTHROID) TABLET PO SCH (05:50)
[2017-11-22] MEDS: 1/2 NS W/KCL 20 MEQ/L 1,000 ML IV SCH ×2 (05:50→23:56)
[2017-11-22 06:31] LABS: HEMOGLOBIN 12.5 G/DL (11.5-16.0); RED BLOOD COUNT 4.36 10^6/uL (4.35-5.85); WHITE BLOOD COUNT 8.4 10^3/uL (4.3-11.0)
[2017-11-22 06:51] LABS: BUN/CREATININE RATIO 21; CALCIUM 9.3 MG/DL (8.5-10.1); CARBON DIOXIDE 24 MMOL/L (21-32); CHLORIDE 105 MMOL/L (98-107); CREATININE SERUM 0.72 MG/DL (0.60-1.30); GFR ESTIMATED > 60; GLUCOSE 94 MG/DL (70-105); POTASSIUM 4.5 MMOL/L (3.6-5.0); SODIUM 139 MMOL/L (135-145)
--- NOTE | 2017-11-22 07:01 | Pulmonary Progress Note ---
Subjective Time Seen by Provider: 07:19 Subjective/Events-last exam No complications noted. Exam Exam Vital Signs Date Time Temp Pulse Resp B/P (MAP) Pulse Ox O2 Delivery O2 Flow Rate FiO2 11/22/17 02:24 96 Nasal Cannula 5.00 11/22/17 01:22 97.7 71 20 121/73 (89) 95 Nasal Cannula 5.00 11/22/17 00:44 97.7 71 20 121/73 (89) 95 Nasal Cannula 5.00 11/21/17 21:00 Nasal Cannula 5.00 11/21/17 20:13 90 Nasal Cannula 5.00 11/21/17 16:00 97.5 74 18 114/60 (78) 91 Nasal Cannula 5.00 11/21/17 14:25 92 Nasal Cannula 5.00 11/21/17 08:30 96.8 68 16 131/63 (85) 95 Nasal Cannula 5.00 I & O 11/22/17 07:00 Intake Total 1868 ml Balance 1868 ml General Appearance: No Apparent Distress HEENT: Normal ENT Inspection Neck: Full Range of Motion, Normal Inspection Respiratory: No Accessory Muscle Use, No Respiratory Distress, Other (Chest clear anteriorly a few scattered rhonchi posteriorly with no wheezing) Cardiovascular: Regular Rate, Rhythm, No Edema, No Gallop, No JVD, No Murmur, Normal Peripheral Pulses Capillary Refill: Less Than 3 Seconds Gastrointestinal: non tender, soft Extremity: No Pedal Edema Results Lab Laboratory Tests 11/21/17 06:20 11/22/17 06:06 Assessment/Plan Assessment/Plan Aspiration pneumonia with hypoxia -Oxygen - Zosyn -Aspiration precautions Severe dementia -monitor 232 Critical Care: Critically Ill Patient GISELL SCHWARTZ DO Nov 22, 2017 07:01
--- NOTE | 2017-11-22 07:36 | Progress Note (SOAP) ---
Subjective Time Seen by Provider: 07:35 Subjective/Events-last exam Patient clinically doing better. Patient knows who I am today. Patient states she's hearing voices. Patient 40 of liters of nasal oxygen. Chest x-ray looks worse yesterday. Patient has pneumonia. Dementia. Schizoaffective disorder. Plan to discharge tomorrow if continues to clinically improve Objective Exam Vital Signs Date Time Temp Pulse Resp B/P (MAP) Pulse Ox O2 Delivery O2 Flow Rate FiO2 11/22/17 02:24 96 Nasal Cannula 5.00 11/22/17 01:22 97.7 71 20 121/73 (89) 95 Nasal Cannula 5.00 11/22/17 00:44 97.7 71 20 121/73 (89) 95 Nasal Cannula 5.00 11/21/17 21:00 Nasal Cannula 5.00 11/21/17 20:13 90 Nasal Cannula 5.00 11/21/17 16:00 97.5 74 18 114/60 (78) 91 Nasal Cannula 5.00 11/21/17 14:25 92 Nasal Cannula 5.00 11/21/17 08:30 96.8 68 16 131/63 (85) 95 Nasal Cannula 5.00 I & O 11/22/17 07:00 Intake Total 1868 ml Balance 1868 ml Capillary Refill : Less Than 3 Seconds General Appearance: No Apparent Distress, WD/WN HEENT: Normal ENT Inspection Neck: Normal Inspection Respiratory: Chest Non Tender, No Accessory Muscle Use, No Respiratory Distress Cardiovascular: Regular Rate, Rhythm, No Murmur Gastrointestinal: non tender, soft Results Lab Laboratory Tests 11/22/17 06:06 Laboratory Tests 11/22/17 06:06: White Blood Count 8.4, Red Blood Count 4.36, Hemoglobin 12.5, Hematocrit 39, Mean Corpuscular Volume 89, Mean Corpuscular Hemoglobin 29, Mean Corpuscular Hemoglobin Concent 32, Red Cell Distribution Width 15.0H, Platelet Count 292, Mean Platelet Volume 10.0, Sodium Level 139, Potassium Level 4.5, Chloride Level 105, Carbon Dioxide Level 24, Anion Gap 10, Blood Urea Nitrogen 15, Creatinine 0.72, Estimat Glomerular Filtration Rate > 60, BUN/Creatinine Ratio 21, Glucose Level 94, Calcium Level 9.3 Microbiology 11/17/17 Blood Culture - Preliminary, Resulted No growth Assessment/Plan Assessment/Plan Assess & Plan/Chief Complaint Duration pneumonia with hypoxia. Dementia. Mental retardation. Schizoaffective disorder.. . 11/19/17. Aspiration pneumonia. Hypoxia. Respiratory distress. Schizoaffective disorder. Dementia. Mental retardation. Chest x-ray yesterday looked worse.. . 11/22/17. Aspiration pneumonia. Hypoxia. Respiratory distress. Schizoaffective disorder. Dementia. Mental retardation. Chest x-ray worse yesterday. Patient clinically better Clinical Quality Measures Admission Status Admission Dx Aspiration pneumonia. Schizoaffective disorder. Dementia. EPS. Patient unable to give any history. Patient awake DVT/VTE Risk/Contraindication: Risk Factor Score Per Nursin RFS Level Per Nursing on Admit: 4+=Very High ALBANIA RENTERIA DO Nov 22, 2017 07:36
[2017-11-22 08:08] VITALS: BP 118/76
[2017-11-22] MEDS: cloZAPine 25 MG (CLOZARIL) TAB PO SCH ×2 (08:38→17:11)
[2017-11-22] MEDS: AMIODARONE 200 MG (CORDARONE) TAB PO SCH (08:38)
[2017-11-22] MEDS: TRIHEXYPHENIDYL 2 MG (ARTANE) TAB PO SCH ×3 (08:38→17:13)
[2017-11-22] MEDS: LORATADINE (CLARITIN) 10 MG TAB PO SCH (08:38)
[2017-11-22] MEDS: PIPERACILLIN/TAZO 3.375 GM/D5W 100 ML IV SCH ×4 (08:38→17:10)
[2017-11-22] MEDS: DOCUSATE SODIUM 100 MG (COLACE) CAP PO SCH ×2 (08:38→17:10)
[2017-11-22] MEDS: TRIAMCINOLONE 0.1% CR (KENALOG) 15 GM TUBE TP SCH ×2 (08:51→20:25)
[2017-11-22] MEDS: DIVALPROX SPRINKLE 125 MG (DEPAKOTE) CAP PO SCH ×3 (08:55→17:11)
--- NOTE | 2017-11-22 10:31 | Speech Therapy Daily Note ---
Speech Daily Progress Note Subjective Date Seen by Provider: Nov 22, 2017 Time Seen by Provider: 09:00 The patient was laying in bed, sleeping upon entrance. The patient was easily roused with verbal prompts. The patient's breakfast tray was present. Objective The patient had her breakfast tray present, therefore, items were used to evaluate her swallowing. No signs/symptoms of aspiration were demonstrated with pureed pancakes, peaches, or eggs. Additionally, the patient consumed nectar- thickened orange juice without any signs/symptoms of aspiration or laryngeal penetration. The patient's vocal quality remained clear and her respiratory effort remain stable. The patient self-fed on this date. The patient remains appropriate for her current diet consistency (pureed with nectar-thick liquid). Assessment Assessment Current Status: Fair Progress Treatment Plan Continue Plan of Care Speech Correction Goals Unit Trust Manager Goals 1. The patient will tolerate the least restrictive diet without signs/symptoms of aspiration or laryngeal penetration. Time Frame: Three Days Speech-Plan Treatment Plan Speech Therapy Treatment Plan: Continue Plan of Care Continue skilled speech pathology to target swallowing safety. Treatment Duration: Nov 24, 2017 Frequency: 3 times per week Estimated Hrs Per Day: .25 hour per day Rehab Potential: Guarded Safety Risks/Education Teaching Recipient: Patient Teaching Methods: Discussion Response to Teaching: Unable to Comprehend Education Topics Provided: Swallowing Strategies, Recommendations Time Speech Therapy Time In: 09:00 Speech Therapy Time Out: 09:15 Total Billed Time: 15 Billed Treatment Time MARSHALL Pemberton ABRAHAM LAZCANO Nov 22, 2017 10:31
--- NOTE | 2017-11-22 12:13 | Diagnostic Imaging Report ---
INDICATION: Respiratory distress. Caparison is made with prior examination from 11/21/2017. FINDINGS: The heart size is normal. There is moderate central pulmonary venous congestion. There is no pleural effusion or pneumothorax. Mediastinum is unremarkable. IMPRESSION: Moderate central pulmonary venous congestion. Superimposed right perihilar pneumonia cannot be excluded. Recommend clinical correlation. Dictated by: Dictated on workstation # [id number]
[2017-11-22 16:00] VITALS: BP 146/75
[2017-11-22] MEDS: ENOXAPARIN 40 MG/0.4 ML (LOVENOX) SYR SC SCH (17:10)
[2017-11-22] MEDS: cloZAPine 100 MG (CLOZARIL) TAB PO SCH (20:25)
[2017-11-22] MEDS: POLYETHYLENE GLYCOL 17 GM (MIRALAX) PACK PO SCH (20:25)
[2017-11-22] MEDS: traZODone 100 MG (DESYREL) TAB PO SCH (20:25)
[2017-11-23 00:15] VITALS: BP 114/57
[2017-11-23] MEDS: PIPERACILLIN/TAZO 3.375 GM/D5W 100 ML IV SCH ×2 (00:56)
[2017-11-23] MEDS: RT-ALBUTEROL/IPRATROPIUM 3 ML (DUONEB) VIAL INH SCH ×3 (04:16→16:00)
[2017-11-23] MEDS: LEVOTHYROXINE 50 MCG (LEVOTHROID) TAB PO SCH (06:02)
[2017-11-23] MEDS: LEVOTHYROXINE 125 MCG (LEVOTHROID) TABLET PO SCH (06:02)
[2017-11-23 07:20] LABS: BASOPHILS % (AUTO) 0 % (0-10); EOSINOPHILS % (AUTO) 0 % (0-10); HEMATOCRIT 37 % (35-52); HEMOGLOBIN 11.7 G/DL (11.5-16.0); LYMPHOCYTES # (AUTO) 1.4 X 10^3 (1.0-4.0); LYMPHOCYTES % (AUTO) 18 % (12-44); MEAN CORPUSCULAR HEMOGLOBIN 28 PG (25-34); MEAN CORPUSCULAR HGB CONC 32 G/DL (32-36); MEAN CORPUSCULAR VOLUME 88 FL (80-99); MONOCYTES # (AUTO) 0.6 X 10^3 (0.0-1.0); MONOCYTES % (AUTO) 8 % (0-12); NEUTROPHILS # (AUTO) 5.9 X 10^3 (1.8-7.8); NEUTROPHILS % (AUTO) 74 % (42-75); PLATELET COUNT 310 10^3/uL (130-400); RED BLOOD COUNT 4.15 10^6/uL (4.35-5.85); WHITE BLOOD COUNT 7.9 10^3/uL (4.3-11.0)
--- NOTE | 2017-11-23 07:25 | Pulmonary Progress Note ---
Subjective Time Seen by Provider: 07:25 Subjective/Events-last exam Pt appears to be doing better. Exam Exam Vital Signs Date Time Temp Pulse Resp B/P (MAP) Pulse Ox O2 Delivery O2 Flow Rate FiO2 11/23/17 00:15 97.9 67 18 114/57 (76) 98 Nasal Cannula 4.00 11/22/17 20:25 Nasal Cannula 4.00 11/22/17 20:11 90 Nasal Cannula 5.00 11/22/17 16:00 98.0 78 18 146/75 (98) 94 Nasal Cannula 4.00 11/22/17 10:11 87 Nasal Cannula 3.00 11/22/17 09:59 Nasal Cannula 4.00 11/22/17 08:08 96.9 71 22 118/76 (90) 92 Nasal Cannula 4.00 I & O 11/23/17 07:00 Intake Total 1470 ml Balance 1470 ml General Appearance: No Apparent Distress, WD/WN HEENT: Normal ENT Inspection Neck: Normal Inspection Respiratory: Decreased Breath Sounds Cardiovascular: Regular Rate, Rhythm, No Murmur Capillary Refill: Less Than 3 Seconds Gastrointestinal: non tender, soft Extremity: No Pedal Edema Neurologic/Psychiatric: Other (unresponsive at baseline) Skin: Normal Color, Warm/Dry Lymphatic: No Adenopathy Results Lab Laboratory Tests 11/22/17 06:06 Assessment/Plan Assessment/Plan Aspiration pneumonia with hypoxia -Oxygen - D/C Zosyn and daily CXR -Aspiration precautions Severe dementia -monitor PT is ok for discharge from pulmonary standpoint. 232 GISELL SCHWARTZ DO Nov 23, 2017 07:25
[2017-11-23 07:40] LABS: BUN/CREATININE RATIO 20; CARBON DIOXIDE 24 MMOL/L (21-32); CHLORIDE 104 MMOL/L (98-107); GFR ESTIMATED > 60; GLUCOSE 86 MG/DL (70-105); POTASSIUM 4.4 MMOL/L (3.6-5.0); SODIUM 139 MMOL/L (135-145)
--- NOTE | 2017-11-23 07:42 | Progress Note (SOAP) ---
Subjective Time Seen by Provider: 07:40 Subjective/Events-last exam Patient clinically doing better today. Patient breathing good. Blood tests and chest x-ray not on chart yet. Plan to discharge today. Nurse to call at 11 a.m. Objective Exam Vital Signs Date Time Temp Pulse Resp B/P (MAP) Pulse Ox O2 Delivery O2 Flow Rate FiO2 11/23/17 00:15 97.9 67 18 114/57 (76) 98 Nasal Cannula 4.00 11/22/17 20:25 Nasal Cannula 4.00 11/22/17 20:11 90 Nasal Cannula 5.00 11/22/17 16:00 98.0 78 18 146/75 (98) 94 Nasal Cannula 4.00 11/22/17 10:11 87 Nasal Cannula 3.00 11/22/17 09:59 Nasal Cannula 4.00 11/22/17 08:08 96.9 71 22 118/76 (90) 92 Nasal Cannula 4.00 I & O 11/23/17 07:00 Intake Total 1470 ml Balance 1470 ml Capillary Refill : Less Than 3 Seconds General Appearance: No Apparent Distress, WD/WN HEENT: Normal ENT Inspection Neck: Normal Inspection Respiratory: Lungs Clear, No Accessory Muscle Use, No Respiratory Distress Cardiovascular: Regular Rate, Rhythm, No Murmur Gastrointestinal: non tender, soft Results Lab Laboratory Tests 11/23/17 06:10: White Blood Count 7.9, Red Blood Count 4.15L, Hemoglobin 11.7, Hematocrit 37, Mean Corpuscular Volume 88, Mean Corpuscular Hemoglobin 28, Mean Corpuscular Hemoglobin Concent 32, Red Cell Distribution Width 15.0H, Platelet Count 310, Mean Platelet Volume 10.0, Neutrophils (%) (Auto) 74, Lymphocytes (%) (Auto) 18 , Monocytes (%) (Auto) 8, Eosinophils (%) (Auto) 0, Basophils (%) (Auto) 0, Neutrophils # (Auto) 5.9, Lymphocytes # (Auto) 1.4, Monocytes # (Auto) 0.6, Eosinophils # (Auto) 0.0, Basophils # (Auto) 0.0 Microbiology 11/17/17 Blood Culture - Final, Complete No growth Assessment/Plan Assessment/Plan Assess & Plan/Chief Complaint Duration pneumonia with hypoxia. Dementia. Mental retardation. Schizoaffective disorder.. . 11/19/17. Aspiration pneumonia. Hypoxia. Respiratory distress. Schizoaffective disorder. Dementia. Mental retardation. Chest x-ray yesterday looked worse.. . 11/22/17. Aspiration pneumonia. Hypoxia. Respiratory distress. Schizoaffective disorder. Dementia. Mental retardation. Chest x-ray worse yesterday. Patient clinically better. . 11/23/17. Aspiration pneumonia. Hypoxia. Schizoaffective disorder. Dementia. Patient states she's hearing voices. Plan to discharge today Clinical Quality Measures Admission Status Admission Dx Aspiration pneumonia. Schizoaffective disorder. Dementia. EPS. Patient unable to give any history. Patient awake DVT/VTE Risk/Contraindication: Risk Factor Score Per Nursin RFS Level Per Nursing on Admit: 4+=Very High ALBANIA RENTERIA DO Nov 23, 2017 07:42
--- NOTE | 2017-11-23 08:12 | Diagnostic Imaging Report ---
INDICATION: Aspiration, pneumonia. COMPARISON: 11/22/2017. FINDINGS: Single view of the chest demonstrates persistent but significantly decreased hilar infiltrate. There is no pneumothorax. The heart is normal. Osseous structures are age-appropriate. IMPRESSION: Persistent but significant decreased hilar infiltrate. Dictated by: Dictated on workstation # [id number]
[2017-11-23] MEDS: DIVALPROX SPRINKLE 125 MG (DEPAKOTE) CAP PO SCH ×3 (08:26→16:29)
[2017-11-23] MEDS: AMIODARONE 200 MG (CORDARONE) TAB PO SCH (08:26)
[2017-11-23] MEDS: TRIHEXYPHENIDYL 2 MG (ARTANE) TAB PO SCH ×3 (08:26→16:29)
[2017-11-23] MEDS: cloZAPine 25 MG (CLOZARIL) TAB PO SCH ×2 (08:26→16:29)
[2017-11-23] MEDS: DOCUSATE SODIUM 100 MG (COLACE) CAP PO SCH ×2 (08:26→16:29)
[2017-11-23] MEDS: LORATADINE (CLARITIN) 10 MG TAB PO SCH (08:26)
[2017-11-23] MEDS: TRIAMCINOLONE 0.1% CR (KENALOG) 15 GM TUBE TP SCH (08:28)
[2017-11-23 10:16] VITALS: BP 125/88
[2017-11-23 16:40] VITALS: BP 125/88
--- NOTE | 2017-11-24 07:34 | Discharge Summary ---
Diagnosis/Chief Complaint Date of Admission Nov 17, 2017 at 05:10 Date of Discharge Nov 23, 2017 at 16:49 Discharge Date: Nov 23, 2017 Discharge Time: 07:30 Discharge Diagnosis Aspiration pneumonia. Hypoxia. Leukocytosis. Dementia. Mental retardation. Schizoaffective disorder. Acute respiratory failure. DO NOT RESUSCITATE. Anxiety disorder. EPS disorder Nausea and vomiting Reason Hospital Visit Patient resident of care home. I received a call from the care home after patient vomited and pulse ox went down and probably aspirated. Patient sent out to the emergency room. Patient admitted for aspiration pneumonia. Patient has a history of MR, schizoaffective disorder, dementia, and EPS Discharge Summary Consultations Pulmonology Discharge Physical Examination Allergies: Coded Allergies: belladonna alkaloids (Verified Allergy, Mild, 10/11/14) meperidine (Verified Allergy, Mild, 10/11/14) Uncoded Allergies: pectin (Allergy, Mild, 10/11/14) Vitals & I&Os Vital Signs Date Time Temp Pulse Resp B/P (MAP) Pulse Ox O2 Delivery O2 Flow Rate FiO2 11/23/17 16:40 65 18 125/88 99 Nasal Cannula 5.00 11/23/17 10:16 97.6 11/20/17 06:43 40 Hospital Course Patient in hospital improved and was able to be discharged to care home on a pured diet Labs (last 24 hrs) Laboratory Tests 11/17/17 03:43: White Blood Count 18.1H, Red Blood Count 4.77, Hemoglobin 13.4, Hematocrit 42, Mean Corpuscular Volume 89, Mean Corpuscular Hemoglobin 28, Mean Corpuscular Hemoglobin Concent 32, Red Cell Distribution Width 15.7H, Platelet Count 304, Mean Platelet Volume 10.5H, Neutrophils (%) (Auto) 93H, Lymphocytes (%) (Auto) 4L, Monocytes (%) (Auto) 4, Eosinophils (%) (Auto) 0, Basophils (%) (Auto) 0, Neutrophils # (Auto) 16.8H, Lymphocytes # (Auto) 0.6L, Monocytes # (Auto) 0.7, Eosinophils # (Auto) 0.0, Basophils # (Auto) 0.0, Neutrophils % (Manual) 86, Lymphocytes % (Manual) 1, Monocytes % (Manual) 1, Eosinophils % (Manual) 0, Basophils % (Manual) 0, Band Neutrophils 12, Blood Morphology Comment NORMAL, Sodium Level 143, Potassium Level 4.3, Chloride Level 108H, Carbon Dioxide Level 22, Anion Gap 13, Blood Urea Nitrogen 20H, Creatinine 0.77, Estimat Glomerular Filtration Rate > 60, BUN/Creatinine Ratio 26, Glucose Level 136H, Lactic Acid Level 1.82, Calcium Level 9.1, Magnesium Level 2.3, Total Bilirubin 0.3, Aspartate Amino Transf (AST/SGOT) 11, Alanine Aminotransferase (ALT/SGPT) < 6, Alkaline Phosphatase 74, B-Type Natriuretic Peptide 61.7, Total Protein 7.2 , Albumin 3.7 11/17/17 03:53: Blood Gas Puncture Site L RAD, Blood Gas Patient Temperature 96.8, Arterial Blood pH 7.38, Arterial Blood Partial Pressure CO2 46H, Arterial Blood Partial Pressure O2 61L, Arterial Blood HCO3 27, Arterial Blood Total CO2 28.2, Arterial Blood Oxygen Saturation 91L, Arterial Blood Base Excess 1.9, Marcos Test YES-POS, Blood Gas Ventilator Setting NO, Blood Gas Inspired Oxygen 4L 11/17/17 07:03: Prothrombin Time 13.1, INR Comment 1.0, Activated Partial Thromboplast Time 31 11/17/17 10:20: Urine Color YELLOW, Urine Clarity CLEAR, Urine pH 5, Urine Specific [place] 1.025H, Urine Protein NEGATIVE, Urine Glucose (UA) NEGATIVE, Urine Ketones NEGATIVE, Urine Nitrite NEGATIVE, Urine Bilirubin NEGATIVE, Urine Urobilinogen NORMAL, Urine Leukocyte Esterase 1+H, Urine RBC (Auto) NEGATIVE, Urine RBC NONE , Urine WBC 0-2, Urine Squamous Epithelial Cells RARE, Urine Renal Epithelial Cells NONE, Urine Crystals NONE, Urine Bacteria NEGATIVE, Urine Casts NONE, Urine Mucus NEGATIVE, Urine Culture Indicated NO 11/18/17 06:40: White Blood Count 5.6, Red Blood Count 3.94L, Hemoglobin 11.3L, Hematocrit 35, Mean Corpuscular Volume 90, Mean Corpuscular Hemoglobin 29, Mean Corpuscular Hemoglobin Concent 32, Red Cell Distribution Width 15.5H, Platelet Count 214, Mean Platelet Volume 9.9, Neutrophils (%) (Auto) 83H, Lymphocytes (%) (Auto) 10L , Monocytes (%) (Auto) 8, Eosinophils (%) (Auto) 0, Basophils (%) (Auto) 0, Neutrophils # (Auto) 4.6, Lymphocytes # (Auto) 0.6L, Monocytes # (Auto) 0.4, Eosinophils # (Auto) 0.0, Basophils # (Auto) 0.0, Sodium Level 137, Potassium Level 4.2, Chloride Level 105, Carbon Dioxide Level 25, Anion Gap 7, Blood Urea Nitrogen 14, Creatinine 0.70, Estimat Glomerular Filtration Rate > 60, BUN/ Creatinine Ratio 20, Glucose Level 90, Calcium Level 8.3L, Total Bilirubin 0.6, Aspartate Amino Transf (AST/SGOT) 17, Alanine Aminotransferase (ALT/SGPT) < 6, Alkaline Phosphatase 72, Total Protein 5.9L, Albumin 3.1L 11/19/17 05:39: White Blood Count 6.4, Red Blood Count 4.33L, Hemoglobin 12.3, Hematocrit 38, Mean Corpuscular Volume 88, Mean Corpuscular Hemoglobin 28, Mean Corpuscular Hemoglobin Concent 32, Red Cell Distribution Width 15.5H, Platelet Count 247, Mean Platelet Volume 10.6H, Neutrophils (%) (Auto) 83H, Lymphocytes (%) (Auto) 10L, Monocytes (%) (Auto) 7, Eosinophils (%) (Auto) 0, Basophils (%) (Auto) 0, Neutrophils # (Auto) 5.3, Lymphocytes # (Auto) 0.7L, Monocytes # (Auto) 0.4, Eosinophils # (Auto) 0.0, Basophils # (Auto) 0.0, Sodium Level 136, Potassium Level 4.0, Chloride Level 101, Carbon Dioxide Level 26, Anion Gap 9, Blood Urea Nitrogen 8, Creatinine 0.66, Estimat Glomerular Filtration Rate > 60, BUN/ Creatinine Ratio 12, Glucose Level 106H, Calcium Level 9.0, Total Bilirubin 0.5 , Aspartate Amino Transf (AST/SGOT) 16, Alanine Aminotransferase (ALT/SGPT) 7, Alkaline Phosphatase 78, Total Protein 6.8, Albumin 3.5, B-Type Natriuretic Peptide 27.6 11/20/17 04:04: White Blood Count 6.5, Red Blood Count 3.85L, Hemoglobin 11.0L, Hematocrit 34L, Mean Corpuscular Volume 89, Mean Corpuscular Hemoglobin 29, Mean Corpuscular Hemoglobin Concent 32, Red Cell Distribution Width 15.3H, Platelet Count 242, Mean Platelet Volume 10.2, Neutrophils (%) (Auto) 71, Lymphocytes (%) (Auto) 20 , Monocytes (%) (Auto) 9, Eosinophils (%) (Auto) 0, Basophils (%) (Auto) 0, Neutrophils # (Auto) 4.6, Lymphocytes # (Auto) 1.3, Monocytes # (Auto) 0.6, Eosinophils # (Auto) 0.0, Basophils # (Auto) 0.0, Sodium Level 140, Potassium Level 4.1, Chloride Level 106, Carbon Dioxide Level 24, Anion Gap 10, Blood Urea Nitrogen 12, Creatinine 0.69, Estimat Glomerular Filtration Rate > 60, BUN/ Creatinine Ratio 17, Glucose Level 94, Calcium Level 8.5 11/21/17 06:20: White Blood Count 5.3, Red Blood Count 4.07L, Hemoglobin 11.3L, Hematocrit 36, Mean Corpuscular Volume 89, Mean Corpuscular Hemoglobin 28, Mean Corpuscular Hemoglobin Concent 31L, Red Cell Distribution Width 15.3H, Platelet Count 272, Mean Platelet Volume 9.9, Sodium Level 143, Potassium Level 4.1, Chloride Level 106, Carbon Dioxide Level 29, Anion Gap 8, Blood Urea Nitrogen 11, Creatinine 0.64, Estimat Glomerular Filtration Rate > 60, BUN/Creatinine Ratio 17, Glucose Level 88, Calcium Level 9.0 11/22/17 06:06: White Blood Count 8.4, Red Blood Count 4.36, Hemoglobin 12.5, Hematocrit 39, Mean Corpuscular Volume 89, Mean Corpuscular Hemoglobin 29, Mean Corpuscular Hemoglobin Concent 32, Red Cell Distribution Width 15.0H, Platelet Count 292, Mean Platelet Volume 10.0, Sodium Level 139, Potassium Level 4.5, Chloride Level 105, Carbon Dioxide Level 24, Anion Gap 10, Blood Urea Nitrogen 15, Creatinine 0.72, Estimat Glomerular Filtration Rate > 60, BUN/Creatinine Ratio 21, Glucose Level 94, Calcium Level 9.3 11/23/17 06:10: White Blood Count 7.9, Red Blood Count 4.15L, Hemoglobin 11.7, Hematocrit 37, Mean Corpuscular Volume 88, Mean Corpuscular Hemoglobin 28, Mean Corpuscular Hemoglobin Concent 32, Red Cell Distribution Width 15.0H, Platelet Count 310, Mean Platelet Volume 10.0, Sodium Level 139, Potassium Level 4.4, Chloride Level 104, Carbon Dioxide Level 24, Anion Gap 11, Blood Urea Nitrogen 14, Creatinine 0.70, Estimat Glomerular Filtration Rate > 60, BUN/Creatinine Ratio 20, Glucose Level 86, Calcium Level 9.0, Neutrophils (%) (Auto) 74, Lymphocytes (%) (Auto) 18, Monocytes (%) (Auto) 8, Eosinophils (%) (Auto) 0, Basophils (%) ( Auto) 0, Neutrophils # (Auto) 5.9, Lymphocytes # (Auto) 1.4, Monocytes # (Auto) 0.6, Eosinophils # (Auto) 0.0, Basophils # (Auto) 0.0 Microbiology 11/17/17 Blood Culture - Final, Complete No growth Laboratory Tests 11/17/17 03:43 11/18/17 06:40 11/19/17 05:39 11/20/17 04:04 11/21/17 06:20 11/22/17 06:06 11/23/17 06:10 Pending Labs Microbiology Date/Time Source Procedure Growth Status 11/17/17 04:35 Peripheral Lt Ac Blood Culture - Final No growth Complete 11/17/17 03:43 Peripheral Rt Hand Blood Culture - Final No growth Complete Laboratory Tests 11/17/17 03:43: White Blood Count 18.1, Red Blood Count 4.77, Hemoglobin 13.4, Hematocrit 42, Mean Corpuscular Volume 89, Mean Corpuscular Hemoglobin 28, Mean Corpuscular Hemoglobin Concent 32, Red Cell Distribution Width 15.7, Platelet Count 304, Mean Platelet Volume 10.5, Neutrophils (%) (Auto) 93, Lymphocytes (%) (Auto) 4, Monocytes (%) (Auto) 4, Eosinophils (%) (Auto) 0, Basophils (%) (Auto) 0, Neutrophils # (Auto) 16.8, Lymphocytes # (Auto) 0.6, Monocytes # (Auto) 0.7, Eosinophils # (Auto) 0.0, Basophils # (Auto) 0.0, Neutrophils % (Manual) 86, Lymphocytes % (Manual) 1, Monocytes % (Manual) 1, Eosinophils % (Manual) 0, Basophils % (Manual) 0, Band Neutrophils 12, Blood Morphology Comment NORMAL, Sodium Level 143, Potassium Level 4.3, Chloride Level 108, Carbon Dioxide Level 22, Anion Gap 13, Blood Urea Nitrogen 20, Creatinine 0.77, Estimat Glomerular Filtration Rate > 60, BUN/Creatinine Ratio 26, Glucose Level 136, Lactic Acid Level 1.82, Calcium Level 9.1, Magnesium Level 2.3, Total Bilirubin 0.3, Aspartate Amino Transf (AST/SGOT) 11, Alanine Aminotransferase (ALT/SGPT) < 6, Alkaline Phosphatase 74, B-Type Natriuretic Peptide 61.7, Total Protein 7.2, Albumin 3.7 11/17/17 03:53: Blood Gas Puncture Site L RAD, Blood Gas Patient Temperature 96.8, Arterial Blood pH 7.38, Arterial Blood Partial Pressure CO2 46, Arterial Blood Partial Pressure O2 61, Arterial Blood HCO3 27, Arterial Blood Total CO2 28.2, Arterial Blood Oxygen Saturation 91, Arterial Blood Base Excess 1.9, Marcos Test YES-POS, Blood Gas Ventilator Setting NO, Blood Gas Inspired Oxygen 4L 11/17/17 07:03: Prothrombin Time 13.1, INR Comment 1.0, Activated Partial Thromboplast Time 31 11/17/17 10:20: Urine Color YELLOW, Urine Clarity CLEAR, Urine pH 5, Urine Specific [place] 1.025, Urine Protein NEGATIVE, Urine Glucose (UA) NEGATIVE, Urine Ketones NEGATIVE, Urine Nitrite NEGATIVE, Urine Bilirubin NEGATIVE, Urine Urobilinogen NORMAL, Urine Leukocyte Esterase 1+, Urine RBC (Auto) NEGATIVE, Urine RBC NONE, Urine WBC 0-2, Urine Squamous Epithelial Cells RARE, Urine Renal Epithelial Cells NONE, Urine Crystals NONE, Urine Bacteria NEGATIVE, Urine Casts NONE, Urine Mucus NEGATIVE, Urine Culture Indicated NO 11/18/17 06:40: White Blood Count 5.6, Red Blood Count 3.94, Hemoglobin 11.3, Hematocrit 35, Mean Corpuscular Volume 90, Mean Corpuscular Hemoglobin 29, Mean Corpuscular Hemoglobin Concent 32, Red Cell Distribution Width 15.5, Platelet Count 214, Mean Platelet Volume 9.9, Neutrophils (%) (Auto) 83, Lymphocytes (%) (Auto) 10, Monocytes (%) (Auto) 8, Eosinophils (%) (Auto) 0, Basophils (%) (Auto) 0, Neutrophils # (Auto) 4.6, Lymphocytes # (Auto) 0.6, Monocytes # (Auto) 0.4, Eosinophils # (Auto) 0.0, Basophils # (Auto) 0.0, Sodium Level 137, Potassium Level 4.2, Chloride Level 105, Carbon Dioxide Level 25, Anion Gap 7, Blood Urea Nitrogen 14, Creatinine 0.70, Estimat Glomerular Filtration Rate > 60, BUN/ Creatinine Ratio 20, Glucose Level 90, Calcium Level 8.3, Total Bilirubin 0.6, Aspartate Amino Transf (AST/SGOT) 17, Alanine Aminotransferase (ALT/SGPT) < 6, Alkaline Phosphatase 72, Total Protein 5.9, Albumin 3.1 11/19/17 05:39: White Blood Count 6.4, Red Blood Count 4.33, Hemoglobin 12.3, Hematocrit 38, Mean Corpuscular Volume 88, Mean Corpuscular Hemoglobin 28, Mean Corpuscular Hemoglobin Concent 32, Red Cell Distribution Width 15.5, Platelet Count 247, Mean Platelet Volume 10.6, Neutrophils (%) (Auto) 83, Lymphocytes (%) (Auto) 10 , Monocytes (%) (Auto) 7, Eosinophils (%) (Auto) 0, Basophils (%) (Auto) 0, Neutrophils # (Auto) 5.3, Lymphocytes # (Auto) 0.7, Monocytes # (Auto) 0.4, Eosinophils # (Auto) 0.0, Basophils # (Auto) 0.0, Sodium Level 136, Potassium Level 4.0, Chloride Level 101, Carbon Dioxide Level 26, Anion Gap 9, Blood Urea Nitrogen 8, Creatinine 0.66, Estimat Glomerular Filtration Rate > 60, BUN/ Creatinine Ratio 12, Glucose Level 106, Calcium Level 9.0, Total Bilirubin 0.5, Aspartate Amino Transf (AST/SGOT) 16, Alanine Aminotransferase (ALT/SGPT) 7, Alkaline Phosphatase 78, Total Protein 6.8, Albumin 3.5, B-Type Natriuretic Peptide 27.6 11/20/17 04:04: White Blood Count 6.5, Red Blood Count 3.85, Hemoglobin 11.0, Hematocrit 34, Mean Corpuscular Volume 89, Mean Corpuscular Hemoglobin 29, Mean Corpuscular Hemoglobin Concent 32, Red Cell Distribution Width 15.3, Platelet Count 242, Mean Platelet Volume 10.2, Neutrophils (%) (Auto) 71, Lymphocytes (%) (Auto) 20 , Monocytes (%) (Auto) 9, Eosinophils (%) (Auto) 0, Basophils (%) (Auto) 0, Neutrophils # (Auto) 4.6, Lymphocytes # (Auto) 1.3, Monocytes # (Auto) 0.6, Eosinophils # (Auto) 0.0, Basophils # (Auto) 0.0, Sodium Level 140, Potassium Level 4.1, Chloride Level 106, Carbon Dioxide Level 24, Anion Gap 10, Blood Urea Nitrogen 12, Creatinine 0.69, Estimat Glomerular Filtration Rate > 60, BUN/ Creatinine Ratio 17, Glucose Level 94, Calcium Level 8.5 11/21/17 06:20: White Blood Count 5.3, Red Blood Count 4.07, Hemoglobin 11.3, Hematocrit 36, Mean Corpuscular Volume 89, Mean Corpuscular Hemoglobin 28, Mean Corpuscular Hemoglobin Concent 31, Red Cell Distribution Width 15.3, Platelet Count 272, Mean Platelet Volume 9.9, Sodium Level 143, Potassium Level 4.1, Chloride Level 106, Carbon Dioxide Level 29, Anion Gap 8, Blood Urea Nitrogen 11, Creatinine 0.64, Estimat Glomerular Filtration Rate > 60, BUN/Creatinine Ratio 17, Glucose Level 88, Calcium Level 9.0 11/22/17 06:06: White Blood Count 8.4, Red Blood Count 4.36, Hemoglobin 12.5, Hematocrit 39, Mean Corpuscular Volume 89, Mean Corpuscular Hemoglobin 29, Mean Corpuscular Hemoglobin Concent 32, Red Cell Distribution Width 15.0, Platelet Count 292, Mean Platelet Volume 10.0, Sodium Level 139, Potassium Level 4.5, Chloride Level 105, Carbon Dioxide Level 24, Anion Gap 10, Blood Urea Nitrogen 15, Creatinine 0.72, Estimat Glomerular Filtration Rate > 60, BUN/Creatinine Ratio 21, Glucose Level 94, Calcium Level 9.3 11/23/17 06:10: White Blood Count 7.9, Red Blood Count 4.15, Hemoglobin 11.7, Hematocrit 37, Mean Corpuscular Volume 88, Mean Corpuscular Hemoglobin 28, Mean Corpuscular Hemoglobin Concent 32, Red Cell Distribution Width 15.0, Platelet Count 310, Mean Platelet Volume 10.0, Sodium Level 139, Potassium Level 4.4, Chloride Level 104, Carbon Dioxide Level 24, Anion Gap 11, Blood Urea Nitrogen 14, Creatinine 0.70, Estimat Glomerular Filtration Rate > 60, BUN/Creatinine Ratio 20, Glucose Level 86, Calcium Level 9.0, Neutrophils (%) (Auto) 74, Lymphocytes (%) (Auto) 18, Monocytes (%) (Auto) 8, Eosinophils (%) (Auto) 0, Basophils (%) ( Auto) 0, Neutrophils # (Auto) 5.9, Lymphocytes # (Auto) 1.4, Monocytes # (Auto) 0.6, Eosinophils # (Auto) 0.0, Basophils # (Auto) 0.0 Discharge Home Medications: Active Scripts Active Reported Miralax (Polyethylene Glycol 3350) 17 Gm Powd.pack 17 Gm PO DAILY PRN Hydrocodone-Acetamin 5-325 mg (Hydrocodone/Acetaminophen) 1 Each Tablet 1 Tab PO 0900,1300,1700 Eucerin Creme (Lanolin Alcohol/Mo/W.pet/Pendergrass) 454 Gm Cream..g. TP UD APPLY TO AFFECTED AREAS EVERY DAY AND EVENING SHIFT EVERY WEDNESDAY, WEDNESDAY, WEDNESDAY, WEDNESDAY, AND WEDNESDAY Vitamin D (Cholecalciferol (Vitamin D3)) 1,000 Unit Capsule 2,000 Units PO DAILY TAKES 2 (1,000 UNIT) CAPSULES Nystatin 1 Each Powder.ea. TP PRN PRN Triamcinolone Acetonide 0.1% Cream (Triamcinolone Acet) 15 Gm Cr TP BID Acetaminophen Extra Strength (Acetaminophen) 500 Mg Tablet 1,000 Mg PO Q6H PRN Levothyroxine Sodium 175 Mcg Tablet 175 Mcg PO DAILY Divalproex Sodium 250 Mg Tablet.dr 250 Mg PO 0900,1200,1700 Clozapine 200 Mg Tablet 200 Mg PO HS Cetirizine HCl 10 Mg Tablet 10 Mg PO DAILY Betamethasone Dp Aug 0.05% Crm (Betamethasone/Propylene Glyc) 15 Gm Cream..g. TP BID PRN Clozapine 50 Mg Tablet 50 Mg PO 0900,1700 Trazodone HCl 100 Mg Tablet 200 Mg PO HS TAKES 2 (100 MG) TABLETS Eucerin Creme (Lanolin Alcohol/Mo/W.pet/Pendergrass) 454 Gm Cream..g. TP HS APPLIES TO BOTH FEET Trihexyphenidyl HCl 2 Mg Tablet 2 Mg PO 0900,1200,1700 Miralax (Polyethylene Glycol 3350) 17 Gm Powd.pack 17 Gm PO DAILY Colace (Docusate Sodium) 100 Mg Capsule 100 Mg PO 0900,1700 Benadryl (Diphenhydramine HCl) 25 Mg Capsule 50 Mg PO 0900,1200,1700 TAKES 2 (25 MG) TABLETS Amiodarone HCl 200 Mg Tablet 200 Mg PO DAILY Instructions to patient/family Please see electronic discharge instructions given to patient. Clinical Quality Measures DVT/VTE Risk/Contraindication: Risk Factor Score Per Nursin RFS Level Per Nursing on Admit: 4+=Very High [place] RENTERIA DO Nov 24, 2017 07:34
== END 2017-11-23 16:49 | DRG 178 ==
LOC: EDUNIT# 03:27 → ER 03:30 → 4TH 05:10
PROVIDERS: ADMIT Family Medicine; ATTEND Family Medicine
DX: J69.0 Pneumonitis due to inhalation of food and vomit (principal); G25.9 Extrapyramidal and movement disorder, unspecified; R11.2 Nausea with vomiting, unspecified; R06.03 Acute respiratory distress; F79 Unspecified intellectual disabilities; R13.10 Dysphagia, unspecified; I48.91 Unspecified atrial fibrillation; Z66 Do not resuscitate; G20 Parkinson's disease; G30.9 Alzheimer's disease, unspecified; F02.80 Dementia in other diseases classified elsewhere, unspecified severity, without behavioral disturbance, psychotic disturbance, mood disturbance, and anxiety; E78.00 Pure hypercholesterolemia, unspecified; E03.9 Hypothyroidism, unspecified; K59.09 Other constipation; F41.9 Anxiety disorder, unspecified; F20.9 Schizophrenia, unspecified; F32.9 Major depressive disorder, single episode, unspecified; F25.9 Schizoaffective disorder, unspecified; D72.829 Elevated white blood cell count, unspecified
CPT/HCPCS: 36415; 36600; 71045; 80048; 80053; 81000; 82805; 83605; 83735; 83880; 85007; 85025; 85027; 85610; 85730; 87040; 94640; 94664; 94760; 96361; 96365

== ENCOUNTER → 2018-01-03 | Outpatient (CLI) | payer MEDICARE, MEDICAID ==
[~2018-01-03] MED LIST changes: -AMIO200T2 PO; +AMIO200T4 PO; +DIVA-74 PO; -DIVA250T4 PO; -IPRA3AMP IH; +IPRA3AMP31 IH; +TRAZ-189 PO; +TRAZ-190 PO; -TRAZ-28 PO; -TRAZ100T92 PO
--- NOTE | 2018-01-03 16:25 | Diagnostic Imaging Report ---
INDICATION: Lower respiratory infection EXAM: Portable chest at 5:13 PM FINDINGS: Heart size and pulmonary vascularity are normal. The lungs are clear. There are no effusions or pneumothoraces. IMPRESSION: No acute abnormalities are seen in the chest. Dictated by: Dictated on workstation # [id number]
== END ==
LOC: RAD 16:04
PROVIDERS: ATTEND Family Medicine
DX: J18.9 Pneumonia, unspecified organism (principal); J22 Unspecified acute lower respiratory infection
CPT/HCPCS: 71045

== ENCOUNTER → 2018-06-24 | Outpatient (CLI) | payer MEDICARE, MEDICAID ==
[~2018-06-24] MED LIST changes: +HYDR-4226 PO; -HYDR-757 PO
--- NOTE | 2018-06-24 12:53 | Diagnostic Imaging Report ---
PROCEDURE: US left lower extremity venous. TECHNIQUE: Multiple real-time grayscale images were obtained over the left lower extremity in various projections. Additional duplex Doppler and color Doppler images were also obtained. INDICATION: Left leg pain and swelling. Occlusive thrombus extends through the common femoral, superficial and popliteal veins. Venous flow was seen within the posterior tibial and peroneal veins of the calf. IMPRESSION: Extensive left lower extremity deep venous thrombus resulting in occlusion of the left common femoral, superficial femoral and popliteal veins. Dictated by: Dictated on workstation # [id number]
--- NOTE | 2018-06-24 13:20 | Diagnostic Imaging Report ---
INDICATION: Left ankle pain. AP, oblique, and lateral views of the left ankle are obtained. There is soft tissue swelling. There is no definite acute fracture or acute bony abnormality. There is degenerative change with irregularity of the medial malleolus of the distal tibia and mild joint space narrowing. There is plantar and posterior calcaneal spurring. There are degenerative changes of the visualized portions of the tarsal bones and talocalcaneal joint. IMPRESSION: Degenerative changes with soft tissue swelling. No acute abnormality seen. Dictated by: Dictated on workstation # [id number]
== END ==
LOC: RAD 11:43
PROVIDERS: ATTEND Family Medicine
DX: I82.412 Acute embolism and thrombosis of left femoral vein (principal); I82.432 Acute embolism and thrombosis of left popliteal vein; M19.072 Primary osteoarthritis, left ankle and foot
CPT/HCPCS: 73610

== ENCOUNTER 2018-07-24 13:59 | Inpatient (IN) | payer MEDICARE, MEDICAID ==
[~2018-07-24] VITALS: Ht 175.3 cm; Wt 73.6 kg
[2018-07-24 14:27] LABS: BASOPHILS % (AUTO) 0 % (0-10); EOSINOPHILS % (AUTO) 0 % (0-10); HEMATOCRIT 34 % (35-52); HEMOGLOBIN 10.4 G/DL (11.5-16.0); LYMPHOCYTES # (AUTO) 1.3 X 10^3 (1.0-4.0); LYMPHOCYTES % (AUTO) 18 % (12-44); MEAN CORPUSCULAR HEMOGLOBIN 26 PG (25-34); MEAN CORPUSCULAR HGB CONC 30 G/DL (32-36); MEAN CORPUSCULAR VOLUME 87 FL (80-99); MEAN PLATELET VOLUME 8.9 FL (7.4-10.4); MONOCYTES # (AUTO) 0.6 X 10^3 (0.0-1.0); MONOCYTES % (AUTO) 8 % (0-12); NEUTROPHILS # (AUTO) 5.4 X 10^3 (1.8-7.8); NEUTROPHILS % (AUTO) 74 % (42-75); PLATELET COUNT 568 10^3/uL (130-400); RED CELL DISTRIBUTION WIDTH 16.4 % (10.0-14.5); WHITE BLOOD COUNT 7.2 10^3/uL (4.3-11.0)
[2018-07-24 14:52] LABS: BILIRUBIN,URINE NEGATIVE (NEGATIVE); CLARITY,URINE VERY CLOUDY; COLOR,URINE YELLOW; GLUCOSE, URINE (UA) NEGATIVE (NEGATIVE); KETONES,URINE NEGATIVE (NEGATIVE); LEUKOCYTE ESTERASE ,URINE 3+ (NEGATIVE); NITRITE,URINE POSITIVE (NEGATIVE); PH,URINE 8 (5-9); PROTEIN,URINE 2+ (NEGATIVE); UROBILINOGEN,URINE NORMAL (NORMAL)
[2018-07-24 14:53] LABS: ALANINE AMINOTRANSFERASE < 6 U/L (0-55); ALBUMIN 3.1 GM/DL (3.2-4.5); ALKALINE PHOSPHATASE 87 U/L (40-136); AMYLASE 29 U/L (25-125); BILIRUBIN,TOTAL 0.2 MG/DL (0.1-1.0); BUN/CREATININE RATIO 21; CARBON DIOXIDE 28 MMOL/L (21-32); CHLORIDE 107 MMOL/L (98-107); CREATININE SERUM 0.81 MG/DL (0.60-1.30); GFR ESTIMATED > 60; GLUCOSE 104 MG/DL (70-105); LIPASE 13 U/L (8-78); SODIUM 145 MMOL/L (135-145); TOTAL PROTEIN 6.6 GM/DL (6.4-8.2)
[2018-07-24 15:01] LABS: BACTERIA,URINE LARGE /HPF; WBC,URINE TNTC /HPF
[2018-07-24] MEDS ORDERED: NS 100 ML (IVPB) BAG IV ONE (15:15)
[2018-07-24] MEDS ORDERED: RECEIVED CONTRAST (Hold Metformin) IV SCH (15:15)
[2018-07-24] MEDS ORDERED: IOHEXOL 350 MG/ML 100 ML (OMNIPAQUE 350) VIAL IV ONE (15:15)
[2018-07-24] MEDS ORDERED: CATHETER FLUSH 10 ML SYR IV PRN (15:15)
--- NOTE | 2018-07-24 16:36 | Diagnostic Imaging Report ---
PROCEDURE: CT abdomen and pelvis with contrast. TECHNIQUE: Multiple contiguous axial images were obtained through the abdomen and pelvis after administration of intravenous contrast. INDICATION: Abdominal pain and distention. COMPARISON: CT chest performed on 01/02/[address] lumbar spine performed on 12/31/2016. FINDINGS: There is a small right pleural effusion and trace pleural fluid on the left, with adjacent subsegmental compressive atelectasis in both lower lobes. The visualized heart is normal in size. The liver, spleen, gallbladder, and adrenal glands are normal. The pancreas is mildly atrophic. No biliary or pancreatic ductal dilatation is demonstrated. There is moderate right and mild left hydroureteronephrosis. Only the proximal to mid left ureter is well opacified on delayed images. No discrete ureteral abnormality is seen. There is no significant change in a partially exophytic right lower pole renal cyst. There is severe distention of the sigmoid colon with retained formed stool. There is suggestion of sigmoid volvulus, as the sigmoid colon is demonstrated in the mid and right abdomen. There is perirectal thickening and inflammatory change noted. No evidence of small bowel obstruction. There is mild thickening of bowel loops anterior to the bladder and distal sigmoid colon, likely reflecting small bowel loops that demonstrate reactive change. No pneumoperitoneum, abdominal free fluid, or loculated collection is noted. No lymphadenopathy is identified. There is moderate atherosclerotic calcification of the abdominal aorta, without aneurysmal dilatation. No venous thrombosis. The bladder is decompressed by Aldrich catheter. The uterus is not visualized and likely surgically absent. No pelvic free fluid is demonstrated. Small subcutaneous soft tissue density nodules are demonstrated on both sides of the upper abdomen, possibly reflecting sebaceous cysts. Multilevel degenerative changes involve the spine. No acute osseous abnormality. IMPRESSION: Sigmoid volvulus is demonstrated, with severe fecal impaction. There is moderate perirectal wall thickening and inflammatory change. There is moderate right and mild left hydroureteronephrosis. This is likely secondary to marked distention of the sigmoid colon. The bladder is decompressed by Aldrich catheter. Suspected small bowel loop anterior to the bladder and distal sigmoid colon appears mildly thickened. This is likely reactive in nature, with enteritis also a possible etiology. The above findings were discussed with Dr. Jose Staton on 07/24/2018 at 1620 hours. Dictated by: Dictated on workstation # [id number]
--- NOTE | 2018-07-24 17:54 | ED Abdominal Pain ---
General Chief Complaint: Abdominal/GI Problems Stated Complaint: ABD PAIN Nursing Triage Note: PT BROUGHT IN BY EMS [facility] FOR [facility]BD [facility]IN. STATES IT HAS BEEN GOING ON SINCE WEDNESDAY. PT ABD IS FIRM AND DISTENDED AT TIME OF ARRIVAL. Sepsis Screen: No Definite Risk Source of Information: Patient Exam Limitations: No Limitations History of Present Illness Date Seen by Provider: Jul 24, 2018 Time Seen by Provider: 14:00 Initial Comments 68-year-old female who was brought to the emergency room by [facility] from [facility] (formerly [facility]) for complaints of right upper quadrant abdominal pain and distention for the past 5 days. [facility] denies nausea vomiting, diarrhea. The patient's abdomen is moderately distended on arrival to the emergency room. She is baseline confused and has history of schizophrenia and Parkinson's disease. Timing/Duration: 4-5 Days Severity/Quality: Moderate Location: RUQ, Generalized Abdomen Radiation: No Radiation Associated Symptoms: Swelling/Mass in Abdomen Allergies and Home Medications Allergies Coded Allergies: belladonna alkaloids (Verified Allergy, Mild, 10/11/14) meperidine (Verified Allergy, Mild, 10/11/14) Uncoded Allergies: pectin (Allergy, Mild, 10/11/14) Home Medications Acetaminophen 500 Mg Tablet, 1,000 MG PO Q6H PRN for PAIN-MILD, (Reported) Amiodarone HCl 200 Mg Tablet, 200 MG PO DAILY, (Reported) Betamethasone/Propylene Glyc 15 Gm Cream..g., TP BID PRN for ITCHING, (Reported) Cetirizine HCl 10 Mg Tablet, 10 MG PO DAILY, (Reported) Cholecalciferol (Vitamin D3) 1,000 Unit Capsule, 2,000 UNITS PO DAILY, (Reported ) TAKES 2 (1,000 UNIT) CAPSULES Clozapine 50 Mg Tablet, 50 MG PO 0900,1700, (Reported) Clozapine 200 Mg Tablet, 200 MG PO HS, (Reported) Diphenhydramine HCl 25 Mg Capsule, 50 MG PO 0900,1200,1700, (Reported) TAKES 2 (25 MG) TABLETS Divalproex Sodium 250 Mg Tablet.dr, 250 MG PO 0900,1200,1700, (Reported) Docusate Sodium 100 Mg Capsule, 100 MG PO 0900,1700, (Reported) Hydrocodone/Acetaminophen 1 Each Tablet, 1 TAB PO 0900,1300,1700, (Reported) Lanolin Alcohol/Mo/W.pet/[place] 454 Gm Cream..g., TP HS, (Reported) APPLIES TO BOTH FEET Lanolin Alcohol/Mo/W.pet/[place] 454 Gm Cream..g., TP UD, (Reported) APPLY TO AFFECTED AREAS EVERY DAY AND EVENING SHIFT EVERY WEDNESDAY, WEDNESDAY, WEDNESDAY, WEDNESDAY, AND WEDNESDAY Levothyroxine Sodium 175 Mcg Tablet, 175 MCG PO DAILY, (Reported) Nystatin 1 Each Powder.ea., TP PRN PRN for REDNESS/GAULDING, (Reported) Polyethylene Glycol 3350 17 Gm Powd.pack, 17 GM PO DAILY, (Reported) Polyethylene Glycol 3350 17 Gm Powd.pack, 17 GM PO DAILY PRN for CONSTIPATION- 2ND LINE, (Reported) Trazodone HCl 100 Mg Tablet, 200 MG PO HS, (Reported) TAKES 2 (100 MG) TABLETS Triamcinolone Acet 15 Gm Cr, TP BID, (Reported) Trihexyphenidyl HCl 2 Mg Tablet, 2 MG PO 0900,1200,1700, (Reported) Patient Home Medication List Home Medication List Reviewed: Yes Review of Systems Review of Systems Constitutional: no symptoms reported, see HPI Gastrointestinal: See HPI, Abdomen Distended, Abdominal Pain All Other Systems Reviewed Negative Unless Noted: Yes Past Ximzbpd-Odrelg-Mczthi Hx Past Med/Social Hx: Reviewed Nursing Past Med/Soc Hx Patient Social History Alcohol Use: Denies Use Recreational Drug Use: No Smoking Status: Unknown if Ever Smoked 2nd Hand Smoke Exposure: No Recent Foreign Travel: No Contact w/Someone Who Travel: No Recent Infectious Disease Expo: No Recent Hopitalizations: No Immunizations Up To Date Tetanus Booster (TDap): Unknown Date of Pneumonia Vaccine: Aug 29, 2016 Date of Influenza Vaccine: Mar 16, 2016 Seasonal Allergies Seasonal Allergies: No Past Medical History Surgeries: No (no known surgeries) Respiratory: No Cardiac: Yes Atrial Fibrillation, High Cholesterol Neurological: Yes (MENTAL RETARDATION, dysphagia) Dementia, Developmental Disorder, Parkinson's Disease Reproductive Disorders: No CARPET JACK History: Menopausal Sexually Transmitted Disease: No HIV/AIDS: No Genitourinary: No Gastrointestinal: Yes Chronic Constipation Musculoskeletal: No Endocrine: Yes Hypothyroidsim HEENT: No Cancer: No Psychosocial: Yes Anxiety, Schizophrenia, Depression Integumentary: Yes (rash ) Blood Disorders: No Adverse Reaction/Blood Tranf: No Family Medical History Reviewed Nursing Family Hx Patient reports no known family medical history. Hypertension Physical Exam Vital Signs Vital Signs - First Documented 07/24/18 14:00 Temp 98.0 Pulse 79 Resp 16 B/P (MAP) 125/66 (85) Pulse Ox 94 O2 Delivery Room Air Capillary Refill : Less Than 3 Seconds Height/Weight/BMI Height: 5'9.00" Weight: 162lbs. 3.0oz. [id number]; 24.0 BMI Method:Estimated General Appearance: WD/WN, no apparent distress HEENT: PERRL/EOMI Respiratory: chest non-tender, lungs clear, normal breath sounds, no respiratory distress, no accessory muscle use Cardiovascular: normal peripheral pulses, regular rate, rhythm, no edema, no gallop, no JVD, no murmur Gastrointestinal: normal bowel sounds, distended (abdomen is firm and boardlike.), tenderness (right upper quadrant tenderness) Extremities: normal range of motion, normal capillary refill Neurologic/Psychiatric: alert, normal mood/affect, oriented x 3 Skin: normal color, warm/dry Progress/Results/Core Measures Results/Orders Lab Results Laboratory Tests Test 07/24/18 14:05 07/24/18 14:11 Range/Units White Blood Count 7.2 4.3-11.0 10^3/uL Red Blood Count 3.97 L 4.35-5.85 10^6/uL Hemoglobin 10.4 L 11.5-16.0 G/DL Hematocrit 34 L 35-52 % Mean Corpuscular Volume 87 80-99 FL Mean Corpuscular Hemoglobin 26 25-34 PG Mean Corpuscular Hemoglobin Concent 30 L 32-36 G/DL Red Cell Distribution Width 16.4 H 10.0-14.5 % Platelet Count 568 H 130-400 10^3/uL Mean Platelet Volume 8.9 7.4-10.4 FL Neutrophils (%) (Auto) 74 42-75 % Lymphocytes (%) (Auto) 18 12-44 % Monocytes (%) (Auto) 8 0-12 % Eosinophils (%) (Auto) 0 0-10 % Basophils (%) (Auto) 0 0-10 % Neutrophils # (Auto) 5.4 1.8-7.8 X 10^3 Lymphocytes # (Auto) 1.3 1.0-4.0 X 10^3 Monocytes # (Auto) 0.6 0.0-1.0 X 10^3 Eosinophils # (Auto) 0.0 0.0-0.3 10^3/uL Basophils # (Auto) 0.0 0.0-0.1 10^3/uL Sodium Level 145 135-145 MMOL/L Potassium Level 4.0 3.6-5.0 MMOL/L Chloride Level 107 98-107 MMOL/L Carbon Dioxide Level 28 21-32 MMOL/L Anion Gap 10 5-14 MMOL/L Blood Urea Nitrogen 17 7-18 MG/DL Creatinine 0.81 0.60-1.30 MG/DL Estimat Glomerular Filtration Rate > 60 BUN/Creatinine Ratio 21 Glucose Level 104 70-105 MG/DL Calcium Level 9.0 8.5-10.1 MG/DL Corrected Calcium 9.7 8.5-10.1 MG/DL Total Bilirubin 0.2 0.1-1.0 MG/DL Aspartate Amino Transf (AST/SGOT) 10 5-34 U/L Alanine Aminotransferase (ALT/SGPT) < 6 0-55 U/L Alkaline Phosphatase 87 40-136 U/L Total Protein 6.6 6.4-8.2 GM/DL Albumin 3.1 L 3.2-4.5 GM/DL Amylase Level 29 25-125 U/L Lipase 13 8-78 U/L Urine Color YELLOW Urine Clarity VERY CLOUDY H Urine pH 8 5-9 Urine Specific [place] 1.010 L 1.016-1.022 Urine Protein 2+ H NEGATIVE Urine Glucose (UA) NEGATIVE NEGATIVE Urine Ketones NEGATIVE NEGATIVE Urine Nitrite POSITIVE H NEGATIVE Urine Bilirubin NEGATIVE NEGATIVE Urine Urobilinogen NORMAL NORMAL MG/DL Urine Leukocyte Esterase 3+ H NEGATIVE Urine RBC (Auto) 2+ H NEGATIVE Urine RBC NONE /HPF Urine WBC TNTC H /HPF Urine Crystals NONE /LPF Urine Bacteria LARGE H /HPF Urine Casts NONE /LPF Urine Mucus SMALL H /LPF Urine Culture Indicated YES My Orders Orders - BUNNY STATON Comprehensive Metabolic Panel (07/24/18 14:05) Lipase (07/24/18 14:05) Amylase (07/24/18 14:05) Ua Culture If Indicated (07/24/18 14:05) Saline Lock/Iv-Start (07/24/18 14:05) Cbc With Automated Diff (07/24/18 14:05) Ct Abdomen/Pelvis W (07/24/18 14:05) Urine Culture (07/24/18 14:11) Iohexol Injection (Omnipaque 350 Mg/Ml 1 (07/24/18 15:15) Contrast Received (Contrast Received) (07/24/18 15:15) Sodium Chloride Flush (Catheter Flush Sy (07/24/18 15:15) Ns (Ivpb) (Sodium Chloride 0.9% Ivpb Bag (07/24/18 15:15) Vital Signs/I&O 07/24/18 14:00 Temp 98.0 Pulse 79 Resp 16 B/P (MAP) 125/66 (85) Pulse Ox 94 O2 Delivery Room Air Blood Pressure Mean: 85 Progress Progress Note : Time: 17:00 Progress Note I have seen and evaluated the patient. I have spoke to Dr. STANLEY at this time and he agrees to be consult on the patient and would like her admitted to medical. Dr. Acevedo is on for Dr. De La Vega at this time. She agrees to accept the patient to her services. Dr. STANLEY gave orders for MiraLAX 1 capful twice a day and Fleet enema twice a day until clear and a clear liquid diet order. [facility] was updated on plan of care. The patient agrees with plans for admission. Diagnostic Imaging Diagonstic Imaging: CT Plain Films/CT/US/NM/MRI: abdomen, pelvis Comments NAME: EDDY VICTOR [facility] REC#: [id number] PT STATUS: REG ER : 1950 PHYSICIAN: BUNNY STATON ADMIT DATE: 07/24/18/ER Signed Date of Exam:07/24/18 CT ABDOMEN/PELVIS W PROCEDURE: CT abdomen and pelvis with contrast. TECHNIQUE: Multiple contiguous axial images were obtained through the abdomen and pelvis after administration of intravenous contrast. INDICATION: Abdominal pain and distention. COMPARISON: CT chest performed on 01/02/[address] lumbar spine performed on 12/31/2016. FINDINGS: There is a small right pleural effusion and trace pleural fluid on the left, with adjacent subsegmental compressive atelectasis in both lower lobes. The visualized heart is normal in size. The liver, spleen, gallbladder, and adrenal glands are normal. The pancreas is mildly atrophic. No biliary or pancreatic ductal dilatation is demonstrated. There is moderate right and mild left hydroureteronephrosis. Only the proximal to mid left ureter is well opacified on delayed images. No discrete ureteral abnormality is seen. There is no significant change in a partially exophytic right lower pole renal cyst. There is severe distention of the sigmoid colon with retained formed stool. There is suggestion of sigmoid volvulus, as the sigmoid colon is demonstrated in the mid and right abdomen. There is perirectal thickening and inflammatory change noted. No evidence of small bowel obstruction. There is mild thickening of bowel loops anterior to the bladder and distal sigmoid colon, likely reflecting small bowel loops that demonstrate reactive change. No pneumoperitoneum, abdominal free fluid, or loculated collection is noted. No lymphadenopathy is identified. There is moderate atherosclerotic calcification of the abdominal aorta, without aneurysmal dilatation. No venous thrombosis. The bladder is decompressed by Aldrich catheter. The uterus is not visualized and likely surgically absent. No pelvic free fluid is demonstrated. Small subcutaneous soft tissue density nodules are demonstrated on both sides of the upper abdomen, possibly reflecting sebaceous cysts. Multilevel degenerative changes involve the spine. No acute osseous abnormality. IMPRESSION: Sigmoid volvulus is demonstrated, with severe fecal impaction. There is moderate perirectal wall thickening and inflammatory change. There is moderate right and mild left hydroureteronephrosis. This is likely secondary to marked distention of the sigmoid colon. The bladder is decompressed by Aldrich catheter. Suspected small bowel loop anterior to the bladder and distal sigmoid colon appears mildly thickened. This is likely reactive in nature, with enteritis also a possible etiology. The above findings were discussed with Dr. Bunny Staton on 07/24/2018 at 1620 hours. Dictated by: Dictated on workstation # [id number] Dict: 07/24/18 1616 Trans: 07/24/18 1728 [facility] [id number] Interpreted by: TRICIA HARKINS DO Electronically signed by: TRICIA HARKINS DO Reviewed: Reviewed by Tx Departure Communication (Admissions) Time/Spoke to Admitting Phy: 17:00 Dr. Acevedo Time/Spoke to Consulting Phy: 17:00 Dr. STANLEY Impression Primary Impression: Sigmoid volvulus Additional Impression: Chronic constipation Disposition: 01 HOME, SELF-CARE Condition: Stable/Unchanged Admissions Decision to Admit Reason: Admit from ER (Trauma) Decision to Admit/Date: Jul 24, 2018 Time/Decision to Admit Time: 17:49 Departure-Patient Inst. Referrals: ALBANIA RENTERIA DO (PCP/Family) Primary Care Physician BUNNY STATON Jul 24, 2018 17:54
[2018-07-24] MEDS ORDERED: cefTRIAXone FOR IV USE 1,000 MG in WATER (STERILE) FOR INJECTION 10 ML IV ONE (19:00)
[2018-07-24] MEDS ORDERED: NS (IVPB) 50 ML ONE (20:18)
[2018-07-24 20:35] VITALS: BP 124/90
[2018-07-24] MEDS: POLYETHYLENE GLYCOL 17 GM (MIRALAX) PACK PO SCH (21:00)
[2018-07-24] MEDS: FLEET ENEMA ADULT 1 EA BTL PR SCH (21:00)
[2018-07-24] MEDS: NS IV 1000 ML 1,000 ML IV SCH (23:00)
[2018-07-24 23:40] VITALS: BP 118/60
[2018-07-25] VITALS: BP 117/55
[2018-07-25 03:49] LABS: BASOPHILS % (AUTO) 0 % (0-10); EOSINOPHILS % (AUTO) 0 % (0-10); HEMATOCRIT 34 % (35-52); HEMOGLOBIN 10.1 G/DL (11.5-16.0); LYMPHOCYTES # (AUTO) 0.8 X 10^3 (1.0-4.0); LYMPHOCYTES % (AUTO) 9 % (12-44); MEAN CORPUSCULAR HEMOGLOBIN 26 PG (25-34); MEAN CORPUSCULAR HGB CONC 30 G/DL (32-36); MEAN CORPUSCULAR VOLUME 86 FL (80-99); MONOCYTES # (AUTO) 0.8 X 10^3 (0.0-1.0); MONOCYTES % (AUTO) 8 % (0-12); NEUTROPHILS # (AUTO) 7.5 X 10^3 (1.8-7.8); NEUTROPHILS % (AUTO) 83 % (42-75); PLATELET COUNT 531 10^3/uL (130-400); RED CELL DISTRIBUTION WIDTH 15.9 % (10.0-14.5); WHITE BLOOD COUNT 9.1 10^3/uL (4.3-11.0)
[2018-07-25 04:00] VITALS: BP 120/63
[2018-07-25 04:25] LABS: ALANINE AMINOTRANSFERASE < 6 U/L (0-55); ALBUMIN 3.1 GM/DL (3.2-4.5); ALKALINE PHOSPHATASE 87 U/L (40-136); BILIRUBIN,TOTAL 0.2 MG/DL (0.1-1.0); BUN/CREATININE RATIO 18; CALCIUM 8.8 MG/DL (8.5-10.1); CARBON DIOXIDE 28 MMOL/L (21-32); CHLORIDE 108 MMOL/L (98-107); CREATININE SERUM 0.77 MG/DL (0.60-1.30); GFR ESTIMATED > 60; GLUCOSE 91 MG/DL (70-105); SODIUM 144 MMOL/L (135-145); TOTAL PROTEIN 6.5 GM/DL (6.4-8.2)
--- NOTE | 2018-07-25 07:55 | History & Physicial ---
History of Present Illness History of Present Illness Reason for visit/HPI Patient is is a resident of [facility]. I received a call last night stating that the patient's abdomen is distended and having pain to palpation. Patient sent out to the emergency room where a CAT scan of the abdomen and pelvis shows sigmoid volvulus and severe fecal impaction. Patient's abdomen is soft. Patient on palpation has a abdomen and distention of the intestines. Patient has chronic constipation. Patient unable to give a history. Patient has schizophrenia, Parkinson disease and MR. Patient admitted. Patient had a history of a previous DVT of the leg Date of Admission Jul 24, 2018 at 17:52 Time Seen by a Provider: 07:45 I consulted on this patient on 07/25/18 07:45 Attending Physician Rima Acevedo DO Admitting Physician Armando Dalton DO Consult Allergies and Home Medications Allergies Coded Allergies: belladonna alkaloids (Verified Allergy, Mild, 10/11/14) meperidine (Verified Allergy, Mild, 10/11/14) Uncoded Allergies: pectin (Allergy, Mild, 10/11/14) Home Medications Acetaminophen 500 Mg Tablet, 1,000 MG PO Q6H PRN for PAIN-MILD, (Reported) Amiodarone HCl 200 Mg Tablet, 200 MG PO DAILY, (Reported) Betamethasone/Propylene Glyc 15 Gm Cream..g., TP BID PRN for ITCHING, (Reported) Cetirizine HCl 10 Mg Tablet, 10 MG PO DAILY, (Reported) Cholecalciferol (Vitamin D3) 1,000 Unit Capsule, 2,000 UNITS PO DAILY, (Reported ) TAKES 2 (1,000 UNIT) CAPSULES Clozapine 50 Mg Tablet, 50 MG PO 0900,1700, (Reported) Clozapine 200 Mg Tablet, 200 MG PO HS, (Reported) Diphenhydramine HCl 25 Mg Capsule, 50 MG PO 0900,1200,1700, (Reported) TAKES 2 (25 MG) TABLETS Divalproex Sodium 250 Mg Tablet.dr, 250 MG PO 0900,1200,1700, (Reported) Docusate Sodium 100 Mg Capsule, 100 MG PO 0900,1700, (Reported) Hydrocodone/Acetaminophen 1 Each Tablet, 1 TAB PO 0900,1300,1700, (Reported) Lanolin Alcohol/Mo/W.pet/[place] 454 Gm Cream..g., TP HS, (Reported) APPLIES TO BOTH FEET Lanolin Alcohol/Mo/W.pet/[place] 454 Gm Cream..g., TP UD, (Reported) APPLY TO AFFECTED AREAS EVERY DAY AND EVENING SHIFT EVERY WEDNESDAY, WEDNESDAY, WEDNESDAY, WEDNESDAY, AND WEDNESDAY Levothyroxine Sodium 175 Mcg Tablet, 175 MCG PO DAILY, (Reported) Nystatin 1 Each Powder.ea., TP PRN PRN for REDNESS/GAULDING, (Reported) Polyethylene Glycol 3350 17 Gm Powd.pack, 17 GM PO DAILY, (Reported) Polyethylene Glycol 3350 17 Gm Powd.pack, 17 GM PO DAILY PRN for CONSTIPATION- 2ND LINE, (Reported) Trazodone HCl 100 Mg Tablet, 200 MG PO HS, (Reported) TAKES 2 (100 MG) TABLETS Triamcinolone Acet 15 Gm Cr, TP BID, (Reported) Trihexyphenidyl HCl 2 Mg Tablet, 2 MG PO 0900,1200,1700, (Reported) Patient Home Medication List Home Medication List Reviewed: No Past Bjotnui-Xklhcm-Nsfrfw Hx Patient Social History Marrital Status: single Employed/Student: unemployed Alcohol Use: Denies Use Recreational Drug Use: No Smoking Status: Unknown if Ever Smoked 2nd Hand Smoke Exposure: No Recent Foreign Travel: No Contact w/other who traveled: No Recent Hopitalizations: No Recent Infectious Disease Expo: No Immunizations Up To Date Tetanus Booster (TDap): Unknown Date of Pneumonia Vaccine: Aug 29, 2016 Date of Influenza Vaccine: Mar 16, 2016 Seasonal Allergies Seasonal Allergies: No Surgeries No (no known surgeries) Respiratory No Asthma, Pneumonia Cardiovascular Yes Atrial Fibrillation, High Cholesterol Neurological Yes (MENTAL RETARDATION, dysphagia) Dementia, Developmental Disorder, Parkinson's Disease Reproductive System Hx Reproductive Disorders: No Sexually Transmitted Disease: No HIV/AIDS: No [employer]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 Review of Systems Constitutional: weakness EENTM: no symptoms reported Respiratory: no symptoms reported Cardiovascular: other (History of atrial fibrillation) Gastrointestinal: abdominal pain, constipation, other (Abdominal distention) Genitourinary: no symptoms reported Physical Exam Vital Signs Vital Signs - First Documented 07/24/18 14:00 Temp 98.0 Pulse 79 Resp 16 B/P (MAP) 125/66 (85) Pulse Ox 94 O2 Delivery Room Air Capillary Refill : Less Than 3 Seconds Height, Weight, BMI Height: 5'9.00" Weight: 162lbs. 3.0oz. 73.014927ll; 24.0 BMI Method:Estimated General Appearance: No Apparent Distress, WD/WN Eyes: Bilateral Eye Normal Inspection HEENT: Normal ENT Inspection Neck: Normal Inspection Respiratory: Lungs Clear, No Accessory Muscle Use, No Respiratory Distress Cardiovascular: Regular Rate, Rhythm, No Murmur Gastrointestinal: Soft, Distended, Other (Volvulus) Assessment/Plan Assessment and Plan Sigmoid volvulus. Severe fecal impaction. Hydroureteronephrosis. Abdominal pain. Chronic constipation. Schizophrenia. Parkinson disease. MR. Dementia Admission Diagnosis Admission Status: Inpatient Order (span 2 midnights) Reason for Inpatient Admission: Volvulus. Fecal impaction. Abdominal distention. Schizophrenia. Parkinson disease. Dementia. MR Clinical Quality Measures DVT/VTE Risk/Contraindication: Risk Factor Score Per Nursin RFS Level Per Nursing on Admit: 4+=Very High ARMANDO DALTON DO Jul 25, 2018 07:55
[2018-07-25 08:00] VITALS: BP 101/62
--- NOTE | 2018-07-25 08:46 | Diagnostic Imaging Report ---
INDICATION: Fecal impaction. KUB obtained at 8:20 a.m. FINDINGS: There is a large amount of stool throughout the colon, especially in the sigmoid region. There is no significant small bowel distention. Bony structures are unremarkable. IMPRESSION: Large amount of stool throughout the colon, especially in the sigmoid region and rectum, compatible with fecal impaction. Dictated by: Dictated on workstation # [id number]
[2018-07-25] MEDS: POLYETHYLENE GLYCOL 17 GM (MIRALAX) PACK PO SCH ×2 (09:09→20:06)
[2018-07-25] MEDS: FLEET ENEMA ADULT 1 EA BTL PR SCH ×2 (09:09→20:06)
[2018-07-25] MEDS ORDERED: APIX5TAB PO (10:34)
[2018-07-25] MEDS ORDERED: MAGN400O7 PO (10:34)
[2018-07-25] MEDS ORDERED: TRIH2ELI PO (10:34)
[2018-07-25] MEDS ORDERED: BISA10SU58 RC (10:34)
--- NOTE | 2018-07-25 10:37 | NUR ---
UPDATED MED REC WITH ORDER SUMMARY REPORT FROM [facility] AND [facility]
[2018-07-25 12:00] VITALS: BP 118/68
[2018-07-25] MEDS: NS IV 1000 ML 1,000 ML IV SCH (14:46)
[2018-07-25 15:50] VITALS: BP 119/68
--- NOTE | 2018-07-25 16:16 | Progress Note-Pre Operative ---
Pre-Operative Progress Note H&P Reviewed The H&P was reviewed, patient examined and no changes noted. Date Seen by Provider: Jul 25, 2018 Time Seen by Provider: 16:00 Date H&P Reviewed: Jul 25, 2018 Time H&P Reviewed: 16:00 Pre-Operative Diagnosis: severe fecal impaction rectum and colon. SCOOTER STALNEY MD Jul 25, 2018 16:16
--- NOTE | 2018-07-25 16:43 | CONSULTATION REPORT ---
DATE OF SERVICE: 07/25/2018 ATTENDING PRIMARY CARE PHYSICIAN: Armando Dalton DO. HISTORY OF PRESENT ILLNESS: The patient is a 68-year-old female who was brought in by staff from [facility] due to abdominal distention and pain. She does have a history of Parkinson's as well as schizophrenia and medical noncompliance. She also has a longstanding history of constipation. A CT scan was performed, which did show severe fecal impaction throughout the patient's sigmoid colon as well as the transverse colon. There are no signs of obstruction. There also are no peritoneal signs. She does not report any nausea, no vomiting. PAST MEDICAL HISTORY: Parkinson's, developmental delay, schizophrenia, and history of severe constipation. PAST SURGICAL HISTORY: None known at this time. ALLERGIES: BELLADONNA ALKALOIDS, MEPERIDINE. MEDICATIONS: Amiodarone 200 mg daily, cetirizine 10 mg daily, clozapine 50 mg b.i.d. and 200 mg each day at bedtime, diphenhydramine 50 mg t.i.d., divalproex 250 mg t.i.d., Colace 100 mg b.i.d., hydrocodone t.i.d., levothyroxine 175 mcg daily, MiraLax p.r.n., trazodone 200 mg each day at bedtime, triamcinolone b.i.d., and trihexyphenidyl 2 mg t.i.d. SOCIAL HISTORY: Negative smoke, negative alcohol. FAMILY HISTORY: Noncontributory. REVIEW OF SYSTEMS: This is a well-nourished female, who is awake and alert and does respond to questions; however, does have some confusion. She does have some abdominal distention and a palpable mass, which has the consistency of Ahsan consistent with severe chronic constipation. She does not have any peritoneal signs. Nobody assures when her last bowel movement was. They also did not report any red blood per rectum nor any dark tarry stools. No nausea, vomiting. She is tolerating liquids without any difficulty. No fever or chills, no recent inadvertent weight loss. All other review of systems is negative. PHYSICAL EXAMINATION: VITAL SIGNS: Temperature is 97.8, blood pressure 119/68, pulse 62, respirations 20, and pulse ox 95% on room air. CHEST: Clear. Good breath sounds bilaterally. HEART: Regular, no murmurs. EXTREMITIES: No lower extremity edema, negative Homans sign. HEENT: No scleral icterus. NECK: No cervical lymphadenopathy. ABDOMEN: Soft, distended with a palpable mass along the distribution of the transverse, descending colon as well as the sigmoid colon. No peritoneal signs. SKIN: Warm, dry. LABORATORY DATA: WBC is 9.1, hemoglobin 10.1, hematocrit 34, and platelets 531. BUN is 14, creatinine 0.77. ASSESSMENT AND PLAN: A 68-year-old female with developmental delay, schizophrenia with severe chronic constipation and fecal impaction from the rectum all the way to the proximal transverse colon. We will continue with oral laxatives; however, she will need assistance with fecal disimpaction first starting at the rectum, we will proceed with scheduling her for fecal disimpaction under general anesthesia in the operating room. Job ID: [id number] DocumentID: [id number] Dictated Date: 07/25/2018 16:12:06 Official Greeter Date: 07/25/2018 16:42:51 Dictated By: SCOOTER STANLEY MD
--- NOTE | 2018-07-25 18:50 | NUR ---
To room 432 via bed accompanied by RN from ICU. Wake and alert. Catheter to dependent drainage. IV patent in left forearm. Will continue to monitor.
[2018-07-25 20:00] VITALS: BP 129/60
[2018-07-25] MEDS: cefTRIAXone 1,000 MG/SWFI 10 ML IV PUSH IV SCH ×2 (20:06)
[2018-07-26 00:16] VITALS: BP 131/60
[2018-07-26] MEDS: NS IV 1000 ML 1,000 ML IV SCH ×2 (00:27→14:50)
[2018-07-26 04:35] VITALS: BP 113/57
[2018-07-26 06:50] LABS: BASOPHILS % (AUTO) 0 % (0-10); EOSINOPHILS % (AUTO) 0 % (0-10); HEMATOCRIT 32 % (35-52); HEMOGLOBIN 9.8 G/DL (11.5-16.0); LYMPHOCYTES % (AUTO) 13 % (12-44); MEAN CORPUSCULAR HEMOGLOBIN 26 PG (25-34); MEAN CORPUSCULAR HGB CONC 31 G/DL (32-36); MEAN CORPUSCULAR VOLUME 86 FL (80-99); MEAN PLATELET VOLUME 9.1 FL (7.4-10.4); MONOCYTES # (AUTO) 0.6 X 10^3 (0.0-1.0); MONOCYTES % (AUTO) 8 % (0-12); NEUTROPHILS # (AUTO) 5.6 X 10^3 (1.8-7.8); NEUTROPHILS % (AUTO) 79 % (42-75); PLATELET COUNT 539 10^3/uL (130-400); RED CELL DISTRIBUTION WIDTH 16.1 % (10.0-14.5); WHITE BLOOD COUNT 7.1 10^3/uL (4.3-11.0)
[2018-07-26 07:22] LABS: ALANINE AMINOTRANSFERASE < 6 U/L (0-55); ALKALINE PHOSPHATASE 79 U/L (40-136); BILIRUBIN,TOTAL 0.2 MG/DL (0.1-1.0); BUN/CREATININE RATIO 17; CALCIUM 8.7 MG/DL (8.5-10.1); CARBON DIOXIDE 24 MMOL/L (21-32); CHLORIDE 108 MMOL/L (98-107); CREATININE SERUM 0.71 MG/DL (0.60-1.30); GFR ESTIMATED > 60; GLUCOSE 79 MG/DL (70-105); POTASSIUM 3.4 MMOL/L (3.6-5.0); SODIUM 143 MMOL/L (135-145); TOTAL PROTEIN 6.1 GM/DL (6.4-8.2)
[2018-07-26 08:00] VITALS: BP 118/69
--- NOTE | 2018-07-26 08:17 | NUR ---
DR RENTERIA ON FLOOR NEW ORDERS RECEIVED
--- NOTE | 2018-07-26 08:17 | Progress Note (SOAP) ---
Subjective Time Seen by a Provider: 08:15 Subjective/Events-last exam Patient is more alert today. Patient can carry on a conversation today. Patient still has a lot of stool in the abdomen. Abdomen less swollen compared to yesterday. Patient have surgery today Objective Exam Vital Signs Date Time Temp Pulse Resp B/P (MAP) Pulse Ox O2 Delivery O2 Flow Rate FiO2 07/26/18 04:35 98.6 63 22 113/57 (75) 94 Room Air 07/26/18 00:16 96.9 66 22 131/60 (83) 97 Room Air 07/25/18 20:05 97 Room Air 07/25/18 20:00 97.6 75 18 129/60 (83) 96 Room Air 07/25/18 15:50 97.8 62 20 119/68 (85) Room Air 07/25/18 12:00 97.9 72 118/68 (85) 95 Room Air 07/25/18 08:46 98 Room Air I & O 07/26/18 07:00 Intake Total 1420 ml Output Total 1800 ml Balance -380 ml Capillary Refill : Less Than 3 Seconds General Appearance: No Apparent Distress, WD/WN HEENT: Normal ENT Inspection Neck: Normal Inspection Respiratory: Lungs Clear, No Accessory Muscle Use, No Respiratory Distress Cardiovascular: Regular Rate, Rhythm, No Murmur Gastrointestinal: non tender, soft Results Lab Laboratory Tests 07/26/18 05:27: White Blood Count 7.1, Red Blood Count 3.72L, Hemoglobin 9.8L, Hematocrit 32L, Mean Corpuscular Volume 86, Mean Corpuscular Hemoglobin 26, Mean Corpuscular Hemoglobin Concent 31L, Red Cell Distribution Width 16.1H, Platelet Count 539H, Mean Platelet Volume 9.1, Neutrophils (%) (Auto) 79H, Lymphocytes (%) (Auto) 13 , Monocytes (%) (Auto) 8, Eosinophils (%) (Auto) 0, Basophils (%) (Auto) 0, Neutrophils # (Auto) 5.6, Lymphocytes # (Auto) 1.0, Monocytes # (Auto) 0.6, Eosinophils # (Auto) 0.0, Basophils # (Auto) 0.0, Sodium Level 143, Potassium Level 3.4L, Chloride Level 108H, Carbon Dioxide Level 24, Anion Gap 11, Blood Urea Nitrogen 12, Creatinine 0.71, Estimat Glomerular Filtration Rate > 60, BUN/ Creatinine Ratio 17, Glucose Level 79, Calcium Level 8.7, Corrected Calcium 9.5 , Total Bilirubin 0.2, Aspartate Amino Transf (AST/SGOT) 11, Alanine Aminotransferase (ALT/SGPT) < 6, Alkaline Phosphatase 79, Total Protein 6.1L, Albumin 3.0L Microbiology 07/24/18 Urine Culture - Preliminary, Resulted Gram Negative Dwain Assessment/Plan Assessment/Plan Assess & Plan/Chief Complaint Fecal impaction. Volvulus. Chronic constipation. Schizophrenia. Parkinson disease. MR. Patient to have surgery today removed fecal impaction. History of DVT Clinical Quality Measures Admission Status Admission Dx Sigmoid volvulus. Severe fecal impaction. Hydroureteronephrosis. Abdominal pain. Chronic constipation. Schizophrenia. Parkinson disease. MR. Dementia DVT/VTE Risk/Contraindication: Risk Factor Score Per Nursin RFS Level Per Nursing on Admit: 4+=Very High Contraindications-Pharm: Other *list below* ALBANIA RENTERIA DO Jul 26, 2018 08:17
[2018-07-26] MEDS ORDERED: POTASSIUM CL 10MEQ/50ML IVPB 50 ML IV NR (08:22)
[2018-07-26] MEDS: FLEET ENEMA ADULT 1 EA BTL PR SCH ×2 (08:23→19:48)
--- NOTE | 2018-07-26 08:33 | Diagnostic Imaging Report ---
INDICATION: Impaction and volvulus. COMPARISON: 07/25/2018. FINDINGS: A dense stool mass at the rectal vault distends the transverse diameter of the viscus to 11.9 cm, previously 13.3 cm. The more proximal colonic fecal load is elevated but is either similar or slightly decreased from the prior exam. IMPRESSION: Slight improvements in distention of the impacted rectal vault. The magnitude of mid to proximal colonic constipation is similar, if not slightly improved, as well. No adverse development is apparent. Dictated by: Dictated on workstation # [id number]
[2018-07-26] MEDS: POLYETHYLENE GLYCOL 17 GM (MIRALAX) PACK PO SCH (09:00)
[2018-07-26] MEDS ORDERED: LIDOCAINE PF 2% 5 ML (XYLOCAINE) VIAL ONE (11:31)
[2018-07-26] MEDS ORDERED: ONDANSETRON 4 MG/2 ML (SDV) Z0FRAN ONE (11:31)
[2018-07-26] MEDS ORDERED: SUCCINYLCHOLINE INJ 100 MG/5 ML SYR ONE (11:31)
[2018-07-26] MEDS ORDERED: proPOfol 200 MG/20 ML (DIPRIVAN) VIAL IV ONE (11:31)
[2018-07-26] MEDS ORDERED: fentaNYL INJECTION 100 MCG/2 ML AMP ONE (11:31)
[2018-07-26] MEDS ORDERED: SEVOFLURANE (ULTANE) 15 ML INHAL SOLN ONE ×5 (11:31→13:33)
[2018-07-26] MEDS ORDERED: LIDOCAINE 1% INJ 20 ML 20 ML VIAL ONE (12:09)
[2018-07-26] MEDS ORDERED: PHENYLEPHRINE 100 MCG/ML 10 ML (ANESTHESIA) SYR ONE (12:58)
[2018-07-26] MEDS ORDERED: LACTATED RINGERS 1,000 ML IV SCH (13:00)
--- NOTE | 2018-07-26 13:25 | Progress Note-Post Operative ---
Post-Operative Progess Note Surgeon (s)/Spray Gun Striper (s) Surgeon SCOOTER STANLEY MD Spray Gun Striper: none Pre-Operative Diagnosis severe fecal impaction rectum and colon. Post-Operative Diagnosis same Procedure & Operative Findings Date of Procedure 07/26/18 Procedure Performed/Findings anal exam under anesthesia. rectum/colon disimpaction. Anesthesia Type GET Estimated Blood Loss Estimated blood loss (mL): minimal Specimens/Packing Specimens Removed none SCOOTER STANLEY MD Jul 26, 2018 13:25
[2018-07-26] MEDS ORDERED: ONDANSETRON 4 MG/2 ML (SDV) Z0FRAN IVP PRN (13:45)
[2018-07-26] MEDS ORDERED: morphine INJ 10 MG/ML 1ML (SYR OR VIAL) IVP ONE (13:45)
[2018-07-26 14:15] VITALS: BP 140/58
--- NOTE | 2018-07-26 14:16 | Anesthesia-General Post-Op ---
General Patient Condition Mental Status/LOC: Same as Preop Cardiovascular: Satisfactory Nausea/Vomiting: Absent Respiratory: Satisfactory Pain: Controlled Complications: Absent Post Op Complications Complications None Follow Up Care/Instructions Patient Instructions None needed. Anesthesia/Patient Condition Patient Condition Patient is doing well, no complaints, stable vital signs, no apparent adverse anesthesia problems. RAJI PAEZ DO Jul 26, 2018 14:16
--- NOTE | 2018-07-26 14:26 | OPERATIVE REPORT ---
DATE OF SERVICE: 07/26/2018 ATTENDING PRIMARY CARE PHYSICIAN: Dr. Dalton. PREOPERATIVE DIAGNOSIS: Severe constipation with a fecal impaction. POSTOPERATIVE DIAGNOSIS: Severe constipation with a fecal impaction. PROCEDURE: Anal exam under anesthesia, rectal and colon disimpaction, pudendal nerve block SURGEON: Scooter Stanley MD ANESTHESIA: General endotracheal. ESTIMATED BLOOD LOSS: Minimal. FINDINGS: Copious amounts of Ahsan consistency stools of significant volume. White vaginal discharge, which may indicate fungal versus bacterial infection, which was sent for culture and sensitivity. DISPOSITION: The patient tolerated the procedure well. INDICATIONS: The patient is a 68-year-old female who was brought in by staff from an extended care facility due to abdominal distention and pain. She has a history of Parkinson's as well as schizophrenia and medical noncompliance as well as a longstanding history of constipation. A CT scan was performed, which did show severe fecal impaction throughout the patient's rectum, sigmoid colon, descending and transverse colon. There were no signs of obstruction and there are no peritoneal signs. Due to her medical problems as well as immobility, her condition is consistent with her history. She will need an anal exam under anesthesia to rule out any distal obstructive phenomenon as well as a disimpaction. DESCRIPTION OF PROCEDURE: The patient was brought to the operating room, placed on the table. After adequate IV pain and sedative medications and general endotracheal intubation, the patient was placed in lithotomy position. A pudendal nerve block was then made in between the sphincter muscles as well as a medial to the ischium using 1% lidocaine. The anal sphincters then relax appropriately. We then proceeded with an examination where she was found to have chronic stage II external and internal hemorrhoids, which were not actively edematous nor inflamed and no bleeding. There were no palpable masses. A significant amount of stool of hard ahsan consistency was discovered and this impacted as well as possible. We also proceeded with an external pressure on the abdominal wall to allow for movement of colonic stools into the rectum. We will able to get significant more amount of stools, which was disimpacted. There was a purulent vaginal discharge also noted which may indicate a bacterial versus a fungal infection and this was sent for culture and sensitivity. The patient tolerated the procedure well. We will start her on a high fiber diet as well as magnesium citrate 150 mL b.i.d. until she continues to have significant loose bowel movements and decreased abdominal distention. Job ID: [id number] DocumentID: [id number] Dictated Date: 07/26/2018 13:34:16 Customer Support Technician Date: 07/26/2018 14:26:09 Dictated By: SCOOTER STANLEY MD [facility]
[2018-07-26 15:44] VITALS: BP 117/69
--- NOTE | 2018-07-26 16:58 | NUR ---
1150 PT TO OR VIA BED ACCOMPANIED BY OR STAFF.
--- NOTE | 2018-07-26 17:00 | NUR ---
1410 PT BACK TO ROOM 432 VIA BED REPORT RECEIVED AT BEDSIDE FROM Ysabel GONZALEZ RN.
[2018-07-26] MEDS: cefTRIAXone 1,000 MG/SWFI 10 ML IV PUSH IV SCH ×2 (19:42)
[2018-07-26] MEDS: MAGNESIUM CITRATE 300 ML BTL PO SCH (19:48)
[2018-07-26 20:00] VITALS: BP 107/54
[2018-07-27 00:17] VITALS: BP 109/71
[2018-07-27] MEDS: NS IV 1000 ML 1,000 ML IV SCH (03:10)
[2018-07-27 03:50] VITALS: BP 127/65
[2018-07-27 05:46] LABS: BASOPHILS % (AUTO) 0 % (0-10); EOSINOPHILS % (AUTO) 0 % (0-10); HEMATOCRIT 31 % (35-52); HEMOGLOBIN 9.2 G/DL (11.5-16.0); LYMPHOCYTES # (AUTO) 0.9 X 10^3 (1.0-4.0); LYMPHOCYTES % (AUTO) 9 % (12-44); MEAN CORPUSCULAR HEMOGLOBIN 26 PG (25-34); MEAN CORPUSCULAR HGB CONC 30 G/DL (32-36); MEAN CORPUSCULAR VOLUME 85 FL (80-99); MEAN PLATELET VOLUME 8.9 FL (7.4-10.4); MONOCYTES # (AUTO) 0.4 X 10^3 (0.0-1.0); MONOCYTES % (AUTO) 3 % (0-12); NEUTROPHILS # (AUTO) 9.4 X 10^3 (1.8-7.8); NEUTROPHILS % (AUTO) 88 % (42-75); PLATELET COUNT 493 10^3/uL (130-400); RED CELL DISTRIBUTION WIDTH 15.3 % (10.0-14.5); WHITE BLOOD COUNT 10.7 10^3/uL (4.3-11.0)
[2018-07-27 06:08] LABS: ANISOCYTOSIS SLIGHT; BAND NEUTROPHILS 1 %; BASOPHILS % (MANUAL) 0 %; EOSINOPHILS % (MANUAL) 0 %; HYPOCHROMASIA SLIGHT; LYMPHOCYTES % (MANUAL) 10 %; METAMYELOCYTES % 5 %; MONOCYTES % (MANUAL) 2 %; NEUTROPHILS % (MANUAL) 82 %
[2018-07-27 06:36] LABS: ALANINE AMINOTRANSFERASE < 6 U/L (0-55); ALBUMIN 2.8 GM/DL (3.2-4.5); ALKALINE PHOSPHATASE 76 U/L (40-136); BILIRUBIN,TOTAL 0.2 MG/DL (0.1-1.0); BUN/CREATININE RATIO 18; CALCIUM 8.4 MG/DL (8.5-10.1); CARBON DIOXIDE 25 MMOL/L (21-32); CHLORIDE 107 MMOL/L (98-107); CREATININE SERUM 0.67 MG/DL (0.60-1.30); GFR ESTIMATED > 60; GLUCOSE 112 MG/DL (70-105); POTASSIUM 3.8 MMOL/L (3.6-5.0); SODIUM 139 MMOL/L (135-145); TOTAL PROTEIN 5.7 GM/DL (6.4-8.2)
[2018-07-27 08:00] VITALS: BP 127/56
[2018-07-27] MEDS ORDERED: TRIAMCINOLONE 0.1% CR (KENALOG) 15 GM TUBE TP PRN (08:00)
[2018-07-27] MEDS ORDERED: BETAMETHASONE DIPRO (AUGMENTED) 0.05% CREAM 15 GM TP PRN (08:00)
[2018-07-27] MEDS ORDERED: MILK OF MAGNESIA 400 MG/5 ML 30 ML UDC PO PRN (08:00)
[2018-07-27] MEDS ORDERED: BISACODYL 10 MG SUPP (DULCOLAX) RC PRN (08:00)
--- NOTE | 2018-07-27 08:07 | Progress Note (SOAP) ---
Subjective Time Seen by a Provider: 08:04 Subjective/Events-last exam Patient abdominal perez doing much better. Without medicine schizophrenic episodes are worse. With volvulus cannot use clots of pain. Patient put on Zyprexa Objective Exam Vital Signs Date Time Temp Pulse Resp B/P (MAP) Pulse Ox O2 Delivery O2 Flow Rate FiO2 07/27/18 03:50 97.3 62 20 127/65 (85) 96 Room Air 07/27/18 00:17 97.7 67 18 109/71 (84) 96 Room Air 07/26/18 20:00 97.8 71 16 107/54 (71) 96 Room Air 07/26/18 19:50 97 Room Air 07/26/18 15:44 97.5 79 18 117/69 (85) 96 Room Air 07/26/18 14:15 97.0 78 18 140/58 (85) 93 Room Air 07/26/18 12:00 Room Air 07/26/18 08:10 97 Room Air 07/26/18 08:00 98.0 64 18 118/69 (85) 96 Room Air I & O 07/27/18 07:00 Intake Total 2120 ml Output Total 1495 ml Balance 625 ml Capillary Refill : Less Than 3 Seconds General Appearance: No Apparent Distress, WD/WN HEENT: Normal ENT Inspection Neck: Normal Inspection, Non Tender Respiratory: Chest Non Tender, No Accessory Muscle Use, No Respiratory Distress Cardiovascular: Regular Rate, Rhythm, No Murmur Gastrointestinal: non tender, soft, other (Abdomen much better) Results Lab Laboratory Tests 07/27/18 05:35: White Blood Count 10.7, Red Blood Count 3.59L, Hemoglobin 9.2L, Hematocrit 31L, Mean Corpuscular Volume 85, Mean Corpuscular Hemoglobin 26, Mean Corpuscular Hemoglobin Concent 30L, Red Cell Distribution Width 15.3H, Platelet Count 493H, Mean Platelet Volume 8.9, Neutrophils (%) (Auto) 88H, Lymphocytes (%) (Auto) 9L , Monocytes (%) (Auto) 3, Eosinophils (%) (Auto) 0, Basophils (%) (Auto) 0, Neutrophils # (Auto) 9.4H, Lymphocytes # (Auto) 0.9L, Monocytes # (Auto) 0.4, Eosinophils # (Auto) 0.0, Basophils # (Auto) 0.0, Neutrophils % (Manual) 82, Lymphocytes % (Manual) 10, Monocytes % (Manual) 2, Eosinophils % (Manual) 0, Basophils % (Manual) 0, Metamyelocytes % 5, Band Neutrophils 1, Hypochromasia SLIGHT, Anisocytosis SLIGHT, Sodium Level 139, Potassium Level 3.8, Chloride Level 107, Carbon Dioxide Level 25, Anion Gap 7, Blood Urea Nitrogen 12, Creatinine 0.67, Estimat Glomerular Filtration Rate > 60, BUN/Creatinine Ratio 18, Glucose Level 112H, Calcium Level 8.4L, Corrected Calcium 9.4, Total Bilirubin 0.2, Aspartate Amino Transf (AST/SGOT) 14, Alanine Aminotransferase ( ALT/SGPT) < 6, Alkaline Phosphatase 76, Total Protein 5.7L, Albumin 2.8L Microbiology 07/24/18 Urine Culture - Preliminary, Resulted Escherichia coli Assessment/Plan Assessment/Plan Assess & Plan/Chief Complaint Fecal impaction. Volvulus. Chronic constipation. Schizophrenia. Parkinson disease. MR. Patient to have surgery today removed fecal impaction. History of DVT. . 07/27/18 fecal impaction. Volvulus. Chronic constipation. Schizophrenia. Parkinson disease. MR. History of DVT Clinical Quality Measures Admission Status Admission Dx Sigmoid volvulus. Severe fecal impaction. Hydroureteronephrosis. Abdominal pain. Chronic constipation. Schizophrenia. Parkinson disease. MR. Dementia DVT/VTE Risk/Contraindication: Risk Factor Score Per Nursin RFS Level Per Nursing on Admit: 4+=Very High Contraindications-Pharm: Other *list below* ALBANIA RENTERIA DO Jul 27, 2018 08:07
--- NOTE | 2018-07-27 08:08 | NUR ---
DR RENTERIA IN ROOM TO SEE PT NEW ORDERS RECEIVED. SEE ORDER HX
[2018-07-27] MEDS ORDERED: ACETAMINOPHEN 500 MG TAB (TYLENOL) PO PRN (08:30)
[2018-07-27] MEDS: APIXABAN 5 MG (ELIQUIS) TABLET PO SCH ×2 (08:53→20:55)
[2018-07-27] MEDS: LORATADINE (CLARITIN) 10 MG TAB PO SCH (08:53)
[2018-07-27] MEDS: LEVOTHYROXINE 75 MCG (LEVOTHROID) TABLET PO SCH (08:53)
[2018-07-27] MEDS: LEVOTHYROXINE 100 MCG (LEVOTHROID) TAB PO SCH (08:53)
[2018-07-27] MEDS: VITAMIN D3 1,000 UNITS (CHOLECALCIFEROL) TABLET PO SCH (08:53)
[2018-07-27] MEDS: OLANZapine 5 MG (ZyPREXA) TAB PO SCH ×2 (08:53→20:55)
[2018-07-27] MEDS: DOCUSATE SODIUM 100 MG (COLACE) CAP PO SCH ×2 (08:53→17:23)
[2018-07-27] MEDS: MAGNESIUM CITRATE 300 ML BTL PO SCH (08:54)
[2018-07-27] MEDS: DIVALPROEX 250 MG DELAYED RELEASE (DEPAKOTE) TAB PO SCH ×3 (08:57→17:23)
[2018-07-27] MEDS: TRIHEXYPHENIDYL 2 MG (ARTANE) TAB PO SCH ×3 (09:02→17:23)
[2018-07-27] MEDS: FLEET ENEMA ADULT 1 EA BTL PR SCH ×2 (09:03→20:55)
[2018-07-27] MEDS: MICONAZOLE 2% POWDER (DESENEX AF) 90 GM TOP SCH ×2 (09:03→20:56)
--- NOTE | 2018-07-27 10:11 | NUR ---
CM/SS. Patient has established placement with [facility]. She resides on their specialty unit due to dementia, schizophrenia, intellectual disability, parkinsons. She was under [facility] residential care and not Medicare skilled. She would meet eligibility for skilled if it is determined patient could actively participate and potentially benefit. Follow for post hospital planning.
[2018-07-27 12:00] VITALS: BP 148/58
--- NOTE | 2018-07-27 15:23 | NUR ---
Pastoral care visit, provided support and prayer.
--- NOTE | 2018-07-27 15:40 | Diagnostic Imaging Report ---
INDICATION: Chronic constipation. EXAMINATION: 07/26/2018. FINDINGS: There has been substantial reduction in colonic fecal load when compared to prior study. Stool at the rectal vault much less pronounced at 8 cm transverse, previously 12 cm. Stool throughout the remaining large bowel substantially decreased. IMPRESSION: Significant reduction in colonic fecal loading with improvements in rectal impaction and no adverse development. Dictated by: Dictated on workstation # [id number]
--- NOTE | 2018-07-27 15:48 | Progress Note (SOAP) ---
Subjective Date Seen by a Provider: Jul 27, 2018 Time Seen by a Provider: 15:00 Subjective/Events-last exam doing much better. less abdominal distention. having significant BM's and flatus. Objective Exam Vital Signs Date Time Temp Pulse Resp B/P (MAP) Pulse Ox O2 Delivery O2 Flow Rate FiO2 07/27/18 12:00 98.5 76 18 148/58 (88) 93 Room Air 07/27/18 08:25 97 Room Air 07/27/18 08:00 97.4 91 18 127/56 (79) 93 Room Air 07/27/18 03:50 97.3 62 20 127/65 (85) 96 Room Air 07/27/18 00:17 97.7 67 18 109/71 (84) 96 Room Air 07/26/18 20:00 97.8 71 16 107/54 (71) 96 Room Air 07/26/18 19:50 97 Room Air I & O 07/27/18 07:00 Intake Total 2120 ml Output Total 1495 ml Balance 625 ml Capillary Refill : Less Than 3 Seconds General Appearance: No Apparent Distress HEENT: PERRL/EOMI Neck: Full Range of Motion Respiratory: Chest Non Tender, Lungs Clear, Normal Breath Sounds Cardiovascular: Regular Rate, Rhythm Gastrointestinal: normal bowel sounds, non tender, soft Extremity: Normal Capillary Refill Neurologic/Psychiatric: Alert, Oriented x3 Skin: Normal Color Lymphatic: No Adenopathy Results Lab Laboratory Tests 07/27/18 05:35: White Blood Count 10.7, Red Blood Count 3.59L, Hemoglobin 9.2L, Hematocrit 31L, Mean Corpuscular Volume 85, Mean Corpuscular Hemoglobin 26, Mean Corpuscular Hemoglobin Concent 30L, Red Cell Distribution Width 15.3H, Platelet Count 493H, Mean Platelet Volume 8.9, Neutrophils (%) (Auto) 88H, Lymphocytes (%) (Auto) 9L , Monocytes (%) (Auto) 3, Eosinophils (%) (Auto) 0, Basophils (%) (Auto) 0, Neutrophils # (Auto) 9.4H, Lymphocytes # (Auto) 0.9L, Monocytes # (Auto) 0.4, Eosinophils # (Auto) 0.0, Basophils # (Auto) 0.0, Neutrophils % (Manual) 82, Lymphocytes % (Manual) 10, Monocytes % (Manual) 2, Eosinophils % (Manual) 0, Basophils % (Manual) 0, Metamyelocytes % 5, Band Neutrophils 1, Hypochromasia SLIGHT, Anisocytosis SLIGHT, Sodium Level 139, Potassium Level 3.8, Chloride Level 107, Carbon Dioxide Level 25, Anion Gap 7, Blood Urea Nitrogen 12, Creatinine 0.67, Estimat Glomerular Filtration Rate > 60, BUN/Creatinine Ratio 18, Glucose Level 112H, Calcium Level 8.4L, Corrected Calcium 9.4, Total Bilirubin 0.2, Aspartate Amino Transf (AST/SGOT) 14, Alanine Aminotransferase ( ALT/SGPT) < 6, Alkaline Phosphatase 76, Total Protein 5.7L, Albumin 2.8L Microbiology 07/26/18 Genital Culture - Preliminary, Resulted Usual Vaginal Madelyn 07/26/18 MRSA Screen - Final, Complete MRSA not isolated 07/24/18 Urine Culture - Final, Complete Escherichia coli See Comments Assessment/Plan Assessment/Plan Assess & Plan/Chief Complaint severe constipation s/p anal exam under anesthesia and disimpaction. continue PO laxatives for remaining stools in proximal colon. Clinical Quality Measures DVT/VTE Risk/Contraindication: Risk Factor Score Per Nursin RFS Level Per Nursing on Admit: 4+=Very High Contraindications-Pharm: Other *list below* SCOOTER STANLEY MD Jul 27, 2018 15:48
[2018-07-27 16:00] VITALS: BP 128/64
[2018-07-27] MEDS: TRIM/SULFAMETH 160/800 (SEPTRA DS) TAB PO SCH (17:23)
[2018-07-27 20:00] VITALS: BP 141/67
[2018-07-27] MEDS ORDERED: traZODone 100 MG (DESYREL) TAB PO SCH (21:00)
[2018-07-28 00:58] VITALS: BP 127/76
[2018-07-28 05:31] LABS: BASOPHILS % (AUTO) 0 % (0-10); EOSINOPHILS % (AUTO) 0 % (0-10); HEMATOCRIT 32 % (35-52); HEMOGLOBIN 9.5 G/DL (11.5-16.0); LYMPHOCYTES # (AUTO) 1.5 X 10^3 (1.0-4.0); LYMPHOCYTES % (AUTO) 15 % (12-44); MEAN CORPUSCULAR HEMOGLOBIN 26 PG (25-34); MEAN CORPUSCULAR HGB CONC 30 G/DL (32-36); MEAN CORPUSCULAR VOLUME 86 FL (80-99); MEAN PLATELET VOLUME 9.1 FL (7.4-10.4); MONOCYTES # (AUTO) 0.6 X 10^3 (0.0-1.0); MONOCYTES % (AUTO) 7 % (0-12); NEUTROPHILS # (AUTO) 7.5 X 10^3 (1.8-7.8); NEUTROPHILS % (AUTO) 78 % (42-75); PLATELET COUNT 514 10^3/uL (130-400); WHITE BLOOD COUNT 9.6 10^3/uL (4.3-11.0)
[2018-07-28 05:42] LABS: BUN/CREATININE RATIO 18; CALCIUM 8.2 MG/DL (8.5-10.1); CARBON DIOXIDE 26 MMOL/L (21-32); CHLORIDE 107 MMOL/L (98-107); CREATININE SERUM 0.76 MG/DL (0.60-1.30); GFR ESTIMATED > 60; GLUCOSE 90 MG/DL (70-105); SODIUM 141 MMOL/L (135-145)
[2018-07-28] MEDS: LEVOTHYROXINE 100 MCG (LEVOTHROID) TAB PO SCH (06:24)
[2018-07-28] MEDS: TRIHEXYPHENIDYL 2 MG (ARTANE) TAB PO SCH ×2 (06:24→13:15)
[2018-07-28] MEDS: LEVOTHYROXINE 75 MCG (LEVOTHROID) TABLET PO SCH (06:24)
[2018-07-28] MEDS: VITAMIN D3 1,000 UNITS (CHOLECALCIFEROL) TABLET PO SCH (06:24)
[2018-07-28] MEDS: TRIM/SULFAMETH 160/800 (SEPTRA DS) TAB PO SCH (06:26)
--- NOTE | 2018-07-28 07:46 | Progress Note (SOAP) ---
Subjective Time Seen by a Provider: 07:41 Subjective/Events-last exam Patient doing better today. Abdomen is soft good. Still has an area of stool by the umbilicus region. Patient's blood tests look okay increase Zyprexa to 15 mg Objective Exam Vital Signs Date Time Temp Pulse Resp B/P (MAP) Pulse Ox O2 Delivery O2 Flow Rate FiO2 07/28/18 00:58 97.5 67 14 127/76 (93) 95 Room Air 07/27/18 20:25 Room Air 07/27/18 20:00 97.6 69 20 141/67 (91) 99 Room Air 07/27/18 16:00 97.4 69 18 128/64 (85) 97 Room Air 07/27/18 12:00 98.5 76 18 148/58 (88) 93 Room Air 07/27/18 08:25 97 Room Air 07/27/18 08:00 97.4 91 18 127/56 (79) 93 Room Air I & O 07/28/18 07:00 Intake Total 1780 ml Output Total 2325 ml Balance -545 ml Capillary Refill : Less Than 3 Seconds General Appearance: No Apparent Distress, WD/WN HEENT: Normal ENT Inspection Neck: Normal Inspection, Non Tender Respiratory: Lungs Clear, No Accessory Muscle Use Cardiovascular: Regular Rate, Rhythm, No Murmur Gastrointestinal: non tender, soft, other (Still has some stool around the umbilicus) Results Lab Laboratory Tests 07/28/18 05:16 Laboratory Tests 07/28/18 05:16: White Blood Count 9.6, Red Blood Count 3.69L, Hemoglobin 9.5L, Hematocrit 32L, Mean Corpuscular Volume 86, Mean Corpuscular Hemoglobin 26, Mean Corpuscular Hemoglobin Concent 30L, Red Cell Distribution Width 16.0H, Platelet Count 514H, Mean Platelet Volume 9.1, Neutrophils (%) (Auto) 78H, Lymphocytes (%) (Auto) 15 , Monocytes (%) (Auto) 7, Eosinophils (%) (Auto) 0, Basophils (%) (Auto) 0, Neutrophils # (Auto) 7.5, Lymphocytes # (Auto) 1.5, Monocytes # (Auto) 0.6, Eosinophils # (Auto) 0.0, Basophils # (Auto) 0.0, Sodium Level 141, Potassium Level 4.0, Chloride Level 107, Carbon Dioxide Level 26, Anion Gap 8, Blood Urea Nitrogen 14, Creatinine 0.76, Estimat Glomerular Filtration Rate > 60, BUN/ Creatinine Ratio 18, Glucose Level 90, Calcium Level 8.2L Microbiology 07/26/18 Genital Culture - Preliminary, Resulted Usual Vaginal Madelyn 07/26/18 MRSA Screen - Final, Complete MRSA not isolated 07/24/18 Urine Culture - Final, Complete Escherichia coli See Comments Assessment/Plan Assessment/Plan Assess & Plan/Chief Complaint Fecal impaction. Volvulus. Chronic constipation. Schizophrenia. Parkinson disease. MR. Patient to have surgery today removed fecal impaction. History of DVT. . 07/27/18 fecal impaction. Volvulus. Chronic constipation. Schizophrenia. Parkinson disease. MR. History of DVT. . 07/28/18. Fecal impaction better. Volvulus. Chronic constipation better. Schizophrenia. Bipolar. MR. Parkinson disease. Patient answering but confused Clinical Quality Measures Admission Status Admission Dx Sigmoid volvulus. Severe fecal impaction. Hydroureteronephrosis. Abdominal pain. Chronic constipation. Schizophrenia. Parkinson disease. MR. Dementia DVT/VTE Risk/Contraindication: Risk Factor Score Per Nursin RFS Level Per Nursing on Admit: 4+=Very High Contraindications-Pharm: Other *list below* ALBANIA RENTERIA DO Jul 28, 2018 07:46
--- NOTE | 2018-07-28 07:53 | NUR ---
VERBAL ORDERS RECEIVED FROM DR. RENTERIA TO CHANGE PTS ZYPREXA TO 5MG IN AM AND 10MG IN EVENING.
[2018-07-28 08:00] VITALS: BP 117/64
[2018-07-28] MEDS ORDERED: OLANZapine 5 MG (ZyPREXA) TAB PO SCH ×2 (09:00→21:00)
[2018-07-28] MEDS: DOCUSATE SODIUM 100 MG (COLACE) CAP PO SCH (09:56)
[2018-07-28] MEDS: APIXABAN 5 MG (ELIQUIS) TABLET PO SCH (09:56)
[2018-07-28] MEDS: FLEET ENEMA ADULT 1 EA BTL PR SCH (09:56)
[2018-07-28] MEDS: DIVALPROEX 250 MG DELAYED RELEASE (DEPAKOTE) TAB PO SCH ×2 (09:56→13:15)
[2018-07-28] MEDS: LORATADINE (CLARITIN) 10 MG TAB PO SCH (09:56)
[2018-07-28] MEDS: MICONAZOLE 2% POWDER (DESENEX AF) 90 GM TOP SCH (09:57)
[2018-07-28] MEDS ORDERED: OLAN5TAB25 PO ×2 (13:25)
[2018-07-28] MEDS ORDERED: DOCU-143 PO (13:25)
--- NOTE | 2018-07-28 13:55 | NUR ---
CM/SS. Patient discharged back to established placement with [facility] via transport scheduled for this afternoon. Physician did not order access for Medicare skilled benefits; therefore, patient will be returning to the [place] under [facility] senior care care. Faxed orders, prepared packet to accompany patient. Notified Guardian/Demond Farr by phone. Unit RN updated to call report to [facility] and also discuss patient's new Rx.
--- NOTE | 2018-07-28 15:36 | Diagnostic Imaging Report ---
Abdomen flat and upright. Indication: Chronic constipation. The prior exam of 07/27/2018 noted a collection of fecal material in the rectal vault measuring approximately 8 cm in maximum transverse diameter. On this exam that fecal collection now measures approximately 10 cm in maximum transverse diameter. However most of the thecal material within the descending colon seen on the prior exam has cleared. There is still a considerable amount of gas in both the large and small bowel and the descending colon itself is now distended by gas. No other abnormalities identified. Impression: The amount of fecal material in the rectal vault does measure greater than on the prior exam but most of the fecal material in the descending colon has cleared. A followup study would be recommended for continued evaluation. Dictated by: Dictated on workstation # [id number]
--- NOTE | 2018-07-28 16:38 | NUR ---
PT DISCHARGED TO [facility]. FACILITY CAME AND PICKED PT UP. IV AND NICOLE TAKEN OUT. PT URINATED MULTIPLE TIMES BEFORE DC. PT CHANGED INTO HER OWN CLOTHES BROUGHT BY FACILITY. PT TAKEN OUT IN WHEELCHAIR BY FACILITY STAFF.
--- NOTE | 2018-07-29 07:43 | Discharge Summary ---
Diagnosis/Chief Complaint Date of Admission Jul 24, 2018 at 17:52 Date of Discharge Jul 28, 2018 at 16:38 Discharge Date: Jul 28, 2018 Discharge Time: 07:40 Discharge Diagnosis Severe fecal impaction. Volvulus. DO NOT RESUSCITATE. Hydroureteral. Schizophrenic. Parkinson disease. MR. Hypothyroid. Major depressive disorder. History of DVT. UTI due to Escherichia coli Reason Hospital Visit Patient is is a resident of [facility]. I received a call last night stating that the patient's abdomen is distended and having pain to palpation. Patient sent out to the emergency room where a CAT scan of the abdomen and pelvis shows sigmoid volvulus and severe fecal impaction. Patient's abdomen is soft. Patient on palpation has a abdomen and distention of the intestines. Patient has chronic constipation. Patient unable to give a history. Patient has schizophrenia, Parkinson disease and MR. Patient admitted. Patient had a history of a previous DVT of the leg Discharge Summary Procedures Surgical disimpaction Consultations Surgeon Discharge Physical Examination Allergies: Coded Allergies: belladonna alkaloids (Verified Allergy, Mild, 10/11/14) meperidine (Verified Allergy, Mild, 10/11/14) Uncoded Allergies: pectin (Allergy, Mild, 10/11/14) Vitals & I&Os Vital Signs Date Time Temp Pulse Resp B/P (MAP) Pulse Ox O2 Delivery O2 Flow Rate FiO2 07/28/18 08:00 Room Air 07/28/18 08:00 98.9 67 18 117/64 (81) 95 Hospital Course Patient is much better. Patient transferred back to assisted. Labs (last 24 hrs) Laboratory Tests 07/24/18 14:05: White Blood Count 7.2, Red Blood Count 3.97L, Hemoglobin 10.4L, Hematocrit 34L, Mean Corpuscular Volume 87, Mean Corpuscular Hemoglobin 26, Mean Corpuscular Hemoglobin Concent 30L, Red Cell Distribution Width 16.4H, Platelet Count 568H, Mean Platelet Volume 8.9, Neutrophils (%) (Auto) 74, Lymphocytes (%) (Auto) 18, Monocytes (%) (Auto) 8, Eosinophils (%) (Auto) 0, Basophils (%) (Auto) 0, Neutrophils # (Auto) 5.4, Lymphocytes # (Auto) 1.3, Monocytes # (Auto) 0.6, Eosinophils # (Auto) 0.0, Basophils # (Auto) 0.0, Sodium Level 145, Potassium Level 4.0, Chloride Level 107, Carbon Dioxide Level 28, Anion Gap 10, Blood Urea Nitrogen 17, Creatinine 0.81, Estimat Glomerular Filtration Rate > 60, BUN/ Creatinine Ratio 21, Glucose Level 104, Calcium Level 9.0, Corrected Calcium 9.7 , Total Bilirubin 0.2, Aspartate Amino Transf (AST/SGOT) 10, Alanine Aminotransferase (ALT/SGPT) < 6, Alkaline Phosphatase 87, Total Protein 6.6, Albumin 3.1L, Amylase Level 29, Lipase 13 07/24/18 14:11: Urine Color YELLOW, Urine Clarity VERY CLOUDYH, Urine pH 8, Urine Specific Clare 1.010L, Urine Protein 2+H, Urine Glucose (UA) NEGATIVE, Urine Ketones NEGATIVE, Urine Nitrite POSITIVEH, Urine Bilirubin NEGATIVE, Urine Urobilinogen NORMAL, Urine Leukocyte Esterase 3+H, Urine RBC (Auto) 2+H, Urine RBC NONE, Urine WBC TNTCH, Urine Crystals NONE, Urine Bacteria LARGEH, Urine Casts NONE, Urine Mucus SMALLH, Urine Culture Indicated YES 07/25/18 03:15: White Blood Count 9.1, Red Blood Count 3.96L, Hemoglobin 10.1L, Hematocrit 34L, Mean Corpuscular Volume 86, Mean Corpuscular Hemoglobin 26, Mean Corpuscular Hemoglobin Concent 30L, Red Cell Distribution Width 15.9H, Platelet Count 531H, Mean Platelet Volume 9.0, Neutrophils (%) (Auto) 83H, Lymphocytes (%) (Auto) 9L , Monocytes (%) (Auto) 8, Eosinophils (%) (Auto) 0, Basophils (%) (Auto) 0, Neutrophils # (Auto) 7.5, Lymphocytes # (Auto) 0.8L, Monocytes # (Auto) 0.8, Eosinophils # (Auto) 0.0, Basophils # (Auto) 0.0, Sodium Level 144, Potassium Level 4.0, Chloride Level 108H, Carbon Dioxide Level 28, Anion Gap 8, Blood Urea Nitrogen 14, Creatinine 0.77, Estimat Glomerular Filtration Rate > 60, BUN/ Creatinine Ratio 18, Glucose Level 91, Calcium Level 8.8, Corrected Calcium 9.5 , Total Bilirubin 0.2, Aspartate Amino Transf (AST/SGOT) 10, Alanine Aminotransferase (ALT/SGPT) < 6, Alkaline Phosphatase 87, Total Protein 6.5, Albumin 3.1L 07/26/18 05:27: White Blood Count 7.1, Red Blood Count 3.72L, Hemoglobin 9.8L, Hematocrit 32L, Mean Corpuscular Volume 86, Mean Corpuscular Hemoglobin 26, Mean Corpuscular Hemoglobin Concent 31L, Red Cell Distribution Width 16.1H, Platelet Count 539H, Mean Platelet Volume 9.1, Neutrophils (%) (Auto) 79H, Lymphocytes (%) (Auto) 13 , Monocytes (%) (Auto) 8, Eosinophils (%) (Auto) 0, Basophils (%) (Auto) 0, Neutrophils # (Auto) 5.6, Lymphocytes # (Auto) 1.0, Monocytes # (Auto) 0.6, Eosinophils # (Auto) 0.0, Basophils # (Auto) 0.0, Sodium Level 143, Potassium Level 3.4L, Chloride Level 108H, Carbon Dioxide Level 24, Anion Gap 11, Blood Urea Nitrogen 12, Creatinine 0.71, Estimat Glomerular Filtration Rate > 60, BUN/ Creatinine Ratio 17, Glucose Level 79, Calcium Level 8.7, Corrected Calcium 9.5 , Total Bilirubin 0.2, Aspartate Amino Transf (AST/SGOT) 11, Alanine Aminotransferase (ALT/SGPT) < 6, Alkaline Phosphatase 79, Total Protein 6.1L, Albumin 3.0L 07/27/18 05:35: White Blood Count 10.7, Red Blood Count 3.59L, Hemoglobin 9.2L, Hematocrit 31L, Mean Corpuscular Volume 85, Mean Corpuscular Hemoglobin 26, Mean Corpuscular Hemoglobin Concent 30L, Red Cell Distribution Width 15.3H, Platelet Count 493H, Mean Platelet Volume 8.9, Neutrophils (%) (Auto) 88H, Lymphocytes (%) (Auto) 9L , Monocytes (%) (Auto) 3, Eosinophils (%) (Auto) 0, Basophils (%) (Auto) 0, Neutrophils # (Auto) 9.4H, Lymphocytes # (Auto) 0.9L, Monocytes # (Auto) 0.4, Eosinophils # (Auto) 0.0, Basophils # (Auto) 0.0, Neutrophils % (Manual) 82, Lymphocytes % (Manual) 10, Monocytes % (Manual) 2, Eosinophils % (Manual) 0, Basophils % (Manual) 0, Metamyelocytes % 5, Band Neutrophils 1, Hypochromasia SLIGHT, Anisocytosis SLIGHT, Sodium Level 139, Potassium Level 3.8, Chloride Level 107, Carbon Dioxide Level 25, Anion Gap 7, Blood Urea Nitrogen 12, Creatinine 0.67, Estimat Glomerular Filtration Rate > 60, BUN/Creatinine Ratio 18, Glucose Level 112H, Calcium Level 8.4L, Corrected Calcium 9.4, Total Bilirubin 0.2, Aspartate Amino Transf (AST/SGOT) 14, Alanine Aminotransferase ( ALT/SGPT) < 6, Alkaline Phosphatase 76, Total Protein 5.7L, Albumin 2.8L 07/28/18 05:16: White Blood Count 9.6, Red Blood Count 3.69L, Hemoglobin 9.5L, Hematocrit 32L, Mean Corpuscular Volume 86, Mean Corpuscular Hemoglobin 26, Mean Corpuscular Hemoglobin Concent 30L, Red Cell Distribution Width 16.0H, Platelet Count 514H, Mean Platelet Volume 9.1, Neutrophils (%) (Auto) 78H, Lymphocytes (%) (Auto) 15 , Monocytes (%) (Auto) 7, Eosinophils (%) (Auto) 0, Basophils (%) (Auto) 0, Neutrophils # (Auto) 7.5, Lymphocytes # (Auto) 1.5, Monocytes # (Auto) 0.6, Eosinophils # (Auto) 0.0, Basophils # (Auto) 0.0, Sodium Level 141, Potassium Level 4.0, Chloride Level 107, Carbon Dioxide Level 26, Anion Gap 8, Blood Urea Nitrogen 14, Creatinine 0.76, Estimat Glomerular Filtration Rate > 60, BUN/ Creatinine Ratio 18, Glucose Level 90, Calcium Level 8.2L Microbiology 07/26/18 Genital Culture - Preliminary, Resulted Usual Vaginal Madelyn 07/26/18 MRSA Screen - Final, Complete MRSA not isolated 07/24/18 Urine Culture - Final, Complete Escherichia coli See Comments Laboratory Tests 07/24/18 14:05 07/25/18 03:15 07/26/18 05:27 07/27/18 05:35 07/28/18 05:16 Pending Labs Microbiology Date/Time Source Procedure Growth Status 07/26/18 12:27 Vaginal Genital Culture - Preliminary Usual Vaginal Madelyn Resulted 07/26/18 01:35 Nasal MRSA Screen - Final MRSA not isolated Complete 07/24/18 14:11 Urine Aldrich Cath Urine Culture - Final Escherichia coli See Comments Complete Laboratory Tests 07/24/18 14:05: White Blood Count 7.2, Red Blood Count 3.97, Hemoglobin 10.4, Hematocrit 34, Mean Corpuscular Volume 87, Mean Corpuscular Hemoglobin 26, Mean Corpuscular Hemoglobin Concent 30, Red Cell Distribution Width 16.4, Platelet Count 568, Mean Platelet Volume 8.9, Neutrophils (%) (Auto) 74, Lymphocytes (%) (Auto) 18, Monocytes (%) (Auto) 8, Eosinophils (%) (Auto) 0, Basophils (%) (Auto) 0, Neutrophils # (Auto) 5.4, Lymphocytes # (Auto) 1.3, Monocytes # (Auto) 0.6, Eosinophils # (Auto) 0.0, Basophils # (Auto) 0.0, Sodium Level 145, Potassium Level 4.0, Chloride Level 107, Carbon Dioxide Level 28, Anion Gap 10, Blood Urea Nitrogen 17, Creatinine 0.81, Estimat Glomerular Filtration Rate > 60, BUN/ Creatinine Ratio 21, Glucose Level 104, Calcium Level 9.0, Corrected Calcium 9.7 , Total Bilirubin 0.2, Aspartate Amino Transf (AST/SGOT) 10, Alanine Aminotransferase (ALT/SGPT) < 6, Alkaline Phosphatase 87, Total Protein 6.6, Albumin 3.1, Amylase Level 29, Lipase 13 07/24/18 14:11: Urine Color YELLOW, Urine Clarity VERY CLOUDY, Urine pH 8, Urine Specific Clare 1.010, Urine Protein 2+, Urine Glucose (UA) NEGATIVE, Urine Ketones NEGATIVE, Urine Nitrite POSITIVE, Urine Bilirubin NEGATIVE, Urine Urobilinogen NORMAL, Urine Leukocyte Esterase 3+, Urine RBC (Auto) 2+, Urine RBC NONE, Urine WBC TNTC, Urine Crystals NONE, Urine Bacteria LARGE, Urine Casts NONE, Urine Mucus SMALL, Urine Culture Indicated YES 07/25/18 03:15: White Blood Count 9.1, Red Blood Count 3.96, Hemoglobin 10.1, Hematocrit 34, Mean Corpuscular Volume 86, Mean Corpuscular Hemoglobin 26, Mean Corpuscular Hemoglobin Concent 30, Red Cell Distribution Width 15.9, Platelet Count 531, Mean Platelet Volume 9.0, Neutrophils (%) (Auto) 83, Lymphocytes (%) (Auto) 9, Monocytes (%) (Auto) 8, Eosinophils (%) (Auto) 0, Basophils (%) (Auto) 0, Neutrophils # (Auto) 7.5, Lymphocytes # (Auto) 0.8, Monocytes # (Auto) 0.8, Eosinophils # (Auto) 0.0, Basophils # (Auto) 0.0, Sodium Level 144, Potassium Level 4.0, Chloride Level 108, Carbon Dioxide Level 28, Anion Gap 8, Blood Urea Nitrogen 14, Creatinine 0.77, Estimat Glomerular Filtration Rate > 60, BUN/ Creatinine Ratio 18, Glucose Level 91, Calcium Level 8.8, Corrected Calcium 9.5 , Total Bilirubin 0.2, Aspartate Amino Transf (AST/SGOT) 10, Alanine Aminotransferase (ALT/SGPT) < 6, Alkaline Phosphatase 87, Total Protein 6.5, Albumin 3.1 07/26/18 05:27: White Blood Count 7.1, Red Blood Count 3.72, Hemoglobin 9.8, Hematocrit 32, Mean Corpuscular Volume 86, Mean Corpuscular Hemoglobin 26, Mean Corpuscular Hemoglobin Concent 31, Red Cell Distribution Width 16.1, Platelet Count 539, Mean Platelet Volume 9.1, Neutrophils (%) (Auto) 79, Lymphocytes (%) (Auto) 13, Monocytes (%) (Auto) 8, Eosinophils (%) (Auto) 0, Basophils (%) (Auto) 0, Neutrophils # (Auto) 5.6, Lymphocytes # (Auto) 1.0, Monocytes # (Auto) 0.6, Eosinophils # (Auto) 0.0, Basophils # (Auto) 0.0, Sodium Level 143, Potassium Level 3.4, Chloride Level 108, Carbon Dioxide Level 24, Anion Gap 11, Blood Urea Nitrogen 12, Creatinine 0.71, Estimat Glomerular Filtration Rate > 60, BUN/ Creatinine Ratio 17, Glucose Level 79, Calcium Level 8.7, Corrected Calcium 9.5 , Total Bilirubin 0.2, Aspartate Amino Transf (AST/SGOT) 11, Alanine Aminotransferase (ALT/SGPT) < 6, Alkaline Phosphatase 79, Total Protein 6.1, Albumin 3.0 07/27/18 05:35: White Blood Count 10.7, Red Blood Count 3.59, Hemoglobin 9.2, Hematocrit 31, Mean Corpuscular Volume 85, Mean Corpuscular Hemoglobin 26, Mean Corpuscular Hemoglobin Concent 30, Red Cell Distribution Width 15.3, Platelet Count 493, Mean Platelet Volume 8.9, Neutrophils (%) (Auto) 88, Lymphocytes (%) (Auto) 9, Monocytes (%) (Auto) 3, Eosinophils (%) (Auto) 0, Basophils (%) (Auto) 0, Neutrophils # (Auto) 9.4, Lymphocytes # (Auto) 0.9, Monocytes # (Auto) 0.4, Eosinophils # (Auto) 0.0, Basophils # (Auto) 0.0, Neutrophils % (Manual) 82, Lymphocytes % (Manual) 10, Monocytes % (Manual) 2, Eosinophils % (Manual) 0, Basophils % (Manual) 0, Metamyelocytes % 5, Band Neutrophils 1, Hypochromasia SLIGHT, Anisocytosis SLIGHT, Sodium Level 139, Potassium Level 3.8, Chloride Level 107, Carbon Dioxide Level 25, Anion Gap 7, Blood Urea Nitrogen 12, Creatinine 0.67, Estimat Glomerular Filtration Rate > 60, BUN/Creatinine Ratio 18, Glucose Level 112, Calcium Level 8.4, Corrected Calcium 9.4, Total Bilirubin 0.2, Aspartate Amino Transf (AST/SGOT) 14, Alanine Aminotransferase ( ALT/SGPT) < 6, Alkaline Phosphatase 76, Total Protein 5.7, Albumin 2.8 07/28/18 05:16: White Blood Count 9.6, Red Blood Count 3.69, Hemoglobin 9.5, Hematocrit 32, Mean Corpuscular Volume 86, Mean Corpuscular Hemoglobin 26, Mean Corpuscular Hemoglobin Concent 30, Red Cell Distribution Width 16.0, Platelet Count 514, Mean Platelet Volume 9.1, Neutrophils (%) (Auto) 78, Lymphocytes (%) (Auto) 15, Monocytes (%) (Auto) 7, Eosinophils (%) (Auto) 0, Basophils (%) (Auto) 0, Neutrophils # (Auto) 7.5, Lymphocytes # (Auto) 1.5, Monocytes # (Auto) 0.6, Eosinophils # (Auto) 0.0, Basophils # (Auto) 0.0, Sodium Level 141, Potassium Level 4.0, Chloride Level 107, Carbon Dioxide Level 26, Anion Gap 8, Blood Urea Nitrogen 14, Creatinine 0.76, Estimat Glomerular Filtration Rate > 60, BUN/ Creatinine Ratio 18, Glucose Level 90, Calcium Level 8.2 Discharge Home Medications: Active Scripts Active Olanzapine 5 Mg Tablet 5 Mg PO DAILY 30 Days Olanzapine 5 Mg Tablet 10 Mg PO DAILY@2100 30 Days Colace (Docusate Sodium) 100 Mg Capsule 100 Mg PO DAILY 30 Days Reported Trihexyphenidyl HCl 2 Mg/5 Ml Elixir 5 Ml PO TID Milk of Magnesia (Magnesium Hydroxide) 400 Mg/5 Ml Oral.susp 30 Ml PO DAILY PRN Eliquis (Apixaban) 5 Mg Tablet 5 Mg PO BID Dulcolax (Bisacodyl) 10 Mg Supp.rect 10 Mg RC DAILY PRN Eucerin Creme (Lanolin Alcohol/Mo/W.pet/Arbela) 454 Gm Cream..g. TP UD PRN APPLY TO AFFECTED AREAS EVERY DAY AND EVENING SHIFT EVERY WEDNESDAY, WEDNESDAY, WEDNESDAY, WEDNESDAY, AND WEDNESDAY Vitamin D (Cholecalciferol (Vitamin D3)) 1,000 Unit Capsule 2,000 Units PO DAILY TAKES 2 (1,000 UNIT) CAPSULES Nystatin 1 Each Powder.ea. TP PRN PRN Triamcinolone Acetonide 0.1% Cream (Triamcinolone Acet) 15 Gm Cr TP BID PRN Acetaminophen Extra Strength (Acetaminophen) 500 Mg Tablet 1,000 Mg PO Q8H PRN Levothyroxine Sodium 175 Mcg Tablet 175 Mcg PO DAILY Divalproex Sodium 250 Mg Tablet.dr 250 Mg PO 0900,1200,1700 Cetirizine HCl 10 Mg Tablet 10 Mg PO DAILY Betamethasone Dp Aug 0.05% Crm (Betamethasone/Propylene Glyc) 15 Gm Cream..g. TP BID PRN APPLY TO AFFECTED AREAS WEDNESDAY THRU WEDNESDAY TOPICALLY NEEDED FOR ITCHING RELATED TO DERMATITIS Trazodone HCl 100 Mg Tablet 200 Mg PO HS TAKES 2 (100 MG) TABLETS Eucerin Creme (Lanolin Alcohol/Mo/W.pet/Arbela) 454 Gm Cream..g. TP HS APPLIES TO BOTH FEET Miralax (Polyethylene Glycol 3350) 17 Gm Powd.pack 17 Gm PO DAILY Amiodarone HCl 200 Mg Tablet 200 Mg PO DAILY HOLD FOR BP LESS THAN 100-60 AND PULSE LESS THAN 60 Instructions to patient/family Please see electronic discharge instructions given to patient. Clinical Quality Measures DVT/VTE Risk/Contraindication: Risk Factor Score Per Nursin RFS Level Per Nursing on Admit: 4+=Very High Contraindications-Pharm: Other *list below* ALBANIA RENTERIA DO Jul 29, 2018 07:43
--- NOTE | 2018-08-02 23:47 | Physician Query Clarification ---
PQ-Conflicting Diagnosis Admission/Discharge Admission Date: Jul 24, 2018 at 17:52 Discharge Date: Jul 28, 2018 at 16:38 The medical record reflects the following clinical scenario: History/Risk Factors: severe constipation Clinical Findings: fecal impaction Treatment: disimpaction under anesthesia Question: Do you agree with the impression of the volvulus? It is documented on summary but no mention of it on Dr Horton's operative report. I don't see where volvulus was treated or untwisted. Please document a response below. PHYSICIAN RESPONSE Do you agree w/Consulting Dx?: Yes In responding to this query, please exercise your independent professional judgment. The purpose of this communication is to more accurately reflect the complexity of your patients condition. The fact that a question is asked does not imply that any particular answer is desired or expected. Thank you for your timely response to this clarification. Requestors name: [ ] Phone # [ ] THIS PHYSICIAN QUERY FORM IS A PERMANENT PART OF THE MEDICAL RECORD DEBORAH BRENNER Aug 02, 2018 23:47 [place] RENTERIA DO Aug 03, 2018 07:14
== END 2018-07-28 16:38 | DRG 388 ==
LOC: EDUNIT# 13:59 → ER 14:00 → ICU 17:52 → 4TH 07-25 18:35
PROVIDERS: ADMIT Internal Medicine; ATTEND Internal Medicine
PROC: 3E0T3BZ Introduction of Anesthetic Agent into Peripheral Nerves and Plexi, Percutaneous Approach (ICD-10-PCS; 2018-07-26)
PROC: 0DCP7ZZ Extirpation of Matter from Rectum, Via Natural or Artificial Opening (ICD-10-PCS; principal; 2018-07-26 12:05)
DX: K56.41 Fecal impaction (principal); K56.2 Volvulus; N13.4 Hydroureter; N13.30 Unspecified hydronephrosis; N39.0 Urinary tract infection, site not specified; B96.20 Unspecified Escherichia coli [E. coli] as the cause of diseases classified elsewhere; G20 Parkinson's disease; Z66 Do not resuscitate; K64.1 Second degree hemorrhoids; F03.90 Unspecified dementia, unspecified severity, without behavioral disturbance, psychotic disturbance, mood disturbance, and anxiety; F20.9 Schizophrenia, unspecified; F79 Unspecified intellectual disabilities; F32.9 Major depressive disorder, single episode, unspecified; E03.9 Hypothyroidism, unspecified; F41.9 Anxiety disorder, unspecified; E78.00 Pure hypercholesterolemia, unspecified; I48.91 Unspecified atrial fibrillation; Z86.718 Personal history of other venous thrombosis and embolism; Z91.19 Patient's noncompliance with other medical treatment and regimen
CPT/HCPCS: 36415; 51702; 74018; 74019; 74177; 80048; 80053; 81000; 82150; 83690; 85007; 85025; 85027; 87070; 87077; 87081; 87088; 87184; 87186; 87205; 96374

== ENCOUNTER → 2018-07-29 | Outpatient (CLI) | payer MEDICARE, MEDICAID ==
[~2018-07-29] MED LIST changes: +APIX5TAB PO; +BISA10SU58 RC; +MAGN400O7 PO; +OLAN5TAB25 PO; +TRIH2ELI PO
--- NOTE | 2018-07-29 12:12 | Diagnostic Imaging Report ---
INDICATION: Constipation. FINDINGS: The fecal load distally distends the rectal vault to about 10 cm, unchanged from the exam of one day prior. There is some increased stool in the descending colon; however, that level is not grossly pathologic. Air ectasia of the remaining small and large bowel has improved mildly. IMPRESSION: There is mild improvement in gaseous bowel distention with unchanged distention of the rectal vault and mild progressive left colonic fecal loading. Dictated by: Dictated on workstation # [id number]
== END ==
LOC: RAD 11:25
PROVIDERS: ATTEND Family Medicine
DX: K59.09 Other constipation (principal); K62.89 Other specified diseases of anus and rectum; K63.89 Other specified diseases of intestine
CPT/HCPCS: 74018

== ENCOUNTER → 2018-11-18 | Outpatient (CLI) | payer MEDICAID, MEDICARE ==
[~2018-11-18] MED LIST changes: -TRAZ-189 PO; +TRAZ-222 PO
--- NOTE | 2018-11-18 15:39 | Diagnostic Imaging Report ---
INDICATION: Left leg pain. Left leg venous Doppler study was performed in the routine fashion with color flow Doppler and waveform analysis. FINDINGS: The left common femoral vein, superficial femoral vein, popliteal vein and visualized portion of the posterior tibial vein show normal compressibility and venous flow patterns. There is normal augmentation. IMPRESSION: No evidence of deep vein thrombosis of the major veins of the left leg. Dictated by: Dictated on workstation # [id number]
== END ==
LOC: RAD 13:10
PROVIDERS: ATTEND Family Medicine
DX: R22.42 Localized swelling, mass and lump, left lower limb (principal); Z86.718 Personal history of other venous thrombosis and embolism

== ENCOUNTER → 2019-03-12 | Outpatient (CLI) | payer MEDICARE ==
[~2019-03-12] MED LIST changes: -BISA10SU6 RC; +BISA10SU8 RC
[2019-03-12 14:42] LABS: BASOPHILS % (AUTO) 0 % (0-10); EOSINOPHILS % (AUTO) 0 % (0-10); HEMATOCRIT 36 % (35-52); HEMOGLOBIN 11.5 G/DL (11.5-16.0); LYMPHOCYTES # (AUTO) 1.1 X 10^3 (1.0-4.0); LYMPHOCYTES % (AUTO) 23 % (12-44); MEAN CORPUSCULAR HEMOGLOBIN 28 PG (25-34); MEAN CORPUSCULAR HGB CONC 32 G/DL (32-36); MEAN CORPUSCULAR VOLUME 87 FL (80-99); MEAN PLATELET VOLUME 9.3 FL (7.4-10.4); MONOCYTES # (AUTO) 0.5 X 10^3 (0.0-1.0); MONOCYTES % (AUTO) 10 % (0-12); NEUTROPHILS # (AUTO) 3.2 X 10^3 (1.8-7.8); NEUTROPHILS % (AUTO) 67 % (42-75); PLATELET COUNT 256 10^3/uL (130-400); RED CELL DISTRIBUTION WIDTH 13.8 % (10.0-14.5); WHITE BLOOD COUNT 4.8 10^3/uL (4.3-11.0)
== END ==
LOC: LABNPT 14:36
PROVIDERS: ATTEND Family Medicine
DX: Z51.81 Encounter for therapeutic drug level monitoring (principal)
CPT/HCPCS: 85025

== ENCOUNTER → 2019-03-15 | Outpatient (CLI) | payer MEDICARE, MEDICAID ==
--- NOTE | 2019-03-15 13:29 | Diagnostic Imaging Report ---
PROCEDURE: US right lower extremity venous. TECHNIQUE: Multiple real-time grayscale images were obtained over the right lower extremity in various projections. Additional spectral analysis and color Doppler duplex images were also obtained. INDICATION: Right leg swelling The veins of the right leg have good color filling and compressibility. There is normal phasic flow and normal response to distal augmentation. IMPRESSION: Negative venous DOPPLER right leg Dictated by: Dictated on workstation # [id number]
== END ==
LOC: RAD 12:09
PROVIDERS: ATTEND Family Medicine
DX: M79.89 Other specified soft tissue disorders (principal)

== ENCOUNTER → 2019-05-29 | Outpatient (CLI) | payer MEDICARE, MEDICAID ==
--- NOTE | 2019-05-29 15:02 | Diagnostic Imaging Report ---
INDICATION: RESP INF LUNG SOUNDS CRACKLED THICK WHIE SPUTUM COMPARISON: CT dated 01/02/2017. FINDINGS: Single frontal view of the chest demonstrates normal heart size and pulmonary vascularity. The lungs show long inspiratory volumes with asymmetric subtle patchy opacities in the left base. No large pleural effusion or pneumothorax is seen. The visualized osseous structures show no acute abnormalities. IMPRESSION: 1. Low lung volumes with asymmetric subtle patchy opacities of the left lower lung field. Atelectasis is favored, but infiltrate is not entirely excluded. May want to consider follow-up. Dictated by: Dictated on workstation # [id number]
== END ==
LOC: RAD 14:37
PROVIDERS: ATTEND Family Medicine
DX: J98.11 Atelectasis (principal); R91.8 Other nonspecific abnormal finding of lung field
CPT/HCPCS: 71045

== ENCOUNTER → 2019-06-05 | Outpatient (CLI) | payer MEDICARE, MEDICAID ==
--- NOTE | 2019-06-05 14:26 | Diagnostic Imaging Report ---
INDICATION: Lower respiratory infection. EXAMINATION: Portable chest at 1:28 PM. FINDINGS: The heart size and pulmonary vascularity are normal. The lungs are clear. There are no effusions or pneumothoraces. IMPRESSION: Negative chest. Dictated by: Dictated on workstation # [id number]
== END ==
LOC: RAD 13:21
PROVIDERS: ATTEND Family Medicine
DX: J22 Unspecified acute lower respiratory infection (principal); J18.9 Pneumonia, unspecified organism
CPT/HCPCS: 71045

== ENCOUNTER → 2020-09-23 | Outpatient (CLI) | payer MEDICARE, MEDICAID ==
[~2020-09-23] MED LIST changes: -AMIO200T4 PO; +AMIO200T6 PO; +BETA15CR14 TP; -BETA15CR37 TP; -HYDR-3812 PO; -IBUP-2055 PO; +IBUP-2473 PO; -TRAZ-190 PO; -TRAZ-222 PO; +TRAZ-227 PO; +TRH2T PO; +TRZ50T PO
--- NOTE | 2020-09-23 13:46 | Diagnostic Imaging Report ---
INDICATION: Difficulty swallowing. The study was performed in conjunction with speech pathology. Video fluoroscopy was performed during the swallowing of barium at multiple consistencies. Total 1 minute 52 seconds of fluoroscopy time is utilized. Patient was given nectar consistency. No swallow was initiated. There is moderate early spillover. There is moderate amount of vallecular residue present as well. No aspiration was observed. IMPRESSION: Limited study. Patient was given a spoonful of nectar consistency which did show early spillover and vallecular residue. No swallow was initiated therefore the procedure was terminated. Dictated by: Dictated on workstation # [id number]
== END ==
LOC: RAD 09:58
PROVIDERS: ATTEND Family Medicine
DX: R13.10 Dysphagia, unspecified (principal); R05 Cough
CPT/HCPCS: 74230